=== PATIENT | male | born 1960 | race Hispanic/Latino ===

== ENCOUNTER 2024-02-18 12:30 | Inpatient (IN) | payer OTHER, SELFPAY ==
[2024-02-18] VITALS (38 sets, daily range): BP systolic 49–162; BP diastolic 30–114; BMI 35.7
--- NOTE | 2024-02-18 09:06 | ED.GENMED ---
History of Present Illness
<Susan Morse FINANCIAL INSTITUTION VICE PRESIDENT - Last Filed: 02/18/24 15:47>
General
Chief Complaint: Change in Mental Status
Source: ambulance crew and senior living
Exam Limitations: altered mental status
Time Seen by Provider: 02/18/24 08:58
Nursing documentation reviewed up to this point in time: agreed with
History of Present Illness
History of Present Illness:
64 yo male from [facility] w h/o CVA w residual L side weakness, HTN, Cirrhosis, GERD, Indwelling Padron Catheter, presents for seizure activity per EMS per staff at [place]. EMS noted left arm twitches, no general seizure activity.
Patient is obtunded and not responding to verbal commands. Does withdraw arm with needle stick.
Spoke with LUZ Leal who states he has had a total change in mental state, he was not speaking this morning as usual, he was making some 'random motions with his arms' 'did not quite look like a seizure but it was unusual for him.' Normally alert
and oriented x 3.
Recent UTI on Bactrim 400/80, 1/2 tablet 3 times a week for prophylaxis on 02/13 increased to Bactrim DS 1 twice daily for UTI
Last seen normal last p.m.
He's not very talkative at baseline. Elvis saw him yesterday and he was his normal self. No reported falls. He is mostly in bed, non ambulatory, uses wheelchair
PT IS FULL CODE. Elvis states he has no family, has a guardian he will notify.
Past History
<Susan Morse FINANCIAL INSTITUTION VICE PRESIDENT - Last Filed: 02/18/24 15:47>
Past History
ED Past Medical History: GERD, Renal failure, Psychiatric (Depression), Other (T6 paraplegia ) and Other (Paraplegia with chronic neurogenic bladder and indwelling Padron, chronic thrombocytopenia, cirrhosis)
ED Past Surgical History: Bowel resection and Other (Left pneumonectomy)
Social History
Tobacco: Former smoker
Alcohol: None
Drug: None
Personal: Single
Living: senior living
Review of Systems
<Susan Morse FINANCIAL INSTITUTION VICE PRESIDENT - Last Filed: 02/18/24 15:47>
Review of Systems
Allergies reviewed?: Yes
Unable to obtain full review of systems at this time due to: due to acuity
Other source history: senior living and ambulance crew
All Other Systems: ROS reviewed and negative except as documented in HPI and ROS
Constitutional: Reports other (hypothermic)
ABD/GI: Denies vomiting or diarrhea
Musculoskeletal: Denies edema
Skin: Reports other (pale extremities cool to touch)
Neurological: Reports other (obtunded)
Phy Exam
<Susan Morse, FINANCIAL INSTITUTION VICE PRESIDENT - Last Filed: 02/18/24 15:47>
Physical Exam
Physical Exam:
GENERAL/Constitutional: Obtunded, not following commands, morbidly obese, hypothermic
EYES: Clear, PERRL, nonicteric, examiner has to hold eyelids open, pt not focusing
Head: NC/AT
ENMT: TM's normal, moist mucus membranes
Neck: Supple
CARDIAC: Regular rate and rhythm. No murmur or gallop.
RESPIRATORY: Breathing is regular nonlabored. No cough. Lungs clear with good air movement throughout. No wheezes rales or rhonchi. Mildly snoring respirations. Pulse ox 95% RA
GI: Soft, nontender. Normal BS.
MUSCULOSKELETAL: No edema
EXTREMITIES: Cool to touch
SKIN: Cool and dry.
PSYCH:Obtunded
NEUROLOGIC: Obtunded. Not responding to commands. Mild withdrawal of arm to needlestick. Opens eye intermittently for few seconds, not focusing. No tremors or abnormal movements noted.
Course
<Susan Morse, FINANCIAL INSTITUTION VICE PRESIDENT - Last Filed: 02/18/24 15:47>
Orders/Labs/Results
Orders:
Orders
02/18/24 09:10
EKG [Electrocardiogram (*1)] Urgent
Reason for Study: Abdominal Pain
02/18/24 09:12
CT Head W/o Iv Contrast Urgent
Comment:
Reason For Exam: change in mental state
02/18/24 09:16
EKG- Treatment ONCE
CR Chest Portable - 1 View Urgent
Comment:
Reason For Exam: unstable
Reason Study Needs to be Portable: Patient Unstable
02/18/24 09:23
0.9% Sodium Chloride 1000 ml [Nss] 2,000 ml IV NOW STA
02/18/24 09:24
ABG [Arterial Blood Gas] Urgent
%Oxygen/Room Air: Room
Ammonia Urgent
COVID-19 Antigen Urgent
Source: Nasal Swab
Complete Blood Count/With Diff Urgent
Comprehensive Metabolic Panel Urgent
Cortisol, Random Urgent
Comment: ADD
Magnesium Urgent
Comment: ADD
Procalcitonin Urgent
PCT Algorithmm Indication: Sepsis
TSH Urgent
Comment: ADD
Blood Culture Urgent
SAGRARIO Source: Blood/Venous
Specimen Description:
02/18/24 09:[address] Non Medication Order As Directed
Physician Order: Bear Hugger warmer
Above order entered?: Yes
02/18/24 09:34
Urinalysis Reflex To Culture Urgent
Date Specimen was Collected: 02/18/24
Time Specimen was Collected: 09:23
Urine Microscopic Reflex Cult Urgent
Urine Culture Urgent
SAGRARIO Source: U
Specimen Description:
Obtained by: Random
Date Specimen was Collected: 02/18/24
Time Specimen was Collected: 09:23
02/18/24 10:20
Lactic Acid Urgent
02/18/24 10:26
NORepinephrine 4 MG/250 ML [Levophed] 4 mg in 250 ml .ROUTE .STK-MED
02/18/24 10:29
NORepinephrine 4 MG/250 ML [Levophed] 4 mg in 250 ml IV NOW
Initial dose in mcg/min, then titrate:: 5
Titrate to keep:: MAP > 65 mmHg
Titrate by mcg/min:: 1-2 mcg/min
Frequency of titrations (minutes):: 5
Maximum dose in ICU in mcg/min:: 30
Maximum dose in IMU in mcg/min:: 8
Maximum dose in IVU in mcg/min:: 4
Begin to taper infusion when:: Remained at goal for 4hrs
Taper by mcg/min:: 1-2 mcg/min
Frequency of taper (minutes) if patient maintains goal:: 30
Taper to off?: Yes
If infusion off & no longer maintaining goal:: Contact Provider
02/18/24 10:37
Piperacillin/Tazo 3.375 Gram [Zosyn] 3.375 gram in 50 ml IV NOW
02/18/24 11:02
Lorazepam [Ativan] 0.5 mg IM NOW STA
Lorazepam [Ativan] 2 mg .ROUTE .STK-MED ONE
02/18/24 11:05
Fentanyl Citrate/Pf [Sublimaze] 100 mcg .ROUTE .STK-MED ONE
Fentanyl Citrate/Pf [Sublimaze] 100 mcg IV NOW STA
02/18/24 11:07
CT Abd/pel Without Iv Or Oral Urgent
Comment:
Reason For Exam: flank pain
02/18/24 12:02
Admit/Transfer Patient As Directed
Co-Sign Provider:
Level of Care: Inpatient admission
Assign to:: ICU
Physician / Group: Lona
Diagnosis: Sepsis
Reason for Hospitalization: Above
Expected length of stay greater than two midnights?: Yes
ELOS- Estimated Length of Stay in days: 4
I certify the patient meets the requirements for IP care: Yes
PRN Pain Medication Management As Directed
May give lesser potent ordered pain med per pt: Yes
preference::
Protocol:: Medication orders for pain may be administered in a
manner that supports deferring to patient preference
when the pt is:
- Requesting an ordered lesser potent pain medication.
Least to most potent pain medications are defined
as: acetaminophen < NSAID < tramadol < opioids
(morphine, oxycodone, hydromorphone).
- Requesting a lesser dose of the same medication IF
ORDERED.
- Requesting a less intrusive route of administration
if both routes are prescribed by the provider (PO <
IV).
02/18/24 12:05
Morphine Sulfate 2 mg IV NOW STA
02/18/24 12:07
Code Status As Directed
Resuscitation Status: Full Code
02/18/24 12:56
0.9% Sodium Chloride 1000 ml [Nss] 1,000 ml IV 150 mls/hr
Acetaminophen [Tylenol] 325 mg PO Q6HPRN PRN
Albuterol [ProAIR HFA INHALER] 2 puff INH R Q4HPRN PRN
Bisacodyl [Dulcolax] 10 mg RECTAL DAILYPRN PRN
HydrOXYZINE [Atarax] 25 mg PO Q6HPRN PRN
NORepinephrine 4 MG/250 ML [Levophed] 4 mg in 250 ml IV PER PROTOCOL
Currently infusing. Continue current dose and titrate:: Yes
Titrate to keep:: MAP > 65 mmHg
Titrate by mcg/min:: 1-2 mcg/min
Frequency of titrations (minutes):: 5
Maximum dose in ICU in mcg/min:: 30
Maximum dose in IMU in mcg/min:: 8
Maximum dose in IVU in mcg/min:: 4
Begin to taper infusion when:: Remained at goal for 4hrs
Taper by mcg/min:: 1-2 mcg/min
Frequency of taper (minutes) if patient maintains goal:: 30
Taper to off?: Yes
If infusion off & no longer maintaining goal:: Contact Provider
Phosphate Enema [Fleet Phosphate Enema-Adult] 118 ml RECTAL DAILYPRN PRN
Sorbitol Solution [Sorbitol 70% Solution] 30 ml PO [id number] PRN
02/18/24 12:56
Add On- LAB Routine
Tests Added?: Serum cortisole, TSH
INFECTIOUS DISEASE CONSULT Routine
Consulting Provider: Susanna Padgett
Was physician already notified: Yes
Regulatory Affairs Strategy Specialist Consult Routine
Consulting Provider: Trav Velasco
Was physician already notified: Yes
UROLOGY CONSULT Routine
Consulting Provider: Alli Nicholas
Was physician already notified: Yes
DX Deep Vein Thrombosis Video Routine
02/18/24 16:00
Heparin 5,000 units SC Q8
02/18/24 18:00
Calcium Polycarbophil [Fibercon] 1,250 mg PO QPM
Piperacillin/Tazo 2.25 Gram [Zosyn] 2.25 grams in 50 ml IV Q6
02/18/24 20:00
Baclofen [Lioresal] 10 mg PO BID
Guaifenesin [Mucinex] 600 mg PO BID
02/18/24 22:00
Baclofen [Lioresal] 20 mg PO HS
Melatonin 3 mg PO HS
Pregabalin [Lyrica] 100 mg PO HS
02/19/24 04:33
CBC/With Diff [Complete Blood Count/With Diff] IN AM
CMP [Comprehensive Metabolic Panel] IN AM
02/19/24 08:00
Docusate Sodium [Colace] 100 mg PO DAILY
Escitalopram Oxalate [Lexapro] 10 mg PO DAILY
FOLic ACID [Folvite] 1 mg PO DAILY
Famotidine [Pepcid] 10 mg PO DAILY
Multivitamin [Theragran] 1 tablet PO DAILY
Polyethylene Glycol Powder [Miralax] 17 grams PO DAILY
Thiamine HCl [Vitamin B1] 100 mg PO DAILY
Abnormal Lab Results
02/18/24 02/18/24
09:34
RBC 4.53 L 10^6/uL
(4.70-6.10)
Hgb 12.6 L g/dL
(13.0-18.0)
Hct 36.9 L %
(39.0-52.0)
Plt Count 68 L 10^3/uL
(130-400)
MPV 11.6 H fL
(7.4-10.4)
Abs Immat Gran (auto) 0.1 H 10^3/uL
(0-0.05)
Absolute Neuts (auto) 6.6 H 10^3/uL
(1.4-6.5)
Absolute Monos (auto) 1.6 H 10^3/uL
(0.1-0.6)
Immature Gran % 1.2 H %
(0-0.5)
Lymphocytes % 17.1 L %
(20.5-51.1)
Monocytes % 15.7 H %
(1.7-9.3)
pH 7.34 L
(7.35-7.45)
pCO2 34 L mmHg
(35-48)
HCO3 18.3 L mmol/L
(21-28)
ABG O2 Sat (Measured) 98.9 H %
(94-98)
Chloride 109 H mmol/L
(98-107)
Carbon Dioxide 19 L mmol/L
(22-30)
BUN 68 H mg/dl
(9-20)
Creatinine 3.1 H mg/dL
(0.7-1.3)
Magnesium 2.8 H mg/dl
(1.6-2.3)
Ammonia < 9 L umol/L
(9-30)
Albumin 3.1 L g/dl
(3.5-5.0)
Procalcitonin 1.15 H ng/ml
(0.0-0.25)
Ur Occult Blood Reflex 4+ A
(Negative)
Urine Bilirubin 1+ A
(Negative)
Urine Urobilinogen 2+ A
(Neg - 1+)
Leukocyte Esterase Rfl 2+ A
(Negative)
Urine RBC 21-25 A /HPF
(0-2)
Urine WBC (Reflex) 60-70 A /HPF
(0-5)
Urine Bacteria (Reflex) Many A
(Negative)
Urine Albumin (Reflex) 1+ A
(Neg - Trace)
02/18/24 09:24
02/18/24 09:24
Vital Signs
Initial and Last Documented VS:
Initial Vital Signs
BP
95/72
02/18/24 09:01
Last Documented Vital Signs
Temp Pulse Resp BP Pulse Ox
98.5 F 71 12 107/89 97
02/19/24 23:18 02/19/24 23:45 02/19/24 23:45 02/19/24 13:39 02/19/24 23:45
<Dewayne Sandoval MD - Last Filed: 02/20/24 06:05>
Orders/Labs/Results
Orders:
Orders
02/18/24 09:10
EKG [Electrocardiogram (*1)] Urgent
Reason for Study: Abdominal Pain
02/18/24 09:12
CT Head W/o Iv Contrast Urgent
Comment:
Reason For Exam: change in mental state
02/18/24 09:16
EKG- Treatment ONCE
CR Chest Portable - 1 View Urgent
Comment:
Reason For Exam: unstable
Reason Study Needs to be Portable: Patient Unstable
02/18/24 09:23
0.9% Sodium Chloride 1000 ml [Nss] 2,000 ml IV NOW STA
02/18/24 09:24
ABG [Arterial Blood Gas] Urgent
%Oxygen/Room Air: Room
Ammonia Urgent
COVID-19 Antigen Urgent
Source: Nasal Swab
Complete Blood Count/With Diff Urgent
Comprehensive Metabolic Panel Urgent
Cortisol, Random Urgent
Comment: ADD
Magnesium Urgent
Comment: ADD
Procalcitonin Urgent
PCT Algorithmm Indication: Sepsis
TSH Urgent
Comment: ADD
Blood Culture Urgent
SAGRARIO Source: Blood/Venous
Specimen Description:
02/18/24 09:[address] Non Medication Order As Directed
Physician Order: Bear Hugger warmer
Above order entered?: Yes
02/18/24 09:34
Urinalysis Reflex To Culture Urgent
Date Specimen was Collected: 02/18/24
Time Specimen was Collected: 09:23
Urine Microscopic Reflex Cult Urgent
Urine Culture Urgent
SAGRARIO Source: U
Specimen Description:
Obtained by: Random
Date Specimen was Collected: 02/18/24
Time Specimen was Collected: 09:23
02/18/24 10:20
Lactic Acid Urgent
02/18/24 10:26
NORepinephrine 4 MG/250 ML [Levophed] 4 mg in 250 ml .ROUTE .STK-MED
02/18/24 10:29
NORepinephrine 4 MG/250 ML [Levophed] 4 mg in 250 ml IV NOW
Initial dose in mcg/min, then titrate:: 5
Titrate to keep:: MAP > 65 mmHg
Titrate by mcg/min:: 1-2 mcg/min
Frequency of titrations (minutes):: 5
Maximum dose in ICU in mcg/min:: 30
Maximum dose in IMU in mcg/min:: 8
Maximum dose in IVU in mcg/min:: 4
Begin to taper infusion when:: Remained at goal for 4hrs
Taper by mcg/min:: 1-2 mcg/min
Frequency of taper (minutes) if patient maintains goal:: 30
Taper to off?: Yes
If infusion off & no longer maintaining goal:: Contact Provider
02/18/24 10:37
Piperacillin/Tazo 3.375 Gram [Zosyn] 3.375 gram in 50 ml IV NOW
02/18/24 11:02
Lorazepam [Ativan] 0.5 mg IM NOW STA
Lorazepam [Ativan] 2 mg .ROUTE .STK-MED ONE
02/18/24 11:05
Fentanyl Citrate/Pf [Sublimaze] 100 mcg .ROUTE .STK-MED ONE
Fentanyl Citrate/Pf [Sublimaze] 100 mcg IV NOW STA
02/18/24 11:07
CT Abd/pel Without Iv Or Oral Urgent
Comment:
Reason For Exam: flank pain
02/18/24 12:02
Admit/Transfer Patient As Directed
Co-Sign Provider:
Level of Care: Inpatient admission
Assign to:: ICU
Physician / Group: Lona
Diagnosis: Sepsis
Reason for Hospitalization: Above
Expected length of stay greater than two midnights?: Yes
ELOS- Estimated Length of Stay in days: 4
I certify the patient meets the requirements for IP care: Yes
PRN Pain Medication Management As Directed
May give lesser potent ordered pain med per pt: Yes
preference::
Protocol:: Medication orders for pain may be administered in a
manner that supports deferring to patient preference
when the pt is:
- Requesting an ordered lesser potent pain medication.
Least to most potent pain medications are defined
as: acetaminophen < NSAID < tramadol < opioids
(morphine, oxycodone, hydromorphone).
- Requesting a lesser dose of the same medication IF
ORDERED.
- Requesting a less intrusive route of administration
if both routes are prescribed by the provider (PO <
IV).
02/18/24 12:05
Morphine Sulfate 2 mg IV NOW STA
02/18/24 12:07
Code Status As Directed
Resuscitation Status: Full Code
02/18/24 12:56
0.9% Sodium Chloride 1000 ml [Nss] 1,000 ml IV 150 mls/hr
Acetaminophen [Tylenol] 325 mg PO Q6HPRN PRN
Albuterol [ProAIR HFA INHALER] 2 puff INH R Q4HPRN PRN
Bisacodyl [Dulcolax] 10 mg RECTAL DAILYPRN PRN
HydrOXYZINE [Atarax] 25 mg PO Q6HPRN PRN
NORepinephrine 4 MG/250 ML [Levophed] 4 mg in 250 ml IV PER PROTOCOL
Currently infusing. Continue current dose and titrate:: Yes
Titrate to keep:: MAP > 65 mmHg
Titrate by mcg/min:: 1-2 mcg/min
Frequency of titrations (minutes):: 5
Maximum dose in ICU in mcg/min:: 30
Maximum dose in IMU in mcg/min:: 8
Maximum dose in IVU in mcg/min:: 4
Begin to taper infusion when:: Remained at goal for 4hrs
Taper by mcg/min:: 1-2 mcg/min
Frequency of taper (minutes) if patient maintains goal:: 30
Taper to off?: Yes
If infusion off & no longer maintaining goal:: Contact Provider
Phosphate Enema [Fleet Phosphate Enema-Adult] 118 ml RECTAL DAILYPRN PRN
Sorbitol Solution [Sorbitol 70% Solution] 30 ml PO [id number] PRN
02/18/24 12:56
Add On- LAB Routine
Tests Added?: Serum cortisole, TSH
INFECTIOUS DISEASE CONSULT Routine
Consulting Provider: Susanna Padgett
Was physician already notified: Yes
Regulatory Affairs Strategy Specialist Consult Routine
Consulting Provider: Trav Velasco
Was physician already notified: Yes
UROLOGY CONSULT Routine
Consulting Provider: Alli Nicholas
Was physician already notified: Yes
DX Deep Vein Thrombosis Video Routine
02/18/24 16:00
Heparin 5,000 units SC Q8
02/18/24 18:00
Calcium Polycarbophil [Fibercon] 1,250 mg PO QPM
Piperacillin/Tazo 2.25 Gram [Zosyn] 2.25 grams in 50 ml IV Q6
02/18/24 20:00
Baclofen [Lioresal] 10 mg PO BID
Guaifenesin [Mucinex] 600 mg PO BID
02/18/24 22:00
Baclofen [Lioresal] 20 mg PO HS
Melatonin 3 mg PO HS
Pregabalin [Lyrica] 100 mg PO HS
02/19/24 04:33
CBC/With Diff [Complete Blood Count/With Diff] IN AM
CMP [Comprehensive Metabolic Panel] IN AM
02/19/24 08:00
Docusate Sodium [Colace] 100 mg PO DAILY
Escitalopram Oxalate [Lexapro] 10 mg PO DAILY
FOLic ACID [Folvite] 1 mg PO DAILY
Famotidine [Pepcid] 10 mg PO DAILY
Multivitamin [Theragran] 1 tablet PO DAILY
Polyethylene Glycol Powder [Miralax] 17 grams PO DAILY
Thiamine HCl [Vitamin B1] 100 mg PO DAILY
Abnormal Lab Results
02/18/24 02/18/24
09:34
RBC 4.53 L 10^6/uL
(4.70-6.10)
Hgb 12.6 L g/dL
(13.0-18.0)
Hct 36.9 L %
(39.0-52.0)
Plt Count 68 L 10^3/uL
(130-400)
MPV 11.6 H fL
(7.4-10.4)
Abs Immat Gran (auto) 0.1 H 10^3/uL
(0-0.05)
Absolute Neuts (auto) 6.6 H 10^3/uL
(1.4-6.5)
Absolute Monos (auto) 1.6 H 10^3/uL
(0.1-0.6)
Immature Gran % 1.2 H %
(0-0.5)
Lymphocytes % 17.1 L %
(20.5-51.1)
Monocytes % 15.7 H %
(1.7-9.3)
pH 7.34 L
(7.35-7.45)
pCO2 34 L mmHg
(35-48)
HCO3 18.3 L mmol/L
(21-28)
ABG O2 Sat (Measured) 98.9 H %
(94-98)
Chloride 109 H mmol/L
(98-107)
Carbon Dioxide 19 L mmol/L
(22-30)
BUN 68 H mg/dl
(9-20)
Creatinine 3.1 H mg/dL
(0.7-1.3)
Magnesium 2.8 H mg/dl
(1.6-2.3)
Ammonia < 9 L umol/L
(9-30)
Albumin 3.1 L g/dl
(3.5-5.0)
Procalcitonin 1.15 H ng/ml
(0.0-0.25)
Ur Occult Blood Reflex 4+ A
(Negative)
Urine Bilirubin 1+ A
(Negative)
Urine Urobilinogen 2+ A
(Neg - 1+)
Leukocyte Esterase Rfl 2+ A
(Negative)
Urine RBC 21-25 A /HPF
(0-2)
Urine WBC (Reflex) 60-70 A /HPF
(0-5)
Urine Bacteria (Reflex) Many A
(Negative)
Urine Albumin (Reflex) 1+ A
(Neg - Trace)
02/18/24 09:24
02/18/24 09:24
Vital Signs
Initial and Last Documented VS:
Initial Vital Signs
BP
95/72
02/18/24 09:01
Last Documented Vital Signs
Temp Pulse Resp BP Pulse Ox
98.5 F 71 12 107/89 97
02/19/24 23:18 02/19/24 23:45 02/19/24 23:45 02/19/24 13:39 02/19/24 23:45
<Susan Morse FINANCIAL INSTITUTION VICE PRESIDENT - Last Filed: 02/18/24 15:47>
MDM/Problems Addressed
Differential Diagnosis Includes:
Post ictal state, CVA, INH, sepsis/SIRS
MDM/Problems Addressed:
64 yo male from [facility] w h/o CVA w residual L side weakness, HTN, Cirrhosis, GERD, Indwelling Padron catheter, presents for seizure activity per EMS per staff at [place]. EMS noted left arm twitches, no general seizure activity.
Patient is obtunded and not responding to verbal commands. Does withdraw arm with needle stick.
Spoke with LUZ Leal who states he has had a total change in mental state, he was not speaking this morning as usual, he was making some 'random motions with his arms' 'did not quite look like a seizure but it was unusual for him.' Normally alert
and oriented x 3.
Recent UTI on Bactrim 400/80, 1/2 tablet 3 times a week for prophylaxis on 02/13 increased to Bactrim DS 1 twice daily for UTI
Last seen normal last p.m.
He's not very talkative at baseline. Elvis saw him yesterday and he was his normal self. No reported falls. He is mostly in bed, non ambulatory, uses wheelchair
PT IS FULL CODE. Elvis states he has no family, has a guardian he will notify.
Temp 94.8 R, Pulse ox 95% RA, BP 95/72 HR 63 RR 12. No seizure activity noted
Morbidly obese, hypothermic, obtunded male , skin cold, intermittent eye opening, not focusing on speaker, withdraws from painful stimuli
Case discussed with Dr. Sandoval who agrees with plan
9:30 a.m. IV team in for venous access
10:15
after unsuccessful attempts at peripheral IV, IV team inserted R midline
BP 66/[address] Sandoval at bedside, Norepinephrine drip started. IVF's infusing
10:40 a.m.BP 74/63. Pt opening eyes, states his first name when asked, then drifts back to sleep
Zosyn IV ordered for presumptive UTI
10:50 Hospitalist notified of admission
BP 96/49 on Levophed, IVF's infusing
Pt more awake, admits to abdominal/flank pain, CT abd w/o IV or oral contrast
11:[address] Levine at bedside
CT scan result back: 7.5 mm prox ureteral stone
12:[address] Nicholas, Urology consulted for 7.5 mm prox ureteral stone, sepsis, he states he will be here ROSA.
BP 142/75 HR 140 pt complaining of pain, Morphine 2 mg IV ordered
<Susan Morse FINANCIAL INSTITUTION VICE PRESIDENT - Last Filed: 02/18/24 15:47>
*Critical Care Note
Total Time (30-74mins, 75-104mins- exclusive of procedures): Not Applicable
ED Attending Note
<Susan Morse FINANCIAL INSTITUTION VICE PRESIDENT - Last Filed: 02/18/24 15:47>
-
Portions of this chart may have been created with voice recognition software.� Occasional wrong word or��sound alike� substitutions may have occurred due to the inherent limitations of voice recognition software.
<Dewayne Sandoval MD - Last Filed: 02/20/24 06:05>
ED Attending Note
Patient seen and examined by attending physician: Yes
ED Attending Note:
Patient with history of paraplegia, presents to ED from senior living secondary to mental status change noted this morning along with 'seizure-like' activity. Upon arrival, patient is somnolent, but arousable to physical stimuli. Patient found to
be severely hypotensive and hypothermic. Unable to obtain any further information at this time.
Physical Exam
General: mild distress, acutely ill. hypothermic. obese
Head: nc/at.
Neck: supple.
Heart: s1/s2 regular rate and rhythm, no murmur. equal radial pulses.
Lungs: no acute respiratory distress. clear bilaterally
Abdomen: normal bowel sounds. not tender.
Neuro: somnolent but arousable to loud voice and physical stimuli.
Skin: no rash
Extremities: LE b/l edema. nonpitting.
Midline peripheral IV started by IV team.
History, exam, and clinical presentation concerning for septic shock secondary to recurrent UTI. Patient severely hypotensive despite initiation of IV fluids. As such, Levophed infusion started. Patient remains arousable. Patient started on
Zosyn. Urine culture and blood culture pending. Patient will be admitted to ICU.
CT abdomen/pelvis report reviewed and discussed with on-call urology, Dr. Nicholas.
Critical care statement: A total of 60 minutes of critical care time was provided for this patient. This includes management of unstable vital signs, evaluation of the patient at bedside, reviewing the patient's pertinent medical records, discussed
with benefits sales consultant, review of old EKGs and review of pertinent medical records. This time with separate from time utilized to perform the aforementioned documented procedures
Discharge Plan
Departure
Patient Disposition: Admit
Date of Disposition: 02/18/24
Time of Disposition: 10:50
Admit to: ICU
Presentation/result/management discussed w/ accepting MD/DO: Hospitalist
Condition: Critical
Discharge Problem:
Sepsis secondary to UTI
Interventions
Interventions:
*Risk Screen - Suicide Last Done: 02/18/24 13:25
*General Assessment Last Done: 02/18/24 09:50
*Neglect/Abuse Screening Last Done: 02/18/24 13:18
ED- Fall Risk Assessment Last Done: 02/18/24 13:18
*ED COVID-19 Vaccine History Last Done: 02/18/24 09:50
*Nursing Disposition Last Done: 02/18/24 13:18
ED- Pulmonary Assessment Last Done: 02/18/24 09:54
ED-Psychological Assessment Last Done: 02/18/24 13:18
ED- Neurological Assessment Last Done: 02/18/24 13:18
ED- Cardiac Assessment Last Done: 02/18/24 13:21
ED Swallowing Screen Last Done: 02/18/24 13:21
Discharge Date and Time
Discharge Date/Time: 02/18/24 13:22
[2024-02-18 10:14] LABS: Urine Albumin 1+ (Neg - Trace); Urine Bilirubin 1+ (Negative); Urine Character Very Cloudy (Clear); Urine Color Yellow; Urine Glucose Negative (Negative); Urine Ketone Negative (Negative); Urine Leukocyte 2+ (Negative); Urine Nitrite Negative (Negative); Urine Occult Blood 4+ (Negative); Urine Urobilinogen 2+ (Neg - 1+)
[2024-02-18] MEDS: NSS 2000 ML IV (10:22)
[2024-02-18 10:26] LABS: Hematocrit 36.9 % (39.0-52.0); Hemoglobin 12.6 g/dL (13.0-18.0); Mean Corp Hgb Conc. 34.1 g/dL (33.0-37.0); Mean Corpuscular Hgb 27.8 pg (27.0-31.0); Mean Corpuscular Volume 81.5 fL (80.0-94.0); Red Blood Cell Count 4.53 10^6/uL (4.70-6.10); Red Cell Dist. Width 14.4 % (11.5-14.5); White Blood Cell Count 10.4 10^3/uL (4.8-10.8)
[2024-02-18 10:27] LABS: Urine Triple Phosphate Crystal Present
[2024-02-18 10:28] LABS: Urine Bacteria Many (Negative); Urine White Cell Cast 0-2 /LPF
[2024-02-18 10:29] LABS: Urine Red Blood Cell 21-25 /HPF (0-2); Urine White Cell 60-70 /HPF (0-5)
[2024-02-18 10:30] LABS: Procalcitonin 1.15 ng/ml (0.0-0.25)
[2024-02-18] MEDS: LEVOPHED 250 IV ×3 (10:30→20:30)
[2024-02-18 10:35] LABS: COVID-19 Antigen Negative (Negative)
[2024-02-18 10:42] LABS: B.E. -6.6 mmol/L; HCO3 18.3 mmol/L (21-28); O2 Saturation % 98.9 % (94-98); PCO2 34 mmHg (35-48); PO2 93 mmHg (83-108); pH 7.34 (7.35-7.45)
[2024-02-18 10:56] LABS: Lactic Acid 1.5 mmol/L (0.7-2.0)
[2024-02-18 10:56] LABS: Ammonia < 9 umol/L (9-30)
[2024-02-18 11:00] LABS: % Basophils 0.2 % (0-2); % Eosinophils 1.9 % (0-6); % Immature Granulocytes 1.2 % (0-0.5); % Lymphocytes 17.1 % (20.5-51.1); % Monocytes 15.7 % (1.7-9.3); % Neutrophils 63.9 % (42.2-75.2); Absolute Eosinophils 0.2 10^3/uL (0-0.7); Absolute Immature Granulocytes 0.1 10^3/uL (0-0.05); Absolute Lymphocytes 1.8 10^3/uL (1.2-3.4); Absolute Monocytes 1.6 10^3/uL (0.1-0.6); Absolute Neutrophils 6.6 10^3/uL (1.4-6.5); Nucleated Red Blood Cells % 0.2 % (-)
[2024-02-18 11:01] LABS: Mean Platelet Volume 11.6 fL (7.4-10.4); Platelet Count 68 10^3/uL (130-400)
[2024-02-18] MEDS: ATIVAN 0.5 MG IM (11:03)
[2024-02-18] MEDS: SUBLIMAZE 100 MCG IV (11:06)
[2024-02-18 11:11] LABS: ALT (SGPT) 50 U/L (0-50); AST (SGOT) 48 U/L (17-59); Albumin 3.1 g/dl (3.5-5.0); Alkaline Phosphatase 123 U/L (38-126); Blood Urea Nitrogen 68 mg/dl (9-20); Calcium 8.4 mg/dl (8.4-10.2); Carbon Dioxide 19 mmol/L (22-30); Chloride 109 mmol/L (98-107); Glucose 92 mg/dl (70-99); Potassium 4.3 mmol/L (3.5-5.1); Sodium 141 mmol/L (135-145); Total Bilirubin 1.2 mg/dl (0.2-1.3); Total Protein 6.8 g/dl (6.3-8.2); eGFR 21.76
[2024-02-18] MEDS: ZOSYN 50 IV ×2 (11:40→18:11)
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
[2024-02-18] MEDS: MORPHINE SULFATE 2 MG IV (12:27)
--- NOTE | 2024-02-18 13:05 | CONS.URO ---
Addendum entered and electronically signed by Alli Nicholas MD 02/18/24 15:55:
Due to altered mental status patient was unable to consent to the procedure
I attempted to contact his guardian Yaritza Sun at provided number and did not receive an answer
Due to critical emergency nature of patient's condition, he was taken to the OR without written consent
Original Note:
Consultation
-
Performing Provider: Cristopher
Reason for Consultation: Sepsis, R ureteral stone
Medical History
History of Present Illness
64M hx T7 paraplegia who presents from alf with acutely altered mental status initially unresponsiveness later agitation.
While in ED patient noted to be in severe distress, with sinus tachycardia and hypothermia.
Additional reports from nursing facility the patient has been treated for urinary tract infection with Bactrim.
Patient does have chronic indwelling Barcenas catheter. He is most recent hospitalization was with sepsis and complicated urinary tract infection with E. coli.
No stones were seen at that time
UA on admission positive for UTI
CTAP showed right ureteral stone with mild hydro
Patient was given IV fluid bolus, initiated IV antibiotics
Urology consulted for stone management
Past Medical History
Past Medical History: Other (GERD, Renal failure, Psychiatric (Depression), Other (T6 paraplegia ) and Other (Paraplegia with chronic neurogenic bladder and indwelling Barcenas, chronic thrombocytopenia, cirrhosis))
Social History
Tobacco: Non-smoker
Alcohol: None
Drug: None
Living: Long Term
Family History
Family History: Reviewed & Not Pertinent
Allergies/Home Medications
Allergies
Allergy/AdvReac Type Severity Reaction Status Date / Time
ofloxacin Allergy Unknown/pt Verified 06/24/23 11:53
tolerated
cipro
pentazocine Allergy Unknown Verified 04/09/23 12:27
Home Medications
�Medication �Instructions �Recorded �Confirmed �Type
acetaminophen 325 mg tablet 325 mg PO Q6HPRN PRN mild 04/25/22 02/18/24 History
(Tylenol) pain/fever
baclofen 10 mg tablet 10 mg PO BID spasms 04/25/22 02/18/24 History
baclofen 20 mg tablet 20 mg PO HS spasm 04/25/22 02/18/24 History
bisacodyl 10 mg rectal suppository 10 mg CO DAILYPRN PRN if no bm 04/25/22 02/18/24 History
(Dulcolax (bisacodyl)) aftr mom
calcium polycarbophil 625 mg 1,250 mg PO QPM Supplement 04/25/22 02/18/24 History
tablet (FiberCon)
escitalopram oxalate 10 mg tablet 10 mg PO DAILY Mental 04/25/22 02/18/24 History
(Lexapro) Health/Anxiety
famotidine 20 mg tablet (Pepcid) 20 mg PO DAILY Gastrointestinal 04/25/22 02/18/24 History
issue
folic acid 1 mg tablet 1 mg PO DAILY Supplement 04/25/22 02/18/24 History
melatonin 3 mg tablet 3 mg PO HS Sleep 04/25/22 02/18/24 History
sorbitol 70 % solution 30 ml PO [id number] PRN if no bm on 04/25/22 02/18/24 History
3rd day
therapeutic multivitamin 1 tab PO DAILY Supplement 04/25/22 02/18/24 History
thiamine HCl (vitamin B1) 100 mg 100 mg PO DAILY Supplement 04/25/22 02/18/24 History
tablet
polyethylene glycol 3350 17 gram 17 g PO DAILY #0 ea 04/29/22 02/18/24 Rx
oral powder packet
clindamycin phosphate 1 % lotion 1 applic topical DAILY back 06/20/23 02/18/24 History
sodium phosphates 19 gram-7 118 ml CO DAILYPRN PRN if no bm 06/20/23 02/18/24 History
gram/118 mL enema (Fleet Enema) aftr dulcolax
metoprolol tartrate 25 mg tablet 12.5 mg (1/2 x 25 mg) PO BID Blood 06/24/23 02/18/24 Rx
pressure #0 tabs
albuterol sulfate 90 mcg/actuation 2 puff inhalation R Q4HPRN PRN sob 02/18/24 02/18/24 History
aerosol inhaler
cranberry fruit 450 mg tablet 450 mg PO DAILY 02/18/24 02/18/24 History
(cranberry)
docusate sodium 100 mg capsule 100 mg PO DAILY 02/18/24 02/18/24 History
(Colace)
guaifenesin 400 mg tablet 800 mg PO BID 02/18/24 02/18/24 History
hydroxyzine HCl 25 mg tablet 25 mg PO Q6HPRN PRN itchness 02/18/24 02/18/24 History
pregabalin 100 mg capsule (Lyrica) 100 mg PO HS 02/18/24 02/18/24 History
sulfamethoxazole 800 1 tab PO BID 02/18/24 02/18/24 History
mg-trimethoprim 160 mg tablet
(Bactrim DS)
Physical Exam
Vital Signs
Vital Signs
Temp Pulse Resp BP Pulse Ox
95.9 F L 137 19 123/85 93
02/18/24 11:37 02/18/24 12:30 02/18/24 12:30 02/18/24 12:20 02/18/24 11:47
Lab / Testing Results
Laboratory Results
02/18/24 09:24
02/18/24 09:24
Physical Exam
General: No Apparent Distress
Respiratory: Clear and Non Labored Respirations
GI: Soft and Non Tender
Skin: Warm and Dry
Psych: Agitated
Assessment / Plan
-
64M with sepsis likely due to obstructing R ureteral stone
- OR emergently for R ureteral stent
- Abx and supportive care her ICU/hospitalist
- F/U urine and blood cx
- Maintain chronic indwelling barcenas catheter
Data Reviewed
-
CT Scan: Image personally visualized and interpreted
Lab Data: Labs Reviewed
--- NOTE | 2024-02-18 13:40 | PTCARENOTE ---
pt received from ED. pt awake moaning/ yelling with cares. arm tremors noted. levo gtt off. st seen on monitor. rectal temp 101.1. ivf started as ordered. OR called for pt report given pt now in OR.
[2024-02-18 13:44] LABS: Magnesium 2.8 mg/dl (1.6-2.3)
--- NOTE | 2024-02-18 14:10 | CON.ID ---
Consultation
-
Date/Time Consultation Requested: 02/18/24 12:56
Date/Time Consultation Performed: 02/18/24 14:10
Requesting Provider: Dr Zamorano
Performing Provider: Dr Padgett
Reason for Consultation: pyelonephritis
Chief Complaint / Past History
Chief Complaint
Altered mental status
History of Present Illness
Mr Adame is a 64 year old male, history is limited due to the condition of the patient and taken from chart review. Patient has history of t7 paraplegia, recently with diagnosis of CAUTI (unknown pathogen) treated with bactrim, presenting today
for AMS - initially nonresponsive, later with agitation. Staff reported L sided tonic-clonic episodes. In the ER sinus tachycardia, hypothermia and altered.
Since arrival here he was initially hypothermic to 94.8 now with rectal T 101.1 on bear hugger, bp initially hypotensive to 88/67 now 112/84 norepi started and max dose was 2.66 mcg/min now weaned off, wbc 10.4, hgb 12.6, plt 68 (chronic
thrombocytopenia noted), L shift present, cr 3.1 from 0.8, k 4.3, lactic acid 1.5, t bili 1.2, ast 48, alt 50, alk phos 123, procal 1.15, ua 21-25 rbc, wbc 60-70, covid ag neg, ct a/p without IV or oral: obstructing right ureteral calculus 7.5 mm,
fecal impaction, patient currently on zosyn, previous cultures reveal E coli sensitive to zosyn, providencia sensitive to zosyn, and and ESBL Proteus in 2021 sensitive to zosyn,
Past History
Additional Past Medical History:
Functional paraplegia, recurrent UTI, hypertension
Past Surgical History: Orthopedic
Allergy History:
ofloxacin Allergy (Verified 06/24/23 11:53)
Unknown/pt tolerated cipro
pentazocine Allergy (Verified 04/09/23 12:27)
Unknown
Medications Reviewed: Yes
Social History
Tobacco: Non-Smoker
Alcohol: None
Drug: None
Family History
Family History: Not Pertinent
Review of Systems
Review of Systems
unable to obtain full ros due to the condition of the patient
Vital Signs
Temp Pulse Resp BP Pulse Ox
101.1 F H 136 20 112/84 92
02/18/24 13:24 02/18/24 13:15 02/18/24 13:15 02/18/24 13:15 02/18/24 13:37
Physical Exam
Physical Exam
Constitutional: No Acute Distress
Cardiovascular: Regular Rate and S1/S2; Negative Murmur or Rub
Pulmonary: Clear and Symmetric; Negative Wheezes, Rales or Rhonchi
Gastrointestinal: Soft, Non Tender, Non Distended and Normal Bowel Sounds
Skin: Warm and Dry; Negative Rash or Jaundice
Lines: Other (barcenas with purulent urine)
Lab / Diagnostic Study Results
02/18/24 09:24
02/18/24 09:24
Abs Immat Gran (auto) 0.1 10^3/uL (0-0.05) H 02/18/24 09:24
Absolute Neuts (auto) 6.6 10^3/uL (1.4-6.5) H 02/18/24 09:24
Absolute Lymphs (auto) 1.8 10^3/uL (1.2-3.4) 02/18/24 09:24
Absolute Monos (auto) 1.6 10^3/uL (0.1-0.6) H 02/18/24 09:24
Absolute Basos (auto) 0.0 10^3/uL (0-0.2) 02/18/24 09:24
Immature Gran % 1.2 % (0-0.5) H 02/18/24 09:24
Neutrophils % 63.9 % (42.2-75.2) 09/11/24 09:24
Lymphocytes % 17.1 % (20.5-51.1) L 02/18/24 09:24
Monocytes % 15.7 % (1.7-9.3) H 02/18/24 09:24
Eosinophils % 1.9 % (0-6) 02/18/24 09:24
Basophils % 0.2 % (0-2) 02/18/24 09:24
Lactic Acid Cancelled 02/18/24 13:30
Procalcitonin 1.15 ng/ml (0.0-0.25) H 02/18/24 09:24
Microbiology Results
Micro:
02/18/24 09:24 Blood Culture - Pending
Blood/Venous
02/18/24 09:34 Urine Culture - Pending
Urine
Assessment / Plan
Pyelonephritis
Obstructing renal stone
Class II Obesity
Paraplegia
H/o colonization with ESBL Proteus
- procal not accurate with AVTAR - advise against repeating trending, it will not direct management
- purulent urine obtained when stent placed - send another culture of this urine as likely to have higher yield
- ua with pyuria
- single blood culture sent, as in shock will send second set; note that repeat blood cultures are not needed for gram negative bacteremia
- continue zosyn given prior colonization with ESBL - deescalate as able
Fecal Impaction
- has bowel regimen ordered
- follow for BM
[2024-02-18 14:22] LABS: TSH 1.12 uIU/ml (0.47-4.68)
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
[2024-02-18] MEDS: NSS 1000 IV ×3 (15:07→19:18)
[2024-02-18] MEDS: TYLENOL/FEVERALL 325 MG RECTAL (15:30)
[2024-02-18] MEDS: HEPARIN 5000 UNITS SC (15:30)
[2024-02-18] MEDS: SUBLIMAZE 50 MCG IV (15:30)
[2024-02-18 15:32] LABS: B.E. -11.5 mmol/L; O2 Saturation % 99.8 % (94-98); PCO2 32 mmHg (35-48); PO2 130 mmHg (83-108); pH 7.26 (7.35-7.45)
[2024-02-18 15:33] LABS: HCO3 14.4 mmol/L (21-28)
[2024-02-18 15:45] LABS: INR 1.49; PT 18.2 Sec (11.4-14.6)
[2024-02-18 15:46] LABS: APTT 30.9 Sec (23.4-35.0)
--- NOTE | 2024-02-18 16:05 | PTCARENOTE ---
pt returned from OR intubated and sedated. hr 140's fentanyl given as ordered. ekg done. levo gtt running titrated as ordered. dht placed. temp 100.5 rectal tylenol given.
[2024-02-18 16:22] LABS: Cortisol, Random 46.7 ug/dl
--- NOTE | 2024-02-18 16:55 | PTCARENOTE ---
barcenas changed in OR draining bloody cloudy. bladder scanned for zero.
[2024-02-18] MEDS: PRECEDEX 100 IV (17:51)
[2024-02-18 17:59] LABS: Lactic Acid 2.6 mmol/L (0.7-2.0)
[2024-02-18 18:08] LABS: ALT (SGPT) 44 U/L (0-50); AST (SGOT) 64 U/L (17-59); Albumin 2.6 g/dl (3.5-5.0); Alkaline Phosphatase 197 U/L (38-126); Blood Urea Nitrogen 62 mg/dl (9-20); Calcium 7.1 mg/dl (8.4-10.2); Carbon Dioxide 13 mmol/L (22-30); Chloride 114 mmol/L (98-107); Estimated Creatinine Clearance 33 ml/min; Glucose 81 mg/dl (70-99); Magnesium 2.4 mg/dl (1.6-2.3); Phosphorus 4.3 mg/dl (2.5-4.5); Potassium 4.1 mmol/L (3.5-5.1); Sodium 143 mmol/L (135-145); Total Protein 6.1 g/dl (6.3-8.2); eGFR 25.68
[2024-02-18] MEDS: FIBERCON 1250 MG PO (18:11)
[2024-02-18] MEDS: SODIUM BICARBONATE 50 MEQ IV (19:11)
[2024-02-18] MEDS: PITRESSIN 100 IV (19:12)
--- NOTE | 2024-02-18 19:30 | PTCARENOTE ---
On assessment pt intubated and sedated, pt responds only to deep pain, ST on monitor, BP low, HOTEL RECEPTIONIST made aware and at bedside to assess pt, titrating up on LEVO gtt and added VASO gtt and sodium bicarb push per orders, Precedex on standby until BP is
stable, ETT 22 at lip, 16/550/5/40, L nare dobhoff, chronic barcenas, urine in bag is bloody, urine in tube is pink tinged, small amount of bloody discharge around urethral meatus, HOTEL RECEPTIONIST aware, skin with old healing wounds, midline and peripheral sites
waiting for PICC line to be placed.
--- NOTE | 2024-02-18 20:19 | VATNOTE ---
02/17 Left brachial double lumen picc placed at bedside under sterile technique. Patient has right midline that could not be exchanged d/t unstable condition. TCL 53cm ECL0. X-ray ordered to confirm tip placement.
[2024-02-18] MEDS: SODIUM BICARBONATE 1150 MEQ IV (20:54)
[2024-02-18] MEDS: LIORESAL 10 MG TUBE (22:54)
[2024-02-18] MEDS: CALCIUM GLUCONATE 100 IV (22:54)
[2024-02-18] MEDS: NSS (PRESERVATIVE FREE) 8 ML IV (22:56)
[2024-02-18] MEDS: PEPCID 20 MG IV (22:56)
[2024-02-18] MEDS: LYRICA 100 MG TUBE (22:57)
--- NOTE | 2024-02-18 23:46 | VATNOTE ---
REVIEWED FOLLOW UP CXR AFTER INITIAL REDIRECT OF PICC WITH CHLOE SENA. ADVANCED PICC REMAINING 2CM OF CATHETER. BOTH LUMENS FLUSH WELL AND HAVE A GOOD BR. NO ORDER FOR REPEAT CXR. PCN AWARE OF INTERVENTION AND OUTCOME.
[2024-02-19] VITALS (12 sets, daily range): BP systolic 79–154; BP diastolic 40–107; BMI 37.9
--- NOTE | 2024-02-19 | PTCARENOTE ---
on reassessment pt afebrile, titrating down on LEVO gtt, VASO on hold, Precedex gtt restarted, sodium bicarb gtt infusing, PICC nurse at bedside to advance per MD orders, LUE PICC now able to be used, urine in barcenas catheter tubing now dark yellow
[2024-02-19] MEDS: HEPARIN 5000 UNITS SC ×4 (00:12→23:58)
[2024-02-19] MEDS: ZOSYN 50 IV ×2 (00:13→05:10)
[2024-02-19] MEDS: LEVOPHED 250 IV ×2 (00:25→05:15)
[2024-02-19] MEDS: PRECEDEX 100 IV ×3 (00:26→20:51)
[2024-02-19 04:42] LABS: B.E. -7.2 mmol/L; O2 Saturation % 98.2 % (94-98); PCO2 24 mmHg (35-48); PO2 79 mmHg (83-108); pH 7.42 (7.35-7.45)
[2024-02-19 04:48] LABS: HCO3 15.6 mmol/L (21-28)
[2024-02-19] MEDS: SODIUM BICARBONATE 1150 MEQ IV ×3 (05:10→22:24)
--- NOTE | 2024-02-19 05:27 | PTCARENOTE ---
no changes from prior assessment, continued titrating down levo, remains on Precedex and sodium bicarb gtt.
[2024-02-19 05:42] LABS: ALT (SGPT) 48 U/L (0-50); AST (SGOT) 66 U/L (17-59); Albumin 2.8 g/dl (3.5-5.0); Alkaline Phosphatase 198 U/L (38-126); Blood Urea Nitrogen 51 mg/dl (9-20); Calcium 7.3 mg/dl (8.4-10.2); Carbon Dioxide 14 mmol/L (22-30); Chloride 110 mmol/L (98-107); Estimated Creatinine Clearance 46 ml/min; Glucose 270 mg/dl (70-99); Magnesium 2.3 mg/dl (1.6-2.3); Phosphorus 3.1 mg/dl (2.5-4.5); Potassium 4.2 mmol/L (3.5-5.1); Sodium 144 mmol/L (135-145); Total Bilirubin 2.4 mg/dl (0.2-1.3); Total Protein 6.4 g/dl (6.3-8.2); eGFR 36.81
[2024-02-19 05:55] LABS: Hematocrit 33.3 % (39.0-52.0); Hemoglobin 11.5 g/dL (13.0-18.0); Mean Corp Hgb Conc. 34.5 g/dL (33.0-37.0); Mean Corpuscular Hgb 27.8 pg (27.0-31.0); Mean Corpuscular Volume 80.6 fL (80.0-94.0); Mean Platelet Volume 11.6 fL (7.4-10.4); Platelet Count 76 10^3/uL (130-400); Red Blood Cell Count 4.13 10^6/uL (4.70-6.10); Red Cell Dist. Width 14.7 % (11.5-14.5)
[2024-02-19 07:14] LABS: % Lymphocytes 2.7 % (20.5-51.1); % Monocytes 3.4 % (1.7-9.3); % Neutrophils 88.9 % (42.2-75.2); Absolute Immature Granulocytes 1.9 10^3/uL (0-0.05); Absolute Monocytes 1.3 10^3/uL (0.1-0.6); Absolute Neutrophils 34.7 10^3/uL (1.4-6.5); Nucleated Red Blood Cells % 0.1 % (-)
--- NOTE | 2024-02-19 08:00 | PTCARENOTE ---
recd [id number] ETT to vent tolerating current settings, levophed titration as noted, precedex continues. VS noted, art line zero and dolores, readings slightly higher on R calf. assessment as documented. PICC and midline maintained. when turning or
giving care, pt resisting case, not interactive, did ask if he was having pain, at which point he nodded yes. fentanyl given per order, gtt remains off at this time.
[2024-02-19] MEDS: SUBLIMAZE 50 MCG IV (08:24)
[2024-02-19] MEDS: LIORESAL 10 MG TUBE ×2 (08:25→19:39)
[2024-02-19] MEDS: LEXAPRO 10 MG TUBE (08:25)
[2024-02-19] MEDS: VITAMIN B1 100 MG TUBE (08:25)
[2024-02-19] MEDS: THERAGRAN 1 TABLET TUBE (08:25)
[2024-02-19] MEDS: FOLVITE 1 MG TUBE (08:25)
[2024-02-19] MEDS: MIRALAX 17 GRAMS TUBE (08:25)
--- NOTE | 2024-02-19 08:53 | W.PN.ID1 ---
Date of Service
Date of Service: February 19, 2024
Today's Communication
repeat blood cultures are not needed for gram negative bacteremia
dose adjusted zosyn for improved renal function
Assessment / Plan
Pyelonephritis
Obstructing renal stone
Neurogenic bladder
AVTAR improving
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
Class II Obesity
Paraplegia
H/o colonization with ESBL Proteus
- procal not accurate with AVTAR - advise against repeating trending, it will not direct management
- purulent urine obtained when stent placed - sent a second culture of this urine as likely to have higher yield - follow up
- ua with pyuria
- blood cultures x2 in progress with GNR; note that repeat blood cultures are not needed for gram negative bacteremia
- continue zosyn - dose adjusted for improving renal function; deescalate as able
- remains critically ill, follow clinically
Fecal Impaction
- has bowel regimen ordered
- follow for BM
Cirrhosis, Hep C
- outpatient follow up with GI if hep C not already addressed
Chief Complaint
-: Leukocytosis and UTI
Subjective / Review of Systems
switched to oral Ts fever resolved
remains on levophed - dose less than 1/2 of yesterday
additional history of cirrhosis (etoh/hep C) noted, also partial lung resection
intubated, sedated
Vital Signs / Physical Exam
Vital Signs
Vital Signs
Temp Pulse Resp BP Pulse Ox
98 F 79 18 144/91 98
02/19/24 07:29 02/19/24 07:45 02/19/24 07:45 02/19/24 07:00 02/19/24 08:00
Physical Exam
Constitutional: No Acute Distress and Obese
Cardiovascular: Regular Rate and S1/S2; Negative Murmur or Rub
Pulmonary: Clear and Symmetric; Negative Wheezes or Rales
Gastrointestinal: Soft, Non Tender, Non Distended and Normal Bowel Sounds
Skin: Warm and Dry; Negative Rash or Jaundice
Objective Data
Lab Data
Lab Results
02/19/24 04:33
02/19/24 04:33
PT 18.2 Sec (11.4-14.6) H 02/18/24 15:24
INR 1.49 02/18/24 15:24
APTT 30.9 Sec (23.4-35.0) 02/18/24 15:24
Estimated Creat Clear 46 ml/min 02/19/24 04:33
Lactic Acid 2.6 mmol/L (0.7-2.0) H 02/18/24 17:39
Total Bilirubin 2.4 mg/dl (0.2-1.3) H 02/19/24 04:33
AST 66 U/L (17-59) H 02/19/24 04:33
ALT 48 U/L (0-50) 02/19/24 04:33
Alkaline Phosphatase 198 U/L (38-126) H 02/19/24 04:33
Most recent labs reviewed.
Micro Results:
02/18/24 09:24 Blood Culture - Preliminary
Blood/Venous Positive culture in progress
Gram Stain - Final
02/18/24 15:24 Blood Culture - Pending
Blood/Venous
02/18/24 15:45 Urine Culture - Pending
Urine
02/18/24 15:24 MRSA Screen - Pending
Nose
02/18/24 09:34 Urine Culture - Pending
Urine
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
[2024-02-19] MEDS: ZOSYN 100 IV ×3 (09:55→20:50)
[2024-02-19 11:34] LABS: Lactic Acid 2.3 mmol/L (0.7-2.0)
--- NOTE | 2024-02-19 12:00 | PTCARENOTE ---
no other change, breathing easily, VS noted. gtts as noted. art line continues, pressures within parameters.
[2024-02-19 12:11] LABS: Glucose - Point of Care 259 mg/dl (70-99)
[2024-02-19 12:26] LABS: B.E. 1.2 mmol/L; O2 Saturation % 98.5 % (94-98); PCO2 36 mmHg (35-48); PO2 86 mmHg (83-108); pH 7.45 (7.35-7.45)
--- NOTE | 2024-02-19 12:26 | CM ---
CM following re: discharge planning.
Discussed in Rounds, reviewed the chart, met with pt.
Pt is a 63 year old male, admitted with primary dx of Sepsis with hypotension not responding to IV fluids, currently intubated, continue supportive care.
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 The patient is normally alert and oriented. The discharge plan will be back to [facility] when medically stable. Bed hold in place. Pt has
legal guardian.
D/C plan: return back to [facility] when medically stable.
CM will follow with discharge plan updates as hospitalization progresses
[2024-02-19] MEDS: NOVOLOG FLEXPEN-MODERATE RESISTANCE 5 UNITS SC (12:36)
--- NOTE | 2024-02-19 14:03 | PTCARENOTE ---
extubated smoothly at 1300, see resp documentation for exact time, initially nonverbal grunting and groaning, now calling out, trying to continuously pull off gown, pulling at restraints. says 'no' frequently. unable to quantify what he needs,
difficult to interact, resisting care. HOB up, VS as documented, off levophed now.
--- NOTE | 2024-02-19 14:35 | RESPNOTE ---
Respiratory: patient extubated at 1309 with out incident, no stridor no wheeze. SpO2 95% on 5 LPM nasal cannula.
--- NOTE | 2024-02-19 15:40 | W.PN.URO.CBU ---
Today's Communication / Plan
-
Continue abx and supportive care
Assessment / Plan
-
64M with severe sepsis related to infected obstructing R ureteral stone
s/p R ureteral stent placement 02/17
- Continue supportive care and broad spectrum abx pending cultures
- Now extubated and off pressure support
- Eventual ureteroscopy to remove ureteral and renal stones - likely to be done outpatient
- Maintain barcenas for chronic urinary retention
Diagnosis
-
Date of Service: February 19, 2024
-
Patient Diagnosis:
Sepsis
UTI
Obstructing R ureteral stone
Subjective
-
Patient not verbally responsive
Objective
-
Vital Signs
Temp Pulse Resp BP Pulse Ox
98.9 F 90 12 133/81 96
02/19/24 11:50 02/19/24 13:30 02/19/24 13:30 02/19/24 08:00 02/19/24 13:30
Intake and Output
02/18/24 02/19/24 02/20/24
06:59 06:59 06:59
Intake Total 4919.4 / 5050.3 1013.1 / 1013.1
Output Total 2120 / 2120 1000 / 1000
Balance 2799.4 / 2930.3 13.1 / 13.1
Intake:
IV fluids (Total) 2769.4 / 2900.3 913.1 / 913.1
D5w 1,000 ml @ 100 mls/hr IV . 1000 / 1100 800 / 800
[id number] RADHA with Sodium
Bicarbonate 150 Meq Rx#:
[id number]
Nss 1,000 ml @ 150 mls/hr IV . 750 / 750
Q6H40M RADHA Rx#:[id number]
VASO 0 / 0
levophed 855.1 / 870.1 60.1 / 60.1
precedex 164.3 / 180.2 53.0 / 53.0
IV piggybacks 2149 100 / 100
Output:
Urine, Barcenas 2119 1000 / 1000
Laboratory Results
02/19/24 04:33
02/19/24 04:33
Physical Exam
-
General - confused, unintelligible
Abdomen - soft, non-tender
- barcenas in place, cloudy urine
Skin - warm & dry with no rash
[2024-02-19] MEDS: SENNA SYRUP 17.2 MG TUBE (16:37)
[2024-02-19] MEDS: CALCIUM GLUCONATE 100 IV (16:37)
[2024-02-19] MEDS: COLACE LIQUID 200 MG TUBE (16:38)
[2024-02-19] MEDS: DULCOLAX 10 MG RECTAL (16:38)
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
--- NOTE | 2024-02-19 16:54 | PTCARENOTE ---
turned, repositioned, meds as ordered for GI bowel regimen, continuously calling out but does not appear in distress, does not interact at present, moving all ext. speech at times is hoarse and highpitched, thin, other times very deep strong and
loud. positioned for comfort.
[2024-02-19] MEDS: NOVOLOG FLEXPEN-MODERATE RESISTANCE SC ×2 (17:43→23:11)
[2024-02-19] MEDS: FIBERCON 1250 MG TUBE (17:47)
[2024-02-19 17:51] LABS: Glucose - Point of Care 123 mg/dl (70-99)
[2024-02-19 18:12] LABS: Lactic Acid 2.3 mmol/L (0.7-2.0)
[2024-02-19 18:53] LABS: ALT (SGPT) 44 U/L (0-50); AST (SGOT) 61 U/L (17-59); Albumin 2.5 g/dl (3.5-5.0); Alkaline Phosphatase 137 U/L (38-126); Blood Urea Nitrogen 49 mg/dl (9-20); Carbon Dioxide 24 mmol/L (22-30); Chloride 109 mmol/L (98-107); Estimated Creatinine Clearance 54 ml/min; Glucose 150 mg/dl (70-99); Magnesium 2.5 mg/dl (1.6-2.3); Phosphorus 2.7 mg/dl (2.5-4.5); Potassium 3.9 mmol/L (3.5-5.1); Sodium 144 mmol/L (135-145); Total Bilirubin 1.3 mg/dl (0.2-1.3); eGFR 44.74
--- NOTE | 2024-02-19 19:19 | W.PN.ANS.POP ---
Anesthesia Post Operative
- Anesthesia Post Op Note
Vital Signs Stable-See Nursing Note: Yes
Airway Patent: Yes
Adequate Pain Control: Yes
Change in Mental Status: No (Pt confused baseline as per RN)
Current Postoperative Nausea & Vomiting: No
Anesthesia Complications: No
General Anesthetic Recall: No
Unplanned Admission: No
Post Op Hydration Adequate: Yes
- -
Pt extubated, spoke to RN- pt off pressors, BP stable (a-line).
[2024-02-19] MEDS: TYLENOL 325 MG TUBE (19:37)
[2024-02-19] MEDS: LYRICA 100 MG TUBE (20:49)
[2024-02-19] MEDS: PEPCID 20 MG IV (20:50)
[2024-02-19] MEDS: NSS (PRESERVATIVE FREE) 8 ML IV (20:50)
--- NOTE | 2024-02-19 21:45 | VATNOTE ---
1999-LATE ENTRY-ATTEMPTED TO CHANGE L PICC DRSG PER 24HR PROTOCOL. PT SCREAMING VERBALLY ABUSIVE COMMENTS, DEMONSTRATING SEVERE THREATENING BEHAVIOR AND VIOLENTLY TRYING TO HARM ME WHEN RESTRAINTS LOOSENED TO CHANGE ARM POSITION. UNABLE WITH THE
ASSISTANCE OF TWO OTHER RNS , TO SAFELY CHANGE DRSG WHILE PRESERVING THE INTEGRITY OF THE PICC AND THE A-LINE. WILL NOT AGITATE PT ANY FURTHER. WILL CHANGE DRSG, WHICH IS C/D/I ,WHEN PT MORE COOPERATIVE. VAT TO FOLLOW.
--- NOTE | 2024-02-19 21:46 | PTCARENOTE ---
on assessment pt alert but not answering questions/following commands, presented the same way since being extubated per dayshift. pt gets very agitated and physically aggressive when trying to preform an assessment and change PICC dressing stating '
I will kill you ' over and over again, PICC RN at bedside. Unable to change dressing at this time. scheduled medications were given and Precedex was restarted, FIXTURE MAKER aware. pt continues to be agitated and spitting in the room.
--- NOTE | 2024-02-19 22:10 | PTCARENOTE ---
Unable to get full assessment and turn pt at this time due to pt being combative and uncooperative. NON LICENSED OPERATOR aware. SR on the monitor, 97% 2L NC, Sebastien intact with MAPs in the low 70s.
[2024-02-19] MEDS: LIORESAL 20 MG PO (22:24)
[2024-02-19 23:20] LABS: Glucose - Point of Care 152 mg/dl (70-99)
[2024-02-19 23:48] LABS: Lactic Acid 1.6 mmol/L (0.7-2.0)
[2024-02-20] VITALS (15 sets, daily range): BP systolic 98–164; BP diastolic 64–119; BMI 38.6
[2024-02-20] MEDS: ZOSYN 100 IV ×4 (05:32→23:33)
[2024-02-20 05:33] LABS: Venous Blood Gas B.E. 6.8 mmol/L (-4 to +4); Venous Blood Gas HCO3 30.3 mmol/L (22-27); Venous Blood Gas pCO2 38 mmHg (35-48); Venous Blood Gas pH 7.51 (7.32-7.43); Venous Blood Gas pO2 175 mmHg (30-50)
[2024-02-20] MEDS: NOVOLOG FLEXPEN-MODERATE RESISTANCE SC ×4 (05:35→23:25)
[2024-02-20 05:41] LABS: Glucose - Point of Care 114 mg/dl (70-99)
[2024-02-20 05:55] LABS: Hematocrit 27.9 % (39.0-52.0); Hemoglobin 9.6 g/dL (13.0-18.0); Mean Corp Hgb Conc. 34.4 g/dL (33.0-37.0); Mean Corpuscular Hgb 28.5 pg (27.0-31.0); Mean Corpuscular Volume 82.8 fL (80.0-94.0); Mean Platelet Volume 12.6 fL (7.4-10.4); Platelet Count 51 10^3/uL (130-400); Red Blood Cell Count 3.37 10^6/uL (4.70-6.10); Red Cell Dist. Width 14.5 % (11.5-14.5)
[2024-02-20 06:14] LABS: ALT (SGPT) 45 U/L (0-50); AST (SGOT) 66 U/L (17-59); Albumin 2.3 g/dl (3.5-5.0); Alkaline Phosphatase 115 U/L (38-126); Blood Urea Nitrogen 55 mg/dl (9-20); Calcium 7.3 mg/dl (8.4-10.2); Carbon Dioxide 30 mmol/L (22-30); Chloride 106 mmol/L (98-107); Estimated Creatinine Clearance 58 ml/min; Glucose 136 mg/dl (70-99); Magnesium 2.4 mg/dl (1.6-2.3); Phosphorus 2.8 mg/dl (2.5-4.5); Potassium 3.9 mmol/L (3.5-5.1); Sodium 143 mmol/L (135-145); Total Bilirubin 1.1 mg/dl (0.2-1.3); Total Protein 5.7 g/dl (6.3-8.2); eGFR 48.11
[2024-02-20 06:17] LABS: Procalcitonin 24.31 ng/ml (0.0-0.25)
--- NOTE | 2024-02-20 06:23 | PTCARENOTE ---
pt on and off with agitation, BP soft when asleep, denies pain but wont answer/follow any other commands, FROG OR OYSTER FARMWORKER has been aware. FROG OR OYSTER FARMWORKER made aware of critical procal and AM labs, no new orders at this time.
--- NOTE | 2024-02-20 08:38 | W.PN.URO.CBU ---
Today's Communication / Plan
-
Continue antibiotics and supportive care
Eventual ureteroscopy to remove stones
Assessment / Plan
-
64M with severe sepsis related to infected obstructing R ureteral stone
s/p R ureteral stent placement 02/17
- Continue supportive care and antibiotics
- Cultures showing multiple ESBL organisms - abx course per ID
- Now extubated and off pressure support
- Eventual ureteroscopy to remove ureteral and renal stones - may be done outpatient or possibly during hospital course depending on how long he is inpatient
- Maintain barcenas for chronic urinary retention
Diagnosis
-
Date of Service: February 20, 2024
-
Patient Diagnosis:
Sepsis
UTI
Obstructing R ureteral stone
Subjective
-
Remains confused and unable to discuss
Objective
-
Vital Signs
Temp Pulse Resp BP Pulse Ox
98.5 F 100 14 107/89 95
02/20/24 08:28 02/20/24 06:30 02/20/24 06:30 02/19/24 13:39 02/20/24 06:30
Intake and Output
02/19/24 02/20/24 02/21/24
06:59 06:59 06:59
Intake Total 4919.4 / 5050.3 3208.2 / 3208.2
Output Total 2120 / 2120 2250 / 2250
Balance 2799.4 / 2930.3 958.2 / 958.2
Intake:
IV fluids (Total) 2769.4 / 2900.3 2558.2 / 2558.2
D5w 1,000 ml @ 100 mls/hr IV . 1000 / 1100 2400 / 2400
[id number] RADHA with Sodium
Bicarbonate 150 Meq Rx#:
[id number]
Nss 1,000 ml @ 150 mls/hr IV . 750 / 750
Q6H40M [facility] Rx#:[id number]
VASO 0 / 0
levophed 855.1 / 870.1 60.1 / 60.1
precedex 164.3 / 180.2 98.1 / 98.1
IV piggybacks 2150 / 2150 450 / 450
Feeding tube flush amount 200 / 200
Output:
Urine, Barcenas 2119 / 2119 2250 / 225
Laboratory Results
02/20/24 05:24
02/20/24 05:24
Physical Exam
-
General - no acute distres
Chest - unlabored
Abdomen - soft, non-tender
- barcenas in place, clear urine
Neuro - Awake and alert but not oriented
--- NOTE | 2024-02-20 08:57 | W.PN.ID1 ---
Addendum entered and electronically signed by Susanna Padgett MD 02/20/24 13:48:
ammonia is not elevated
Original Note:
Date of Service
Date of Service: February 20, 2024
Today's Communication
- trending procals will not drying rack changer and is not reliable with patients renal dysfunction - recommend against it
- continue zosyn - no oral option for the proteus - will require a course of iv therapy
Assessment / Plan
Pyelonephritis
Obstructing renal stone
Neurogenic bladder
AVTAR improving
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
Class II Obesity
Paraplegia
H/o colonization with ESBL Proteus
- trending procals will not drying rack changer and is not reliable with patients renal dysfunction - recommend against it
- 02/17 urine cultures - ESBL proteus and ESBL klebsiella x2
- blood cultures x2 also ESBL proteus and ESBL klebsiella; note that repeat blood cultures are not needed for gram negative bacteremia
- agree with plans for eventual ureteroscopy for stone extraction - follow up OR note when available
- note colonization with mrsa
- continue zosyn - no oral option for the proteus - will require a course of iv therapy
- likely midline tomorrow if remains afebrile and leukocytosis continues to improve
Fecal Impaction
- has bowel regimen ordered
- follow for BM
Cirrhosis, Hep C
- mild asterixes noted - check ammonia level
- outpatient follow up with GI if hep C not already addressed
Chief Complaint
-: Leukocytosis and UTI
Subjective / Review of Systems
fever resolved
extubated
pressors and precedex off
alert, guamanian and german speaking
Vital Signs / Physical Exam
Vital Signs
Vital Signs
Temp Pulse Resp BP Pulse Ox
98.5 F 100 14 107/89 95
02/20/24 08:28 02/20/24 06:30 02/20/24 06:30 02/19/24 13:39 02/20/24 06:30
Physical Exam
Constitutional: No Acute Distress and Chronically Ill
Cardiovascular: Regular Rate and S1/S2; Negative Murmur or Rub
Pulmonary: Clear and Symmetric; Negative Wheezes or Rales
Gastrointestinal: Soft, Non Tender, Non Distended and Normal Bowel Sounds
Skin: Warm and Dry; Negative Rash or Jaundice
Objective Data
Lab Data
Lab Results
02/20/24 05:24
02/20/24 05:24
PT 18.2 Sec (11.4-14.6) H 02/18/24 15:24
INR 1.49 02/18/24 15:24
APTT 30.9 Sec (23.4-35.0) 02/18/24 15:24
Estimated Creat Clear 58 ml/min 02/20/24 05:24
Lactic Acid 1.6 mmol/L (0.7-2.0) 02/19/24 23:30
Total Bilirubin 1.1 mg/dl (0.2-1.3) 02/20/24 05:24
AST 66 U/L (17-59) H 02/20/24 05:24
ALT 45 U/L (0-50) 02/20/24 05:24
Alkaline Phosphatase 115 U/L (38-126) 02/20/24 05:24
Most recent labs reviewed as above
thrombocytopenia is chronic - cirrhosis
cr improved to 1.6
Urine Culture Final 02/20/24-0839
CC: Greater than 100,000 CFU/ML Proteus Mirabilis-ESBL
CC: Greater than 100,000 CFU/ML Klebsiella pneumoniae-ESBL
Isolation Precautions Required
[place] [id number] on 02/20/24 at 0837 by [place] [id number]
Resistance due to extended spectrum beta lactamase.
Decreased activity may occur with penicillins,
penicillin/inhibitor combinations, cephalosporins, and
monobactams.
Organism 1 Proteus Mirabilis-ESBL
Organism 2 Klebsiella pneumoniae-ESBL
PMIR-ESBL Kpne-ESBL
M.I.C. RX M.I.C. RX
--------- --- --------- ---
Amoxicillin/Potas. Clavulanate <=8/4 S 16/8 I
Ampicillin >16 R >16 R
Ampicillin/Sulbactam 16/8 I >16/8 R
Aztreonam >16 R >16 R
Cefazolin >16 R >16 R
Cefepime >16 R >16 R
Ceftazidime <=1 S >16 R
Ceftriaxone >2 R >2 R
Ertapenem <=0.5 S <=0.5 S
Ciprofloxacin >2 R 2 R
Gentamicin >8 R >8 R
Meropenem <=1 S <=1 S
Nitrofurantoin-Urine Only >64 R 64 I
Piperacillin/Tazobactam <=8 S <=8 S
Tetracycline >8 R <=4 S
Tobramycin 8 I >8 R
Trimethoprim/Sulfamethoxazole >/38 R >2/38 R
Micro Results:
02/18/24 09:24 Blood Culture - Final
Blood/Venous Proteus Mirabilis-ESBL
Klebsiella pneumoniae-ESBL
Gram Stain - Final
02/18/24 09:34 Urine Culture - Final
Urine Proteus Mirabilis-ESBL
Klebsiella pneumoniae-ESBL
02/18/24 15:45 Urine Culture - Final
Urine Proteus Mirabilis-ESBL
Klebsiella pneumoniae-ESBL
02/18/24 15:24 MRSA Screen - Final
Nose Staph aureus MRSA
02/19/24 17:53 Blood Culture - Pending
Blood/Venous
02/18/24 15:24 Blood Culture - Preliminary
Blood/Venous Positive culture in progress
Gram Stain - Final
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
[2024-02-20 09:40] LABS: Glycohemoglobin (HgbA1c) 5.6 % (4.0-5.6)
[2024-02-20] MEDS: MIRALAX 17 GRAMS TUBE (09:54)
[2024-02-20] MEDS: LEXAPRO 10 MG TUBE (09:54)
[2024-02-20] MEDS: FOLVITE 1 MG TUBE (09:55)
[2024-02-20] MEDS: THERAGRAN 1 TABLET TUBE (09:55)
[2024-02-20] MEDS: LIORESAL 10 MG TUBE ×2 (09:55→19:44)
[2024-02-20] MEDS: VITAMIN B1 100 MG TUBE (09:55)
[2024-02-20] MEDS: HEPARIN 5000 UNITS SC ×3 (09:55→23:33)
[2024-02-20] MEDS: SENOKOT-S 1 TABLET PO ×2 (09:55→19:44)
[2024-02-20] MEDS: SODIUM BICARBONATE 1150 MEQ IV (09:56)
--- NOTE | 2024-02-20 10:00 | PTCARENOTE ---
Rec'd pt at 0700 yelling out then dozed off and pt dozed until 0900. Currently awake. Overall is more conversive today but still will not verbalize where he is or anything like that. Was able to tell me his name. Again some limited conversation is
appropriate but then will start with episodes of repetative yelling the same thing over and over. Denied pain or wont verbalize if he has it. Moving his arms- will follow commands to lift then but other times will fight care. Bilat soft wrist
restraints on for pt and staff safety and line protection. Had one episode of leg tremoring. Skin is pale wm and dry. Pt with old scarred areas on legs/hips. Respirs are unlabored. Rec'd pt with O2 off and sats 96-98%. BS are sl decreased with faint
exp wheeze. Pt was tending to spit but not necessarily at staff. Used yankeur and spit into that. Monitor SR. VS as documented. Pt with L radial A line. Zeroed and recalibrated. Congruent with cuff BP. Site wnl. Good cms checks to distal extrem. Abd
is round/obese with + BS. Denies nausea. Incont of small to mod amt of pasty brown stool. L nare small bore feeding tube intact. Placement checked. Meds given. Barcenas intact for jalil urine. Capped int intact R hand. R midline capped and L upper arm
DL picc site wnl- Bicarb gtt infusing via PICC line-site wnl. Precedex has been off since previous shift. Complete CHG bath given, barcenas and mouth care given. Turned and repositioned. Call stock[place] given to pt. Pt made aware of plan of care.
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
[2024-02-20 11:39] LABS: Glucose - Point of Care 124 mg/dl (70-99)
--- NOTE | 2024-02-20 12:40 | PTCARENOTE ---
Overall no changes in assessment. Has periods when he is calm and more conversive and other times when he just yells repeatively. Screamed while IV team in and PICC dressing changed and resisted having it changed- Yelling 'Stop it' over and over
despite constant explanation of what was happening. Remains on RA-sats 94%. IV gtt with Bicarb dc'd. Ammonia level sent. VS as documented. Watching TV- Call stockton in his hand
[2024-02-20 13:08] LABS: Ammonia < 9 umol/L (9-30)
--- NOTE | 2024-02-20 13:50 | PTCARENOTE ---
Pt refusing to let speech therapy evaluate him- saying ' Get Out'. Also despite restraints pulled out his dobhoff tube. Dr. Velsaco aware. Angrily yelling at staff whenever care is attempted stating ' Leave me alone you Bitch'. No other changes
--- NOTE | 2024-02-20 14:30 | PTCARENOTE ---
Pt watching TV- is calm until staff wants to perform any care with him. Again refused to allow speech therapy to evaluate him yelling ' get out'. This RN went to remove a-line per md order and pt angrily said 'get out you f---ing bitch.'. With the
assist of 2 other staff members and a mask on pt to prevent him from spitting (that he tried to twice), A-line removed and pressure held over the site. No swelling or hematoma. The entire time pt kept repeating 'I'm going to f---ing kill you' or my
friends are going to 'f---ing kill you'. Soft wrist restraints remain intact. Pt repositioned and mask off face currently. Tried multiple times to redirect pt without success.
[2024-02-20] MEDS: ZYPREXA 10 MG IM (16:39)
[2024-02-20] MEDS: STERILE WATER FOR INJECTION 2.1 ML IM (16:40)
[2024-02-20] MEDS: FLUSH (NSS) 1 FLUSH IV ×2 (16:46→16:47)
[2024-02-20] MEDS: VERSED 2 MG IV (16:46)
--- NOTE | 2024-02-20 17:10 | PTCARENOTE ---
Continues to resist care - yelling I am going to kill you, I am going to cut your head off you bitch. Pt in need of a way to give his oral meds. Explained to no avail that if he would just let me see that he can swallow water we could feed him but
blatently refused. As such feeding tube ordered to be reinserted. Medicated with Zyprexa 10 mg IM and Versed 2 mg IV. Small bore feeding tube inserted via the R nare at the 55 cm wellington- resisted placement. HR up into the 140's and sats briefly down
to 89% then back up to 95%. Placement auscultated. Dr. Velasco in to see pt. Abd and CXray ordered
--- NOTE | 2024-02-20 17:30 | PTCARENOTE ---
Pt sleepy post sedation. ABD/CXRay done post feeding tube placement. O2 2l added as pt is sleepy currently and sats dipped to 88-89%- Currently 97%
[2024-02-20 17:37] LABS: Glucose - Point of Care 124 mg/dl (70-99)
--- NOTE | 2024-02-20 18:30 | PTCARENOTE ---
Placement confirmed on Feeding tube. Pt remains sleeping. VS as documented
[2024-02-20] MEDS: LOPRESSOR PO (19:45)
[2024-02-20] MEDS: FIBERCON 1250 MG TUBE (19:45)
--- NOTE | 2024-02-20 20:00 | PTCARENOTE ---
Resumed care of pt laying in bed sleeping. Pt arousable to voice, AAOx1- confused to place and time. Pt easily agitated, attempting to spit at staff when providing care, stating 'get the F off of me'. Reality orientation provided. HR in the 70's in
NSR at rest, ST with HR 120's when awake and agitated. POX 98% on 2 LO2 NC. Lungs dec. Pt with moist productive cough, or pt is just hacking up loogies to spit at staff. + bowel, round obese abd. Right nare DHT in place, No TF ordered at this time.
Chronic Padron catheter in place. Jane care provided. + 1 LE edema noted. Heels elevated on pillows. Heel foams in place. Knee high seq in place. Oral care provided. Pt turned despite being difficult. B/L wrist restraints remain in place. Will
continue to monitor.
[2024-02-20] MEDS: LYRICA 100 MG TUBE (21:20)
[2024-02-20] MEDS: LIORESAL 20 MG PO (21:20)
[2024-02-20] MEDS: LOPRESSOR 12.5 MG PO (21:20)
[2024-02-20] MEDS: SEROQUEL 50 MG TUBE (21:21)
[2024-02-20] MEDS: PEPCID 20 MG IV (21:21)
[2024-02-20] MEDS: NSS (PRESERVATIVE FREE) 8 ML IV (21:21)
[2024-02-20 23:32] LABS: Glucose - Point of Care 106 mg/dl (70-99)
--- NOTE | 2024-02-20 23:48 | PTCARENOTE ---
Pt continues to be uncooperative with care, cursing, threatening staff, attempting to hit while restrained. Uncooperative behavior limits ability to provide care. Emotional support provided. Will continue to monitor.
[2024-02-21] VITALS (25 sets, daily range): BP systolic 116–175; BP diastolic 68–138; BMI 37.0
--- NOTE | 2024-02-21 05:00 | PTCARENOTE ---
Pt slept when not disturbed. Pt awake this am, confused to place, pt stating 'this is not the hospital, you are not a nurse, you stole that'. Reality orientation provided. Pt briefly conversant and allowing care, CHG bath provided, linens changed,
Oral care complete, face washed. Pt inc of stool, Upon attempting to clean pt, pt verbally threatening, cursing, but not aggressive or fighting while cleaning pt. Pt no longer spitting at staff. This RN attempted to obtain blood cultures, pt cursing
at staff, and getting increasingly agitated. Blood cultures not obtained at this time, am labs obtained via picc line. Warm blankets provided, pt now sleeping, snoring. B/L wrist restraints remain in place.
[2024-02-21 05:12] LABS: Glucose - Point of Care 101 mg/dl (70-99)
[2024-02-21] MEDS: ZOSYN 100 IV ×4 (05:34→23:32)
[2024-02-21] MEDS: NOVOLOG FLEXPEN-MODERATE RESISTANCE SC ×3 (05:34→17:08)
[2024-02-21 05:51] LABS: Hematocrit 32.9 % (39.0-52.0); Mean Corp Hgb Conc. 33.4 g/dL (33.0-37.0); Mean Corpuscular Hgb 27.4 pg (27.0-31.0); Mean Platelet Volume 11.9 fL (7.4-10.4); Platelet Count 67 10^3/uL (130-400); Red Blood Cell Count 4.01 10^6/uL (4.70-6.10); Red Cell Dist. Width 14.6 % (11.5-14.5); White Blood Cell Count 17.2 10^3/uL (4.8-10.8)
[2024-02-21 06:06] LABS: ALT (SGPT) 52 U/L (0-50); AST (SGOT) 66 U/L (17-59); Albumin 2.8 g/dl (3.5-5.0); Alkaline Phosphatase 146 U/L (38-126); Blood Urea Nitrogen 50 mg/dl (9-20); Calcium 7.9 mg/dl (8.4-10.2); Carbon Dioxide 30 mmol/L (22-30); Chloride 105 mmol/L (98-107); Estimated Creatinine Clearance 61 ml/min; Glucose 112 mg/dl (70-99); Magnesium 2.7 mg/dl (1.6-2.3); Phosphorus 3.3 mg/dl (2.5-4.5); Potassium 3.6 mmol/L (3.5-5.1); Sodium 147 mmol/L (135-145); Total Bilirubin 1.2 mg/dl (0.2-1.3); Total Protein 6.7 g/dl (6.3-8.2); eGFR 51.99
[2024-02-21] MEDS: LOPRESSOR 12.5 MG PO ×2 (07:59→19:38)
[2024-02-21] MEDS: LIORESAL 10 MG TUBE ×2 (07:59→17:22)
[2024-02-21] MEDS: FOLVITE 1 MG TUBE (07:59)
[2024-02-21] MEDS: SENOKOT-S 1 TABLET PO ×2 (07:59→19:38)
[2024-02-21] MEDS: VITAMIN B1 100 MG TUBE (07:59)
[2024-02-21] MEDS: MIRALAX 17 GRAMS TUBE ×2 (07:59→19:39)
[2024-02-21] MEDS: HEPARIN SC ×3 (08:00→16:30)
[2024-02-21] MEDS: LEXAPRO 10 MG TUBE (08:00)
--- NOTE | 2024-02-21 09:33 | W.PN.ID1 ---
Date of Service
Date of Service: February 21, 2024
Today's Communication
continue zosyn
midline when further clinical improvement
Assessment / Plan
Pyelonephritis
Obstructing renal stone
Neurogenic bladder
AVTAR improving
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
Class II Obesity
Paraplegia
H/o colonization with ESBL Proteus
- 02/17 urine cultures - ESBL proteus and ESBL klebsiella x2
- blood cultures x2 also ESBL proteus and ESBL klebsiella; note that repeat blood cultures are not needed for gram negative bacteremia, source is and unlikely to disseminate
- agree with plans for eventual ureteroscopy for stone extraction - follow up OR note when available
- note colonization with mrsa
- continue zosyn - no oral option for the proteus - will require a course of iv therapy
- midline when further clinical improvement
Cirrhosis compensated, Hep C
- ammonia level normal
- outpatient follow up with GI if hep C not already addressed
Chief Complaint
-: Leukocytosis and UTI
Subjective / Review of Systems
afebrile
bp stable off of pressors
confused overnight thought hospital was not real
doesnt remember getting his pills
accusing staff of violence
had BM
Vital Signs / Physical Exam
Vital Signs
Vital Signs
Temp Pulse Resp BP Pulse Ox
97.5 F 120 16 131/99 97
02/21/24 03:10 02/21/24 07:59 02/21/24 05:30 02/21/24 07:59 02/21/24 05:30
Physical Exam
Constitutional: No Acute Distress, Chronically Ill and Obese
Cardiovascular: Regular Rate and S1/S2; Negative Murmur or Rub
Pulmonary: Clear and Symmetric; Negative Wheezes or Rales
Gastrointestinal: Soft, Non Tender, Non Distended and Normal Bowel Sounds
Skin: Warm and Dry; Negative Rash or Jaundice
Neurological: Other (no asterixes)
Objective Data
Lab Data
Lab Results
02/21/24 05:33
02/21/24 05:33
PT 18.2 Sec (11.4-14.6) H 02/18/24 15:24
INR 1.49 02/18/24 15:24
APTT 30.9 Sec (23.4-35.0) 02/18/24 15:24
Estimated Creat Clear 61 ml/min 02/21/24 05:33
Lactic Acid 1.6 mmol/L (0.7-2.0) 02/19/24 23:30
Total Bilirubin 1.2 mg/dl (0.2-1.3) 02/21/24 05:33
AST 66 U/L (17-59) H 02/21/24 05:33
ALT 52 U/L (0-50) H 02/21/24 05:33
Alkaline Phosphatase 146 U/L (38-126) H 02/21/24 05:33
Most recent labs reviewed overall improved leukocytosis
Micro Results:
02/19/24 17:53 Blood Culture - Preliminary
Blood/Venous Positive culture in progress
Gram Stain - Final
02/18/24 15:24 Blood Culture - Preliminary
Blood/Venous Proteus Mirabilis-ESBL
Klebsiella pneumoniae-ESBL
Gram Stain - Final
02/18/24 09:24 Blood Culture - Final
Blood/Venous Proteus Mirabilis-ESBL
Klebsiella pneumoniae-ESBL
Gram Stain - Final
02/18/24 09:34 Urine Culture - Final
Urine Proteus Mirabilis-ESBL
Klebsiella pneumoniae-ESBL
02/18/24 15:45 Urine Culture - Final
Urine Proteus Mirabilis-ESBL
Klebsiella pneumoniae-ESBL
02/18/24 15:24 MRSA Screen - Final
Nose Staph aureus MRSA
Care Review
Plan reviewed with: Nurse (pills, confusion, blood culture)
--- NOTE | 2024-02-21 10:18 | PTCARENOTE ---
Patient received At 0700 in bed . Soft - B/L restraints and x 4 side rails . Patient disoriented place and time . Patient delusional does not believe that he is in a hospital. All the care and medications explained to patient prior to
administration, However pt that ' You are trying to kill hIm ' restless uncooperative . Refusing hygiene care refused ST eval . Offered water by different staff pt states ' I am not going to drink this water you are trying to poison me '
[2024-02-21] MEDS: SEROQUEL 25 MG PO (11:43)
[2024-02-21] MEDS: TYLENOL 325 MG TUBE (11:45)
[2024-02-21] MEDS: THERAGRAN 1 TABLET TUBE (11:45)
--- NOTE | 2024-02-21 11:47 | W.PN.URO.CBU ---
Today's Communication / Plan
-
continue present care jake whn stable
Assessment / Plan
-
64M with severe sepsis related to infected obstructing R ureteral stone
s/p R ureteral stent placement 02/17
- Continue supportive care and antibiotics
- Cultures showing multiple ESBL organisms - abx course per ID
- Now extubated and off pressure support
- Eventual ureteroscopy to remove ureteral and renal stones - may be done outpatient or possibly during hospital course depending on how long he is inpatient
- Maintain barcenas for chronic urinary retention
Diagnosis
-
Date of Service: February 21, 2024
-
Patient Diagnosis:
Post Op Day:
Patient Diagnosis:
Sepsis
UTI
Obstructing R ureteral stone
Subjective
-
tolrating stent barcenas
Objective
-
Vital Signs
Temp Pulse Resp BP Pulse Ox
97.5 F 120 16 131/99 97
02/21/24 03:10 02/21/24 07:59 02/21/24 05:30 02/21/24 07:59 02/21/24 05:30
Intake and Output
02/20/24 02/21/24 02/22/24
06:59 06:59 06:59
Intake Total 3208.2 / 3308.2 1150 / 1150
Output Total 2250 / 2250 1450 / 1450
Balance 958.2 / 1058.2 -300 / -300
Intake:
Oral fluids 0 / 0
IV fluids (Total) 2558.2 / 2658.2 600 / 600
D5w 1,000 ml @ 100 mls/hr IV . 2400 / 2400
[id number] RADHA with Sodium
Bicarbonate 150 Meq Rx#:
[id number]
Sterile Water For Injection 600 / 600
1000 ml 1,000 ml @ 100 mls/hr
IV .[id number] RADHA with Sodium
Bicarbonate 150 Meq Rx#:
[id number]
levophed 60.1 / 60.1
precedex 98.1 / 98.1
IV piggybacks 450 / 450 400 / 400
Feeding tube flush amount 200 / 200 150 / 150
Output:
Urine, Barcenas 2250 / 2250 1450 / 1450
Laboratory Results
02/21/24 05:33
02/21/24 05:33
Review of Systems
-
: No Symptoms
Physical Exam
-
General - well developed, well nourished, no acute distress
Chest - clear bilaterally
Abdomen - soft, non-tender, positive bowel sounds, no CVAT, no incisional pain or distention
Genitalia - normal
Rectal - normal
Skin - warm & dry with no kathleen
Incision - clean, dry
Dressing - clean, dry, intact
Counseling
-
per hospitalist
[2024-02-21 11:56] LABS: Glucose - Point of Care 87 mg/dl (70-99)
[2024-02-21] MEDS: FLEET MINERAL OIL ENEMA 133 ML RECTAL (11:56)
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
--- NOTE | 2024-02-21 13:41 | PTCARENOTE ---
patient following commends pleasant . Restraints removed . Doppholf removed. Tolerating diet and fluids without difficulties
[2024-02-21 17:02] LABS: Glucose - Point of Care 148 mg/dl (70-99)
[2024-02-21] MEDS: FIBERCON 1250 MG TUBE (17:08)
[2024-02-21] MEDS: DULCOLAX 10 MG RECTAL (17:08)
--- NOTE | 2024-02-21 17:46 | PTCARENOTE ---
patient in bed able to follow commends . Awake to him self and place Padron draining jalil clear urine . Ducolex sup adm
--- NOTE | 2024-02-21 20:22 | PTCARENOTE ---
Pt received awake alert and oriented. Forgetful. Pleasant and cooperative. Pt requesting atarax. Large bruise noted on abdomen. Platelets 67 and pt on heparin q8. House CHILDREN'S AIDE notified. Heparin d/c'd. Knee high SCDs on pt. Atarax prn ordered.
[2024-02-21] MEDS: PEPCID 20 MG IV (21:05)
[2024-02-21] MEDS: ATARAX 25 MG PO (21:05)
[2024-02-21] MEDS: LIORESAL 20 MG PO (21:05)
[2024-02-21] MEDS: LYRICA 100 MG TUBE (21:05)
[2024-02-21] MEDS: SEROQUEL 50 MG TUBE (21:05)
[2024-02-21] MEDS: NSS (PRESERVATIVE FREE) 8 ML IV (21:05)
[2024-02-21 21:14] LABS: Glucose - Point of Care 131 mg/dl (70-99)
[2024-02-22] VITALS (13 sets, daily range): BP systolic 112–177; BP diastolic 70–110
[2024-02-22] MEDS: ZOSYN 100 IV ×3 (05:03→17:48)
--- NOTE | 2024-02-22 05:18 | PTCARENOTE ---
Pt slept well during the night. No change in assessment.
[2024-02-22 05:29] LABS: Hematocrit 31.2 % (39.0-52.0); Hemoglobin 10.3 g/dL (13.0-18.0); Mean Corpuscular Hgb 28.2 pg (27.0-31.0); Mean Corpuscular Volume 85.5 fL (80.0-94.0); Mean Platelet Volume 12.1 fL (7.4-10.4); Platelet Count 48 10^3/uL (130-400); Red Blood Cell Count 3.65 10^6/uL (4.70-6.10); Red Cell Dist. Width 14.4 % (11.5-14.5); White Blood Cell Count 10.6 10^3/uL (4.8-10.8)
[2024-02-22 05:46] LABS: Blood Urea Nitrogen 41 mg/dl (9-20); Calcium 7.9 mg/dl (8.4-10.2); Carbon Dioxide 31 mmol/L (22-30); Chloride 107 mmol/L (98-107); Estimated Creatinine Clearance 65 ml/min; Glucose 108 mg/dl (70-99); Potassium 3.8 mmol/L (3.5-5.1); Sodium 146 mmol/L (135-145); eGFR 56.48
--- NOTE | 2024-02-22 08:08 | W.PN.ID1 ---
Date of Service
Date of Service: February 22, 2024
Today's Communication
- if taken for ureteroscopy outpatient recommend preoperative zosyn 4.5 gm IV as preoperative antibiotics
- continue zosyn - no oral option for the proteus - plan 14 days of IV antibiotics 02/18-03/03
Assessment / Plan
Pyelonephritis
Obstructing renal stone
Neurogenic bladder
AVTAR improving
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
Class II Obesity
Paraplegia
H/o colonization with ESBL Proteus
- 02/17 urine cultures - ESBL proteus and ESBL klebsiella x2
- blood cultures x2 also ESBL proteus and ESBL klebsiella; note that repeat blood cultures are not needed for gram negative bacteremia, source is and unlikely to disseminate
- agree with plans for eventual ureteroscopy for stone extraction - follow up OR note when available
- if taken for ureteroscopy outpatient recommend preoperative zosyn 4.5 gm IV as preoperative antibiotics
- note colonization with mrsa
- continue zosyn - no oral option for the proteus - plan 14 days of IV antibiotics 02/18-03/03
- afebrile over 48 hours - can place midline
Cirrhosis compensated, Hep C
- outpatient follow up with GI if hep C not already addressed
Chief Complaint
-: Leukocytosis and UTI
Subjective / Review of Systems
afebrile
bp stable
more agreeable yesterday afternoon, less paranoid
Vital Signs / Physical Exam
Vital Signs
Vital Signs
Temp Pulse Resp BP Pulse Ox
97.8 F 76 11 154/86 97
02/22/24 04:00 02/22/24 06:00 02/22/24 06:00 02/22/24 06:00 02/22/24 06:00
Physical Exam
Constitutional: No Acute Distress, Chronically Ill and Obese
Cardiovascular: Regular Rate and S1/S2; Negative Murmur or Rub
Pulmonary: Clear, Symmetric and Non Labored; Negative Wheezes or Rales
Gastrointestinal: Non Distended
Skin: Dry; Negative Rash or Jaundice
Neurological: Negative Awake
Objective Data
Lab Data
Lab Results
02/22/24 05:11
02/22/24 05:11
PT 18.2 Sec (11.4-14.6) H 02/18/24 15:24
INR 1.49 02/18/24 15:24
APTT 30.9 Sec (23.4-35.0) 02/18/24 15:24
Estimated Creat Clear 65 ml/min 02/22/24 05:11
Lactic Acid 1.6 mmol/L (0.7-2.0) 02/19/24 23:30
Total Bilirubin 1.2 mg/dl (0.2-1.3) 02/21/24 05:33
AST 66 U/L (17-59) H 02/21/24 05:33
ALT 52 U/L (0-50) H 02/21/24 05:33
Alkaline Phosphatase 146 U/L (38-126) H 02/21/24 05:33
Most recent labs reviewed.
Micro Results:
02/19/24 17:53 Blood Culture - Preliminary
Blood/Venous Klebsiella pneumoniae-ESBL
Gram Stain - Final
02/18/24 15:24 Blood Culture - Final
Blood/Venous Proteus Mirabilis-ESBL
Klebsiella pneumoniae-ESBL
Gram Stain - Final
02/18/24 09:24 Blood Culture - Final
Blood/Venous Proteus Mirabilis-ESBL
Klebsiella pneumoniae-ESBL
Gram Stain - Final
02/18/24 09:34 Urine Culture - Final
Urine Proteus Mirabilis-ESBL
Klebsiella pneumoniae-ESBL
02/18/24 15:45 Urine Culture - Final
Urine Proteus Mirabilis-ESBL
Klebsiella pneumoniae-ESBL
02/18/24 15:24 MRSA Screen - Final
Nose Staph aureus MRSA
[2024-02-22] MEDS: NOVOLOG FLEXPEN-MODERATE RESISTANCE SC ×2 (08:31→17:07)
[2024-02-22] MEDS: D5W 1000 IV (08:39)
[2024-02-22] MEDS: LOPRESSOR 12.5 MG PO ×2 (08:40→20:56)
[2024-02-22] MEDS: LEXAPRO 10 MG TUBE (08:40)
[2024-02-22] MEDS: VITAMIN B1 100 MG TUBE (08:40)
[2024-02-22] MEDS: THERAGRAN 1 TABLET TUBE (08:40)
[2024-02-22] MEDS: SEROQUEL PO ×2 (08:40→09:25)
[2024-02-22] MEDS: MIRALAX 17 GRAMS TUBE (08:40)
[2024-02-22] MEDS: LIORESAL 10 MG TUBE ×2 (08:40→17:09)
[2024-02-22] MEDS: SENOKOT-S 1 TABLET PO (08:40)
[2024-02-22] MEDS: FOLVITE 1 MG TUBE (08:40)
--- NOTE | 2024-02-22 08:43 | PTCARENOTE ---
0700 patient seen in bed sleeping. BP 132/78; SR 71; RR 20; POX 96%. Aroused denies pain . Chronic Padron draining clear jalil urine
[2024-02-22 08:46] LABS: Glucose - Point of Care 96 mg/dl (70-99)
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
[2024-02-22 11:55] LABS: Magnesium 2.4 mg/dl (1.6-2.3)
[2024-02-22] MEDS: NOVOLOG FLEXPEN-MODERATE RESISTANCE 3 UNITS SC (12:40)
[2024-02-22 12:55] LABS: Glucose - Point of Care 234 mg/dl (70-99)
[2024-02-22] MEDS: FIBERCON 1250 MG TUBE (17:09)
[2024-02-22 17:25] LABS: Glucose - Point of Care 109 mg/dl (70-99)
--- NOTE | 2024-02-22 17:45 | PTCARENOTE ---
Patient transfer to room 426 telemetry via bed . At time of transfer pt AAO x3 Denies pain . Abdomen round non-tender, BM x 2 this shift large semi-formed. Tolerating current diet without difficulties. Chronic Padron draining clear jalil urine. Zosyn
1800 dose transfer with patient .Report given to Conchita prior to transfer
[2024-02-22] MEDS: LIORESAL PO ×2 (20:56→21:07)
[2024-02-22] MEDS: SENOKOT-S PO (20:57)
[2024-02-22] MEDS: LIORESAL 20 MG PO (20:57)
[2024-02-22] MEDS: ATARAX 25 MG PO (20:58)
[2024-02-22] MEDS: PEPCID 20 MG IV (20:58)
[2024-02-22] MEDS: SEROQUEL 50 MG PO (20:58)
[2024-02-22] MEDS: NSS (PRESERVATIVE FREE) 8 ML IV (20:59)
[2024-02-22] MEDS: LYRICA 100 MG PO (21:02)
[2024-02-22 21:06] LABS: Glucose - Point of Care 102 mg/dl (70-99)
[2024-02-23] VITALS (8 sets, daily range): BP systolic 133–157; BP diastolic 52–106
[2024-02-23] MEDS: ZOSYN 100 IV ×5 (00:01→22:59)
[2024-02-23] MEDS: NOVOLOG FLEXPEN-MODERATE RESISTANCE SC ×3 (09:03→17:32)
[2024-02-23] MEDS: SENOKOT-S 1 TABLET PO (09:03)
[2024-02-23 09:04] LABS: Glucose - Point of Care 73 mg/dl (70-99)
[2024-02-23] MEDS: VITAMIN B1 100 MG PO (09:04)
[2024-02-23] MEDS: THERAGRAN 1 TABLET PO (09:04)
[2024-02-23] MEDS: LOPRESSOR PO (09:04)
[2024-02-23] MEDS: LIORESAL 10 MG PO ×2 (09:05→19:17)
[2024-02-23] MEDS: SEROQUEL 25 MG PO (09:05)
[2024-02-23] MEDS: LEXAPRO 10 MG PO (09:05)
[2024-02-23] MEDS: FOLVITE 1 MG PO (09:05)
[2024-02-23] MEDS: ATARAX 25 MG PO ×2 (10:28→21:10)
--- NOTE | 2024-02-23 12:00 | CM ---
Addendum entered by Adeline Frank 02/23/24 15:48:
Spoke with Amber at [facility]
Aware pt will need Zosyn until 03/03 - IV sheet/IV access info sent via care port
Can accept tomorrow as medication will be ordered
Med necessity and transport forms on chart
Team updated
Plan - transfer to [facility] tomorrow
Addendum entered by Adeline Frank 02/23/24 14:14:
Called Katie from [facility] with call back number - Re - poss pt to return to facility
Addendum entered by Adeline Monika 02/23/24 13:01:
Per team pt medially ready - will need IV abx until 03/03, has midline
Called Lorraine at [facility] requesting call back regarding poss return today
Original Note:
Case management following for discharge planning
Pt from [facility] LTC
Received call from Katie [phone] from [facility] - confirm pt is LTC. Requesting updates. Updates sent in Care Port
For return call Lorraine at [facility] - [phone]
CM will follow for discharge needs
Plan - return to [facility] when medically ready
[2024-02-23 12:40] LABS: Glucose - Point of Care 95 mg/dl (70-99)
--- NOTE | 2024-02-23 13:28 | PTOTSP ---
SPEECH THERAPY SWALLOW EVALUATION:
Patient exhibits clinical signs of oropharyngeal dysphagia, likely acute related to recent extubation, sepsis, pneumonia, TME, UTI. Patient remains at risk for aspiration and related complications given confusion and mild impulsivity. Patient
appears to be tolerating current diet without signs or symptoms of aspiration at this time. WBC currently WNL (significant decrease from several days ago). Recommend continue IDDSI Level 4 Puree diet, thin liquids. Medications whole with liquid as
best tolerated. Aspiration and reflux precautions including: Partial supervision/assistance with set-up; Upright positioning; Small single sips/bites; Slow rate of intake; Only feed when awake/alert; Oral care 3x/day; Remain upright 30 minutes after
eating/drinking. Monitor for signs of aspiration and d/c oral diet if any decline in mental or respiratory status. Speech therapy to follow, assess diet tolerance and modify as appropriate, provide education regarding aspiration risks/precautions,
and determine indication for VSE if appropriate.
RECOMMEND:
1) IDDSI Level 4 Puree diet, thin liquids
2) Medications whole with liquid as best tolerated
3) Oral care 3x/day
4) Aspiration and reflux precautions: Partial supervision/assistance with set-up; Upright positioning; Small single sips/bites; Slow rate of intake; Only feed when awake/alert; Remain upright 30 minutes after eating/drinking. Monitor for signs of
aspiration and d/c oral diet if any decline in mental or respiratory status
5) ST to follow at the acute care level
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
--- NOTE | 2024-02-23 14:50 | W.PN.ID1 ---
Date of Service
Date of Service: February 23, 2024
Today's Communication
- continue zosyn - no oral option for the proteus - plan 14 days of IV antibiotics 02/18-03/03
- has midline
Assessment / Plan
Pyelonephritis
Obstructing renal stone
Neurogenic bladder
AVTAR improving
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
Class II Obesity
Paraplegia
H/o colonization with ESBL Proteus
- agree with plans for eventual ureteroscopy for stone extraction - follow up OR note when available
- if taken for ureteroscopy outpatient recommend preoperative zosyn 4.5 gm IV as preoperative antibiotics
- continue zosyn - no oral option for the proteus - plan 14 days of IV antibiotics 02/18-03/03
- has midline
Cirrhosis compensated, Hep C
- outpatient follow up with GI if hep C not already addressed
Chief Complaint
-: Leukocytosis and UTI
Subjective / Review of Systems
afebrile
no complaints
mentation clear today
Vital Signs / Physical Exam
Vital Signs
Vital Signs
Temp Pulse Resp BP Pulse Ox
97.9 F 108 20 154/89 95
02/23/24 11:46 02/23/24 11:46 02/23/24 11:46 02/23/24 11:46 02/23/24 11:46
Physical Exam
Constitutional: No Acute Distress
Cardiovascular: Regular Rate and S1/S2; Negative Murmur or Rub
Pulmonary: Clear and Symmetric; Negative Wheezes or Rales
Gastrointestinal: Soft, Non Tender, Non Distended and Normal Bowel Sounds
Genito-Urinary: Negative Suprapubic Tenderness
Skin: Warm and Dry; Negative Rash or Jaundice
Objective Data
Lab Data
Lab Results
02/22/24 05:11
02/22/24 05:11
PT 18.2 Sec (11.4-14.6) H 02/18/24 15:24
INR 1.49 02/18/24 15:24
APTT 30.9 Sec (23.4-35.0) 02/18/24 15:24
Estimated Creat Clear 65 ml/min 02/22/24 05:11
Lactic Acid 1.6 mmol/L (0.7-2.0) 02/19/24 23:30
Total Bilirubin 1.2 mg/dl (0.2-1.3) 02/21/24 05:33
AST 66 U/L (17-59) H 02/21/24 05:33
ALT 52 U/L (0-50) H 02/21/24 05:33
Alkaline Phosphatase 146 U/L (38-126) H 02/21/24 05:33
Most recent labs reviewed.
Micro Results:
02/19/24 17:53 Blood Culture - Final
Blood/Venous Klebsiella pneumoniae-ESBL
Gram Stain - Final
02/18/24 15:24 Blood Culture - Final
Blood/Venous Proteus Mirabilis-ESBL
Klebsiella pneumoniae-ESBL
Gram Stain - Final
02/18/24 09:24 Blood Culture - Final
Blood/Venous Proteus Mirabilis-ESBL
Klebsiella pneumoniae-ESBL
Gram Stain - Final
02/18/24 09:34 Urine Culture - Final
Urine Proteus Mirabilis-ESBL
Klebsiella pneumoniae-ESBL
02/18/24 15:45 Urine Culture - Final
Urine Proteus Mirabilis-ESBL
Klebsiella pneumoniae-ESBL
02/18/24 15:24 MRSA Screen - Final
Nose Staph aureus MRSA
[2024-02-23] MEDS: TYLENOL 325 MG PO (16:34)
[2024-02-23 16:45] LABS: Glucose - Point of Care 84 mg/dl (70-99)
[2024-02-23] MEDS: FIBERCON 1250 MG PO (17:41)
[2024-02-23] MEDS: LOPRESSOR 12.5 MG PO (19:18)
[2024-02-23] MEDS: NSS (PRESERVATIVE FREE) 8 ML IV (21:10)
[2024-02-23] MEDS: LYRICA 100 MG PO (21:10)
[2024-02-23] MEDS: LIORESAL 20 MG PO (21:10)
[2024-02-23] MEDS: PEPCID 20 MG IV (21:11)
[2024-02-23 21:16] LABS: Glucose - Point of Care 103 mg/dl (70-99)
[2024-02-23] MEDS: MELATONIN 3 MG PO (21:53)
[2024-02-24 03:00] VITALS: BP 151/79
[2024-02-24 04:44] LABS: Hematocrit 30.6 % (39.0-52.0); Hemoglobin 10.2 g/dL (13.0-18.0); Mean Corp Hgb Conc. 33.3 g/dL (33.0-37.0); Mean Corpuscular Hgb 27.4 pg (27.0-31.0); Mean Corpuscular Volume 82.3 fL (80.0-94.0); Mean Platelet Volume 11.5 fL (7.4-10.4); Platelet Count 47 10^3/uL (130-400); Red Blood Cell Count 3.72 10^6/uL (4.70-6.10); Red Cell Dist. Width 14.3 % (11.5-14.5)
[2024-02-24] MEDS: ZOSYN 100 IV ×2 (05:00→11:24)
[2024-02-24 05:21] LABS: Blood Urea Nitrogen 23 mg/dl (9-20); Calcium 8.3 mg/dl (8.4-10.2); Carbon Dioxide 23 mmol/L (22-30); Chloride 111 mmol/L (98-107); Estimated Creatinine Clearance 65 ml/min; Glucose 84 mg/dl (70-99); Potassium 4.4 mmol/L (3.5-5.1); Sodium 142 mmol/L (135-145); eGFR 56.48
[2024-02-24 06:04] LABS: % Basophils 0.1 % (0-2); % Immature Granulocytes 6.3 % (0-0.5); % Lymphocytes 19.1 % (20.5-51.1); % Monocytes 8.6 % (1.7-9.3); % Neutrophils 62.9 % (42.2-75.2); Absolute Eosinophils 0.2 10^3/uL (0-0.7); Absolute Immature Granulocytes 0.4 10^3/uL (0-0.05); Absolute Lymphocytes 1.3 10^3/uL (1.2-3.4); Absolute Monocytes 0.6 10^3/uL (0.1-0.6); Absolute Neutrophils 4.4 10^3/uL (1.4-6.5); Nucleated Red Blood Cells % 0 % (-)
[2024-02-24] MEDS: ProAIR HFA INHALER 2 PUFF INH (06:12)
[2024-02-24 08:45] LABS: Glucose - Point of Care 69 mg/dl (70-99)
[2024-02-24 08:49] VITALS: BP 151/87
[2024-02-24] MEDS: NOVOLOG FLEXPEN-MODERATE RESISTANCE SC ×2 (08:49→11:33)
[2024-02-24] MEDS: FOLVITE 1 MG PO (08:51)
[2024-02-24] MEDS: LIORESAL 10 MG PO (08:51)
[2024-02-24] MEDS: LOPRESSOR 12.5 MG PO (08:51)
[2024-02-24] MEDS: LEXAPRO 10 MG PO (08:51)
[2024-02-24] MEDS: THERAGRAN 1 TABLET PO (08:51)
[2024-02-24] MEDS: VITAMIN B1 100 MG PO (08:51)
[2024-02-24] MEDS: ATARAX 25 MG PO (08:59)
[2024-02-24 09:14] LABS: Glucose - Point of Care 77 mg/dl (70-99)
[2024-02-24 11:25] LABS: Glucose - Point of Care 131 mg/dl (70-99)
[2024-02-24 11:32] VITALS: BP 154/96
--- NOTE | 2024-02-24 11:32 | VATNOTE ---
02/23 Orders to remove existing midline and PICC d/t bacteremia at admission when they were placed, and new midline to be established. Unable to access vessel for new midline, left picc exchanged to midline- MD approved. Procedure done under sterile
technique.
--- NOTE | 2024-02-24 11:34 | W.PN.ID1 ---
Date of Service
Date of Service: February 24, 2024
Today's Communication
c/w zosyn
Assessment / Plan
Pyelonephritis
Obstructing renal stone
Neurogenic bladder
AVTAR improving
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
Class II Obesity
Paraplegia
H/o colonization with ESBL Proteus
- midline and picc currently in place were both placed while patient was bacteremic, asked vascular access team if there is ability to access a new site however none available, therefore line exchanged
- agree with plans for eventual ureteroscopy for stone extraction - follow up OR note when available
- if taken for ureteroscopy outpatient recommend preoperative zosyn 4.5 gm IV as preoperative antibiotics
- continue zosyn - no oral option for the proteus - plan 14 days of IV antibiotics 02/18-03/03
- has midline
Cirrhosis compensated, Hep C
- outpatient follow up with GI if hep C not already addressed
Chief Complaint
-: Leukocytosis and UTI
Subjective / Review of Systems
afebrile
midline and picc currently in place were both placed while patient was bacteremic, asked vascular access team if there is ability to access a new site however none available, therefore line exchanged
Vital Signs / Physical Exam
Vital Signs
Vital Signs
Temp Pulse Resp BP Pulse Ox
98.0 F 80 20 154/96 98
02/24/24 11:32 02/24/24 11:32 02/24/24 11:32 02/24/24 11:32 02/24/24 11:32
Physical Exam
Constitutional: No Acute Distress
Cardiovascular: Regular Rate
Pulmonary: Symmetric and Non Labored
Gastrointestinal: Non Distended
Neurological: Awake
Objective Data
Lab Data
Lab Results
02/24/24 04:22
02/24/24 04:22
PT 18.2 Sec (11.4-14.6) H 02/18/24 15:24
INR 1.49 02/18/24 15:24
APTT 30.9 Sec (23.4-35.0) 02/18/24 15:24
Estimated Creat Clear 65 ml/min 02/24/24 04:22
Lactic Acid 1.6 mmol/L (0.7-2.0) 02/19/24 23:30
Total Bilirubin 1.2 mg/dl (0.2-1.3) 02/21/24 05:33
AST 66 U/L (17-59) H 02/21/24 05:33
ALT 52 U/L (0-50) H 02/21/24 05:33
Alkaline Phosphatase 146 U/L (38-126) H 02/21/24 05:33
Most recent labs reviewed.
Micro Results:
02/19/24 17:53 Blood Culture - Final
Blood/Venous Klebsiella pneumoniae-ESBL
Gram Stain - Final
02/18/24 15:24 Blood Culture - Final
Blood/Venous Proteus Mirabilis-ESBL
Klebsiella pneumoniae-ESBL
Gram Stain - Final
02/18/24 09:24 Blood Culture - Final
Blood/Venous Proteus Mirabilis-ESBL
Klebsiella pneumoniae-ESBL
Gram Stain - Final
02/18/24 09:34 Urine Culture - Final
Urine Proteus Mirabilis-ESBL
Klebsiella pneumoniae-ESBL
02/18/24 15:45 Urine Culture - Final
Urine Proteus Mirabilis-ESBL
Klebsiella pneumoniae-ESBL
02/18/24 15:24 MRSA Screen - Final
Nose Staph aureus MRSA
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
--- NOTE | 2024-02-24 13:59 | CM ---
Md entered order for discharge.
Spoke with pt he wants to return to [facility].
Spoke with Amber [phone] and Katie [phone] both have accepted pt back .
They are aware of IV antibiotics and PIcc line and CXR faxed over to [facility].
Medical nec form completed
[facility]
report [phone] ask for 3 rd floor nsy

PLAN Return to [facility]
== END 2024-02-24 15:07 | DRG 698 ==
LOC: 4 WEST ACU 12:30
PROVIDERS: Nurse Practitioner Primary Care; Registered Nurse; ADMITTING PHYSICIAN Internal Medicine; CONSULT PHYSICIAN Internal Medicine Critical Care Medicine; CONSULT PHYSICIAN Student in an Organized Health Care Education/Training Program; CONSULT PHYSICIAN Urology; EMERGENCY PHYSICIAN Emergency Medicine; FAMILY PHYSICIAN Internal Medicine
PROC: 5A1935Z Respiratory Ventilation, Less than 24 Consecutive Hours (ICD-10-PCS; 2024-02-18)
DX: T83.511A Infection and inflammatory reaction due to indwelling urethral catheter, initial encounter (principal); A41.59 Other Gram-negative sepsis; R65.21 Severe sepsis with septic shock; G92.8 Other toxic encephalopathy; J96.90 Respiratory failure, unspecified, unspecified whether with hypoxia or hypercapnia; G82.20 Paraplegia, unspecified; E87.20 Acidosis, unspecified; N17.9 Acute kidney failure, unspecified; N13.6 Pyonephrosis; I69.354 Hemiplegia and hemiparesis following cerebral infarction affecting left non-dominant side; N20.2 Calculus of kidney with calculus of ureter; Z16.12 Extended spectrum beta lactamase (ESBL) resistance; D69.6 Thrombocytopenia, unspecified; D63.8 Anemia in other chronic diseases classified elsewhere; K70.30 Alcoholic cirrhosis of liver without ascites; B19.20 Unspecified viral hepatitis C without hepatic coma; I10 Essential (primary) hypertension; F32.A Depression, unspecified; F10.10 Alcohol abuse, uncomplicated; B96.1 Klebsiella pneumoniae [K. pneumoniae] as the cause of diseases classified elsewhere; B96.4 Proteus (mirabilis) (morganii) as the cause of diseases classified elsewhere; Y84.6 Urinary catheterization as the cause of abnormal reaction of the patient, or of later complication, without mention of misadventure at the time of the procedure; K80.20 Calculus of gallbladder without cholecystitis without obstruction; K56.41 Fecal impaction; K21.9 Gastro-esophageal reflux disease without esophagitis; N31.9 Neuromuscular dysfunction of bladder, unspecified; R68.0 Hypothermia, not associated with low environmental temperature; W34.00XS Accidental discharge from unspecified firearms or gun, sequela; Z87.440 Personal history of urinary (tract) infections; Z86.19 Personal history of other infectious and parasitic diseases; Z87.891 Personal history of nicotine dependence; Z90.2 Acquired absence of lung [part of]; Z90.49 Acquired absence of other specified parts of digestive tract; Z99.3 Dependence on wheelchair
CPT/HCPCS: 70450; 71045; 74176; 80048; 80053; 81003; 81015; 82140; 82533; 82805; 82962; 83036; 83605; 83735; 84100; 84145; 84443; 85025; 85027; 85610; 85730; 87040; 87070; 87077; 87086; 87088; 87147; 87149; 87186; 87205; 87811; 92610; 93005; 94002; 94003; 94640; 96365; 96367; 96372; 96375; 99291; C2617; J2358

== ENCOUNTER 2024-04-27 05:37 | Inpatient (IN) | payer OTHER, SELFPAY ==
[2024-04-27] VITALS (76 sets, daily range): BP systolic 51–138; BP diastolic 26–109; PULSE 2; BMI 38.4
--- NOTE | 2024-04-27 03:47 | ED.GENMED ---
History of Present Illness
General
Chief Complaint: Urinary Symptoms
Source: patient, ambulance crew and assisted
Exam Limitations: none
Time Seen by Provider: 04/27/24 03:25
Nursing documentation reviewed up to this point in time: agreed with
History of Present Illness
History of Present Illness:
Patient with history of chronic indwelling Padron catheter, recently admitted and treated for UTI secondary to obstructing kidney stone, presents to ED from assisted after blood was noted to be seen within his urinary catheter along with
abdominal pain and distention. Patient states that he has not been feeling well all day long, until his symptoms got worse after dinner. Patient reported nausea sensation without vomiting. Denies fever. Denies trauma. Denies headache. Denies
shortness of breath.
Past History
Past History
ED Past Medical History: GERD, Renal failure, Psychiatric (Depression), Other (T6 paraplegia ) and Other (Paraplegia with chronic neurogenic bladder and indwelling Padron, chronic thrombocytopenia, cirrhosis)
ED Past Surgical History: Bowel resection and Other (Left pneumonectomy)
Social History
Tobacco: Former smoker
Alcohol: None
Drug: None
Personal: Single
Living: assisted
Review of Systems
Review of Systems
Allergies reviewed?: Yes
All Other Systems: ROS reviewed and negative except as documented in HPI and ROS
Constitutional: Reports no symptoms; Denies fever
Respiratory: Reports no symptoms
Cardiac: Reports no symptoms
ABD/GI: Reports abdominal pain and nausea; Denies vomiting
: Reports bleeding
Musculoskeletal: Reports no symptoms
Skin: Reports no symptoms
Neurological: Reports no symptoms
Phy Exam
Physical Exam
Physical Exam:
Physical Exam
General: moderate distress, acutely ill. afebrile. overweight.
Head: nc/at. eomi
Neck: supple. normal range of motion.
Heart: tachycardic, no murmur. equal radial pulses.
Lungs: no acute respiratory distress. clear bilaterally
Abdomen: normal bowel sounds. diffusely tender to palpation with mild distention.
Neuro: alert and oriented x 3
Skin: no rash
Psychiatric: well kept. interactive and cooperative
Extremities: LE b/l edema, nonpitting.
Course
Orders/Labs/Results
Orders:
Orders
04/27/24 03:26
EKG [Electrocardiogram (*1)] Urgent
Reason for Study: Bradycardia / Tachycardia
04/27/24 03:27
EKG- Treatment ONCE
04/27/24 03:41
Fentanyl Citrate/Pf [Sublimaze] 100 mcg .ROUTE .STK-MED ONE
Ondansetron Injectable [Zofran] 4 mg .ROUTE .STK-MED ONE
04/27/24 03:45
CT Abd/pel Without Iv Or Oral Urgent
Comment:
Reason For Exam: right flank pain
04/27/24 03:48
Complete Blood Count/With Diff Urgent
Comprehensive Metabolic Panel Urgent
Lactic Acid Urgent
Manual Differential Urgent
04/27/24 04:21
Ondansetron Injectable [Zofran] 4 mg IV NOW STA
04/27/24 04:22
Fentanyl Citrate/Pf [Sublimaze] 50 mcg IV NOW STA
04/27/24 04:26
Urinalysis Reflex To Culture Urgent
Date Specimen was Collected: 04/27/24
Time Specimen was Collected: 04:25
Urine Microscopic Reflex Cult Urgent
Urine Culture Urgent
SAGRARIO Source: U
Specimen Description:
Date Specimen was Collected: 04/27/24
Time Specimen was Collected: 04:25
04/27/24 04:27
0.9% Sodium Chloride 1000 ml [Nss] 1,000 ml IV BOLUS
Piperacillin/Tazo 3.375 Gram [Zosyn] 3.375 gram in 50 ml .ROUTE .STK-MED
Piperacillin/Tazo 3.375 Gram [Zosyn] 3.375 gram in 50 ml IV NOW
04/27/24 04:28
0.9% Sodium Chloride 1000 ml [Nss] 1,000 ml IV BOLUS
0.9% Sodium Chloride 500 ml [Nss] 500 ml IV BOLUS
04/27/24 04:36
NORepinephrine 4 MG/250 ML [Levophed] 4 mg in 250 ml .ROUTE .STK-MED
04/27/24 04:52
Acetaminophen 1000MG/100Ml [Ofirmev] 1,000 mg in 100 ml IV ONCE
Acetaminophen IV Indication:: ED Narcotic Naive Pt-ONCE
Fentanyl Citrate/Pf [Sublimaze] 50 mcg IV NOW STA
04/27/24 05:15
NORepinephrine 4 MG/250 ML [Levophed] 4 mg in 250 ml IV PER PROTOCOL
Initial dose in mcg/min, then titrate:: 2
Titrate to keep:: MAP > 65 mmHg
Titrate by mcg/min:: 1-2 mcg/min
Frequency of titrations (minutes):: 5
Maximum dose in ICU in mcg/min:: 30
Maximum dose in IMU in mcg/min:: 8
Maximum dose in IVU in mcg/min:: 4
Begin to taper infusion when:: Remained at goal for 4hrs
Taper by mcg/min:: 1-2 mcg/min
Frequency of taper (minutes) if patient maintains goal:: 30
Taper to off?: Yes
If infusion off & no longer maintaining goal:: Contact Provider
04/27/24 05:16
Type+Screen Urgent
HH [H&H] Urgent
04/27/24 05:19
Admit/Transfer Patient As Directed
Co-Sign Provider:
Level of Care: Inpatient admission
Assign to:: ICU
Physician / Group: Reginaldo
Diagnosis: Lactic Acidosis / Septic Shock, AVTAR, Perinephric Hematoma
Reason for Hospitalization: Lactic Acidosis / Septic Shock, AVTAR, Perinephric Hematoma
Expected length of stay greater than two midnights?: Yes
ELOS- Estimated Length of Stay in days: 5
I certify the patient meets the requirements for IP care: Yes
PRN Pain Medication Management As Directed
May give lesser potent ordered pain med per pt: Yes
preference::
Protocol:: Medication orders for pain may be administered in a
manner that supports deferring to patient preference
when the pt is:
- Requesting an ordered lesser potent pain medication.
Least to most potent pain medications are defined
as: acetaminophen < NSAID < tramadol < opioids
(morphine, oxycodone, hydromorphone).
- Requesting a lesser dose of the same medication IF
ORDERED.
- Requesting a less intrusive route of administration
if both routes are prescribed by the provider (PO <
IV).
04/27/24 05:20
Code Status As Directed
Resuscitation Status: Full Code
04/27/24 05:55
Acetaminophen [Tylenol] 650 mg PO Q4HPRN PRN
Albuterol Nebs [Ventolin Nebules] 2.5 mg INH R Q4HPRN PRN
HYDROmorphone [Dilaudid] 0.5 mg IV Q4HPRN PRN
04/27/24 05:55
UROLOGY CONSULT Routine
Consulting Provider: Damir Aguillon Jr.
Was physician already notified: Yes
Comment: Lactic Acidosis / Septic Shock, AVTAR, Perinephric Hematoma
Activity As Directed
Activity Level: Bedrest
EKG with chest pain [ECG as needed] As Directed
ECG as needed for:: Chest Pain
Padron Catheter [Catheter- Indwelling] As Directed
Reason for insertion: Chronic Padron on Admit
I/O [Intake/ Output] As Directed
Frequency: Per unit guidelines
Pneumatic Compression Sleeves As Directed
Type: Knee high
Vital Signs As Directed
Frequency: Per unit guidelines
Weight As Directed
Frequency: Daily
Incentive Spirometry [Rx Incentive Spirometry] [RESP] Routine
Frequency: q1h while awake
Oxygen Therapy [O2 Therapy] [RESP] Routine
Titrate/Wean O2 to maintain O2 sat greater than (%): 94
DX Deep Vein Thrombosis Video Routine
04/27/24 06:00
EKG [Electrocardiogram (*1)] IN AM
Reason for Study: Chest Pain
NPO
Allow oral meds: Yes
Allow clear liquids: Sips of Clears
Lactated Ringers [Lr] 1,000 ml IV 200 mls/hr
VANCOMYCIN Pharmacy to Dose [VANCOCIN Pharmacy to Dose] 1 each Pharmacy To Prepare [Call Pharmacy To Prepare] 0 ml IV PER PROTOCOL
04/27/24 10:00
Ondansetron Injectable [Zofran] 4 mg IV Q6HPRN PRN
04/27/24 10:01
Basic Metabolic Panel IN AM
HH [H&H] Q8H
Magnesium IN AM
Phosphorus IN AM
04/27/24 12:00
Piperacillin/Tazo 2.25 Gram [Zosyn] 2.25 grams in 50 ml IV Q6
04/28/24 03:08
Complete Blood Count/No Diff IN AM
Abnormal Lab Results
04/27/24 04/27/24 04/27/24
03:48 04:26 05:16
RBC 6.12 H 10^6/uL
(4.70-6.10)
Hgb 12.8 L D g/dL
(13.0-18.0)
Hct 54.3 H %
(39.0-52.0)
MCHC 31.7 L g/dL
(33.0-37.0)
RDW 14.6 H %
(11.5-14.5)
Plt Count 90 L 10^3/uL
(130-400)
MPV 12.4 H fL
(7.4-10.4)
Abs Immat Gran (auto) 0.1 H 10^3/uL
(0-0.05)
Absolute Neuts (auto) 6.9 H 10^3/uL
(1.4-6.5)
Immature Gran % 0.8 H %
(0-0.5)
Neutrophils % 79.8 H %
(42.2-75.2)
Lymphocytes % 18.3 L %
(20.5-51.1)
Monocytes % 0.7 L %
(1.7-9.3)
Band Neutrophils 26 H %
(0-3)
Monocytes (Manual) 1 L %
(2-9)
Potassium 3.4 L mmol/L
(3.5-5.1)
Carbon Dioxide 11 L* mmol/L
(22-30)
BUN 29 H mg/dl
(9-20)
Creatinine 2.5 H mg/dL
(0.7-1.3)
Glucose 110 H mg/dl
(70-99)
Lactic Acid 11.2 H* mmol/L
(0.7-2.0)
Total Bilirubin 2.5 H mg/dl
(0.2-1.3)
AST 150 H U/L
(17-59)
ALT 176 H U/L
(0-50)
Alkaline Phosphatase 363 H U/L
(38-126)
Total Protein 9.1 H g/dl
(6.3-8.2)
Ur Occult Blood Reflex 4+ A
(Negative)
Leukocyte Esterase Rfl 2+ A
(Negative)
Urine RBC >100 A /HPF
(0-2)
Urine WBC (Reflex) 16-20 A /HPF
(0-5)
Urine Bacteria (Reflex) Moderate A
(Negative)
Urine Albumin (Reflex) 2+ A
(Neg - Trace)
04/27/24 05:16
04/27/24 03:48
Vital Signs
Initial and Last Documented VS:
Initial Vital Signs
BP
72/46
04/27/24 03:26
Last Documented Vital Signs
Temp Pulse Resp BP Pulse Ox
98.8 F 150 19 104/85 97
04/28/24 11:03 04/28/24 12:07 04/28/24 09:00 04/28/24 12:07 04/28/24 08:36
MDM/Problems Addressed
MDM/Problems Addressed:
History and exam, along with blood work, urinalysis, as well as CT abdomen pelvis, concerning for septic shock, secondary to UTI, along with potential perinephric hematoma.
Discussed with on-call urology, Dr. Aguillon. Please see patient as consultation. Does not feel the patient is in need of any acute emergent intervention at this time.
Patient given empiric IV antibiotics. Despite multiple boluses of normal saline, patient remains hypotensive. As such, decision made to start patient on Levophed infusion.
Padron catheter exchanged in ED.
Blood culture and urine culture pending.
Critical care statement: A total of 40 minutes of critical care time was provided for this patient. This includes management of unstable vital signs, evaluation of the patient at bedside, reviewing the patient's pertinent medical records, discussion
with consultants, review of old EKGs and review of pertinent medical records. This time with separate from time utilized to perform the aforementioned documented procedures
*Critical Care Note
Total Time (30-74mins, 75-104mins- exclusive of procedures): 40 min
ED Attending Note
-
Portions of this chart may have been created with voice recognition software.� Occasional wrong word or��sound alike� substitutions may have occurred due to the inherent limitations of voice recognition software.
Discharge Plan
Departure
Patient Disposition: Admit
Date of Disposition: 04/27/24
Time of Disposition: 05:00
Admit to: ICU
Presentation/result/management discussed w/ accepting MD/DO: Hospitalist
Discharge Problem:
Septic shock, UTI (urinary tract infection), Hematoma
Interventions
Interventions:
*Risk Screen - Suicide Last Done: 04/27/24 03:27
*General Assessment Last Done: 04/27/24 03:27
*Neglect/Abuse Screening Last Done: 04/27/24 03:27
ED- Fall Risk Assessment Last Done: 04/27/24 06:06
*ED COVID-19 Vaccine History Last Done: 04/27/24 03:27
*Nursing Disposition Last Done: 04/27/24 06:05
ED-Male Genitourinary Assessment Last Done: 04/27/24 03:27
Discharge Date and Time
Discharge Date/Time: 04/27/24 06:06
[2024-04-27 04:10] LABS: Hematocrit 54.3 % (39.0-52.0); Hemoglobin 17.2 g/dL (13.0-18.0); Mean Corp Hgb Conc. 31.7 g/dL (33.0-37.0); Mean Corpuscular Hgb 28.1 pg (27.0-31.0); Mean Corpuscular Volume 88.7 fL (80.0-94.0); Mean Platelet Volume 12.4 fL (7.4-10.4); Platelet Count 90 10^3/uL (130-400); Red Blood Cell Count 6.12 10^6/uL (4.70-6.10); Red Cell Dist. Width 14.6 % (11.5-14.5); White Blood Cell Count 8.7 10^3/uL (4.8-10.8)
[2024-04-27] MEDS: ZOFRAN 4 MG IV (04:22)
[2024-04-27] MEDS: SUBLIMAZE 50 MCG IV ×2 (04:22→04:55)
[2024-04-27 04:25] LABS: Lactic Acid 11.2 mmol/L (0.7-2.0)
[2024-04-27 04:26] LABS: AST (SGOT) 150 U/L (17-59); Albumin 4.3 g/dl (3.5-5.0); Alkaline Phosphatase 363 U/L (38-126); Blood Urea Nitrogen 29 mg/dl (9-20); Calcium 9.7 mg/dl (8.4-10.2); Carbon Dioxide 11 mmol/L (22-30); Chloride 107 mmol/L (98-107); Glucose 110 mg/dl (70-99); Potassium 3.4 mmol/L (3.5-5.1); Sodium 144 mmol/L (135-145); Total Bilirubin 2.5 mg/dl (0.2-1.3); Total Protein 9.1 g/dl (6.3-8.2); eGFR 28.16
[2024-04-27] MEDS: ZOSYN 50 IV (04:28)
[2024-04-27] MEDS: NSS 1000 IV ×2 (04:30→04:31)
[2024-04-27] MEDS: NSS 500 IV (04:31)
[2024-04-27 04:32] LABS: Urine Albumin 2+ (Neg - Trace); Urine Bilirubin Negative (Negative); Urine Character Very Cloudy (Clear); Urine Color Red; Urine Glucose Negative (Negative); Urine Ketone Negative (Negative); Urine Leukocyte 2+ (Negative); Urine Nitrite Negative (Negative); Urine Occult Blood 4+ (Negative); Urine Specific Gravity 1.015 (<1.030); Urine Urobilinogen Negative (Neg - 1+)
[2024-04-27 04:37] LABS: ALT (SGPT) 176 U/L (0-50)
[2024-04-27 04:48] LABS: Urine Bacteria Moderate (Negative); Urine Red Blood Cell >100 /HPF (0-2); Urine Squamous Cell 0-2 /LPF (Few); Urine White Cell 16-20 /HPF (0-5)
[2024-04-27] MEDS: OFIRMEV 100 IV (04:57)
[2024-04-27] MEDS: LEVOPHED 250 IV ×3 (05:17→20:04)
[2024-04-27 05:21] LABS: % Basophils 0.3 % (0-2); % Eosinophils 0.5 % (0-6); % Immature Granulocytes 0.8 % (0-0.5); % Lymphocytes 18.3 % (20.5-51.1); % Monocytes 0.7 % (1.7-9.3); % Neutrophils 79.8 % (42.2-75.2); Absolute Immature Granulocytes 0.1 10^3/uL (0-0.05); Absolute Lymphocytes 1.7 10^3/uL (1.2-3.4); Absolute Monocytes 0.1 10^3/uL (0.1-0.6); Absolute Neutrophils 6.9 10^3/uL (1.4-6.5); Nucleated Red Blood Cells % 0.2 % (-)
[2024-04-27 05:22] LABS: Absolute Neutrophils -Man Diff 6.1 10^3/uL (1.4-6.5); Band Neutrophils 26 % (0-3); Eosinophils 1 % (0-6); Lymphocytes 21 % (20-51); Monocytes 1 % (2-9); Segmented Neutrophils 45 % (42-75)
[2024-04-27 05:23] LABS: Metamyelocytes 5 % (-); Myelocytes 1 % (-); Platelets Checked Yes; Total Cells Counted 100; Toxic Granulation 1+
--- NOTE | 2024-04-27 05:25 | HPS.HSE ---
Family Physician
-
Family Physician: Trav Jang, DO
Chief Complaint
-
Abd Pain, Hematuria
History of Present Illness
Patient is a 64y M with PMH significant for T7 spinal cord injury / paraplegia and recent admission for ureteral stone / AVTAR / sepsis who presents to ED complaining of abdominal pain and hematuria. Patient was admitted 02/17 - 02/23 secondary to
UTI / sepsis and obstructing R ureteral stone. Patient was admitted to the ICU and required ventilatory support and pressors during his stay. He underwent cysto / R ureteral stent placement on 02/18/24. Patient gradually clinically improved and
was eventually discharge back to his nursing facility.
There were tentative plans for repeat cysto / stone removal / stent removal.
Patient returns to the ED today from [place] with reports of abdominal pain and distention. Staff noted bloody urine in his Padron bag this evening and patient was sent for further evaluation.
In the ED, patient is in moderate distress due to pain. He is somewhat poorly responsive and unable to add additional detail to this history.
Patient is noted to be hypotensive here in the ED and has been started on pressor support.
CT scan done in the ED shows R perinephric hematoma with extension along the R ureter.
Medical History
Past Medical History
Past Medical History: Reports Other
Additional Past Medical History:
T7 Spinal Cord Injury / Paraplegia
Hypertension
CKD III
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
Cholelithiasis
Anemia of Chronic Disease
Ureterolithiasis
Chronic Indwelling Padron Catheter / Neurogenic Bladder
Past Surgical History: Reports Other
Additional Past Surgical History:
Cystoscopy with R Ureteral Stent Placement (02/18/24)
Patient with evidence of multiple prior surgeries based on exam / scars.
Social History
Unable to obtain full social history at this time due to: Acuity
Family History
Family History: Unable to Obtain
Allergies / Home Medications
Allergies reflects when Allergies were last updated in [employer].
Home Medications with original date entered in [employer]
Allergy/Medication List:
Allergies
Allergy/AdvReac Type Severity Reaction Status Date / Time
ofloxacin Allergy Unknown/pt Verified 04/27/24 03:26
tolerated
cipro
pentazocine Allergy Unknown Verified 04/27/24 03:26
Home Medications
acetaminophen 325 mg tablet (Tylenol) 325 mg PO Q6HPRN PRN mild pain/fever 04/25/22
baclofen 10 mg tablet 10 mg PO BID spasms 04/25/22
baclofen 20 mg tablet 20 mg PO HS spasm 04/25/22
bisacodyl 10 mg rectal suppository (Dulcolax (bisacodyl)) 10 mg WA DAILYPRN PRN if no bm aftr mom 04/25/22
calcium polycarbophil 625 mg tablet (FiberCon) 1,250 mg PO QPM Supplement 04/25/22
escitalopram oxalate 10 mg tablet (Lexapro) 10 mg PO DAILY Mental Health/Anxiety 04/25/22
famotidine 20 mg tablet (Pepcid) 20 mg PO DAILY Gastrointestinal issue 04/25/22
folic acid 1 mg tablet 1 mg PO DAILY Supplement 04/25/22
melatonin 3 mg tablet 3 mg PO HS Sleep 04/25/22
sorbitol 70 % solution 30 ml PO [id number] PRN if no bm on 3rd day 04/25/22
therapeutic multivitamin 1 tab PO DAILY Supplement 04/25/22
thiamine HCl (vitamin B1) 100 mg tablet 100 mg PO DAILY Supplement 04/25/22
polyethylene glycol 3350 17 gram oral powder packet 17 g PO DAILY #0 ea 04/29/22
clindamycin phosphate 1 % lotion 1 applic topical DAILY back 06/20/23
sodium phosphates 19 gram-7 gram/118 mL enema (Fleet Enema) 118 ml WA DAILYPRN PRN if no bm aftr dulcolax 06/20/23
metoprolol tartrate 25 mg tablet 12.5 mg (1/2 x 25 mg) PO BID Blood pressure #0 tabs 06/24/23
albuterol sulfate 90 mcg/actuation aerosol inhaler 2 puff inhalation R Q4HPRN PRN sob 02/18/24
cranberry fruit 450 mg tablet (cranberry) 450 mg PO DAILY Supplement 02/18/24
docusate sodium 100 mg capsule (Colace) 100 mg PO DAILY Constipation 02/18/24
guaifenesin 400 mg tablet 800 mg PO BID MUCOUS 02/18/24
hydroxyzine HCl 25 mg tablet 25 mg PO Q6HPRN PRN itchness 02/18/24
pregabalin 100 mg capsule (Lyrica) 100 mg PO HS Pain #14 caps 02/24/24
furosemide 20 mg tablet (Lasix) 10 mg PO DAILY 04/27/24
Review of Systems
-
Unable to obtain full review of systems at this time due to: Acuity
Physical Exam
Vital Signs
Vital Signs
Temp Pulse Resp BP Pulse Ox
102.6 F H 120 18 108/77 95
04/27/24 05:15 04/27/24 05:15 04/27/24 05:15 04/27/24 05:14 04/27/24 05:15
Physical Exam
General: Other (Pale, acutely ill-appearing 64y M in moderate distress due to pain / discomfort.)
HEENT: Other (Neck supple. Dry MM.)
Respiratory: Other (Shallow respirations. Diminished breath sounds at the bases as a result. No appreciated W/R/R.)
Cardiac: S1/S2 and Irregular Rhythm; No Murmur
GI: Other (Pos voluntary guarding. Not tense. Some ecchymosis over the LLQ area.)
Genito-urinary: Other (Padron in place draining grossly bloody urine.)
Musculoskeletal: Other (Muscle wasting of b/l LEs secondary to paraplegia. No significant edema.)
Neuro: Awake and Other (Patient lethargic. Awakens to verbal stimuli but does not answer questions.)
Laboratory Results
-
04/27/24 03:48
Laboratory Results
Lactic Acid 11.2 mmol/L (0.7-2.0) H* 04/27/24 03:48
Total Bilirubin 2.5 mg/dl (0.2-1.3) H 04/27/24 03:48
AST 150 U/L (17-59) H 04/27/24 03:48
ALT 176 U/L (0-50) H 04/27/24 03:48
Alkaline Phosphatase 363 U/L (38-126) H 04/27/24 03:48
Impression/Plan
-
A/P: Patient is a 64y M with PMH significant for T7 paraplegia, chronic indwelling Padron and prior admission for R ureteral stone who presents to ED from local [place] with complaints of abdominal pain and hematuria.
Shock
Lactic Acidosis
- Admit for further evaluation and treatment.
- Patient with hypotension despite volume replacement in the ED - now on pressor support.
- ? hemorrhagic shock, septic shock, etc.
- Admit to ICU. Electrical Project Manager evaluation.
- Continue pressor support + volume replacement.
- Broad spectrum IV abx for now for possible infectious source ( v GI).
- Further evaluation / additional treatment as noted below.
Perinephric Hematoma
- 35mm hematoma around the R kidney with extension along the R ureter.
- Recent history (02/17) of ureteral stent placement.
- No evidence of acute obstruction appreciated on CT.
- Patient not on any blood thinners, antiplatelets, etc.
- Urology evaluation for additional recommendations.
- Follow H&H and transfuse if needed. Initial Hgb here was 17.2 - which seems erroneous as prior Hgb here was 10.
- Repeat Hgb 12.8 - continue to follow. Type and Screen sent.
AVTAR on CKD III
- SCr = 2.5 compared to prior baseline of 1.4.
- Likely secondary to shock / decreased perfusion +/- local effects / hematoma.
- IVF / volume replacement support.
- Avoid nephrotoxic medications.
- Pressor support if needed to maintain perfusion.
- Maintain Padron.
- Follow for improvement in renal function.
Constipation
Stercoral Colitis
- Significant stool burden on CT with changes c/w stercoral colitis.
- IV abx as noted above.
- Enemas for now. PO bowel regimen once OK for oral intake.
- Follow for positive effects / clinical improvement.
Thrombocytopenia
- This appears to be chronic / stable.
- Avoid any anticoagulants / antiplatelets.
- Follow cell counts and consider transfusion if needed.
T7 Paraplegia
Neurogenic Bladder
- Continue supportive care / Maintain Padron.
- Holding PO meds for now. Resume Baclofen, gabapentin, etc when appropriate.
Cirrhosis secondary to Alcohol / Hep C
- LFTs slightly increased from prior baseline.
- Likely secondary to acute illness / shock.
- Follow for changes.
DVT Prophylaxis: SCDs. No pharmacologic prophylaxis given bleeding / thrombocytopenia / etc.
Code Status: Full
[2024-04-27 05:29] LABS: Normal RBC Morphology Yes; Vacuolated Segs Occasional
[2024-04-27 05:41] LABS: Hematocrit 40.4 % (39.0-52.0); Hemoglobin 12.8 g/dL (13.0-18.0)
--- NOTE | 2024-04-27 06:11 | W.PN.SEPSIS ---
Sepsis
Vital Signs
Temp Pulse Resp BP Pulse Ox
102.6 F H 123 17 102/80 98
04/27/24 05:15 04/27/24 05:45 04/27/24 05:45 04/27/24 05:45 04/27/24 05:45
Physical Exam
Physical Exam:
A focused exam was performed after fluid resuscitation.
Capillary Refill
Lower Extremity:
Len Time: Less than 3 sec
Pulse Evaluation
Dorsalis Pedis:
Pulse Evaluation: Present
[2024-04-27] MEDS: LR 1000 IV ×2 (06:49→12:53)
--- NOTE | 2024-04-27 07:19 | PTCARENOTE ---
Pt received from ED via stretcher approx 06:00. Pt AOx3, pleasant and cooperative. C/O abdominal pain/need to void. Attempted to irrigate barcenas with no success and barcenas changed per DENTAL EQUIPMENT TECHNICIAN. Baneberry drainage from barcenas. SR-Stach . 4L NC, diminished breath
sounds. Hypoactive bowel sounds, large soft BM on arrival from ED. L thigh with 1x1cm open wound with pink wound bed--covered with foam. Levophed continues to keep MAP >65. Safe environment maintained, call stockton within reach, pt repositioned.
--- NOTE | 2024-04-27 07:28 | CON.MD ---
Consultation - Medical
-
see dictated note
pt with ngb secondary to paraplegia
chronic barcenas- chronic ESBL bacteruria
admitted jun 2023 with UTI/hematuria/sepsis
admitted feb 2024 with UTI/obstruction stone- taken to OR for stent
plan was for definitive stone procedure in may
admitted with abd pain and fever
HD stable- but temp >102
CT scan shows no hydro- but appears to have had right subcapsular bleed with extension into retroperitoneum
hgb 12
barcenas was exchanged for low outpt- has been difficult to irrigate with some hematuria clots
plan
3 way barcenas placed- irrigation is difficult due to pt's spastic bladder- but cath in good position- cbi started- at low rate urine clear
on zosyn for UTI
stent in good position with no hydro
for bleed- track hgb- pain control- transfuse as needed
will follow closely
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
--- NOTE | 2024-04-27 08:27 | PHA.VAN.IN ---
Assessment
- Assessment
Renal Function: Unknown baseline (unclear baseline SCR with lower range 0.8-1.4 in 2023, SCR currently elevated)
Concomitant Antimicrobials: piperacillin/tazobactam
Patient currently requiring pressor support with norepinephrine
Plan
- Plan
Initial / Loading Dose: 2000mg - 04/27 08:36
Maintenance Regimen: dosing by level
Monitoring: random 04/28 06
Pharmacokinetics Vancomycin I
- -
Patient Age: 64
Patient Sex: Male
Vancomycin Day #: 1
Indication: Genito-Urinary Tract
Requesting Provider: Dr. Hair
Pertinent Antimicrobial Allergies:
ofloxacin - unknown; tolerated ciprofloxacin
Height / Weight:
Height 5 ft 5 in
Actual Weight 106 kg
Pertinent Past Medical History: BMI ~39, Paraplegia, CKD III
- Vital Signs / Lab Results
Temp Pulse Resp BP Pulse Ox
99.0 F 96 15 106/80 95
04/27/24 07:29 04/27/24 07:15 04/27/24 07:15 04/27/24 07:15 04/27/24 07:15
Lab Results - Hematology
04/27/24
03:48
WBC 8.7
Band Neutrophils 26 H
Lab Results - Chemistry
04/27/24
03:48
BUN 29 H
Creatinine 2.5 H
Albumin 4.3
04/27/24
03:48
Lactic Acid 11.2 H*
Lab Results - Urine
04/27/24
04:26
Urine Nitrite (Reflex) Negative
Leukocyte Esterase Rfl 2+ A
Urine WBC (Reflex) 16-20 A
Ur Squamous Epith Cells 0-2
Urine Bacteria (Reflex) Moderate A
[2024-04-27] MEDS: DILAUDID 0.5 MG IV ×2 (08:32→23:10)
[2024-04-27] MEDS: PROTONIX IV 40 MG IV (08:32)
[2024-04-27] MEDS: NSS (PRESERVATIVE FREE) 10 ML IV (08:33)
[2024-04-27] MEDS: VANCOCIN 540 MG IV (08:36)
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
[2024-04-27 10:29] LABS: Hematocrit 42.5 % (39.0-52.0); Hemoglobin 13.6 g/dL (13.0-18.0)
[2024-04-27 10:31] LABS: APTT 38.5 Sec (23.4-35.0); INR 1.75; PT 20.6 Sec (11.4-14.6)
[2024-04-27 10:37] LABS: Lactic Acid 9.1 mmol/L (0.7-2.0)
[2024-04-27 10:51] LABS: Magnesium 1.6 mg/dl (1.6-2.3); Phosphorus 3.6 mg/dl (2.5-4.5)
[2024-04-27 12:16] LABS: Blood Urea Nitrogen 30 mg/dl (9-20); Calcium 8.5 mg/dl (8.4-10.2); Carbon Dioxide 6 mmol/L (22-30); Chloride 113 mmol/L (98-107); Estimated Creatinine Clearance 30 ml/min; Glucose 94 mg/dl (70-99); Potassium 3.7 mmol/L (3.5-5.1); Sodium 143 mmol/L (135-145); eGFR 24.58
--- NOTE | 2024-04-27 12:33 | CM ---
CM following re: discharge planning.
Discussed in Rounds, reviewed the chart, met with pt.
Pt is a 64 year old male, admitted with primary dx of Shock. Lactic Acidosis
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 The patient is normally alert and oriented. The discharge plan will be back to [facility] when medically stable. Bed hold in place. Pt has
legal guardian.
D/C plan: return back to [facility] when medically stable.
CM will follow with discharge plan updates as hospitalization progresses
[2024-04-27] MEDS: MERREM 500 MG IV ×2 (12:36→22:25)
[2024-04-27] MEDS: STERILE WATER FOR INJECTION 10 ML IV ×2 (12:36→22:25)
--- NOTE | 2024-04-27 12:51 | VATNOTE ---
Right PICC coiled in the subclavian, retracted 15cm and readvanced with a guidewire.
[2024-04-27 13:26] LABS: O2 Saturation % 97.9 % (94-98); PCO2 33 mmHg (35-48); PO2 87 mmHg (83-108)
[2024-04-27 13:30] LABS: HCO3 12.3 mmol/L (21-28); pH 7.18 (7.35-7.45)
[2024-04-27] MEDS: DULCOLAX 10 MG RECTAL (13:31)
--- NOTE | 2024-04-27 13:38 | PTCARENOTE ---
LR +Levophed+potassium compactability checked all compatable
[2024-04-27] MEDS: KCL 160 MEQ IV (13:39)
--- NOTE | 2024-04-27 14:33 | PTCARENOTE ---
patient drowsy, aroused. ABG done while pt on BIPA. Labs and ABG reported to Dr Roberts.
[2024-04-27] MEDS: SODIUM BICARBONATE IV (14:38)
[2024-04-27] MEDS: LR IV (14:40)
--- NOTE | 2024-04-27 14:50 | PTCARENOTE ---
Unable to start Bicarb qtt. Bicarb and Levophed not compatible . IV team been attempting to place PICC line. per latest report PICC line too short IV team will make a switch
--- NOTE | 2024-04-27 14:58 | W.PN.INTV ---
Today's Communication / Plan
Recommendations
Continue fluids with bicarb
continue meropenem
wean pressors and FiO2 as possible
trend H&H
Assessment
-
64-year-old male with past medical history of paraplegia presented with abdominal pain and hematuria also noted to have right perinephric hematoma. Recently admitted for ureteral stones/AVTAR/sepsis with stent placement 02/17 - 02/23.
Impression:
#Severe Septic shock unresponsive to fluids requiring pressors
#Lactic acidosis
#Metabolic acidosis
#Perinephric hematoma
#AVTAR on top of chronic kidney disease stage III
#Constipation/stercoral colitis
#Thrombocytopenia
#T7 paraplegia
#Anemia due to acute blood loss-perinephric abscess-hemoglobin normocytic 12.8
#Transaminitis
#Hypokalemia
#TME due to sepsis and Dilaudid
Conditions present prior to admission:
Recent admission ureteral stone/AVTAR/sepsis 02/18/24
T7 spinal cord injury/paraplegia
Perinephric hematoma 04/27/24
Hypertension
CKD stage III
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
Thrombocytopenia
Cholelithiasis
Urolithiasis
Right ureteral stent 02/18/2024
Anemia of chronic disease
Severe elevation right hemidiaphragm
Chronic indwelling Barcenas catheter/neurogenic bladder
Depression
Hypertension
GERD
Obesity
Former smoker
Plan
Respiratory
-Severe septic shock unresponsive to fluid likely secondary to UTI/lactic acidosis
-Admit to ICU
-Supplement oxygen. Escalate in a step fisher fashion if necessary
-Aspiration precautions
-Nebulizers if needed
-Infectious disease following
-Obtain cultures
-Check MRSA screen
-pip-tazo and Zosyn discontinue->meropenem renally dosed for AVTAR per ID
-ID following
-Monitor leukocytosis. Positive bandemia
Cardiovascular
-30cc/kg LR with bolus as necessary
-Trend lactate - downtrending
-Pressors MAP >65. Norepi first, then vasopressin then consider angiotensin II if hypotension persistent
-Hold home metoprolol
-Wean as possible
-t/c checking random cortisol if no response
-Monitor for fluid response
-noninvasive beside tissue perfusion evaluation
-If patient is active, considered likely for 3-minute if cardiac output increases or there is a rise of 2-4 on end tidal CO2 then fluid bolus
-If bedside US available, measure IVC diameter variation to evaluate for fluid bolus
-If persistently hyperthermic, then correcting hyperthermia can decrease pressor requirements, increased chances of reversal of shock and decrease mortality
-Bicarb added to fluids for acidosis. Not retaining CO2.
-Anemia
-Hg drop 17.2 -> 12.8 ->13.6. Received 3+ L of fluids so possibly dilutional. Baseline hg from previous visit 13.6
-No visualized blood in barcenas bag currently- trend H&H
-Chronic thrombocytopenia
-likely secondary to liver cirrhosis
-Consider platelet transfusion if drop
Renal
-Hematuria three-way Barcenas placed
-Right perinephric hematoma 3.5 cm
-AVTAR on CDK stage 3a
-Cr 2.5 baseline 1.4
-Continue fluids per sepsis protocol and pressors as needed to maintain MAP >65
-Maintain barcenas and follow renal function
-Right perinephric hematoma 3.5cm with extension of blood products along course of R ureter noted on ab/pelvic CT 04/27/24
-Consider IR consult if H&H drop or increase in subscapular renal hematoma size
-Urologic evaluation reviewed with Dr. Roberts intervention needed at this time
-Replete electrolytes as needed
Gastric
-Complaints of abdominal pain/constipation with possible stercoral colitis
-Monitor Abdominal exam closely - pt no complaints of flank pain, but abdominal. No guarding or rigidity
-Nurse stated had one very large bowel movement upon arrival to
-On chronic analgesia and bowel regimen at nursing facility
-Bowel regimen and monitor
-GI/surgical evaluation if abdominal exam does not improve
-LFT elevation
-No evidence of cholecystitis noted on CAT scan
-Likely secondary to hypotension�shock liver and sepsis
-History of cirrhosis secondary to alcohol use and history of hep C (unclear if treated - outpatient follow up)
-Monitor LFTs
-Hx GERD
-Continue Protonix
-Depression�continue Lexapro
DVT - compression device - holding anti-coags at the moment with perinephric hematoma and anemia
Early nutrition if possible
Early mobilization
Diagnostic data:
Chest x-ray 02/20/2024-large amount of bilateral lower lobe opacifications suspected aspiration pneumonia subsegmental atelectasis or pneumonia, moderate to severe elevation right hemidiaphragm
CT abdomen and pelvis 04/27/24-3.5 cm right renal perinephric hematoma, right double-J ureteral stent in position, large volume stool, cannot exclude stercoral colitis, contracted gallbladder with at least 1 stone
Subjective Dataa
Subjective Data
Date of Service:
Date of Service: April 27, 2024
Review of Systems
General: Unobtainable - Pat Unresp
Objective Data
Data Reviewed
Vital Signs / I&O / Oxygen:
Vital Signs
Temp Pulse Resp BP Pulse Ox
99.3 F 107 11 83/57 93
04/27/24 10:58 04/27/24 12:45 04/27/24 12:45 04/27/24 12:30 04/27/24 12:45
Intake and Output
04/26/24 04/27/24 04/28/24
06:59 06:59 06:59
Intake Total 1146.6 / 1146.6
Output Total 3550 / 3550
Balance -2403.4 / -2403.4
SaO2 93
Nasal Cannula flow liters per 4
minute
Physical Exam
General: Respiratory Distress
HEENT: Normocephalic
Cardiovascular: S1-S2 and Regular Rhythm
Respiratory: Clear, Wheeze (n), Crackles (n) and Other
GI: Soft, Distended, Tender (Diffusely tender), Normal Bowel Sounds and Other (No guarding, no rigidity)
Labs/Micro/Reports
Lab Data
04/27/24 10:01
Laboratory Results
04/27/24 04/27/24 04/27/24
10:01 13:01 13:16
PT 20.6 H
INR 1.75
APTT 38.5 H
pH Cancelled 7.18 L*
pCO2 Cancelled 33 L
pO2 Cancelled 87
HCO3 Cancelled 12.3 L*
O2 Delivery Level Cancelled
[2024-04-27 15:17] LABS: Hematocrit 41.5 % (39.0-52.0); Hemoglobin 13.1 g/dL (13.0-18.0)
[2024-04-27 15:26] LABS: Lactic Acid 8.9 mmol/L (0.7-2.0)
--- NOTE | 2024-04-27 15:48 | VATNOTE ---
Right PICC too short exchanged for a 46cm PICC.
[2024-04-27] MEDS: SODIUM BICARBONATE 1150 MEQ IV ×2 (16:31→21:46)
--- NOTE | 2024-04-27 16:32 | PTCARENOTE ---
RT PICC line DL inserted by IV team placement confirmed by chest Xray. Bicarb per order infusing via purple lumen . Levophed at 14mcg via white lumen
[2024-04-27] MEDS: PITRESSIN 100 IV (16:58)
--- NOTE | 2024-04-27 19:14 | PTCARENOTE ---
patient in bed. BP via left upper arm. ON 4 L of oxygen via nasal canula. BIPAP prn . PICC line Rt upper arm: Levoped at 14mcg; Vasopressin 0.03mcg/9ml. D5/ Bicarb 200/hr 3 way barcenas was clapped earlier. Urine noted to darm jalil with bloody
sediment. CBI unclamped.
[2024-04-27 19:37] LABS: Blood Urea Nitrogen 35 mg/dl (9-20); Calcium 7.7 mg/dl (8.4-10.2); Carbon Dioxide 17 mmol/L (22-30); Chloride 103 mmol/L (98-107); Estimated Creatinine Clearance 28 ml/min; Glucose 228 mg/dl (70-99); Lactic Acid 9.1 mmol/L (0.7-2.0); Sodium 137 mmol/L (135-145); eGFR 22.63
[2024-04-27] MEDS: FLEET PHOSPHATE ENEMA-ADULT 135 ML RECTAL (20:08)
[2024-04-27] MEDS: VALIUM INJECTION 2.5 MG IV (20:09)
--- NOTE | 2024-04-27 20:17 | PTCARENOTE ---
Pt received at 19:00, 3way barcenas catheter in place with CBI, CBI irrigation bag not draining. Barcenas manually flushed with large amount of resistance---small amount of jalil/pink tinged urine with small clots noted with flushing. [address] way catheter
exchanged, 22Fr, 30cc. Barcenas drained small amount of dark jalil urine initially. Irrigation bag now infusing appropriately and urine is light yellow with occasional small clots and sediment. Pt bladder scanned for 0ml. Pt c/o lower abdomen pain,
given PRN valium as ordered---effective.
Pt now drowsy, arousable to loud verbal stimuli-oriented to place/self. 4L NC, sat mid 90s, shallow respirations, diminished t/o. HR SR in 110s, initially in 120s-130s with frequent PVCs. Weak but palpable pulses. Remains on levophed and vasopressin
gtts as ordered to maintain MAP >65. Hypoactive/distant bowel sounds, abdomen round/firm/distended. Fleets enema given as ordered, large soft BM prior to enema, and 2nd large soft BM after enema. Safe environment maintained, call [place] within reach,
pt assisted w/ repositioning.
[2024-04-27 21:07] LABS: Glucose - Point of Care 204 mg/dl (70-99)
[2024-04-27 22:43] LABS: Hematocrit 34.5 % (39.0-52.0); Hemoglobin 11.5 g/dL (13.0-18.0); Venous Blood Gas B.E. -8.8 mmol/L (-4 to +4); Venous Blood Gas HCO3 17.4 mmol/L (22-27); Venous Blood Gas O2 Sat % 91.4 %; Venous Blood Gas pCO2 38 mmHg (35-48); Venous Blood Gas pH 7.27 (7.32-7.43); Venous Blood Gas pO2 58 mmHg (30-50)
[2024-04-27 23:26] LABS: Glucose - Point of Care 253 mg/dl (70-99)
[2024-04-27] MEDS: NOVOLOG FLEXPEN-LOW RESISTANCE 3 UNITS SC (23:28)
[2024-04-28] VITALS (63 sets, daily range): BP systolic 74–159; BP diastolic 35–148; PULSE 2–114; BMI 40.2
[2024-04-28] MEDS: VALIUM INJECTION 2.5 MG IV ×2 (01:51→11:05)
[2024-04-28] MEDS: PITRESSIN 100 IV (02:28)
[2024-04-28] MEDS: SODIUM BICARBONATE 1150 MEQ IV ×2 (02:57→09:03)
--- NOTE | 2024-04-28 03:47 | PTCARENOTE ---
CBI continues, draining jalil urine w/ occasional small clots and sediment. Pt intermittently agitated/restless. Pt c/o bladder spasms and PRN valium given as ordered and effective. x2 large soft BMs.
[2024-04-28 03:50] LABS: Lactic Acid 6.4 mmol/L (0.7-2.0)
[2024-04-28 03:55] LABS: AST (SGOT) 718 U/L (17-59); Albumin 2.5 g/dl (3.5-5.0); Alkaline Phosphatase 98 U/L (38-126); Blood Urea Nitrogen 38 mg/dl (9-20); Calcium 7.1 mg/dl (8.4-10.2); Carbon Dioxide 20 mmol/L (22-30); Chloride 99 mmol/L (98-107); Direct Bilirubin 1.3 mg/dl (0.0-0.4); Estimated Creatinine Clearance 31 ml/min; Glucose 253 mg/dl (70-99); Hematocrit 31.3 % (39.0-52.0); Hemoglobin 10.6 g/dL (13.0-18.0); Mean Corp Hgb Conc. 33.9 g/dL (33.0-37.0); Mean Corpuscular Hgb 28.3 pg (27.0-31.0); Mean Corpuscular Volume 83.5 fL (80.0-94.0); Mean Platelet Volume 11.9 fL (7.4-10.4); Platelet Count 40 10^3/uL (130-400); Potassium 4.4 mmol/L (3.5-5.1); Red Blood Cell Count 3.75 10^6/uL (4.70-6.10); Red Cell Dist. Width 15.1 % (11.5-14.5); Sodium 137 mmol/L (135-145); Total Bilirubin 1.8 mg/dl (0.2-1.3); Total Protein 5.9 g/dl (6.3-8.2); White Blood Cell Count 13.8 10^3/uL (4.8-10.8); eGFR 25.68
[2024-04-28 03:57] LABS: ALT (SGPT) 523 U/L (0-50)
[2024-04-28] MEDS: CALCIUM GLUCONATE 100 IV ×2 (05:00→05:33)
[2024-04-28] MEDS: NOVOLOG FLEXPEN-MODERATE RESISTANCE 3 UNITS SC (05:21)
[2024-04-28 05:31] LABS: Glucose - Point of Care 214 mg/dl (70-99)
[2024-04-28] MEDS: DILAUDID 0.5 MG IV ×2 (05:37→16:41)
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
[2024-04-28] MEDS: NSS (PRESERVATIVE FREE) 10 ML IV (07:44)
[2024-04-28] MEDS: PROTONIX IV 40 MG IV (07:44)
--- NOTE | 2024-04-28 08:18 | PTCARENOTE ---
pt wakes to name. moaning when turned. states no pain. abd round soft. cbi running via [address] barc[address] draining yellow with sediment. bipap removed now on 2lnc. levo and vaso iv running as ordered. bicarb gtt running.
[2024-04-28] MEDS: MAGNESIUM SULFATE 102 GRAMS IV (09:02)
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
--- NOTE | 2024-04-28 09:10 | W.PN.URO.CBU ---
Today's Communication / Plan
-
Continue antibiotics and supportive care
Repeat CT
Assessment / Plan
-
64M with neurogenic bladder and chronic barcenas
Recent admission with urosepsis from obstructing R ureteral stone
Readmitted with sepsis and perinephric/subcapsular hematoma on CT
Perinephric/subcapsular hematoma
- Significant decrease in hemoglobin today with persistent hypotension and tachycardia - sepsis vs hemorrhage possible cause
- Will eval for increase in size of hematoma on pending CT today
- If significant bleeding is suspected could consider angiogram or embolization though would prefer to avoid in setting of AVTAR/CKD
Urosepsis/bacteremia
- Continue broad spectrum abx
- F/U cultures
- Stent in good position with no hydronephrosis on CT
- Low suspicion that the renal subcapsular collection is an infected abscess based on appearance
Hematuria
- Mild and now resolved off CBI
- Cap CBI, observe
Neurogenic bladder
- Maintain chronic barcenas
Diagnosis
-
Date of Service: April 28, 2024
-
Patient Diagnosis:
R Retroperitoneal hemorrhage/subcapsular hematoma
Sepsis
Bacteremia
Kidney stone s/p stent
Hematuria
AVTAR
Post Op Day:
Subjective
-
hematuria resolved off CBI
Remains on pressors for sepsis/hypotension
Hemoglobin decreased
Objective
-
Vital Signs
Temp Pulse Resp BP Pulse Ox
98.9 F 114 18 94/73 96
04/28/24 07:39 04/28/24 08:04 04/28/24 08:04 04/28/24 08:04 04/28/24 08:17
Intake and Output
04/27/24 04/28/24 04/29/24
06:59 06:59 06:59
Intake Total 5570.1 / 5801.6 461.5 / 461.5
Output Total 4550 / 4550
Balance 1020.1 / 1251.6 461.5 / 461.5
Intake:
IV fluids (Total) 5370.1 / 5601.6 461.5 / 461.5
D5w 1,000 ml @ 200 mls/hr IV . 2400 / 2600 400 / 400
Q5H45M RADHA with Sodium
Bicarbonate 150 Meq Rx#:
[id number]
IVF 800 / 800
Vassopre 36 / 36
levo 844.1 / 866.6 45.0 / 45.0
lr 1200 / 1200
vasopressin 90 / 99 16.5 / 16.5
IV piggybacks 200 / 200
Output:
Urine, Barcenas 4550 / 4550
True Urine Output from CBI 0 / 0
Laboratory Results
04/28/24 03:08
04/28/24 03:08
Physical Exam
-
General - well developed, well nourished, obtunded
Chest - clear
Abdomen - distended
Skin - warm & dry with no rash
- barcenas in place with clear urine off CBI
[2024-04-28] MEDS: DILAUDID 0.25 MG IV (09:19)
[2024-04-28 10:02] LABS: B.E. -0.8 mmol/L; HCO3 24.3 mmol/L (21-28); O2 Saturation % 99.1 % (94-98); PCO2 41 mmHg (35-48); PO2 111 mmHg (83-108); pH 7.38 (7.35-7.45)
[2024-04-28] MEDS: OMNIPAQUE 50 ML PO (10:25)
--- NOTE | 2024-04-28 10:57 | W.PN.INTV ---
Today's Communication / Plan
Recommendations
Repeat/pelvic CT with oral contrast
Nasogastric tube with gastric decompression
maintenance fluid with bicarb - decreased
Monitor acidosis
Continue antibiotics
Wean pressors and O2 as possible
Assessment
-
64-year-old male with past medical history of paraplegia presented with abdominal pain and hematuria also noted to have right perinephric hematoma. Recently admitted for ureteral stones/AVTAR/sepsis with stent placement 02/17 - 02/23.
Impression:
#Severe Septic shock unresponsive to fluids requiring pressors
#Lactic acidosis
#Metabolic acidosis
#Perinephric hematoma
#AVTAR on top of chronic kidney disease stage III
#Constipation/stercoral colitis
#Thrombocytopenia
#T7 paraplegia
#Anemia due to acute blood loss-perinephric abscess-hemoglobin normocytic 12.8
#Transaminitis
#Hypokalemia
#TME due to sepsis and Dilaudid
Conditions present prior to admission:
Recent admission ureteral stone/AVTAR/sepsis 02/18/24
T7 spinal cord injury/paraplegia
Perinephric hematoma 04/27/24
Hypertension
CKD stage III
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
Thrombocytopenia
Cholelithiasis
Urolithiasis
Right ureteral stent 02/18/2024
Anemia of chronic disease
Severe elevation right hemidiaphragm
Chronic indwelling Barcenas catheter/neurogenic bladder
Depression
Hypertension
GERD
Obesity
Former smoker
Plan
Respiratory
-Severe septic shock unresponsive to fluid likely secondary to UTI/lactic acidosis
-Acute hypoxic respiratory insufficiency
-Continue biPAP and supplemental O2 as needed - wean as able
-Intubate if necessary
-Aspiration precautions
-Nebulizers if needed
-Infectious disease following
-Cultures revealed G (-) rods
-Repeat blood cultures
-pip-tazo and Zosyn discontinue->meropenem renally dosed for AVTAR per ID
-Uptrend in WBC - Positive bandemia
Cardiovascular
-Decrease maintenance fluids -bicarb to 150 mL/h as currently anasarca and 3kg weight gain since yesterday
-Trend lactate - downtrending
-Pressors MAP >65. Cont.
-Cont. Norepi and vaso. consider angiotensin II if hypotension persistent - wean as able.
-Hold home metoprolol
-t/c checking random cortisol if no response
-Anemia
-Hg drop 13.6->10.9. Received 2+ L fluid overnight so possibly dilutional. Baseline hg from previous visit 13.6
-No visualized blood in barcenas bag currently- trend H&H
-Repeat ab/pelvic CT with oral contrast to re-evaluate perinephric hematoma for bleed
-Chronic thrombocytopenia
-likely secondary to liver cirrhosis
-Consider platelet transfusion if drop
Renal
-Hematuria three-way Barcenas placed with CBI
-Right perinephric hematoma 3.5 cm
-AVTAR on CDK stage 3a
-Cr 2.5 ->2.7 baseline 1.4
-Continue fluids and pressors as needed to maintain MAP >65
-Maintain barcenas and CBI and follow renal function
-Right perinephric hematoma 3.5cm with extension of blood products along course of R ureter noted on ab/pelvic CT 04/27/24
-Repeat ab/pelvic CT today with oral contrast to evaluate for bleed. In agreement with Nephro and IM.
-Consider IR consult if H&H drop or increase in subscapular renal hematoma size
-Replete electrolytes as needed
Gastric
-Complaints of abdominal pain/constipation with possible stercoral colitis
-Monitor Abdominal exam closely - pt no complaints of flank pain, but abdominal. No guarding or rigidity
-Nurse stated had one very large bowel movement upon arrival to and 5 last night after enemma
-On chronic analgesia and bowel regimen at nursing facility
-Bowel regimen and monitor
-GI/surgical evaluation if abdominal exam does not improve
-large amounts of gas in stomach noted on chest x-ray today
-Nasogastric tube to decompress abdomen and provide oral contrast for pending ab/pelvic CT
-LFT elevation
-No evidence of cholecystitis noted on CAT scan
-Likely secondary to hypotension�shock liver and sepsis
-History of cirrhosis secondary to alcohol use and history of hep C (unclear if treated - outpatient follow up)
-Monitor LFTs
-Hx GERD
-Continue Protonix
-Depression�continue Lexapro
DVT - compression device - holding anti-coags at the moment with perinephric hematoma and anemia
Early nutrition if possible
Early mobilization
Subjective Dataa
Subjective Data
Date of Service:
Date of Service: April 28, 2024
Chief Complaint: Habilitation Training Specialist Follow Up and Pulmonary Follow Up
Review of Systems
General: Other (Difficult to obtain as patient moderately responsive )
GI: Abdominal Pain
Objective Data
Data Reviewed
Vital Signs / I&O / Oxygen:
Vital Signs
Temp Pulse Resp BP Pulse Ox
98.9 F 144 19 95/65 97
04/28/24 07:39 04/28/24 09:00 04/28/24 09:00 04/28/24 09:00 04/28/24 08:36
Intake and Output
04/27/24 04/28/24 04/29/24
06:59 06:59 06:59
Intake Total 5570.1 / 5801.6 690.0 / 690.0
Output Total 4550 / 4550
Balance 1020.1 / 1251.6 690.0 / 690.0
SaO2 97
Nasal Cannula flow liters per 2
minute
Physical Exam
General: Respiratory Distress
HEENT: Normocephalic
Cardiovascular: S1-S2 and Regular Rhythm
Respiratory: Clear, Wheeze (n), Crackles (n) and Other
GI: Soft, Distended, Tender (Diffusely tender, not localized ), Normal Bowel Sounds and Other (No guarding, no rigidity)
Neurology: Awake, Alert, Lethargic and Other (Paraplegia)
Skin: Warm, Good Color, Cyanosis (n), Jaundice (n) and Rash (n)
Labs/Micro/Reports
Lab Data
04/28/24 03:08
Laboratory Results
04/27/24 04/27/24 04/28/24
13:01 13:16 09:41
pH Cancelled 7.18 L* 7.38
pCO2 Cancelled 33 L 41
pO2 Cancelled 87 111 H
HCO3 Cancelled 12.3 L* 24.3
O2 Delivery Level Cancelled
Microbiology
04/27/24 04:26 Urine Urine Culture - Final
04/27/24 12:24 Blood/Venous Blood Culture - Preliminary
Positive culture in progress
04/27/24 12:24 Blood/Venous Gram Stain - Preliminary
04/27/24 11:57 Blood/Venous Blood Culture - Preliminary
Positive culture in progress
04/27/24 11:57 Blood/Venous Gram Stain - Preliminary
[2024-04-28] MEDS: MERREM 500 MG IV ×2 (11:00→20:23)
[2024-04-28] MEDS: STERILE WATER FOR INJECTION 10 ML IV ×2 (11:00→20:24)
--- NOTE | 2024-04-28 11:11 | PTCARENOTE ---
placed ngt to [facility] and for ct scan sheila rausch
[2024-04-28 11:23] LABS: PT 20.5 Sec (11.4-14.6)
[2024-04-28] MEDS: LEVOPHED 250 IV ×2 (11:24→20:24)
[2024-04-28 11:25] LABS: Lactic Acid 6.8 mmol/L (0.7-2.0)
[2024-04-28 12:07] LABS: Glucose - Point of Care 177 mg/dl (70-99)
[2024-04-28] MEDS: NOVOLOG FLEXPEN-MODERATE RESISTANCE 1 UNITS SC (12:07)
[2024-04-28] MEDS: LOPRESSOR 5 MG IV ×2 (12:07→17:23)
[2024-04-28 12:08] LABS: Blood Urea Nitrogen 39 mg/dl (9-20); Calcium 7.7 mg/dl (8.4-10.2); Carbon Dioxide 23 mmol/L (22-30); Chloride 94 mmol/L (98-107); Estimated Creatinine Clearance 35 ml/min; Glucose 190 mg/dl (70-99); Sodium 135 mmol/L (135-145); eGFR 28.16
--- NOTE | 2024-04-28 12:11 | PTCARENOTE ---
pt hr 150 dr Roberts notified. ekg ordered and lopressor iv hr now 110
--- NOTE | 2024-04-28 12:46 | CM ---
CM following re: discharge planning.
Discussed in Rounds, reviewed the chart, met with pt. Per Rounds meeting, pt wakes to name, moaning when turned, requires 2L NC of O2, continue supportive care.
Pt has been a [facility] since February 2022, is wheelchair/bedbound. The patient is normally alert and oriented. The discharge plan will be back to [facility] when medically stable. Bed hold in place. Pt has
legal guardian.
D/C plan: return back to [facility] when medically stable.
CM will follow with discharge plan updates as hospitalization progresses
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
--- NOTE | 2024-04-28 13:19 | PTCARENOTE ---
pt taken to ct scan and returned
[2024-04-28] MEDS: SODIUM BICARBONATE IV (13:56)
[2024-04-28 15:42] LABS: Ammonia 14 umol/L (9-30)
[2024-04-28 15:43] LABS: Lactic Acid 7.3 mmol/L (0.7-2.0)
[2024-04-28] MEDS: LR 1000 IV ×2 (15:44→20:31)
--- NOTE | 2024-04-28 16:50 | W.PN.UPDATE ---
Update Note
Progress Note Update
Repeat CT shows slight increase in perinephric hematoma, however given relatively small overall size and only slight increase, bleeding as a major cause of hypotension/ unstable vitals is very unlikely.
Hematoma appears to be contained within the renal capsule which provides some tamponade
Would not recommend any surgical/procedural intervention
Trend HGB and transfuse as necessary
[2024-04-28 18:11] LABS: Glucose - Point of Care 104 mg/dl (70-99)
--- NOTE | 2024-04-28 18:12 | PTCARENOTE ---
pt removed Ivan umana ngt. pt now having bloody spit. yelling it hurt. pain med given. hr 130 lopressor given as ordered.
[2024-04-28] MEDS: NOVOLOG FLEXPEN-MODERATE RESISTANCE SC ×2 (18:14→23:14)
--- NOTE | 2024-04-28 20:30 | PTCARENOTE ---
pt received from previous rn- drowsy but arousable, knows name, answers yes and no occasionally to some questions, yells out at times. oriented to self. pt paraplegic. remains on nc, nsr on monitor, cbi continues for yellow urine with sediment at
this time. turned and repositioned. pt remains restrained for pulling at wires and tubes. oral care provided. right picc c/d/i. levophed and ivf continue as per order. all safety precautions in place, bed alarm on and functioning.
[2024-04-28 23:22] LABS: Glucose - Point of Care 79 mg/dl (70-99)
--- NOTE | 2024-04-28 23:36 | PTCARENOTE ---
Addendum entered by Nia Garcia RN 04/29/24 06:23:
0000- refused bipap
Original Note:
pt yelling out, continuing to attempt to pull at wires, spitting at times, ripping off oxygen, redirected pt. assessment unchanged further
[2024-04-29] VITALS (59 sets, daily range): BP systolic 77–131; BP diastolic 18–97; BMI 41.1
--- NOTE | 2024-04-29 00:33 | RESPNOTE ---
Attempted to place this PT on BIPAP after removal of his restraints. PT ripped the mask off and almost broke it. He started yelling and would not let go of the mask. I attempted to place his 2 L nc back on due to sats of 80 and he ripped that off
as well. PT back in restraints and machine at the bedside on STBY.
[2024-04-29] MEDS: LOPRESSOR 5 MG IV ×2 (00:36→08:14)
[2024-04-29] MEDS: VALIUM INJECTION 2.5 MG IV (00:36)
[2024-04-29] MEDS: LEVOPHED 250 IV ×3 (00:40→10:14)
[2024-04-29 03:46] LABS: Hematocrit 25.6 % (39.0-52.0); Hemoglobin 8.7 g/dL (13.0-18.0); Mean Corpuscular Hgb 28.2 pg (27.0-31.0); Mean Corpuscular Volume 82.8 fL (80.0-94.0); Mean Platelet Volume 11.1 fL (7.4-10.4); Platelet Count 31 10^3/uL (130-400); Red Blood Cell Count 3.09 10^6/uL (4.70-6.10); Red Cell Dist. Width 14.7 % (11.5-14.5); White Blood Cell Count 14.9 10^3/uL (4.8-10.8)
[2024-04-29] MEDS: LR 1000 IV ×2 (03:49→16:36)
[2024-04-29] MEDS: MERREM 500 MG IV ×3 (03:49→21:21)
[2024-04-29] MEDS: STERILE WATER FOR INJECTION 10 ML IV ×3 (03:49→21:21)
[2024-04-29] MEDS: DILAUDID 0.5 MG IV (03:54)
[2024-04-29 03:56] LABS: INR 1.37; PT 17.3 Sec (11.4-14.6)
[2024-04-29 04:23] LABS: ALT (SGPT) 295 U/L (0-50); AST (SGOT) 259 U/L (17-59); Albumin 2.4 g/dl (3.5-5.0); Alkaline Phosphatase 125 U/L (38-126); Blood Urea Nitrogen 42 mg/dl (9-20); Calcium 7.4 mg/dl (8.4-10.2); Carbon Dioxide 29 mmol/L (22-30); Chloride 96 mmol/L (98-107); Estimated Creatinine Clearance 40 ml/min; Glucose 108 mg/dl (70-99); Lactic Acid 4.2 mmol/L (0.7-2.0); Magnesium 1.5 mg/dl (1.6-2.3); Sodium 135 mmol/L (135-145); Total Bilirubin 3.1 mg/dl (0.2-1.3); Total Protein 5.6 g/dl (6.3-8.2); Vitamin D, 25-OH*** 15.7 ng/mL (30-80); eGFR 32.83
[2024-04-29] MEDS: MAGNESIUM SULFATE 50 IV (05:06)
[2024-04-29] MEDS: NOVOLOG FLEXPEN-MODERATE RESISTANCE SC ×3 (05:16→17:39)
[2024-04-29 05:19] LABS: Glucose - Point of Care 113 mg/dl (70-99)
--- NOTE | 2024-04-29 05:27 | PTCARENOTE ---
pt given diluadid for pain, am care provided. barcenas irrigated prn. cbi continues, pink tinged urine at times. sediment noted. assessment unchanged.
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
--- NOTE | 2024-04-29 08:11 | PTCARENOTE ---
0700 patient in bed. Levophed 12 mcg/45ml purple lumen LR 150/hr white lumen
awake and confused. BP via left upper arm 104/59; ST 124; RR 96%2L; temp 99.0 [address] CBI draining clear urine. Monitoring I/O
[2024-04-29] MEDS: NSS (PRESERVATIVE FREE) 10 ML IV (08:15)
[2024-04-29] MEDS: PROTONIX IV 40 MG IV (08:15)
--- NOTE | 2024-04-29 08:26 | PTCARENOTE ---
Prior to Metoprolol ST 126; Metoprolol 5mg IV . on Levophed 10mcg. after metoprolol HR 104 BP 86/54
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
--- NOTE | 2024-04-29 09:22 | VATNOTE ---
Upon routine rounds this AM Pt's PICC noted to have biopatch saturated with blood. Pt very agitated and pulling arm away when dressing change attempted. Additional RN in room to help hold pt's arm. Optifoam applied around pt's dressing for multiple
skin tears around dressing. Site cleaned to the best of this RN's ability and sterile dressing applied. Will continue to monitor.
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
[2024-04-29] MEDS: DILAUDID 0.25 MG IV (10:16)
--- NOTE | 2024-04-29 11:32 | W.PN.INTV ---
Documented by User: Samanta Beltran MD, Resident 04/29/24 11:42
Today's Communication / Plan
Recommendations
Decreased fluids
Had vasopressin to attempt to decrease levo due to ongoing tachycardia
Monitor H&H
Transfuse for hemoglobin less than 7
Continue antibiotics
Assessment
-
64-year-old male with past medical history of paraplegia presented with abdominal pain and hematuria also noted to have right perinephric hematoma. Recently admitted for ureteral stones/AVTAR/sepsis with stent placement 02/17 - 02/23.
Impression:
#Severe Septic shock unresponsive to fluids requiring pressors
#Lactic acidosis
#Metabolic acidosis
#Perinephric hematoma
#AVTAR on top of chronic kidney disease stage III
#Constipation/stercoral colitis
#Thrombocytopenia
#T7 paraplegia
#Anemia due to acute blood loss-perinephric abscess-hemoglobin normocytic 12.8
#Transaminitis
#Hypokalemia
#TME due to sepsis and Dilaudid
Conditions present prior to admission:
Recent admission ureteral stone/AVTAR/sepsis 02/18/24
T7 spinal cord injury/paraplegia
Perinephric hematoma 04/27/24
Hypertension
CKD stage III
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
Thrombocytopenia
Cholelithiasis
Urolithiasis
Right ureteral stent 02/18/2024
Anemia of chronic disease
Severe elevation right hemidiaphragm
Chronic indwelling Barcenas catheter/neurogenic bladder
Depression
Hypertension
GERD
Obesity
Former smoker
Plan
Respiratory
-Severe septic shock unresponsive to fluid likely secondary to UTI/lactic acidosis
-Acute hypoxic respiratory insufficiency
-Continue biPAP and supplemental O2 as needed - wean as able
-Intubate if necessary
-Aspiration precautions
-Nebulizers if needed
-Infectious disease following
-Cultures revealed Klebsiella pneumonia and E. coli
-Repeat blood cultures pending
-pip-tazo and Zosyn discontinue->meropenem renally dosed for AVTAR per ID day 2
-Uptrend in WBC - Positive bandemia
Cardiovascular
-Decrease maintenance fluids -LR 80mls due to increased weight and drop in hg perhaps dilutional
-Trend lactate - downtrending
-Pressors MAP >65. Cont.
-Cont. Norepi and re-add vaso to decrease norepi due to ongoing tachycardia
- consider angiotensin II if hypotension persistent - wean as able.
-Lopressor IV PRN
-t/c checking random cortisol if no response
-Anemia
-Hg drop 13.6->10.9->8.7 Received 2+ L fluid yesterday so possibly dilutional. Baseline hg from previous visit 13.6
-No visualized blood in barcenas bag currently
-Repeat H&H in afternoon
-Repeat ab/pelvic CT with oral contrast revealed 3.5->3.8cm size increase of perinephric hematoma. Cont. to monitor for bleed.
-Transfuse for hg <7
-Chronic thrombocytopenia
-likely secondary to liver cirrhosis
-Consider platelet transfusion if drop <15
Renal
-Hematuria three-way Barcenas placed with CBI
-Right perinephric hematoma 3.5 cm
-AVTAR on CDK stage 3a
-Cr 2.5 ->2.7 baseline 1.4
-Continue fluids and pressors as needed to maintain MAP >65
-Maintain barcenas and CBI and follow renal function
-Right perinephric hematoma 3.5cm with extension of blood products along course of R ureter noted on ab/pelvic CT 04/27/24. Repeat 04/28 3.8 cm increase in size
-Consider IR consult if H&H drop
-Replete electrolytes as needed
Gastric
-Complaints of abdominal pain/constipation with possible stercoral colitis
-Monitor Abdominal exam closely - pt no complaints of flank pain, but abdominal. No guarding or rigidity
-Nurse stated had one very large bowel movement upon arrival to and 5 on evening 04/27 after enemma
-On chronic analgesia and bowel regimen at nursing facility
-Bowel regimen and monitor ab exam
-GI/surgical evaluation if abdominal exam does not improve
-LFT elevation
-No evidence of cholecystitis noted on CAT scan
-Likely secondary to hypotension�shock liver and sepsis
-History of cirrhosis secondary to alcohol use and history of hep C (unclear if treated - outpatient follow up)
-Monitor LFTs
-Hx GERD
-Continue Protonix
-Depression�continue Lexapro
DVT - compression device - holding anti-coags at the moment with perinephric hematoma and anemia
Early nutrition if possible
Early mobilization
Subjective Dataa
Subjective Data
Date of Service:
Date of Service: April 29, 2024
Chief Complaint: Programmer Numerical Control Follow Up and Pulmonary Follow Up
Review of Systems
General: Pain
GI: Abdominal Pain (y)
Objective Data
Data Reviewed
Vital Signs / I&O / Oxygen:
Vital Signs
Temp Pulse Resp BP Pulse Ox
99.0 F 121 15 104/59 2
04/29/24 08:00 04/29/24 08:14 04/29/24 08:06 04/29/24 08:14 04/29/24 10:02
Intake and Output
04/28/24 04/29/24 04/30/24
06:59 06:59 06:59
Intake Total 5570.1 / 5801.6 5487.5 / 5682.5 390 / 390
Output Total 4550 / 4550 2750 / 2750 1000 / 1000
Balance 1020.1 / 1251.6 2737.5 / 2932.5 -610 / -610
SaO2 2
Nasal Cannula flow liters per 2
minute
Physical Exam
General: Respiratory Distress
HEENT: Normocephalic
Cardiovascular: S1-S2 and Regular Rhythm
Respiratory: Clear, Wheeze (n), Crackles (n) and Other
GI: Soft, Distended, Tender (Diffusely tender, not localized ), Normal Bowel Sounds and Other (No guarding, no rigidity)
Neurology: Awake, Alert, Lethargic and Other (Paraplegia)
Skin: Warm, Good Color, Cyanosis (n), Jaundice (n) and Rash (n)
Labs/Micro/Reports
Lab Data
04/29/24 03:17
Laboratory Results
04/29/24
03:17
PT 17.3 H
INR 1.37
Microbiology
04/28/24 10:52 Blood/Venous Blood Culture - Preliminary
No Growth in 24 hours- Final report to follow
04/27/24 11:57 Blood/Venous Blood Culture - Preliminary
Klebsiella pneumoniae
Escherichia coli
04/27/24 11:57 Blood/Venous Gram Stain - Preliminary
04/27/24 04:26 Urine Urine Culture - Final
04/27/24 12:24 Blood/Venous Blood Culture - Preliminary
Positive culture in progress
04/27/24 12:24 Blood/Venous Gram Stain - Preliminary

Documented by User: Jono Roberts MD 04/29/24 11:45
Assessment
-
64-year-old male with past medical history of paraplegia presented with abdominal pain and hematuria also noted to have right perinephric hematoma. Recently admitted for ureteral stones/AVTAR/sepsis with stent placement 02/17 - 02/23.
Impression:
#Severe Septic shock unresponsive to fluids requiring pressors
#Lactic acidosis
#Metabolic acidosis
#Perinephric hematoma
#AVTAR on top of chronic kidney disease stage III
#Constipation/stercoral colitis
#Thrombocytopenia
#T7 paraplegia
#Anemia due to acute blood loss-perinephric abscess-hemoglobin normocytic 12.8
#Transaminitis
#Hypokalemia
#TME due to sepsis and Dilaudid
Conditions present prior to admission:
Recent admission ureteral stone/AVTAR/sepsis 02/18/24
T7 spinal cord injury/paraplegia
Perinephric hematoma 04/27/24
Hypertension
CKD stage III
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
Thrombocytopenia
Cholelithiasis
Urolithiasis
Right ureteral stent 02/18/2024
Anemia of chronic disease
Severe elevation right hemidiaphragm
Chronic indwelling Barcenas catheter/neurogenic bladder
Depression
Hypertension
GERD
Obesity
Former smoker
Plan
Respiratory
-Severe septic shock unresponsive to fluid likely secondary to UTI/lactic acidosis
-Acute hypoxic respiratory insufficiency
-Continue biPAP and supplemental O2 as needed - wean as able
-Intubate if necessary
-Aspiration precautions
-Nebulizers if needed
-Infectious disease following
-Cultures revealed Klebsiella pneumonia and E. coli
-Repeat blood cultures pending
-pip-tazo and Zosyn discontinue->meropenem renally dosed for AVTAR per ID day 2
-Uptrend in WBC - Positive bandemia
Cardiovascular
-Decrease maintenance fluids -LR 80mls due to increased weight and drop in hg perhaps dilutional
-Trend lactate - downtrending
-Pressors MAP >65. Cont.
-Cont. Norepi and re-add vaso to decrease norepi due to ongoing tachycardia
- consider angiotensin II if hypotension persistent - wean as able.
-Lopressor IV PRN
-t/c checking random cortisol if no response
-Anemia
-Hg drop 13.6->10.9->8.7 Received 2+ L fluid yesterday so possibly dilutional. Baseline hg from previous visit 13.6
-No visualized blood in barcenas bag currently
-Repeat H&H in afternoon
-Repeat ab/pelvic CT with oral contrast revealed 3.5->3.8cm size increase of perinephric hematoma. Cont. to monitor for bleed.
-Transfuse for hg <7
-Chronic thrombocytopenia
-likely secondary to liver cirrhosis
-Consider platelet transfusion if drop <15
Renal
-Hematuria three-way Barcenas placed with CBI
-Right perinephric hematoma 3.5 cm
-AVTAR on CDK stage 3a
-Cr 2.5 ->2.7 baseline 1.4
-Continue fluids and pressors as needed to maintain MAP >65
-Maintain barcenas and CBI and follow renal function
-Right perinephric hematoma 3.5cm with extension of blood products along course of R ureter noted on ab/pelvic CT 04/27/24. Repeat 04/28 3.8 cm increase in size
-Consider IR consult if H&H drop
-Replete electrolytes as needed
Gastric
-Complaints of abdominal pain/constipation with possible stercoral colitis
-Monitor Abdominal exam closely - pt no complaints of flank pain, but abdominal. No guarding or rigidity
-Nurse stated had one very large bowel movement upon arrival to and 5 on evening 04/27 after enemma
-On chronic analgesia and bowel regimen at nursing facility
-Bowel regimen and monitor ab exam
-GI/surgical evaluation if abdominal exam does not improve
-LFT elevation
-No evidence of cholecystitis noted on CAT scan
-Likely secondary to hypotension�shock liver and sepsis
-History of cirrhosis secondary to alcohol use and history of hep C (unclear if treated - outpatient follow up)
-Monitor LFTs
-Hx GERD
-Continue Protonix
-Depression�continue Lexapro
DVT - compression device - holding anti-coags at the moment with perinephric hematoma and anemia
Early nutrition if possible
Early mobilization
I reviewed this patients case independently and in conjunction with the resident. I personally examined the patient. Patient's complex medical history, laboratory evaluations, events over the last 24 hours, radiographs, microbiological data were
all personally reviewed.
Agree with documented assessment and plan
Jono Roberts MD, FCCP, DAB
[2024-04-29] MEDS: LIORESAL PO ×4 (11:40→22:25)
[2024-04-29] MEDS: DRISDOL (VITAMIN D2) 50000 UNITS PO (11:40)
[2024-04-29] MEDS: LEXAPRO PO ×2 (11:44→14:01)
[2024-04-29] MEDS: PITRESSIN 100 IV (11:45)
--- NOTE | 2024-04-29 11:45 | W.PN.URO.CBU ---
Today's Communication / Plan
-
Trend HGB
Transfuse if HGB continues to decrease
Sepsis management
Assessment / Plan
-
64M with neurogenic bladder and chronic barcenas
Recent admission with urosepsis from obstructing R ureteral stone
Readmitted with sepsis and perinephric/subcapsular hematoma on CT
Perinephric/subcapsular hematoma
- Significant decrease in hemoglobin since admission with persistent hypotension and tachycardia - difficult to determine if instability is related at all to bleeding or just sepsis
- Repeat CT showed expanding subcapsular hematoma, however size would not likely explain the degree of HGB decrease. Suspect hemodilution with large amount of fluid is the main factor, but some degree of active bleeding as apparent
- Repeat HGB this afternoon. If continuing to trend downward would recommend blood transfusion even if >7 given likely active bleed
- May need to consider embolization if HGB does not stabilize
Urosepsis/bacteremia
- Continue broad spectrum abx
- F/U cultures
- Stent in good position with no hydronephrosis on CT
Hematuria
- Mild and now resolved off CBI
- Cap CBI, observe
Neurogenic bladder
- Maintain chronic barcenas
Diagnosis
-
Date of Service: April 29, 2024
-
Patient Diagnosis:
R Retroperitoneal hemorrhage/subcapsular hematoma
Sepsis
Bacteremia
Kidney stone s/p stent
Hematuria
AVTAR
Post Op Day:
Subjective
-
c/o diffuse pain, abdominal
Objective
-
Vital Signs
Temp Pulse Resp BP Pulse Ox
99.0 F 121 15 104/59 2
04/29/24 08:00 04/29/24 08:14 04/29/24 08:06 04/29/24 08:14 04/29/24 10:02
Intake and Output
04/28/24 04/29/24 04/30/24
06:59 06:59 06:59
Intake Total 5570.1 / 5801.6 5487.5 / 5682.5 390 / 390
Output Total 4550 / 4550 2750 / 2750 1000 / 1000
Balance 1020.1 / 1251.6 2737.5 / 2932.5 -610 / -610
Intake:
Oral fluids 0 / 0
IV fluids (Total) 5370.1 / 5601.6 4637.5 / 4832.5 390 / 390
D5w 1,000 ml @ 150 mls/hr IV . 2400 / 2600 2049 / 2049
Q7H40M RADHA with Sodium
Bicarbonate 150 Meq Rx#:
[id number]
IVF 800 / 800
Vassopre 36 / 36
levo 844.1 / 866.6 915.0 / 960.0 90 / 90
lr 1200 / 1200 1650 / 1800 300 / 300
vasopressin 90 / 99 22.5 / 22.5
IV piggybacks 200 / 200 50 / 50
Amount instilled into GI Tube ( 800 / 800
Total)
[place]ox Sump 800 / 800
Output:
Gastrointestinal tube output ( 550 / 550
Total)
Knox Sump 550 / 550
Urine, Barcenas 4550 / 4550
True Urine Output from CBI 0 / 0 2200 / 2200 1000 / 1000
Laboratory Results
04/29/24 03:17
Physical Exam
-
General - well developed, well nourished,obtunded
Chest - clear
Abdomen - soft, mild distension
- barcenas in place, minimal hematuria
[2024-04-29 12:04] LABS: Glucose - Point of Care 122 mg/dl (70-99)
--- NOTE | 2024-04-29 13:59 | PN.CDI ---
Addendum entered and electronically signed by Nils Rodriguez MD 04/29/24 17:53:
Documentation is complete at this time.
Original Note:
CDI
- -
CDI:
Physician Documentation Request
Admit Date: 04/27/24 05:37
Dear Doctor Jennifer,
Please review the following and provide your response in the progress notes.
Clinical Indicators:
04/27/24 19:14 - Patient Care Note
#...ON 4 L of oxygen via nasal canula. BIPAP prn
04/28/24 08:18 - Patient Care Note
#...bipap removed now on 2lnc. levo and vaso iv running as ordered.
PN, 04/29
# Acute Hypoxic Resp insufficiency- Continue IS.
#....Chest x-ray without pneumonia
Intensivists, PN, 04/29
#Patient remains critically ill on 2 pressors
#Continue BiPAP and supplemental oxygen as needed-liberated
#...as tolerated during the daytime
Selected Entries
04/27/24
13:00 04/27/24
14:32
Oxygen Mode of Delivery BiPAP BiPAP
Laboratory Tests
04/27/24 04/27/24 04/28/24
13:16 22:32 09:41
pH 7.18 L* 7.38
pCO2 33 L 41
pO2 87 111 H
HCO3 12.3 L* 24.3
Base Excess -15.0 -0.8
ABG O2 Sat (Measured) 99.1 H
VBG pH 7.27 L
VBG pCO2 38
VBG pO2 58 H
VBG HCO3 17.4 L
VBG O2 Sat (Yao) 91.4
VBG Base Excess -8.8
Based on the above and your clinical assessment, please clarify which of the following accurately represents the patient's respiratory status:
Acute respiratory failure, now resolved
Acute hypoxic respiratory insufficiency
Other(please specify)
Additional information for Respiratory Failure:
Recognized criteria for Respiratory Failure (Source: [facility] Apr 2013)
ABGs: (1 or more) Symptoms Please indicate type if known
1. p)2 <60 or RA SPO2 <91% on RA 1. Tachypnea, SOB, dyspnea Hypoxic
2. pCO2 50 and pH <7.35 2. Use of accessory muscles Hypercapnic
3. pO2 decrease of pCO2 increase by 3. Pallor or cyanosis Hypoxic and Hypercapnic
10 mmHg from baseline if known 4. Anxiety or restlessness
5. Unable to speak in full sentences
Supplemental O2 of > 40% (5LPM) Intubation is not required
Use of terms such as suspected, likely, concern for, or probable (associated with a specific diagnosis that is being evaluated, monitored, or treated as if it exists) are acceptable and can be coded in the inpatient setting, when documented at the
time of discharge.
Thank you,
Neyda Cordero RN BSN CCDS
CDI Specialist
please contact via tiger text
Please use your independent medical judgment in providing your response.
--- NOTE | 2024-04-29 14:00 | CM ---
Addendum entered by Yann Elmore 04/29/24 14:36:
CM spoke to [facility] director video and she confirmed that [facility] team has not been to talk to pt's legal guardian at all and they do know that pt's legal guardian is Yaritza Sun and she is pt's ex-girlfriend. [facility] has
legal guardian court paperwork and [employer] filed a request for legal guardianship. CM spoke to straddle carrier operator Kevin [phone] and he confirmed he filed a request for guardianship on behalf of [facility] in 2021 and
per straddle carrier operator if legal guardian is not available he recommended to file a request to [facility] to appoint another guardian.
community relations director at [facility] stated she was able to talk to an individual on the phone that listed as legal guardian and was told 'Wrong number'.
[facility] director video is aware and she stated that [facility] legal team will follow up to obtain a new legal guardian.
At this point pt has no anybody to make decisions and [facility] is working on obtain a new legal guardian.
Original Note:
CM following re: discharge planning.
Reviewed the chart, met with pt. Per Rounds meeting, pt awake and confused continue supportive care.
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 The patient is normally alert and oriented. The discharge plan will be back to [facility] when medically stable. Bed hold in place.
Pt has legal guardian. CM called legal guardian and has to leave a message. Per RN, tried to call legal guardian and was not able to talk. CM spoke to director video at [facility] and asked to provide any additional phone to legal
guardian or legal guardian office.
D/C plan: return back to [facility] when medically stable.
CM will follow with discharge plan updates as hospitalization progresses
[2024-04-29 14:24] LABS: Hematocrit 24.5 % (39.0-52.0); Hemoglobin 8.1 g/dL (13.0-18.0)
[2024-04-29] MEDS: LIORESAL 10 MG PO (15:47)
[2024-04-29] MEDS: ATIVAN 0.5 MG IV (16:36)
[2024-04-29] MEDS: NSS (PRESERVATIVE FREE) 0.25 ML IV (16:37)
[2024-04-29 17:29] LABS: Glucose - Point of Care 122 mg/dl (70-99)
[2024-04-29] MEDS: MELATONIN PO (22:25)
[2024-04-29] MEDS: LYRICA PO (22:25)
[2024-04-30] VITALS (64 sets, daily range): BP systolic 85–140; BP diastolic 54–98; BMI 41.2
[2024-04-30 01:16] LABS: Glucose - Point of Care 89 mg/dl (70-99)
[2024-04-30] MEDS: NOVOLOG FLEXPEN-MODERATE RESISTANCE SC ×2 (01:38→06:35)
--- NOTE | 2024-04-30 02:00 | PTCARENOTE ---
Levo gtt off per protocol
[2024-04-30] MEDS: LR 1000 IV (03:17)
[2024-04-30] MEDS: MERREM 500 MG IV ×3 (04:19→19:08)
[2024-04-30] MEDS: STERILE WATER FOR INJECTION 10 ML IV ×3 (04:19→19:08)
[2024-04-30 04:36] LABS: Hematocrit 26.9 % (39.0-52.0); Hemoglobin 8.9 g/dL (13.0-18.0); Mean Corp Hgb Conc. 33.1 g/dL (33.0-37.0); Mean Corpuscular Hgb 27.6 pg (27.0-31.0); Mean Corpuscular Volume 83.3 fL (80.0-94.0); Mean Platelet Volume 11.6 fL (7.4-10.4); Platelet Count 26 10^3/uL (130-400); Red Blood Cell Count 3.23 10^6/uL (4.70-6.10)
[2024-04-30 05:06] LABS: Lactic Acid 1.8 mmol/L (0.7-2.0)
[2024-04-30 05:19] LABS: ALT (SGPT) 213 U/L (0-50); AST (SGOT) 122 U/L (17-59); Albumin 2.6 g/dl (3.5-5.0); Alkaline Phosphatase 153 U/L (38-126); Blood Urea Nitrogen 44 mg/dl (9-20); Calcium 7.9 mg/dl (8.4-10.2); Carbon Dioxide 29 mmol/L (22-30); Chloride 96 mmol/L (98-107); Estimated Creatinine Clearance 44 ml/min; Glucose 110 mg/dl (70-99); Magnesium 2.2 mg/dl (1.6-2.3); Potassium 3.8 mmol/L (3.5-5.1); Sodium 138 mmol/L (135-145); Total Bilirubin 4.1 mg/dl (0.2-1.3); Total Protein 6.1 g/dl (6.3-8.2); eGFR 36.81
--- NOTE | 2024-04-30 06:00 | PTCARENOTE ---
Pt tolerating CBI, output is light pink and clear. Pt continues to be off pressors and tolerating.
[2024-04-30 06:35] LABS: Glucose - Point of Care 101 mg/dl (70-99)
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
[2024-04-30] MEDS: LEXAPRO 10 MG PO (08:37)
[2024-04-30] MEDS: LIORESAL 10 MG PO ×2 (08:37→19:08)
[2024-04-30] MEDS: NSS (PRESERVATIVE FREE) 10 ML IV (08:37)
[2024-04-30] MEDS: VITAMIN D3 (cholecalciferol) 25 MCG PO (08:37)
[2024-04-30] MEDS: PROTONIX IV 40 MG IV (08:37)
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
[2024-04-30] MEDS: LOPRESSOR 5 MG IV ×3 (09:05→17:24)
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
[2024-04-30] MEDS: DILAUDID 0.25 MG IV (09:27)
--- NOTE | 2024-04-30 09:40 | VATNOTE ---
During routine assessment, it was noted that PICC insertion site was oozing serosanguineous fluid extending beyond the biopatch at the insertion site. Dressing changed at this time. While changing the dressing, it was noted that there were several
areas of skin around the PICC dressing that were open. Wound care nurse at the bedside. After old dressing was removed and entire PICC insertion site and surrounding tissues cleaned with chlorhexidine, skin prep applied to entire area and small
optifoams applied as directed by bus company manager. Transparent dressing applied over top. Swelling was also noted to RUE greater than LUE, upon measuring the upper arm circumferences of both arms 10 cm above the antecubital fossa, it was found that the
pt's RUE measured 42cm and the LUE measured 39.5cm. PCN aware, peripheral vascular ultrasound of RUE recommended. Large hematoma observed at insertion site.
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
--- NOTE | 2024-04-30 10:05 | WOUNDNOTE ---
RIGHT UPPER ARM PICC SITE
--- NOTE | 2024-04-30 10:16 | WOUNDNOTE ---
WOC RN note: Patient admitted with abdominal pain and hematuria. [facility]
See H&P for complete history.
PMH: Per physician note, T7 Spinal Cord Injury / Paraplegia, Hypertension, CKD III, Cirrhosis secondary to alcohol / Hep C, Cholelithiasis
Anemia of Chronic Disease Ureterolithiasis, Chronic Indwelling Padron Catheter / Neurogenic Bladder
Wound Location and type/assessment: Patient with weeping at healed left hip wound. Unclear if healed wound is from a past PI or if it is a traumatic wound. Patient was receiving additional fluids for low BP and exhibits edema in abdomen arms and
legs. Likely wound is now weeping due to excess fluid. No odor noted. Sacrum is intact and buttocks has several scarred area. Heels intact. A photograph was also taken of ecchymotic right sided PICC area. RN Several open areas noted around PICC
site. Per Snow ESCOBAR, dressing was changed yesterday so MARSI suspected. Snow applied Cavilon and sterile silicone foams to open areas during assessment.
Appetite: Patient was just increased to a full liquid diet. Per chart review intake has been poor.
Pressure redistribution devices in place: Centrella Max Air, turning schedule, heels off-loaded with pillows under calves.
Plan: Local wound care provided to left hip as noted. Patient turned and repositioned with assistance from [employer]. Patient has several comorbidities including paraplegia, sepsis, use of pressors, and poor po intake. New wounds may develop and
new wounds may worsen even with optimal care. Will confirm orders with hospitalist and update nurse.
Updated care plan and will follow as needed.
--- NOTE | 2024-04-30 11:03 | W.PN.INTV ---
Today's Communication / Plan
Recommendations
Continue antibiotics
d/c fluids if able to tolerate PO intake
Transfuse hg <7
Hemeonc consult for ptl downtrending
downgrade out of ICU now not on pressors
Restart home metoprolol as BP allows
Right upper extremity US
Assessment
-
64-year-old male with past medical history of paraplegia presented with abdominal pain and hematuria also noted to have right perinephric hematoma. Recently admitted for ureteral stones/AVTAR/sepsis with stent placement 02/17 - 02/23.
Impression:
#Severe Septic shock unresponsive to fluids requiring pressors
#Lactic acidosis
#Metabolic acidosis
#Perinephric hematoma
#AVTAR on top of chronic kidney disease stage III
#Constipation/stercoral colitis
#Thrombocytopenia
#T7 paraplegia
#Anemia due to acute blood loss-perinephric abscess-hemoglobin normocytic 12.8
#Transaminitis
#Hypokalemia
#TME due to sepsis and Dilaudid
Conditions present prior to admission:
Recent admission ureteral stone/AVTAR/sepsis 02/18/24
T7 spinal cord injury/paraplegia
Perinephric hematoma 04/27/24
Hypertension
CKD stage III
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
Thrombocytopenia
Cholelithiasis
Urolithiasis
Right ureteral stent 02/18/2024
Anemia of chronic disease
Severe elevation right hemidiaphragm
Chronic indwelling Barcenas catheter/neurogenic bladder
Depression
Hypertension
GERD
Obesity
Former smoker
Plan
Respiratory
-Severe septic shock unresponsive to fluid likely secondary to UTI/lactic acidosis
-Acute hypoxic respiratory insufficiency
-Continue biPAP and supplemental O2 as needed - wean as able
-Intubate if necessary
-Aspiration precautions
-Nebulizers if needed
-Infectious disease following
-Cultures revealed Klebsiella pneumonia and E. coli
-Repeat blood cultures pending
-pip-tazo and Zosyn discontinue->meropenem renally dosed for AVTAR per ID day 4
-WBC downtrending
Cardiovascular
-D/c fluids if able to tolerate PO intake
-Trend lactate - downtrending
-Pressors discontinued overnight. Stable MAP
-Restart home metoprolol for tachycardia as BP allows
-Downgrade out of ICU as now off pressors
-Right upper extremity swelling / Anasarca
-Diffuse, consider lasix trial tomorrow if BP stable as significant increase in weight since admission
-Increased swelling noted in right upper extremity specifically
-R upper extremity US to rule out DVT
-Anemia
-Hg drop. Possibly dilutional but urology also believes may be small concurrent bleed. Baseline hg from previous visit 13.6
-No visualized blood in barcenas bag currently
-Repeat ab/pelvic CT with oral contrast revealed 3.5->3.8cm size increase of perinephric hematoma.
-Cont. to monitor for bleed.
-Transfuse for hg <7
-Consent form not signed. Pt not legally able to consent as incapacitated. POA unclear. Refer to case management note for more information.
-Chronic thrombocytopenia
-likely secondary to liver cirrhosis
-Consider platelet transfusion if drop <15
-Hemeonc consulted as pt continue to drop
Renal
-Hematuria three-way Barcenas placed with CBI
-Right perinephric hematoma 3.8 cm
-AVTAR on CDK stage 3a
-Cr 2.7->2.0 baseline 1.4 - resolving
Maintain barcenas. d/c CBI per urology
-Right perinephric hematoma 3.5cm with extension of blood products along course of R ureter noted on ab/pelvic CT 04/27/24. Repeat 04/28 3.8 cm increase in size
-Consider IR consult if H&H drop
-Replete electrolytes as needed
Gastric
-Complaints of abdominal pain/constipation with possible stercoral colitis
-Monitor Abdominal exam closely - pt no complaints of flank pain, but abdominal. No guarding or rigidity
-Nurse stated had one very large bowel movement upon arrival to and 5 on evening 04/27 after enemma
-On chronic analgesia and bowel regimen at nursing facility
-Bowel regimen and monitor ab exam
-GI/surgical evaluation if abdominal exam does not improve
-LFT elevation
-No evidence of cholecystitis noted on CAT scan
-Likely secondary to hypotension�shock liver and sepsis
-History of cirrhosis secondary to alcohol use and history of hep C (unclear if treated - outpatient follow up)
-Monitor LFTs
-Hx GERD
-Continue Protonix
-Depression�continue Lexapro
DVT - compression device - holding anti-coags at the moment with perinephric hematoma, anemia and thrombocytopenia
Early nutrition if possible
Early mobilization
Subjective Dataa
Subjective Data
Date of Service:
Date of Service: April 30, 2024
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
Review of Systems
General: Pain
GI: Abdominal Pain
Objective Data
Data Reviewed
Vital Signs / I&O / Oxygen:
Vital Signs
Temp Pulse Resp BP Pulse Ox
98.7 F 140 12 106/80 98
04/30/24 07:34 04/30/24 09:05 04/30/24 06:30 04/30/24 09:05 04/30/24 05:30
Intake and Output
04/29/24 04/30/24 05/01/24
06:59 06:59 06:59
Intake Total 5487.5 / 5682.5 2297.0 / 2377.0 160 / 160
Output Total 2750 / 2750 2450 / 2450 0 / 0
Balance 2737.5 / 2932.5 -153.0 / -73.0 160 / 160
SaO2 98
Nasal Cannula flow liters per 2
minute
Physical Exam
General: Comfortable
HEENT: Normocephalic
Cardiovascular: Regular Rhythm
Respiratory: Clear, Wheeze (n), Crackles (n) and Other
GI: Soft, Distended, Tender (Diffusely tender, not localized ), Normal Bowel Sounds and Other (No guarding, no rigidity)
Neurology: Awake, Alert, Oriented (Was able to tell me where he was, his name, but otherwise confused. Unsure of baseline. ), Lethargic and Other (Paraplegia)
Skin: Warm, Good Color, Cyanosis (n), Jaundice (n) and Rash (n)
Labs/Micro/Reports
Lab Data
04/30/24 04:11
04/30/24 04:11
Microbiology
04/28/24 10:52 Blood/Venous Blood Culture - Preliminary
No Growth in 48 hours- Final report to follow
04/27/24 12:24 Blood/Venous Blood Culture - Final
Klebsiella pneumoniae-ESBL
Escherichia coli
04/27/24 12:24 Blood/Venous Gram Stain - Final
04/27/24 11:57 Blood/Venous Blood Culture - Final
Klebsiella pneumoniae-ESBL
Escherichia coli
04/27/24 11:57 Blood/Venous Gram Stain - Final
04/28/24 11:28 Blood/Venous Blood Culture - Preliminary
No Growth in 24 hours- Final report to follow
04/27/24 04:26 Urine Urine Culture - Final
--- NOTE | 2024-04-30 11:42 | PTCARENOTE ---
pt is alert , he knows he is in [place] , unaware he is in a hospital , he on occasion can answer a yes and no question, he was tachycardic this am up to 140s and was given Metoprolol for tachycardia his current HR 120s , pt now back on his home
med regimen of Metoprol , he has been off of vasopressor support since 0200 , his 3 way bladder irrigation was DC at 11:00 today, his R arm is larger than left , pt to have a ultrasound of R arm later today , pt platelets down to 26 , he to to have
a CT of head today , neurostatus is baseline
[2024-04-30 12:04] LABS: Glucose - Point of Care 111 mg/dl (70-99)
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
--- NOTE | 2024-04-30 15:20 | W.PN.URO.CBU ---
Today's Communication / Plan
-
Continue antibiotics
Trend HGB
Assessment / Plan
-
64M with neurogenic bladder and chronic barcenas
Recent admission with urosepsis from obstructing R ureteral stone
Readmitted with sepsis and perinephric/subcapsular hematoma on CT
Perinephric/subcapsular hematoma
- HGB stabilized without transfusion or intervention
- Continue to trend daily, transfuse PRN
Urosepsis/bacteremia
- Continue broad spectrum abx
- Antibiotic course per ID
- Stent in good position with no hydronephrosis on CT
Kidney stone
- Scheduled for ureteroscopy with Dr. Acuña 05/10
Hematuria
- Resolved
Neurogenic bladder
- Maintain chronic barcenas
Diagnosis
-
Date of Service: April 30, 2024
-
Patient Diagnosis:
R Retroperitoneal hemorrhage/subcapsular hematoma
Sepsis
Bacteremia
Kidney stone s/p stent
Hematuria
AVTAR
Post Op Day:
Subjective
-
confused
Objective
-
Vital Signs
Temp Pulse Resp BP Pulse Ox
97.6 F 125 13 140/94 97
04/30/24 11:19 04/30/24 13:15 04/30/24 11:30 04/30/24 13:15 04/30/24 11:00
Intake and Output
04/29/24 04/30/24 05/01/24
06:59 06:59 06:59
Intake Total 5487.5 / 5682.5 2297.0 / 2377.0 400 / 400
Output Total 2750 / 2750 2450 / 2450 0 / 0
Balance 2737.5 / 2932.5 -153.0 / -73.0 400 / 400
Intake:
Oral fluids 0 / 0
IV fluids (Total) 4637.5 / 4832.5 2297.0 / 2377.0 400 / 400
D5w 1,000 ml @ 150 mls/hr IV . 2049
Q7H40M RADHA with Sodium
Bicarbonate 150 Meq Rx#:
[id number]
levo 915.0 / 960.0 254.0 / 254.0
lr 1650 / 1800 1979 / 2059 400 / 400
vaso 63 / 63
vasopressin 22.5 / 22.5
IV piggybacks 50 / 50
Amount instilled into GI Tube ( 800 / 800
Total)
[place] Sump 800 / 800
Output:
Gastrointestinal tube output ( 550 / 550
Total)
[place] Sump 550 / 550
True Urine Output from CBI 2200 / 2200 2450 / 2450 0 / 0
Laboratory Results
04/30/24 04:11
04/30/24 04:11
Physical Exam
-
General - well developed, well nourished, no acute distress
Chest - clear
Abdomen - soft, non-tender
Barcenas with clear urine
[2024-04-30 16:58] LABS: Reticulocyte Count 1.7 % (0.4-2.8)
[2024-04-30 17:16] LABS: Iron 39 ug/dl (49-181)
[2024-04-30 17:26] LABS: Percent Saturation 14 % (20-50); Total Iron Binding Capacity 272 ug/dl (261-462)
[2024-04-30 17:35] LABS: Glucose - Point of Care 93 mg/dl (70-99)
--- NOTE | 2024-04-30 17:51 | PTCARENOTE ---
pt tolerating full liquid diet , poor appetite, HR tachycardia at times, he required x 3 doses of IV Metoprol today for HR 120-140s , he is now IMU level of care
[2024-04-30 17:54] LABS: Fibrinogen 510 MG/DL (199-459)
[2024-04-30 17:56] LABS: D-Dimer 19.88 ug/mlFEU (0.00-0.50)
[2024-04-30 18:25] LABS: Folate > 20.0 ng/ml (2.76-20); Vitamin B12 > 1000 pg/ml (239-931)
[2024-04-30] MEDS: LOPRESSOR 12.5 MG PO (19:08)
[2024-04-30] MEDS: LIORESAL 20 MG PO (23:09)
[2024-04-30] MEDS: LYRICA 100 MG PO (23:09)
[2024-04-30] MEDS: MELATONIN 3 MG PO (23:09)
[2024-05-01] VITALS (33 sets, daily range): BP systolic 91–151; BP diastolic 70–107; BMI 41.7
[2024-05-01] MEDS: VALIUM INJECTION 2.5 MG IV (04:08)
[2024-05-01] MEDS: STERILE WATER FOR INJECTION 10 ML IV ×3 (04:18→19:53)
[2024-05-01] MEDS: LOPRESSOR 5 MG IV ×2 (04:18→12:05)
[2024-05-01] MEDS: MERREM 500 MG IV ×3 (04:18→19:54)
[2024-05-01 05:59] LABS: Ammonia 13 umol/L (9-30)
[2024-05-01 06:13] LABS: Hematocrit 28.1 % (39.0-52.0); Hemoglobin 9.7 g/dL (13.0-18.0); Mean Corp Hgb Conc. 34.5 g/dL (33.0-37.0); Mean Corpuscular Hgb 28.2 pg (27.0-31.0); Mean Corpuscular Volume 81.7 fL (80.0-94.0); Mean Platelet Volume 11.5 fL (7.4-10.4); Platelet Count 54 10^3/uL (130-400); Red Blood Cell Count 3.44 10^6/uL (4.70-6.10); Red Cell Dist. Width 14.8 % (11.5-14.5); White Blood Cell Count 16.9 10^3/uL (4.8-10.8)
[2024-05-01 06:23] LABS: ALT (SGPT) 151 U/L (0-50); AST (SGOT) 88 U/L (17-59); Albumin 2.7 g/dl (3.5-5.0); Alkaline Phosphatase 158 U/L (38-126); Blood Urea Nitrogen 54 mg/dl (9-20); Calcium 8.1 mg/dl (8.4-10.2); Carbon Dioxide 29 mmol/L (22-30); Chloride 96 mmol/L (98-107); Estimated Creatinine Clearance 46 ml/min; Glucose 122 mg/dl (70-99); Magnesium 2.5 mg/dl (1.6-2.3); Potassium 3.5 mmol/L (3.5-5.1); Sodium 137 mmol/L (135-145); Total Bilirubin 5.3 mg/dl (0.2-1.3); Total Protein 6.2 g/dl (6.3-8.2); eGFR 39.15
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
[2024-05-01 07:55] LABS: Glucose - Point of Care 119 mg/dl (70-99)
--- NOTE | 2024-05-01 09:00 | PTCARENOTE ---
Additional assessment- Rec'd pt in soft wrist restaints. Pt is sleepy but cooperative. Wrist restraints removed at 0800
--- NOTE | 2024-05-01 09:30 | PTCARENOTE ---
Rec'd pt at 0800 sleeping . Does awaken to verbal stimuli and knew he was in the hospital but needed to be reminded of the time. Overall very lethargic and needs stimulation. Admits to abd pain when abd is palpated but otherwise falls back to sleep.
Moves arms weakly. Has sensation of arms and legs but is paraplegic. Skin is pale- sclera is icteric. L thigh dressing is D+I. Respirs are shallow but non-labored on 2l nc with sats of 96-98%. BS are coarse. Monitor ST in the 116-122 range. +
pulses. +1-2 generalized anascarca. +3 scrotal edema. VS as documented. ABd is round firm and obeses with hypoactive BS, Pt did take his pills with 3 spoonfuls of applesauce but only drank some OJ and a little Apple juice. Three way barcenas is intact
(irrigation port capped) draining dk jalil/tea colored urine. Capped int intact L ac. R DL picc capped. Pt had old set of blood cultures in the mobilab- tried to obtain peripherially but unable. Set drawn from PICC (Dr. Oglesby aware). Turned and
repositioned. Skin and mouth care given. Pt currently watching a movie but mostly dozing. Call [place] in reach. Updated on plan of care
[2024-05-01] MEDS: VITAMIN D3 (cholecalciferol) 25 MCG PO (09:41)
[2024-05-01] MEDS: LEXAPRO 10 MG PO (09:41)
[2024-05-01] MEDS: PROTONIX 40 MG PO (09:41)
[2024-05-01] MEDS: LOPRESSOR 12.5 MG PO ×2 (09:41→19:53)
[2024-05-01] MEDS: ATARAX 25 MG PO ×2 (09:43→20:22)
[2024-05-01] MEDS: LIORESAL 10 MG PO ×2 (09:45→19:53)
[2024-05-01 10:19] LABS: INR 1.26; PT 16.1 Sec (11.4-14.6)
--- NOTE | 2024-05-01 12:05 | PTCARENOTE ---
Hr despite po lopressor this am HR has been in the 118-124 range- mostly >120. Lopressor 5 mg IV given. Pt dozing
[2024-05-01] MEDS: FLUSH (NSS) 2 FLUSH IV (12:06)
--- NOTE | 2024-05-01 12:57 | W.PN.URO.CBU ---
Today's Communication / Plan
-
hematuria ifoley but hgb stable
Assessment / Plan
-
64M with neurogenic bladder and chronic barcenas
Recent admission with urosepsis from obstructing R ureteral stone
Readmitted with sepsis and perinephric/subcapsular hematoma on CT
Perinephric/subcapsular hematoma
- HGB stabilized without transfusion or intervention
- Continue to trend daily, transfuse PRN
Urosepsis/bacteremia
- Continue broad spectrum abx
- Antibiotic course per ID
- Stent in good position with no hydronephrosis on CT
Kidney stone
- Scheduled for ureteroscopy with Dr. Acuña 05/10
Hematuria
- Resolved
Neurogenic bladder
- Maintain chronic barcenas
Diagnosis
-
Date of Service: May 01, 2024
-
Patient Diagnosis:
Post Op Day:
Patient Diagnosis:
R Retroperitoneal hemorrhage/subcapsular hematoma
Sepsis
Bacteremia
Kidney stone s/p stent
Hematuria
AVTAR
Post Op Day:
Subjective
-
non commnicative
Objective
-
Vital Signs
Temp Pulse Resp BP Pulse Ox
98.5 F 122 19 107/89 97
05/01/24 11:27 05/01/24 12:05 05/01/24 12:00 05/01/24 12:05 05/01/24 12:00
Intake and Output
04/30/24 05/01/24 05/02/24
06:59 06:59 06:59
Intake Total 2297.0 / 2377.0 1000 / 1000
Output Total 2450 / 2450 575 / 575
Balance -153.0 / -73.0 425 / 425
Intake:
Oral fluids 600 / 600
IV fluids (Total) 2297.0 / 2377.0 400 / 400
levo 254.0 / 254.0
lr 1979 400 / 400
vaso
Output:
Urine, Barcenas 575 / 575
True Urine Output from CBI 2450 / 2450 0 / 0
Laboratory Results
05/01/24 05:37
05/01/24 05:37
Review of Systems
-
Unable to obtain full review of systems at this time due to: Patient Intubation
Physical Exam
-
General - well developed, well nourished, no acute distress
Chest - clear bilaterally
Abdomen - soft, non-tender, positive bowel sounds, no CVAT, no incisional pain or distention
Genitalia - normal
Rectal - normal
Skin - warm & dry with no rash
Neuro - AOx3, no motor deficits
Extremities - no clubbing, no cyanosis, no edema
Incision - clean, dry
Dressing - clean, dry, intact
Care Review
Data Reviewed
CT Scan: Image Pers Reviewed
--- NOTE | 2024-05-01 13:00 | PTCARENOTE ---
Remains very lethargic- will open eyes and converse but speech is slow and admits to feeling tired. Only c/o pain when abd palpated. Took some apple juice for lunch but nothing else. Turned and repositioned. Skin and mouth care given.
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
--- NOTE | 2024-05-01 14:30 | PTCARENOTE ---
Dr. Oglesby- Mary Ann had been ordered on pt- updated that pt has no appetite and has only drank and apple and OJ today. Has had 150 ml urine out - dk jalil tea colored. Per MD will hold the lasix currently
[2024-05-01 14:40] LABS: Glucose - Point of Care 123 mg/dl (70-99)
--- NOTE | 2024-05-01 17:00 | PTCARENOTE ---
Still very drowsy but sl more wakeful. Mostly just said he is tired. VS as documented. Admits to abd pain with palpation but then is instantly dozing back off unless disturbed. Padron draining dk jalli sl bloody tinged urine. Turned and repositoned.
Incont of a mod amt of pasty brown stool. Skin and mouth care given. Call [place] in reach
[2024-05-01 17:19] LABS: Glucose - Point of Care 110 mg/dl (70-99)
--- NOTE | 2024-05-01 17:48 | PTCARENOTE ---
Poor appetite for dinner. Has had a poor appetite all day. Dressing change done to L hip old wound due to mod amt of serous drainage. Chadron wound bed and scar tissue
[2024-05-01] MEDS: DILAUDID 0.5 MG IV (20:17)
--- NOTE | 2024-05-01 20:20 | PTCARENOTE ---
Received patient at 1900. Pt. currently in bed. Lethargic but arousable. Oriented. C/o pain. PRN medication given, see MAR. Afebrile. Heart rhythm sinus tachy. Currently on 2L nasal cannula. Lungs sound coarse. PO diet is ordered, pt. noted to have
poor appetite. Incontinent of bowel. Padron catheter in place. Skin as documented. Discussed plan of care with patient. Vital signs stable at this time.
[2024-05-01] MEDS: MELATONIN 3 MG PO (22:16)
[2024-05-01] MEDS: LYRICA 100 MG PO (22:16)
[2024-05-01] MEDS: LIORESAL 20 MG PO (22:17)
[2024-05-02] VITALS (27 sets, daily range): BP systolic 95–163; BP diastolic 62–93; BMI 41.5
[2024-05-02] MEDS: MERREM 500 MG IV ×3 (04:09→21:40)
[2024-05-02] MEDS: STERILE WATER FOR INJECTION 10 ML IV ×3 (04:09→21:40)
[2024-05-02 04:38] LABS: Hematocrit 28.4 % (39.0-52.0); Hemoglobin 9.3 g/dL (13.0-18.0); Mean Corp Hgb Conc. 32.7 g/dL (33.0-37.0); Mean Corpuscular Hgb 27.7 pg (27.0-31.0); Mean Corpuscular Volume 84.5 fL (80.0-94.0); Mean Platelet Volume 11.3 fL (7.4-10.4); Platelet Count 55 10^3/uL (130-400); Red Blood Cell Count 3.36 10^6/uL (4.70-6.10); Red Cell Dist. Width 15.1 % (11.5-14.5); White Blood Cell Count 14.2 10^3/uL (4.8-10.8)
[2024-05-02 04:52] LABS: ALT (SGPT) 116 U/L (0-50); AST (SGOT) 90 U/L (17-59); Albumin 2.5 g/dl (3.5-5.0); Alkaline Phosphatase 148 U/L (38-126); Blood Urea Nitrogen 60 mg/dl (9-20); Calcium 8.1 mg/dl (8.4-10.2); Carbon Dioxide 32 mmol/L (22-30); Chloride 98 mmol/L (98-107); Direct Bilirubin 3.3 mg/dl (0.0-0.4); Estimated Creatinine Clearance 52 ml/min; Glucose 116 mg/dl (70-99); Magnesium 2.4 mg/dl (1.6-2.3); Potassium 3.5 mmol/L (3.5-5.1); Sodium 138 mmol/L (135-145); Total Bilirubin 4.6 mg/dl (0.2-1.3); Total Protein 6.1 g/dl (6.3-8.2); eGFR 44.74
[2024-05-02 08:13] LABS: Glucose - Point of Care 107 mg/dl (70-99)
[2024-05-02] MEDS: LASIX 10 MG PO (09:09)
[2024-05-02] MEDS: VITAMIN D3 (cholecalciferol) 25 MCG PO (09:09)
[2024-05-02] MEDS: PROTONIX 40 MG PO (09:10)
[2024-05-02] MEDS: LOPRESSOR 12.5 MG PO ×2 (09:10→21:59)
[2024-05-02] MEDS: LIORESAL 10 MG PO (09:10)
[2024-05-02] MEDS: LEXAPRO 10 MG PO (09:10)
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
--- NOTE | 2024-05-02 09:30 | PTCARENOTE ---
Rec'd pt sleeping- does arouse to verbal stimuli. Overall remains drowsy and lethargic but does answer questions appropriately. Speech is slow. Moves arms. Pt is paraplegic but does have sensation in his legs. Skin is pale wm and dry. Wound care
done on L hip-old wound that is weeping serous drainage. Alginate and Silicone border foam applied. Respires are shallow but non-labored on 2l o2 with sats of 96%. BS are sl decreased and coarse. Coughing an intermittent mostly dry cough although is
cough up a thick james bit of mucous. Monitor ST. + pulses. +2 generalized anasarca and +3 scrotal edema. VS as documented. Abd is round/obese firm with hypoactive Bs. Pt does admit to abd tenderness- mostly on the L side. Denies nausea. Incont of a
small amt of pasty brown stool. Padron intact for jalil/tea colored bloody tinged urine. Capped int intact L arm. R arm DL picc- area around PICC Is red as previously documented. Turned and repositioned. Skin and mouth care given. Plan of care
reviewed with pt. Call [place] in reach.
[2024-05-02] MEDS: FLUSH (NSS) 1 FLUSH IV ×3 (10:24→12:34)
[2024-05-02] MEDS: ZOFRAN 4 MG IV (10:24)
--- NOTE | 2024-05-02 10:25 | PTCARENOTE ---
Fed breakfast and did actually eat a pancake and drank 3 juices over the course of an hr. Now he feels nauseated and is vomiting frequent small amts of yellow bile and admits to feeling nauseated. Zofran 4 mg IV given. Mouth care given
--- NOTE | 2024-05-02 10:25 | W.PN.URO.CBU ---
Today's Communication / Plan
-
no gu ontervenyion at this time
Assessment / Plan
-
64M with neurogenic bladder and chronic barcenas
Recent admission with urosepsis from obstructing R ureteral stone
Readmitted with sepsis and perinephric/subcapsular hematoma on CT
Perinephric/subcapsular hematoma
- HGB stabilized without transfusion or intervention
- Continue to trend daily, transfuse PRN
Urosepsis/bacteremia
- Continue broad spectrum abx
- Antibiotic course per ID
- Stent in good position with no hydronephrosis on CT
Kidney stone
- Scheduled for ureteroscopy with Dr. Acuña 05/10
Hematuria
- Resolved
Neurogenic bladder
- Maintain chronic barcenas
Diagnosis
-
Date of Service: May 02, 2024
-
Patient Diagnosis:
Post Op Day:
Patient Diagnosis:
Post Op Day:
Patient Diagnosis:
R Retroperitoneal hemorrhage/subcapsular hematoma
Sepsis
Bacteremia
Kidney stone s/p stent
Hematuria
AVTAR
Post Op Day:
Subjective
-
flank pain but improving
Objective
-
Vital Signs
Temp Pulse Resp BP Pulse Ox
98.2 F 106 17 122/80 96
05/02/24 08:16 05/02/24 09:10 05/02/24 09:00 05/02/24 09:10 05/02/24 09:00
Intake and Output
05/01/24 05/02/24 05/03/24
06:59 06:59 06:59
Intake Total 1000 / 1000 570 / 570 350 / 350
Output Total 575 / 575 675 / 675
Balance 425 / 425 -105 / -105 350 / 350
Intake:
Oral fluids 600 / 600 570 / 570 350 / 350
IV fluids (Total) 400 / 400
lr 400 / 400
Output:
Urine, Barcenas 575 / 575 675 / 675
True Urine Output from [facility] 0 / 0
Laboratory Results
05/02/24 04:13
05/02/24 04:13
Review of Systems
-
: Flank Pain
Physical Exam
-
General - well developed, well nourished, no acute distress
Chest - clear bilaterally
Abdomen - soft, non-tender, positive bowel sounds, no CVAT, no incisional pain or distention
Genitalia - normal
Rectal - normal
Skin - warm & dry with no rash
Neuro - AOx3, no motor deficits
Extremities - no clubbing, no cyanosis, no edema
Incision - clean, dry
Dressing - clean, dry, intact
Care Review
Data Reviewed
Discussed with: Nursing
CT Scan: Image Pers Reviewed
[2024-05-02] MEDS: VALIUM INJECTION 2.5 MG IV (10:41)
--- NOTE | 2024-05-02 10:45 | PTCARENOTE ---
Pt found at 1015 with yellow bile colored emesis on lowery and on his gown and sheets. Admits to feeling nauseated and vomited small to mod amts of yellow emesis frequently. Zofran 4mg IV given at 1025 and then pt insisted he wanted Valium because it
would make him feel better. C/O abd pain and 'not feeling well' Valium 2.5 m g IV given at 1041. HR in the 120's ST. BP elevated
--- NOTE | 2024-05-02 10:45 | PTCARENOTE ---
Pt states he just doesn't feel well and is insistant that he wanted Valium- asked if he was having bladder spasms as it is what it was ordered for - he just said that its what works for him. Medicated with Valium 2.5 mg IV.
--- NOTE | 2024-05-02 11:13 | PTCARENOTE ---
Continues to vomit yellow bile frequently- will use the [place] but also spitting it out on himself and the bed linens. Dr. Mendel wright. Will hold off on NG currently.
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
[2024-05-02 11:53] LABS: Glucose - Point of Care 96 mg/dl (70-99)
--- NOTE | 2024-05-02 12:00 | PTCARENOTE ---
Vomiting continued every few seconds and pt needed constant yankeur suctioning to remove it from his mouth/lips. Dr. Oglesby reupdated as there is concern for aspiration- and pt stating 'I'm going to ' #16 [place] ng inserted via the L nostril at
the 65 cm [place]. Placement auscultated but will also get xray as pt is going to need CT contrast for abd CT. Drained 300 yellow bile looking drainage along with previous vomiting. Nausea subsided after NG placed. IV team in -pt had US of the R arm on
Friday which did show a non-occlusive clot. IV team to contact Dr. Oglesby about possible removal of PICC line. Repositoned. Skin care given.
[2024-05-02] MEDS: LOPRESSOR 5 MG IV (12:41)
--- NOTE | 2024-05-02 12:45 | PTCARENOTE ---
Lopressor 5 mg Iv given for HR 122-126
[2024-05-02] MEDS: OMNIPAQUE 50 ML PO (13:33)
--- NOTE | 2024-05-02 13:40 | PTCARENOTE ---
Placement confirmed on NG tube and CT contrast- Omnipaque started via the NG. Pt asking for water-informed he can have his mouth swabbed but nothing to drink right now. Had a one point accused this RN of not giving him his medication - Informed pt
he recieved all of his meds and what he recieved. Was mad that he did not get Atarax but was not c/o itching. Stated 'Tell that to the component lab tech from you [facility] cell' Currently calm and watching a movie.
--- NOTE | 2024-05-02 16:45 | PTCARENOTE ---
Assessment is unchanged. No nausea since NG placed earlier. Tolerated CT contrast and currently CT Abd completed. NG then connected back to Low int sucton. Draining yellowish secretions. Pt intermittently coughing up small amts of thick tannish sl
bloody tinged secretions. VS as documented. Remains on 2l nc. RA sats checked and were 88%. ABd remains distended but a little softer. Padron with dk jalil/tea colored bloody tinged urine. Repositioned. Pt for transfer to IMU
[2024-05-02 17:51] LABS: Glucose - Point of Care 98 mg/dl (70-99)
--- NOTE | 2024-05-02 18:45 | PTCARENOTE ---
Report called to IMU and pt transferred to RM [id number]. Prior to transferring pt turned and repositioned. Pt awake and conversant. Admits to some abd soreness to palpation. CT scan results back. IMU will contact MD/Research Manufacturing Operator about results and what to do with
the NG with regards to keeping it on suction. Currently draining yellowish/brown drainage. Oriented to new room and call [place] in reach
[2024-05-02] MEDS: LIORESAL PO ×3 (21:36→22:56)
[2024-05-02] MEDS: LOPRESSOR PO (21:36)
[2024-05-02] MEDS: LIORESAL 20 MG TUBE (22:00)
[2024-05-02] MEDS: LYRICA 100 MG TUBE (22:38)
[2024-05-02] MEDS: MELATONIN 3 MG TUBE (22:38)
[2024-05-02] MEDS: ATARAX 25 MG TUBE (22:38)
[2024-05-02] MEDS: LYRICA PO (22:56)
[2024-05-02] MEDS: MELATONIN PO (22:56)
--- NOTE | 2024-05-02 22:58 | PTCARENOTE ---
Received patient from ICU, received report from RN bedside. PICC line removed by VAT. Pt is AAOx3 slightly anxious and slow speaking. Pt sinus tach on tele. 2L NC O2 sat 97%. NG tube in place confirmed by x-ray. #16 Ivan umana left nare measuring at
65. Advised to clamp NG and turn suction off by PAIN MEDICINE PHYSICIAN per order. NG suction to be turned to low intermittent suction if patient has nausea or vomiting. Pt made aware and verbalizes understanding. Administered medications via tube, I got route
changed by pharmacy. Confirmed that all medications are compatible and able to be given via tube. Padron in place with stat lock in place. Draining yellow clear urine. Padron care and oral care done. Bathing clothes used. L-hip wound covered with
alginate and silicone border foam. No drainage noted. Otherwise skin is intact. Encouraged and educated on repositioning, tolerating Q2 hour turns. Heels floated on regular pillow. Pt requesting hydroxyzine for itchiness of the arms. Pt denies
nausea or vomiting. Pt made aware to notify us if he is feeling nauseous. Order to resume low intermittent suction if pt is nauseous. Pt calm and appears to be resting comfortably in bed. Call stock[place] is within reach.
[2024-05-03] VITALS (14 sets, daily range): BP systolic 99–120; BP diastolic 65–88; BMI 41.6
[2024-05-03 00:24] LABS: Glucose - Point of Care 88 mg/dl (70-99)
[2024-05-03] MEDS: STERILE WATER FOR INJECTION 10 ML IV ×4 (04:23→23:34)
[2024-05-03] MEDS: MERREM 500 MG IV ×4 (04:23→23:33)
[2024-05-03 05:25] LABS: Hematocrit 30.2 % (39.0-52.0); Hemoglobin 9.9 g/dL (13.0-18.0); Mean Corp Hgb Conc. 32.8 g/dL (33.0-37.0); Mean Corpuscular Hgb 27.7 pg (27.0-31.0); Mean Corpuscular Volume 84.6 fL (80.0-94.0); Mean Platelet Volume 11.5 fL (7.4-10.4); Platelet Count 63 10^3/uL (130-400); Red Blood Cell Count 3.57 10^6/uL (4.70-6.10); Red Cell Dist. Width 15.2 % (11.5-14.5); White Blood Cell Count 14.9 10^3/uL (4.8-10.8)
[2024-05-03 05:43] LABS: Blood Urea Nitrogen 57 mg/dl (9-20); Calcium 7.8 mg/dl (8.4-10.2); Carbon Dioxide 31 mmol/L (22-30); Chloride 97 mmol/L (98-107); Estimated Creatinine Clearance 55 ml/min; Glucose 88 mg/dl (70-99); Potassium 3.7 mmol/L (3.5-5.1); Sodium 137 mmol/L (135-145); eGFR 48.11
[2024-05-03 07:32] LABS: Absolute Neutrophils -Man Diff 12.2 10^3/uL (1.4-6.5); Band Neutrophils 7 % (0-3); Lymphocytes 12 % (20-51); Monocytes 6 % (2-9); Nucleated Red Blood Cells 2 (-); Segmented Neutrophils 75 % (42-75)
[2024-05-03 07:41] LABS: Anisocytosis 1+; Hypochromasia 2+; Normal RBC Morphology No; Platelets Checked Yes; Polychromasia 1+
[2024-05-03 07:42] LABS: Ovalocytes FEW; Target Cells FEW; Total Cells Counted 100
--- NOTE | 2024-05-03 07:58 | W.PN.HOSP.TC ---
Today's Communication/Plan
-
NPO
ABX transition to ertapenem
Wean oxygen as tolerated
Follow blood cultures
Bilateral lower extremity ultrasound
Follow CBC
Assessment / Plan
Assessment / Plan
Impression: 64-year-old male with PMH of recurrent ureteral stone/sepsis and AVTAR, ESBL Proteus and E. coli colonization, essential hypertension, CKD stage IIIa, T7 spinal cord injury with paraplegia recently admitted for repeat ureteral stones and
renal failure who presented to ED on 04/27/2024 with abdominal pain and hematuria and was subsequently noted to have rights perinephric hematoma.
Assessment/plan:
# Acute abdominal pain with right perinephric hematoma.
-CT abdomen/pelvis 05/02 positive for SBO with transition point, proctocolitis cholelithiasis and improved hematoma size 3.0 cm (previously 3.8 cm) and new small volume perihepatic free fluid.
-General Surgery consult.
-Large BM with enema on presentation.
-Continue bowel regimen, added rectal Bisacodyl enema.
-Pain control with Baclofen, Avoid opioids, and anticholinergic agents.
-Check Mg/ PO4.
-Zofran for nausea.
-Maintain NGT.
-Monitor abdominal exam closely.
#LFT elevation/shock liver.
-Cholelithiasis with gallstone in the gallbladder neck on CT, no evidence of cholecystitis.
-Likely secondary to hypotension�shock liver and sepsis, also has a history of cirrhosis and HCV.
-Monitor LFTs
-Hx GERD
-Continue Protonix
#Hematuria
-Resolved.
-Multifactorial�kidney stone, right perinephric hematoma, now decreasing in size currently 3.0 cm (previously 3.8 cm).
-Scheduled for ureteroscopy with Dr. Painter 05/10.
#Recurrent Klebsiella pneumonia ESBL/E. coli bacteremia-resistant to Zosyn�renal source.
-Remains afebrile, WBC count 14.9.
-Transition ABX to ertapenem in a.m. day #8 per ID, continue until 05/11.
-Repeat blood cultures until negative.
-Infectious disease following.
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
-Cr improving; 2.7->> 1.6, baseline 1.4.
-Follow BMP.
#Neurogenic bladder
-Maintain on chronic Padron per urology.
#Severe septic shock unresponsive to fluid likely�secondary to CAUTI
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
-Off Levophed and vasopressin.
-Continue IV meropenem 500 mg Q8H, repeat cultures until negative per ID.
-Urology following.
-Acute hypoxic respiratory insufficiency
-Suspect due to aspiration with encephalopathy.
-CXR negative for PNA.
-Aspiration precautions.
-Nebulizers as needed.
-Wean O2 and maintain SpO2 >90%.
#Acute metabolic encephalopathy.
-Improving.
-Secondary to sepsis, Dilaudid.
-Avoid narcotics with suspected bowel obstruction vs ileus.
#Right upper extremity swelling
-Right upper extremity US with nonocclusive thrombus in right axillary and proximal right basilic vein.
-Heparin gtt per oncology.
#Acute on chronic thrombocytopenia (baseline 40,000-70,000).
-Symptomatic PICC line- associated thrombosis, platelet back to baseline, no evidence of bleeding.
-Heparin gtt per, recommend 6 weeks of AC and discontinue if thrombosed no longer present per oncology.
-Check lower extremity ultrasound.
#Anasarca
-Suspect due to fluid overload, hypoalbuminemia.
-Received a dose of Lasix.
-Continue to monitor daily weights, I's and O's.
-Repeat Lasix if weight gain occurs and BP stable.
-B/L LE US to assess for DVT.
#Acute on chronic anemia.
-Hb stable at baseline 9.9.
-Suspect anemia of chronic disease; other likely etiologies include but not limited to liver cirrhosis, hepatitis C, hematoma, septic shock�no signs of acute bleeding.
-Follow CBC.
-Transfuse with Hb <7.
#Depression�continue Lexapro
DVT PPx-SCD- holding anti-coags at the moment with perinephric hematoma, anemia and thrombocytopenia
CODE STATUS: Full code
Left message for listed guardian Yaritza Sun
Anticipated Discharge: > 48 hours
Subjective/Interval History
-
Date of Service: May 03, 2024
I have seen and examined this patient. Patient reports periumbilical dull abdominal pain rated 10/10. Pain does not radiate. He denies chest pain, shortness of breath, palpitations, fever or chills. General surgery was consulted and thinks that
this is more like ileus vs SBO. Patient refusing rectal enema at this time.
Objective Data
-
Labs:
Laboratory Results
05/03/24
04:57
WBC 14.9 H
Hgb 9.9 L
Hct 30.2 L
Plt Count 63 L
Sodium 137
Potassium 3.7
Chloride 97 L
Carbon Dioxide 31 H
BUN 57 H
Creatinine 1.6 H
Glucose 88
Calcium 7.8 L
Vital Signs:
Vital Signs
Temp Pulse Resp BP Pulse Ox
97.7 F 99 13 113/65 99
05/03/24 03:33 05/03/24 07:00 05/03/24 07:00 05/03/24 06:01 05/03/24 07:00
I&O
05/02/24 05/03/24 05/04/24
06:59 06:59 06:59
Intake Total 570 / 570 1400 / 1400
Output Total 675 / 675 1725 / 1725
Balance -105 / -105 -325 / -325
Review of Systems
-
History Source: Patient
All other systems: Not reviewed unless documented
Constitutional: Reports No Symptoms; Denies Fever or Chills
EENT: Reports No Symptoms Reported
Respiratory: Denies Cough or Trouble Breathing
Cardiac: Reports No Symptoms; Denies Chest Pain or Palpitations
Abdomen/GI: Reports Abdominal Pain; Denies Nausea or Vomiting
Physical Exam
-
General: Well Developed, No Apparent Distress, Comfortable and Morbidly Obese
HEENT: Normocephalic, Atraumatic, Moist Mucous Membranes and Anicteric
Respiratory: Clear to Auscultation and Non Labored Respirations; Negative Accessory Resp Muscle Use
Cardiac: Regular Rhythm, S1/S2 and Tachycardic; Negative Murmur, Rub or Gallop
GI: Soft, Normal Bowel Sounds, Tender (Periumbilical, no peritoneal signs) and Distended (mildly)
Musculoskeletal: No Clubbing, No Cyanosis and No Edema
Skin: Warm and Dry; Negative Rash
Neuro: Awake, AO x 3 and Other (Paraplegia below T7 distribution)
Psych: Calm
Data Reviewed
-
Diagnostic Radiology: Report Reviewed by me and Discussed with Physician
CT Scan: Image personally visualized and interpreted, Report Reviewed by me, Discussed with Physician and Discussed with Patient
Ultrasound: Report Reviewed by me and Discussed with Physician
Labs: Labs Reviewed by me, Discussed with Nurse and Discussed with Patient
Old Records: Reviewed
[2024-05-03] MEDS: LASIX 10 MG TUBE (08:43)
[2024-05-03] MEDS: LEXAPRO 10 MG TUBE (08:43)
[2024-05-03] MEDS: VITAMIN D3 (cholecalciferol) 25 MCG PO (08:43)
[2024-05-03] MEDS: LOPRESSOR 12.5 MG TUBE ×2 (08:44→20:19)
[2024-05-03] MEDS: PROTONIX PO ×2 (08:44→09:30)
[2024-05-03] MEDS: LIORESAL 10 MG TUBE ×2 (08:44→20:19)
--- NOTE | 2024-05-03 09:25 | W.PN.ONC2 ---
Today's Communication / Plan
-
platelets have returned to baseline, Hgb stable 9.9g/dL, has not required any transfusion support during hospitalization thus far
recommend heparin gtt for PICC associated non-occlusive thrombus
check US b/l LE -ordered
Impression
Impression
a/w septic shock, Recurrence ESBL-Klebsiella and Ecoli bacteremia, Renal source
Anemia, Hgb 9-10g/dL during Feb 2024 hospitalization
acute on chronic Thrombocytopenia, platlet count baseline 40-70,000
Elevated LFTs
35mm hematoma around the R kidney with extension along the R ureter
R ureteral stent placement on 02/18/24
AVTAR on CKD
Stercoral Colitis
T7 paraplegia
Cirrhosis 2/2 ETOH/Hep C
acute respiratory failure now off BIPAP
SBO -NGT
PICC associated Nonocclusive thrombus within the right axillary and proximal right basilic vein on 04/30/2024 RUE US.
Plan
Plan
-acute on chronic thrombocytopenia (baseline 40-70,000) - in the setting of hepatitis C/ cirrhosis and acute drop from septic shock -platelets now at baseline. No evidence DIC, B12 or folate deficency
-acute blood loss anemia - anemia of inflammation/ infection -Hgb stable 9.9g/dL
-symptomatic PICC associated thrombus -in the absence of bleeding, stable Hgb, and platelets at baseline >50,000, would treat PICC associated non-occlusive thrombus with heparin gtt during hospitalization. Recommend 6 week course of anticoagulation
then reimage.. If thrombus is no longer present then would discontinue anticoagulation.
Subjective/Objective
Subjective
awake and alert, answering questions. declined rockboard lather.
LLQ pain, denies n/v
Vital Signs:
Vital Signs
Temp Pulse Resp BP Pulse Ox
98.8 F 99 13 113/65 96
05/03/24 07:25 05/03/24 07:00 05/03/24 07:00 05/03/24 06:01 05/03/24 07:54
Lab Results:
Laboratory Data
WBC 14.9 10^3/uL (4.8-10.8) H 05/03/24 04:57
Hgb 9.9 g/dL (13.0-18.0) L 05/03/24 04:57
Plt Count 63 10^3/uL (130-400) L 05/03/24 04:57
PT 16.1 Sec (11.4-14.6) H 05/01/24 09:48
INR 1.26 05/01/24 09:48
APTT 38.5 Sec (23.4-35.0) H 04/27/24 10:01
eGFR 48.11 05/03/24 04:57
Physical Exam
HEENT: Moist Mucous Membranes; No Jaundice
Cardiology: S1 and S2
Pulmonary: Clear
GI: Soft
Extremities: Edema
Neuro: Other (awake, alert, answering questions and following commands)
--- NOTE | 2024-05-03 09:36 | PTCARENOTE ---
Surgeon at bedside, advised to hook NGT back to LIWS. Large amount of brown liquid output drained immediately.
[2024-05-03 11:00] LABS: Magnesium 2.5 mg/dl (1.6-2.3); Phosphorus 3.6 mg/dl (2.5-4.5)
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
--- NOTE | 2024-05-03 11:42 | PTCARENOTE ---
Addendum entered by Daxa Rajan 05/03/24 11:51:
Dr. Burrell and Dr. Oglesby notified via TT.
Original Note:
Pt repeatedly asking for food despite multiple attempts to re-educate on current situation/ NG tube. Pt ordered one time suppository. Pt becoming angry stating that he will not move his bowels if we don't feed him. This RN and second RN at bedside
attempting to explain and educate pt. Pt refused and told staff to get out.
--- NOTE | 2024-05-03 12:21 | W.PN.URO.CBU ---
Today's Communication / Plan
-
caren amye wit uretroscop after holiday hope[place]uly [place] [facility]
Assessment / Plan
-
64M with neurogenic bladder and chronic barcenas
Recent admission with urosepsis from obstructing R ureteral stone
Readmitted with sepsis and perinephric/subcapsular hematoma on CT
Perinephric/subcapsular hematoma
- HGB stabilized without transfusion or intervention
- Continue to trend daily, transfuse PRN
Urosepsis/bacteremia
- Continue broad spectrum abx
- Antibiotic course per ID
- Stent in good position with no hydronephrosis on CT
Kidney stone
- Scheduled for ureteroscopy with Dr. Acuña 05/10
Hematuria
- Resolved
Neurogenic bladder
- Maintain chronic barcenas
Diagnosis
-
Date of Service: May 03, 2024
-
Patient Diagnosis:
Post Op Day:
Patient Diagnosis:
Post Op Day:
Patient Diagnosis:
Post Op Day:
Patient Diagnosis:
R Retroperitoneal hemorrhage/subcapsular hematoma
Sepsis
Bacteremia
Kidney stone s/p stent
Hematuria
AVTAR
Post Op Day:
Subjective
-
improved
Objective
-
Vital Signs
Temp Pulse Resp BP Pulse Ox
98.8 F 99 13 113/65 96
05/03/24 07:25 05/03/24 07:00 05/03/24 07:00 05/03/24 06:01 05/03/24 07:54
Intake and Output
05/02/24 05/03/24 05/04/24
06:59 06:59 06:59
Intake Total 570 / 570 1400 / 1400
Output Total 675 / 675 1725 / 1725 150 / 150
Balance -105 / -105 -325 / -325 -150 / -150
Intake:
Oral fluids 570 / 570 350 / 350
Amount instilled into GI Tube ( 1050 / 1050
Total)
[place] Sump 1050 / 1050
Output:
Gastrointestinal tube output ( 800 / 800
Total)
[place] Sump 800 / 800
Urine, Barcenas 675 / 675 925 / 925 150 / 150
Other:
Number of immeasurable emeses? 20
Laboratory Results
05/03/24 04:57
05/03/24 04:57
Review of Systems
-
: No Symptoms
Physical Exam
-
General - well developed, well nourished, no acute distress
Chest - clear bilaterally
Abdomen - soft, non-tender, positive bowel sounds, no CVAT, no incisional pain or distention
Genitalia - normal
Rectal - normal
Skin - warm & dry with no rash
Neuro - AOx3, no motor deficits
Extremities - no clubbing, no cyanosis, no edema
Incision - clean, dry
Dressing - clean, dry, intact
Counseling
-
no gu ntervention until next week
Care Review
Data Reviewed
Discussed with: Hospitalist and Nursing
[2024-05-03 13:34] LABS: Glucose - Point of Care 82 mg/dl (70-99)
--- NOTE | 2024-05-03 14:33 | W.PN.UPDATE ---
Update Note
Progress Note Update
Independently evaluated the patient at the bedside. Please refer to resident's note for further information.
CT A/P yesterday showed signs of distal small bowel obstruction. Surgery was consulted, after reviewing imaging they suspect that this is more related to ileus than SBO. Hematoma near site of potential SBO complicates picture. Recommended n.p.o.
status and NGT to suction. Will start bowel regimen with suppository and enemas. Avoid opiates and anticholinergics. Monitor BMP and replete electrolytes as needed.
Remains on IV meropenem for CAUTI was present on arrival. Status post circulatory shock now stable off of pressors. Will continue with meropenem and trend CBC and temperature curve, maintain chronic Padron. ID following.
Discharge likely >48 hours
--- NOTE | 2024-05-03 15:29 | CON.GS ---
Consultation
-
Date/Time Consultation Requested: 05/03/2024 8 AM
Date/Time Consultation Performed: 05/03/2024 9 AM
Requesting Provider: Dr. Buchanan
Performing Provider: Dr. Oglesby
Reason for Consultation: Small bowel obstruction
Medical History
-
Chief Complaint: Abdominal pain
History of Present Illness:
This is a 64-year-old male with a history of T7 paraplegia, neurogenic bladder and chronic Padron here with E. coli/Klebsiella urosepsis from an obstructing right ureteral stone now with right perinephric subcapsular hematoma seen on CT when he was
admitted on 04/27/2024. Initially the hematoma expanded but then stabilized. Initial CT scans did not show any bowel pathology however on his most recent scan there was concern for dilated loops of bowel through to the colon which was read as a
small bowel obstruction but on my read more concerning for an ileus which certainly fits his clinical picture given his ongoing sepsis
Past Medical History
Past Medical History: Other (Functional paraplegia, recurrent UTI, hypertension)
Past Surgical History: Reviewed & Noncontributory
Social History
Tobacco: Non-Smoker
Alcohol: None
Drug: None
Family History
Family History: Reviewed & Not Pertinent
Allergies / Home Medications
Allergy/AdvReac Type Severity Reaction Status Date / Time
ofloxacin Allergy Unknown/pt Verified 04/27/24 03:26
tolerated
cipro
pentazocine Allergy Unknown Verified 04/27/24 03:26
�Medication �Instructions �Recorded �Confirmed �Type
acetaminophen 325 mg tablet 325 mg PO Q6HPRN PRN mild 04/25/22 04/27/24 History
(Tylenol) pain/fever
baclofen 10 mg tablet 10 mg PO BID spasms 04/25/22 04/27/24 History
baclofen 20 mg tablet 20 mg PO HS spasm 04/25/22 04/27/24 History
bisacodyl 10 mg rectal suppository 10 mg WA DAILYPRN PRN if no bm 04/25/22 04/27/24 History
(Dulcolax (bisacodyl)) aftr mom
calcium polycarbophil 625 mg 1,250 mg PO QPM Supplement 04/25/22 04/27/24 History
tablet (FiberCon)
escitalopram oxalate 10 mg tablet 10 mg PO DAILY Mental 04/25/22 04/27/24 History
(Lexapro) Health/Anxiety
famotidine 20 mg tablet (Pepcid) 20 mg PO DAILY Gastrointestinal 04/25/22 04/27/24 History
issue
folic acid 1 mg tablet 1 mg PO DAILY Supplement 04/25/22 04/27/24 History
melatonin 3 mg tablet 3 mg PO HS Sleep 04/25/22 04/27/24 History
sorbitol 70 % solution 30 ml PO [id number] PRN if no bm on 04/25/22 04/27/24 History
3rd day
therapeutic multivitamin 1 tab PO DAILY Supplement 04/25/22 04/27/24 History
thiamine HCl (vitamin B1) 100 mg 100 mg PO DAILY Supplement 04/25/22 04/27/24 History
tablet
polyethylene glycol 3350 17 gram 17 g PO DAILY #0 ea 04/29/22 04/27/24 Rx
oral powder packet
clindamycin phosphate 1 % lotion 1 applic topical DAILY back 06/20/23 04/27/24 History
sodium phosphates 19 gram-7 118 ml WA DAILYPRN PRN if no bm 06/20/23 04/27/24 History
gram/118 mL enema (Fleet Enema) aftr dulcolax
metoprolol tartrate 25 mg tablet 12.5 mg (1/2 x 25 mg) PO BID Blood 06/24/23 04/27/24 Rx
pressure #0 tabs
albuterol sulfate 90 mcg/actuation 2 puff inhalation R Q4HPRN PRN sob 02/18/24 04/27/24 History
aerosol inhaler
cranberry fruit 450 mg tablet 450 mg PO DAILY Supplement 02/18/24 04/27/24 History
(cranberry)
docusate sodium 100 mg capsule 100 mg PO DAILY Constipation 02/18/24 04/27/24 History
(Colace)
guaifenesin 400 mg tablet 800 mg PO BID MUCOUS 02/18/24 04/27/24 History
hydroxyzine HCl 25 mg tablet 25 mg PO Q6HPRN PRN itchness 02/18/24 04/27/24 History
pregabalin 100 mg capsule (Lyrica) 100 mg PO HS Pain #14 caps 02/24/24 04/27/24 Rx
furosemide 20 mg tablet (Lasix) 10 mg PO DAILY Fluid 04/27/24 04/27/24 History
Retention/Swelling
Review of Systems
-
All other systems: Negative unless noted
A 10 point review of systems was completed, and was negative except as per HPI.
Physical Exam
Vital Signs
Temp Pulse Resp BP Pulse Ox
98 F 99 13 113/65 96
05/03/24 11:35 05/03/24 07:00 05/03/24 07:00 05/03/24 06:01 05/03/24 07:54
05/02/24 05/03/24 05/04/24
06:59 06:59 06:59
Actual Weight 113 kg 113.3 kg
Body Mass Index (BMI) 41.6
Lab Results
05/03/24 04:57
05/03/24 04:57
WBC 14.9 10^3/uL (4.8-10.8) H 05/03/24 04:57
Hgb 9.9 g/dL (13.0-18.0) L 05/03/24 04:57
Hct 30.2 % (39.0-52.0) L 05/03/24 04:57
Plt Count 63 10^3/uL (130-400) L 05/03/24 04:57
Abs Immat Gran (auto) 0.1 10^3/uL (0-0.05) H 04/27/24 03:48
Neutrophils % 79.8 % (42.2-75.2) H 04/27/24 03:48
Physical Exam
General: Other (Uncomfortable)
HEENT: Other (NG tube in place with light bilious output)
Respiratory: Non Labored Respirations
GI: Soft, Non Tender, Distended and Other (He does have a well-healed periumbilical scar)
Data Reviewed
-
CT Scan: Image Personally Visualized and interpreted, Report Reviewed by me, Discussed with Physician and Discussed with Patient
Labs: Labs Reviewed by me and Discussed with Physician
Total Time Spent with Patient (in minutes): 40
Assessment / Plan
-
This is a 64-year-old male with a history of T7 paraplegia, chronic Padron and recurrent UTIs here with urosepsis and right perinephric hematoma who has developed worsening abdominal plain and bloating CT imaging concerning for ileus versus small
bowel obstruction. I favor the former as his initial scans did not show any bowel obstruction and ileus is certainly very common in the setting of sepsis and bacteremia and his subsequent x-ray does not show air-fluid levels.
Would manage nonoperatively for now.
NG tube to low intermittent wall suction.
N.p.o., IV fluids
IV antibiotics per ID
General Surgery will continue to follow with serial abdominal exams and abdominal imaging as needed.
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
[2024-05-03 18:35] LABS: Glucose - Point of Care 79 mg/dl (70-99)
[2024-05-03] MEDS: LIORESAL TUBE (23:32)
[2024-05-03] MEDS: LYRICA TUBE (23:32)
[2024-05-03] MEDS: ATARAX TUBE (23:33)
[2024-05-03] MEDS: MELATONIN TUBE (23:33)
[2024-05-04] VITALS (11 sets, daily range): BP systolic 92–132; BP diastolic 60–86; BMI 40.2
[2024-05-04 00:10] LABS: Glucose - Point of Care 84 mg/dl (70-99)
--- NOTE | 2024-05-04 00:11 | PTCARENOTE ---
Patient pulled out NG tube. Pt is increasingly agitated and angry. Pt states 'I am not getting another tube' when attempting to calm down patient and re-educate, he states 'you can get out'. JAIDA Delgado made aware. Unable to administer HS medications
via tube see AUG.
[2024-05-04 05:41] LABS: ALT (SGPT) 79 U/L (0-50); AST (SGOT) 90 U/L (17-59); Albumin 2.7 g/dl (3.5-5.0); Alkaline Phosphatase 152 U/L (38-126); Blood Urea Nitrogen 53 mg/dl (9-20); Calcium 8.1 mg/dl (8.4-10.2); Carbon Dioxide 27 mmol/L (22-30); Chloride 100 mmol/L (98-107); Estimated Creatinine Clearance 66 ml/min; Glucose 80 mg/dl (70-99); Potassium 3.8 mmol/L (3.5-5.1); Sodium 141 mmol/L (135-145); Total Bilirubin 5.3 mg/dl (0.2-1.3); Total Protein 6.8 g/dl (6.3-8.2); eGFR > 60.00
[2024-05-04 05:47] LABS: % Basophils 0.5 % (0-2); % Eosinophils 1.2 % (0-6); % Immature Granulocytes 5.2 % (0-0.5); % Lymphocytes 10.6 % (20.5-51.1); % Monocytes 7.4 % (1.7-9.3); % Neutrophils 75.1 % (42.2-75.2); Absolute Basophils 0.1 10^3/uL (0-0.2); Absolute Eosinophils 0.2 10^3/uL (0-0.7); Absolute Immature Granulocytes 0.7 10^3/uL (0-0.05); Absolute Lymphocytes 1.5 10^3/uL (1.2-3.4); Absolute Neutrophils 10.3 10^3/uL (1.4-6.5); Hematocrit 30.6 % (39.0-52.0); Hemoglobin 9.9 g/dL (13.0-18.0); Mean Corp Hgb Conc. 32.4 g/dL (33.0-37.0); Mean Corpuscular Hgb 27.5 pg (27.0-31.0); Mean Platelet Volume 10.3 fL (7.4-10.4); Nucleated Red Blood Cells % 0.2 % (-); Platelet Count 64 10^3/uL (130-400); Red Cell Dist. Width 15.5 % (11.5-14.5); White Blood Cell Count 13.7 10^3/uL (4.8-10.8)
[2024-05-04 05:53] LABS: Glucose - Point of Care 70 mg/dl (70-99)
[2024-05-04] MEDS: STERILE WATER FOR INJECTION IV ×3 (05:56→18:17)
--- NOTE | 2024-05-04 07:27 | W.PN.HOSP.TC ---
Addendum entered and electronically signed by Neyda Coto MD 05/04/24 13:58:
I saw and evaluated the patient independently. reviewed the resident�s note and agree with findings and plan as documented by Dr. Burrell.
GENERAL: well developed, well nourished, male in no apparent distress
HEENT: NC/AT --O2 NC in place
HEART: regular rate and rhythm, +S1, +S2
LUNGS : clear to auscultation bilaterally
ABDOM: soft, nontender, nondistended, + bowel sounds
EXT: no cyanosis, clubbing, or edema
NEUROLOGIC: paraplegia
: scrotal swelling, barcenas cath (chronic)
Severe septic shock secondary to E. coli and ESBL Kleb pneumo CAUTI due to chronic Barcenas s/p ureteral stent with right perinephric hematoma--was in ICU on pressors, now out and off pressors (levophed and vasopressin)--remains on meropenem, day
8--repeat cultures from 04/28 all negative--apprec urology--has blood tinged urine--would recheck UA with reflex to culture--WBC improving--await ID input
Acute abdominal pain---CT abdomen/pelvis 05/02 positive for SBO with transition point, general surgery consulted and thinks this is an ileus--Advance diet to clears per surgery---Pain control with Baclofen, Avoid opioids, and anticholinergic
agents---Zofran for nausea--can restart oral meds
Hypoglycemia---Start D5W NSS--Accu-Cheks.
Right upper extremity swelling---Due to symptomatic PICC line-associated thrombosis with right axillary and proximal basilic vein thrombosis seen on US---Bilateral LE US negative for DVT--Heparin gtt for symptomatic PICC line associated
thrombosis�oncology recommend 6 weeks of AC and discontinue if thromboses no longer present--can transition to eliquis if pt can afford it, need CM to rubio
Acute on chronic thrombocytopenia (baseline 40,000-70,000)---Back to baseline.
LFT elevation likely due to shock liver (also has history of cirrhosis and Hep C---Cholelithiasis with gallstone in the gallbladder neck on CT, no evidence of cholecystitis---Continue to reassess for pain with resolve of his ileus
Hx GERD--Continue Protonix
Hematuria--Restarted s/p heparin infusion---Other likely etiologies include; kidney stone, right perinephric hematoma, now decreasing in size currently 3.0 cm (previously 3.8 cm)---Check UA with reflex to culture--Scheduled for ureteroscopy with
Domenico 05/10.
AVTAR on CDK stage 3a---Cr back to baseline 1.3.
Neurogenic bladder due to T7 spinal cord paraplegia--Maintain on chronic Barcenas per urology.
Acute hypoxic respiratory insufficiency---Remains on 2 L O2 NC, saturating at 100%---Suspect due to aspiration with encephalopathy---CXR negative for PNA---Aspiration precautions---Nebulizers as needed--Wean O2 as tolerated with goal SpO2 >90%
Acute metabolic encephalopathy---Improving---Secondary to sepsis, Dilaudid---Avoid narcotics with suspected bowel obstruction vs ileus.
Anasarca--Suspect due to fluid overload, hypoalbuminemia---Continue Lasix with holding parameters-Continue to monitor daily weights, I's and O's.
Acute on chronic anemia---Hb down to 8.9 (was 9.9 yesterday), no evidence of bleeding---Suspect anemia of chronic disease; other likely etiologies include but not limited to liver cirrhosis, hepatitis C, hematoma, septic shock--Transfuse with Hb <7.
Depression�continue Lexapro
DVT PPx-SCD- holding anti-coags at the moment with perinephric hematoma, anemia and thrombocytopenia
CODE STATUS: Full code
Original Note:
Today's Communication/Plan
-
Advance diet
IV heparin gtt
Monitor blood sugar
Monitor CBC
Assessment / Plan
Assessment / Plan
Impression: 64-year-old male with PMH of recurrent ureteral stone/sepsis and AVTAR, ESBL Proteus and E. coli colonization, essential hypertension, CKD stage IIIa, T7 spinal cord injury with paraplegia recently admitted for repeat ureteral stones and
renal failure who presented to ED on 04/27/2024 with abdominal pain and hematuria and was subsequently noted to have rights perinephric hematoma.
Assessment/plan:
# Acute abdominal pain with right perinephric hematoma.
-CT abdomen/pelvis 05/02 positive for SBO with transition point, general surgery consulted and thinks this is an ileus versus SBO.
-Continue bowel regimen, added milk of molasses.
-Advance diet to clears per surgery.
-Pain control with Baclofen, Avoid opioids, and anticholinergic agents.
-Zofran for nausea.
#Hypoglycemia
-Start D5W NSS once
-Accu-Cheks.
#Recurrent Klebsiella pneumonia ESBL/E. coli bacteremia-resistant to Zosyn�renal source.
-Remains afebrile, WBC count trending down, 12.6.
-Continue renally dosed meropenem day #8 per ID
-Repeat blood cultures until negative.
-Infectious disease following.
#Severe septic shock secondary to CAUTI due to chronic Barcenas s/p ureteral stent.
-BP stable.
-Off Levophed and vasopressin.
-Continue IV meropenem 500 mg Q8H, repeat cultures until negative per ID.
-Urology following.
#Right upper extremity swelling.
-Due to symptomatic PICC line- associated thrombosis with right axillary and proximal basilic vein thrombosis seen on US.
-Bilateral LE US negative for DVT.
-Check PTT.
-Heparin gtt for symptomatic PICC line associated thrombosis�oncology recommend 6 weeks of AC and discontinue if thrombosed no longer present.
#Acute on chronic thrombocytopenia (baseline 40,000-70,000).
-Back to baseline.
#LFT elevation/shock liver.
-Stable.
-Cholelithiasis with gallstone in the gallbladder neck on CT, no evidence of cholecystitis.
-Likely secondary to hypotension�shock liver and sepsis, also has a history of cirrhosis and HCV.
-Monitor LFTs.
-Continue to reassess for pain with resolve of his ileus.
-Hx GERD
-Continue Protonix
#Hematuria
-Restarted s/p heparin infusion.
-Other likely etiologies include; kidney stone, right perinephric hematoma, now decreasing in size currently 3.0 cm (previously 3.8 cm).
-Hold heparin.
-Check UA with reflex to culture.
-Scheduled for ureteroscopy with Dr. Painter 05/10.
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
-Cr back to baseline 1.3.
#Neurogenic bladder
-Maintain on chronic Barcenas per urology.
#Acute hypoxic respiratory insufficiency
-Remains on 2 L O2 NC, saturating at 100%.
-Suspect due to aspiration with encephalopathy.
-CXR negative for PNA.
-Aspiration precautions.
-Nebulizers as needed.
-Wean O2 as tolerated with goal SpO2 >90%
#Acute metabolic encephalopathy.
-Improving.
-Secondary to sepsis, Dilaudid.
-Avoid narcotics with suspected bowel obstruction vs ileus.
#Anasarca
-Suspect due to fluid overload, hypoalbuminemia.
-Continue Lasix with holding parameters
-Continue to monitor daily weights, I's and O's.
-Repeat Lasix if weight gain occurs and BP stable.
-B/L LE US to assess for DVT.
#Acute on chronic anemia.
-Hb down to 8.9 (was 9.9 yesterday), no evidence of bleeding.
-Suspect anemia of chronic disease; other likely etiologies include but not limited to liver cirrhosis, hepatitis C, hematoma, septic shock.
-Follow CBC.
-Transfuse with Hb <7.
#Depression�continue Lexapro
DVT PPx-SCD- holding anti-coags at the moment with perinephric hematoma, anemia and thrombocytopenia
CODE STATUS: Full code
Anticipated Discharge: > 48 hours
Subjective/Interval History
-
Date of Service: May 04, 2024
Have seen and examined patient. Continues to report no pain that is somewhat improving. He admits passing gas but denies any BMs. Overnight, patient pulled out his NG tube and refused SCDs because they were 'bothering me'. He also refused the
enema until this morning after I had a discussion with him. He was also reported to have low blood sugars overnight in the 70s, otherwise, patient does not have any chest pain, shortness of breath, palpitations, fever or chills.
Objective Data
-
Labs:
Laboratory Results
05/04/24
05:09
WBC 13.7 H
Hgb 9.9 L
Hct 30.6 L
Plt Count 64 L
Sodium 141
Potassium 3.8
Chloride 100
Carbon Dioxide 27
BUN 53 H
Creatinine 1.3
Glucose 80
Calcium 8.1 L
Total Bilirubin 5.3 H
AST 90 H
ALT 79 H
Alkaline Phosphatase 152 H
Vital Signs:
Vital Signs
Temp Pulse Resp BP Pulse Ox
97.6 F 101 11 118/65 99
05/04/24 03:16 05/04/24 06:00 05/04/24 06:00 05/04/24 04:00 05/04/24 05:00
I&O
05/03/24 05/04/24 05/05/24
06:59 06:59 06:59
Intake Total 1400 / 1400 30 / 30
Output Total 1725 / 1725 2525 / 2525
Balance -325 / -325 -2495 / -2495
Review of Systems
-
History Source: Patient
All other systems: Not reviewed unless documented
Constitutional: Reports No Symptoms; Denies Fever or Chills
EENT: Reports No Symptoms Reported
Respiratory: Denies Cough or Trouble Breathing
Cardiac: Reports No Symptoms; Denies Chest Pain or Palpitations
Abdomen/GI: Reports Abdominal Pain; Denies Nausea or Vomiting
Genitourinary: Reports Other (Chronic Barcenas)
Musculoskeletal: Reports Other (Paraplegic)
Physical Exam
-
General: Well Developed, No Apparent Distress, Comfortable and Morbidly Obese
HEENT: Normocephalic, Atraumatic, Moist Mucous Membranes and Anicteric
Respiratory: Clear to Auscultation and Non Labored Respirations; Negative Accessory Resp Muscle Use
Cardiac: Regular Rhythm, S1/S2 and Tachycardic; Negative Murmur, Rub or Gallop
GI: Soft, Normal Bowel Sounds, Tender (Periumbilical, no peritoneal signs) and Distended (mildly)
Genito-urinary: Barcenas (Chronic)
Musculoskeletal: No Clubbing, No Cyanosis and No Edema
Skin: Warm and Dry; Negative Rash
Neuro: Awake, AO x 3 and Other (Paraplegia below T7 distribution)
Psych: Calm
Data Reviewed
-
Diagnostic Radiology: Report Reviewed by me and Discussed with Physician
CT Scan: Image personally visualized and interpreted, Report Reviewed by me, Discussed with Physician and Discussed with Patient
Ultrasound: Report Reviewed by me and Discussed with Physician
Labs: Labs Reviewed by me, Discussed with Nurse and Discussed with Patient
Old Records: Reviewed
[2024-05-04] MEDS: INVANZ 60 MG IV (10:17)
[2024-05-04 10:28] LABS: Hematocrit 27.9 % (39.0-52.0); Hemoglobin 8.9 g/dL (13.0-18.0); Mean Corp Hgb Conc. 31.9 g/dL (33.0-37.0); Mean Corpuscular Hgb 27.8 pg (27.0-31.0); Mean Corpuscular Volume 87.2 fL (80.0-94.0); Mean Platelet Volume 11.2 fL (7.4-10.4); Platelet Count 62 10^3/uL (130-400); Red Cell Dist. Width 15.8 % (11.5-14.5); White Blood Cell Count 12.6 10^3/uL (4.8-10.8)
[2024-05-04 10:33] LABS: APTT 32.8 Sec (23.4-35.0)
[2024-05-04] MEDS: D5/0.9% SODIUM CHLORIDE 1000 IV ×2 (10:37→13:28)
[2024-05-04] MEDS: HEPARIN 4000 UNITS IV (11:00)
[2024-05-04] MEDS: HEPARIN 25000 UNITS/250 ML IV (11:04)
[2024-05-04] MEDS: LASIX TUBE (11:13)
[2024-05-04] MEDS: LEXAPRO TUBE (11:14)
[2024-05-04] MEDS: LIORESAL TUBE (11:14)
[2024-05-04] MEDS: LOPRESSOR TUBE (11:14)
[2024-05-04] MEDS: VITAMIN D3 (cholecalciferol) 25 MCG PO (11:36)
[2024-05-04] MEDS: PROTONIX 40 MG PO (11:37)
[2024-05-04] MEDS: ATARAX 25 MG PO ×2 (11:42→20:13)
[2024-05-04 11:43] LABS: Glucose - Point of Care 85 mg/dl (70-99)
--- NOTE | 2024-05-04 11:50 | W.PN.GS2 ---
Today's Communication / Plan
-
Tial CLD
Assessment / Plan
-
This is a 64-year-old male with a history of T7 paraplegia, chronic Padron and recurrent UTIs here with urosepsis and right perinephric hematoma who has developed worsening abdominal plain and bloating CT imaging concerning for ileus versus small
bowel obstruction. I favor the former as his initial scans did not show any bowel obstruction and ileus is certainly very common in the setting of sepsis and bacteremia and his subsequent x-ray does not show air-fluid levels.
Pt pulled out NGT overnight, now with small flatus
Plan:
Cont expectant mgmt
Trial clears, advised to go slow
IV antibiotics per ID
General Surgery will continue to follow
Subjective Data
-
Date of Service: May 04, 2024
Denies n/v, endorses small flatus
Objective Data
-
Intake and Output
05/03/24 05/04/24 05/05/24
06:59 06:59 06:59
Intake Total 1400 / 1400 30 / 30
Output Total 1725 / 1725 2525 / 2525 225 / 225
Balance -325 / -325 -2495 / -2495 -225 / -225
Intake:
Oral fluids 350 / 350
Amount instilled into GI Tube ( 1050 / 1050 30 / 30
Total)
Larue Sump 1050 / 1050 30 / 30
Output:
Gastrointestinal tube output ( 800 / 800 1050 / 1050
Total)
Larue Sump 800 / 800 1050 / 1050
Urine, Padron 925 / 925 1475 / 1475 225 / 225
Other:
Number of immeasurable emeses? 20
Vital Signs
Temp Pulse Resp BP Pulse Ox
98.7 F 109 14 110/65 100
05/04/24 07:05 05/04/24 10:00 05/04/24 10:00 05/04/24 08:00 05/04/24 09:00
Lab Results
05/04/24 10:13
05/04/24 05:09
Calcium 8.1 mg/dl (8.4-10.2) L 05/04/24 05:09
Phosphorus 3.6 mg/dl (2.5-4.5) 05/03/24 04:57
Magnesium 2.5 mg/dl (1.6-2.3) H 05/03/24 04:57
Total Bilirubin 5.3 mg/dl (0.2-1.3) H 05/04/24 05:09
Direct Bilirubin 3.3 mg/dl (0.0-0.4) H 05/02/24 04:13
AST 90 U/L (17-59) H 05/04/24 05:09
ALT 79 U/L (0-50) H 05/04/24 05:09
Alkaline Phosphatase 152 U/L (38-126) H 05/04/24 05:09
Total Protein 6.8 g/dl (6.3-8.2) 05/04/24 05:09
Albumin 2.7 g/dl (3.5-5.0) L 05/04/24 05:09
Physical Exam
-
Gen: NAD
Abd: obese, soft, nt
--- NOTE | 2024-05-04 12:44 | W.PN.UPDATE ---
Update Note
Progress Note Update
64M w/ h/o NGB and chronic Padron catheter.
02/2024: s/p right ureteral stent placement for obstructing right ureteral stone in setting of MDR urosepsis.
Readmitted w/ urosepsis and right perinephric/subcapsular hematoma on CT imaging.
CT imaging (x2) w/ right ureteral stent in good position, no right hydronephrosis.
Small increase in size of hematoma w/ tamponade as expected.
On IV abx for urosepsis/bacteremia per ID - ESBL Klebsiella and E. Coli (MDR)
WBC slowly downtrending (infectious and inflammatory etiology)
H/H remain stable without evidence of active bleeding
Cr @baseline (1.3)
Tentatively was scheduled for right URS/laser lithotripsy/stone extraction/stent exchange 05/10 prior to recent hospitalization.
Plan:
- clears trial per GS after NGT removal
- if clinical status remains stable, tentative plan for right ULS 05/10
- Continue IV abx per ID
- NPO@[place] 05/09 (Friday)
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
--- NOTE | 2024-05-04 13:05 | PTOTSP ---
Speech Language Pathology
Pt seen for clinical bedside swallow evaluation. Provided P.O. trials of jello and sips of thin water via straw only given limitation of clear liquids per surgery at this time. No oral difficulty with minimal consistencies trialed. No overt signs
of aspiration. Also seen with RN with med pass with meds whole with liquid. No difficulty noted.
Recommend:
(1) Thin liquids (limited to clear liquids per MD)
(2) Aspiration precautions: sit upright, slow rate
(3) Meds whole with liquid
(4) WINE SALES REPRESENTATIVE to continue to follow when cleared for solids
--- NOTE | 2024-05-04 13:21 | PTCARENOTE ---
Addendum entered by Daxa Rajan 05/04/24 13:41:
Order received to hold heparin at this time- see intervention.
Original Note:
Pt initiated on heparin gtt- see AUG. Pt's barcenas output noted to be blood tinged/orange in color. Dr. Burrell notified.
--- NOTE | 2024-05-04 14:14 | VATNOTE ---
05/04 Patient on IV heparin requiring frequent blood draws and is a difficult stick. left 4fr SL midline was placed under sterile technique- TCL 16cm ECL0 UAC 38cm. to be redressed tomorrow.
[2024-05-04 14:19] LABS: Urine Albumin 3+ (Neg - Trace); Urine Bilirubin Negative (Negative); Urine Character Very Cloudy (Clear); Urine Color Red; Urine Glucose Negative (Negative); Urine Ketone Trace (Negative); Urine Leukocyte 1+ (Negative); Urine Nitrite Negative (Negative); Urine Occult Blood 4+ (Negative); Urine Specific Gravity 1.015 (<1.030); Urine Urobilinogen Negative (Neg - 1+)
[2024-05-04 14:29] LABS: Urine Red Blood Cell >100 /HPF (0-2)
[2024-05-04 14:47] LABS: Hematocrit 27.1 % (39.0-52.0); Hemoglobin 8.8 g/dL (13.0-18.0)
--- NOTE | 2024-05-04 15:00 | PTCARENOTE ---
Pt ordered M&M enema, administered as ordered with some partial relief.
[2024-05-04 18:10] LABS: Glucose - Point of Care 143 mg/dl (70-99)
[2024-05-04] MEDS: MELATONIN 3 MG PO (20:08)
[2024-05-04] MEDS: LOPRESSOR 12.5 MG PO (20:08)
[2024-05-04] MEDS: LIORESAL 10 MG PO (20:08)
[2024-05-04] MEDS: LYRICA 100 MG PO (20:08)
[2024-05-04 20:38] LABS: Hematocrit 28.7 % (39.0-52.0); Hemoglobin 9.2 g/dL (13.0-18.0)
[2024-05-05] VITALS (14 sets, daily range): BP systolic 87–130; BP diastolic 56–83; BMI 40.8
[2024-05-05] MEDS: LIORESAL 20 MG PO (00:19)
[2024-05-05] MEDS: TYLENOL 650 MG TUBE ×2 (00:19→15:29)
[2024-05-05] MEDS: STERILE WATER FOR INJECTION IV ×5 (00:23→22:32)
[2024-05-05 00:37] LABS: Glucose - Point of Care 120 mg/dl (70-99)
--- NOTE | 2024-05-05 04:51 | DOWNTIME ---
There was a SMS Assist Client Batch Operator Downtime on 05/05/2024 from 0100 to 05/05/2024 at 0350. Downtime documentation of patient's care, including medication administrations, has been reconciled in the electronic record per guidelines. Refer to the
patient's paper chart under the miscellaneous tab to see printed paper medication records and downtime forms.
[2024-05-05 05:16] LABS: Glucose - Point of Care 111 mg/dl (70-99)
[2024-05-05 06:12] LABS: Hematocrit 25.4 % (39.0-52.0); Hemoglobin 8.4 g/dL (13.0-18.0)
--- NOTE | 2024-05-05 06:12 | PTCARENOTE ---
Abd firm and distended. Pt refusing NGT; re-educated, pt continues to refuse. c/o abd pain and RN noted pt to burp intermittently overnight. denies any nausea. incont of large liquid BM with small round stool present. barcenas draining orange/jalil
urine. repositioned throughout the night; heels floated. 2L NC in place; pt takes off occasionally. sinus tach 100-120s on tele. swallowed pills w/o issues. blood glucose WNL. Left hip and right foot abrasion dressing changed. sacrum/buttock
discolored. BPs taken on LLE. RLE SCDs on. H/H stable. confirmed with DIRECTOR OF CASEWORK Hephziba no need to check BMP this AM. call [facility] suction within reach.
[2024-05-05] MEDS: INVANZ 60 MG IV (08:14)
[2024-05-05] MEDS: LASIX IV (08:15)
[2024-05-05] MEDS: LOPRESSOR 12.5 MG PO ×2 (08:16→20:30)
[2024-05-05] MEDS: PROTONIX 40 MG PO (08:16)
[2024-05-05] MEDS: LEXAPRO 10 MG PO (08:16)
[2024-05-05] MEDS: VITAMIN D3 (cholecalciferol) 25 MCG PO (08:16)
[2024-05-05] MEDS: LIORESAL 10 MG PO ×2 (08:17→20:30)
[2024-05-05 08:41] LABS: % Basophils 0.2 % (0-2); % Lymphocytes 9.3 % (20.5-51.1); % Monocytes 9.8 % (1.7-9.3); % Neutrophils 76.7 % (42.2-75.2); Absolute Eosinophils 0.1 10^3/uL (0-0.7); Absolute Immature Granulocytes 0.4 10^3/uL (0-0.05); Absolute Lymphocytes 1.1 10^3/uL (1.2-3.4); Absolute Monocytes 1.2 10^3/uL (0.1-0.6); Absolute Neutrophils 9.1 10^3/uL (1.4-6.5); Hematocrit 26.2 % (39.0-52.0); Hemoglobin 8.4 g/dL (13.0-18.0); Mean Corp Hgb Conc. 32.1 g/dL (33.0-37.0); Mean Corpuscular Hgb 28.1 pg (27.0-31.0); Mean Corpuscular Volume 87.6 fL (80.0-94.0); Nucleated Red Blood Cells % 0.2 % (-); Platelet Count 71 10^3/uL (130-400); Red Blood Cell Count 2.99 10^6/uL (4.70-6.10); Red Cell Dist. Width 15.9 % (11.5-14.5); White Blood Cell Count 11.9 10^3/uL (4.8-10.8)
[2024-05-05 08:56] LABS: Blood Urea Nitrogen 41 mg/dl (9-20); Calcium 7.2 mg/dl (8.4-10.2); Carbon Dioxide 35 mmol/L (22-30); Chloride 98 mmol/L (98-107); Estimated Creatinine Clearance 67 ml/min; Glucose 109 mg/dl (70-99); Potassium 3.2 mmol/L (3.5-5.1); Sodium 138 mmol/L (135-145); eGFR > 60.00
--- NOTE | 2024-05-05 10:11 | W.PN.HOSP.TC ---
Today's Communication/Plan
-
Restart Heparin
Check H&H
Continue Abx until stent out
Advance diet as tolerated
Follow and replete electrolytes
Wean O2 as tolerated.
Assessment / Plan
Assessment / Plan
Impression: 64-year-old male with PMH of recurrent ureteral stone/sepsis and AVTAR, ESBL Proteus and E. coli colonization, essential hypertension, CKD stage IIIa, T7 spinal cord injury with paraplegia recently admitted for repeat ureteral stones and
renal failure who presented to ED on 04/27/2024 with abdominal pain and hematuria and was subsequently noted to have rights perinephric hematoma.
Assessment/plan:
# Acute generalized abdominal pain from ileus.
-Improved with large BM.
-Continue bowel regimen, added milk of molasses.
-Advance diet as tolerated.
-Pain control with Baclofen, Avoid opioids, and anticholinergic agents.
-Zofran for nausea.
#Acute hypokalemia
-K3.2 today
-Replete and follow.
#Hypoglycemia
-Resolved with a dose of D5W NSS.
-Continue Accu-Cheks.
#Severe septic shock secondary to CAUTI due to chronic Padron s/p ureteral stent.
#Recurrent Klebsiella pneumonia ESBL/E. coli bacteremia-resistant to Zosyn�renal source.
-Remains afebrile, WBC count trending down, 11.9.
-Continue renally dosed meropenem day #9, until 05/11 per ID.
-Repeat blood cultures until negative.
-Infectious disease following.
-BP stable.
-Off Levophed and vasopressin.
-Urology following.
#Right upper extremity swelling.
-Due to symptomatic PICC line- associated thrombosis with right axillary and proximal basilic vein thrombosis seen on US.
-Bilateral LE US negative for DVT.
-Check PTT.
-Heparin gtt for symptomatic PICC line associated thrombosis�oncology recommend 6 weeks of AC and discontinue if thrombosed no longer present.
#Acute on chronic anemia.
-Hb trending down.
-Suspect anemia of chronic disease; other likely etiologies include but not limited to hematoma sequestration, recurrent hematuria, liver cirrhosis, hepatitis C, hematoma, septic shock.
-Follow CBC.
-Transfuse with Hb <7.
# Recurrent hematuria
-Restarted s/p heparin infusion.
-Other likely etiologies include; kidney stone, right perinephric hematoma, now decreasing in size currently 3.0 cm (previously 3.8 cm).
-Hold heparin.
-Check UA with reflex to culture.
-Scheduled for ureteroscopy with Dr. Painter 05/10.
#Acute on chronic thrombocytopenia (baseline 40,000-70,000).
-Improved, back to baseline.
#LFT elevation/shock liver.
-Stable.
-Cholelithiasis with gallstone in the gallbladder neck on CT, no evidence of cholecystitis.
-Likely secondary to hypotension�shock liver and sepsis, also has a history of cirrhosis and HCV.
-Monitor LFTs.
-Continue to reassess for pain with resolve of his ileus.
-Hx GERD
-Continue Protonix
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
-Cr back to baseline 1.3.
#Neurogenic bladder
-Maintain on chronic Padron per urology.
#Acute hypoxic respiratory insufficiency- From recent aspiration.
-Improving, now on 1L O2 NC.
-CXR clear.
-Aspiration precautions.
-Nebulizers as needed.
-Wean O2 as tolerated with goal SpO2 >90%
#Acute metabolic encephalopathy-from sepsis vs Dilaudid.
-Resolved, Pt likely back to baseline.
-Avoid narcotics given ongoing ileus.
#Anasarca
-Suspect due to fluid overload, hypoalbuminemia.
-Continue Lasix 10 mg daily with holding parameters
-Continue to monitor daily weights, I's and O's.
#Depression�continue Lexapro
DVT PPx-SCD- holding anti-coags at the moment with perinephric hematoma, anemia and thrombocytopenia
CODE STATUS: Full code
Anticipated Discharge: > 48 hours
Subjective/Interval History
-
Date of Service: May 05, 2024
I saw and examined this patient. Patient reports that he had an large bowel movement yesterday and his abdominal pain has decreased from 03/18 -10/16. He he tolerated his clears yesterday without any aspirations. He reports no fever, chills, chest
pain, or palpitations.
Objective Data
-
Labs:
Laboratory Results
05/05/24 05/05/24 05/05/24
05:37 08:08 08:08
WBC 11.9 H
Hgb 8.4 L Pending 8.4 L
Hct 25.4 L Pending
Plt Count
Sodium
Potassium
Chloride
Carbon Dioxide
BUN
Creatinine
Glucose
Calcium
05/05/24
08:08
WBC
Hgb
Hct 26.2 L
Plt Count 71 L
Sodium 138
Potassium 3.2 L
Chloride 98
Carbon Dioxide 35 H
BUN 41 H
Creatinine 1.3
Glucose 109 H
Calcium 7.2 L
Vital Signs:
Vital Signs
Temp Pulse Resp BP Pulse Ox
97.8 F 99 14 100/56 99
05/05/24 07:35 05/05/24 08:16 05/05/24 06:00 05/05/24 08:16 05/05/24 06:00
I&O
05/04/24 05/05/24 05/06/24
06:59 06:59 06:59
Intake Total 30 / 30 50 / 50
Output Total 2525 / 2525 1050 / 1050
Balance -2495 / -2495 -1050 / -1050 50 / 50
Review of Systems
-
History Source: Patient
All other systems: Not reviewed unless documented
Constitutional: Reports No Symptoms; Denies Fever or Chills
EENT: Reports No Symptoms Reported
Respiratory: Denies Cough or Trouble Breathing
Cardiac: Reports No Symptoms; Denies Chest Pain or Palpitations
Abdomen/GI: Reports Abdominal Pain; Denies Nausea or Vomiting
Genitourinary: Reports Other (Chronic Padron)
Musculoskeletal: Reports Other (Paraplegic)
Physical Exam
-
General: Well Developed, No Apparent Distress, Comfortable and Morbidly Obese
HEENT: Normocephalic, Atraumatic, Moist Mucous Membranes and Anicteric
Respiratory: Clear to Auscultation and Non Labored Respirations; Negative Accessory Resp Muscle Use
Cardiac: Regular Rhythm, S1/S2 and Tachycardic; Negative Murmur, Rub or Gallop
GI: Soft, Normal Bowel Sounds, Tender (Periumbilical, no peritoneal signs) and Distended (mildly)
Genito-urinary: Padron (Chronic)
Musculoskeletal: No Clubbing, No Cyanosis and No Edema
Skin: Warm and Dry; Negative Rash
Neuro: Awake, AO x 3 and Other (Paraplegia below T7 distribution)
Psych: Calm
Data Reviewed
-
Diagnostic Radiology: Report Reviewed by me and Discussed with Physician
CT Scan: Image personally visualized and interpreted, Report Reviewed by me, Discussed with Physician and Discussed with Patient
Ultrasound: Report Reviewed by me and Discussed with Physician
Labs: Labs Reviewed by me, Discussed with Nurse and Discussed with Patient
Old Records: Reviewed
[2024-05-05] MEDS: NSS with KCL 40 MEQ 1000 IV (10:45)
--- NOTE | 2024-05-05 10:56 | PTCARENOTE ---
When hanging IV fluid pt became abusive atating i did not give him his meds when trying to wexxplain I did became very irrate accused me of taking his meds , No further conversation with pt
[2024-05-05 12:54] LABS: Glucose - Point of Care 92 mg/dl (70-99)
[2024-05-05 13:29] LABS: Hematocrit 24.2 % (39.0-52.0); Hemoglobin 8.2 g/dL (13.0-18.0)
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
--- NOTE | 2024-05-05 14:05 | W.PN.GS2 ---
Today's Communication / Plan
-
Adv to fulls
Assessment / Plan
-
This is a 64-year-old male with a history of T7 paraplegia, chronic Padron and recurrent UTIs here with urosepsis and right perinephric hematoma who has developed worsening abdominal plain and bloating CT imaging concerning for ileus versus small
bowel obstruction. I favor the former as his initial scans did not show any bowel obstruction and ileus is certainly very common in the setting of sepsis and bacteremia and his subsequent x-ray does not show air-fluid levels.
Slowly clinically improving
Plan:
Adv to fulls
IV antibiotics per ID
General Surgery will continue to follow
All other care as per primary team
Subjective Data
-
Date of Service: May 05, 2024
Denies n/v, sangita clears, passing flatus and liquid BMs
Objective Data
-
Intake and Output
05/04/24 05/05/24 05/06/24
06:59 06:59 06:59
Intake Total 30 / 30 50 / 50
Output Total 2525 / 2525 1050 / 1050
Balance -2495 / -2495 -1050 / -1050 50 / 50
Intake:
IV piggybacks 50 / 50
Amount instilled into GI Tube ( 30 / 30
Total)
Arden Sump 30 / 30
Output:
Gastrointestinal tube output ( 1050 / 1050
Total)
Arden Sump 1050 / 1050
Urine, Padron 1475 / 1475 1050 / 1050
Vital Signs
Temp Pulse Resp BP Pulse Ox
98.0 F 104 19 122/76 97
05/05/24 11:23 05/05/24 10:00 05/05/24 10:00 05/05/24 10:00 05/05/24 10:00
Lab Results
05/05/24 08:08
Calcium 7.2 mg/dl (8.4-10.2) L 05/05/24 08:08
Phosphorus 3.6 mg/dl (2.5-4.5) 05/03/24 04:57
Magnesium 2.5 mg/dl (1.6-2.3) H 05/03/24 04:57
Total Bilirubin 5.3 mg/dl (0.2-1.3) H 05/04/24 05:09
Direct Bilirubin 3.3 mg/dl (0.0-0.4) H 05/02/24 04:13
AST 90 U/L (17-59) H 05/04/24 05:09
ALT 79 U/L (0-50) H 05/04/24 05:09
Alkaline Phosphatase 152 U/L (38-126) H 05/04/24 05:09
Total Protein 6.8 g/dl (6.3-8.2) 05/04/24 05:09
Albumin 2.7 g/dl (3.5-5.0) L 05/04/24 05:09
Physical Exam
-
Gen: NAD
Abd: obese, soft, moderate distention
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
[2024-05-05 18:21] LABS: Glucose - Point of Care 77 mg/dl (70-99)
[2024-05-05 18:42] LABS: Hematocrit 27.1 % (39.0-52.0); Hemoglobin 8.7 g/dL (13.0-18.0)
[2024-05-05] MEDS: DILAUDID 0.5 MG IV (19:45)
[2024-05-05] MEDS: MELATONIN 3 MG PO (20:31)
[2024-05-05] MEDS: LYRICA 100 MG PO (20:34)
[2024-05-05 21:45] LABS: Glucose - Point of Care 98 mg/dl (70-99)
[2024-05-05] MEDS: ATARAX 25 MG PO (22:26)
[2024-05-06] VITALS (13 sets, daily range): BP systolic 87–122; BP diastolic 53–74; BMI 41.2
[2024-05-06 01:07] LABS: Hematocrit 27.8 % (39.0-52.0); Hemoglobin 8.9 g/dL (13.0-18.0)
[2024-05-06] MEDS: LIORESAL PO ×2 (05:19→23:22)
[2024-05-06] MEDS: STERILE WATER FOR INJECTION IV ×3 (05:20→17:22)
[2024-05-06 05:51] LABS: Hematocrit 26.7 % (39.0-52.0); Hemoglobin 8.5 g/dL (13.0-18.0); Mean Corp Hgb Conc. 31.8 g/dL (33.0-37.0); Mean Corpuscular Volume 87.8 fL (80.0-94.0); Mean Platelet Volume 11.7 fL (7.4-10.4); Platelet Count 83 10^3/uL (130-400); Red Blood Cell Count 3.04 10^6/uL (4.70-6.10); Red Cell Dist. Width 16.2 % (11.5-14.5)
[2024-05-06 06:10] LABS: Blood Urea Nitrogen 41 mg/dl (9-20); Carbon Dioxide 28 mmol/L (22-30); Chloride 102 mmol/L (98-107); Estimated Creatinine Clearance 73 ml/min; Glucose 94 mg/dl (70-99); Magnesium 2.1 mg/dl (1.6-2.3); Phosphorus 3.6 mg/dl (2.5-4.5); Sodium 139 mmol/L (135-145); eGFR > 60.00
[2024-05-06 06:19] LABS: Potassium 4.1 mmol/L (3.5-5.1)
--- NOTE | 2024-05-06 08:13 | W.PN.HOSP.TC ---
Today's Communication/Plan
-
AVOID NARCOTICS WITH ONGOING ILEUS
Bowel regimen
Continue Abx until stent out
Advance diet as tolerated
Follow CBC
Follow and replete electrolytes
Wean O2 as tolerated.
Assessment / Plan
Assessment / Plan
Impression: 64-year-old male with PMH of recurrent ureteral stone/sepsis and AVTAR, ESBL Proteus and E. coli colonization, essential hypertension, CKD stage IIIa, T7 spinal cord injury with paraplegia recently admitted for repeat ureteral stones and
renal failure who presented to ED on 04/27/2024 with abdominal pain and hematuria and was subsequently noted to have rights perinephric hematoma.
Assessment/plan:
# Acute generalized abdominal pain from ileus.
-Improved with large BM.
-Continue bowel regimen, added milk of molasses.
-Diet downgraded to clears with worsening ileus.
-Start daily bowel regimen.
-Pain control with Baclofen, Avoid opioids, and anticholinergic agents.
-Zofran for nausea.
#Acute hypokalemia
-K3.2 today
-Replete and follow.
#Hypoglycemia
-Resolved with a dose of D5W NSS.
-Continue Accu-Cheks.
#Severe septic shock secondary to CAUTI due to chronic Padron s/p ureteral stent.
#Recurrent Klebsiella pneumonia ESBL/E. coli bacteremia-resistant to Zosyn�renal source.
-Remains afebrile, WBC count stable at 12.0.
-Continue renally dosed meropenem day #10, until 12/ per ID.
-Repeat blood cultures until negative.
-Infectious disease following.
-BP stable.
-Off Levophed and vasopressin.
-Urology following.
#Right upper extremity swelling.
-Due to symptomatic PICC line- associated thrombosis with right axillary and proximal basilic vein thrombosis seen on US.
-Bilateral LE US negative for DVT.
-Resume heparin gtt for symptomatic PICC line associated thrombosis�oncology recommend 6 weeks of AC and discontinue if thrombosed no longer present.
-Will continue heparin unless hemoglobin drops to critical levels.
-Heme/oncology appreciated.
#Acute on chronic anemia.
-Hb stable at 8.5.
-Suspect anemia of chronic disease; other likely etiologies include but not limited to hematoma sequestration, recurrent hematuria, liver cirrhosis, hepatitis C, hematoma, septic shock.
-Follow CBC.
-Transfuse with Hb <7.
# Recurrent hematuria
-Restarted s/p heparin infusion.
-Other likely etiologies include; kidney stone, right perinephric hematoma, now decreasing in size currently 3.0 cm (previously 3.8 cm).
-Hold heparin.
-Check UA with reflex to culture.
-Scheduled for ureteroscopy with Dr. Painter 05/10.
#Acute on chronic thrombocytopenia (baseline 40,000-70,000).
-Improved, back to baseline.
#LFT elevation/shock liver.
-Stable.
-Cholelithiasis with gallstone in the gallbladder neck on CT, no evidence of cholecystitis.
-Likely secondary to hypotension�shock liver and sepsis, also has a history of cirrhosis and HCV.
-Monitor LFTs.
-Continue to reassess for pain with resolve of his ileus.
-Hx GERD
-Continue Protonix
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
-Cr back to baseline 1.2
#Neurogenic bladder
-Maintain on chronic Padron per urology.
#Acute hypoxic respiratory insufficiency- From recent aspiration.
-Improving, now on 1L O2 NC.
-CXR clear.
-Aspiration precautions.
-Nebulizers as needed.
-Wean O2 as tolerated with goal SpO2 >90%
#Acute metabolic encephalopathy-from sepsis vs Dilaudid.
-Resolved, Pt likely back to baseline.
-Avoid narcotics given ongoing ileus.
#Anasarca
-Suspect due to fluid overload, hypoalbuminemia.
-Continue Lasix 10 mg daily with holding parameters
-Continue to monitor daily weights, I's and O's.
#Depression�continue Lexapro
CODE STATUS: Full code
Anticipated Discharge: > 48 hours
Subjective/Interval History
-
Date of Service: May 06, 2024
I saw and examined patient today. Patient was lying in bed eating breakfast. Overnight he was reported to have 10/10 abdominal pain and was treated with Dilaudid which decreased pain to 9/10. Today, his pain has decreased to 5/10 with enema and
large BM. He denies chest pain, shortness of breath, palpitations, fever, chills. He is abdominal exam was remarkable for generalized pain, no rebound tenderness.
Objective Data
-
Labs:
Laboratory Results
05/06/24 05/06/24
00:56 05:29
WBC 12.0 H
Hgb 8.9 L 8.5 L
Hct 27.8 L 26.7 L
Plt Count 83 L
Sodium 139
Potassium 4.1 D
Chloride 102
Carbon Dioxide 28
BUN 41 H
Creatinine 1.2
Glucose 94
Calcium 7.0 L
Vital Signs:
Vital Signs
Temp Pulse Resp BP Pulse Ox
97.9 F 100 17 100/67 98
05/06/24 07:50 05/06/24 06:00 05/06/24 06:00 05/06/24 06:00 05/06/24 06:37
I&O
05/05/24 05/06/24 05/07/24
06:59 06:59 06:59
Intake Total 950 / 950
Output Total 1050 / 1050 750 / 750
Balance -1050 / -1050 200 / 200
Review of Systems
-
History Source: Patient
All other systems: Not reviewed unless documented
Constitutional: Reports No Symptoms; Denies Fever or Chills
EENT: Reports No Symptoms Reported
Respiratory: Denies Cough or Trouble Breathing
Cardiac: Reports No Symptoms; Denies Chest Pain or Palpitations
Abdomen/GI: Reports Abdominal Pain; Denies Nausea or Vomiting
Genitourinary: Reports Other (Chronic Padron)
Musculoskeletal: Reports Other (Paraplegic)
Physical Exam
-
General: Well Developed, No Apparent Distress, Comfortable and Morbidly Obese
HEENT: Normocephalic, Atraumatic, Moist Mucous Membranes and Anicteric
Respiratory: Clear to Auscultation and Non Labored Respirations; Negative Accessory Resp Muscle Use
Cardiac: Regular Rhythm, S1/S2 and Tachycardic; Negative Murmur, Rub or Gallop
GI: Soft, Normal Bowel Sounds, Tender (Periumbilical, no peritoneal signs) and Distended (mildly)
Genito-urinary: Padron (Chronic)
Musculoskeletal: No Clubbing, No Cyanosis and No Edema
Skin: Warm and Dry; Negative Rash
Neuro: Awake, AO x 3 and Other (Paraplegia below T7 distribution)
Psych: Calm
Data Reviewed
-
Diagnostic Radiology: Report Reviewed by me and Discussed with Physician
CT Scan: Image personally visualized and interpreted, Report Reviewed by me, Discussed with Physician and Discussed with Patient
Ultrasound: Report Reviewed by me and Discussed with Physician
Labs: Labs Reviewed by me, Discussed with Nurse and Discussed with Patient
Old Records: Reviewed
[2024-05-06 08:20] LABS: Glucose - Point of Care 97 mg/dl (70-99)
[2024-05-06] MEDS: PROTONIX 40 MG PO (08:58)
[2024-05-06] MEDS: LOPRESSOR 12.5 MG PO (08:59)
[2024-05-06] MEDS: LEXAPRO 10 MG PO (08:59)
[2024-05-06] MEDS: VITAMIN D3 (cholecalciferol) 25 MCG PO (08:59)
[2024-05-06] MEDS: LASIX 10 MG IV (09:00)
[2024-05-06] MEDS: INVANZ 60 MG IV (09:00)
[2024-05-06] MEDS: LIORESAL 10 MG PO ×2 (09:01→20:32)
[2024-05-06] MEDS: ATARAX 25 MG PO ×2 (09:03→20:35)
--- NOTE | 2024-05-06 09:25 | W.PN.GS2 ---
Today's Communication / Plan
-
`
Assessment / Plan
-
This is a 64-year-old male with a history of T7 paraplegia, chronic Padron and recurrent UTIs here with urosepsis and right perinephric hematoma who has developed worsening abdominal plain and bloating CT imaging concerning for ileus versus small
bowel obstruction.
Probable ileus in the setting of sepsis and bacteremia and his subsequent x-ray does not show air-fluid levels.
Slowly clinically improving and results with enema overnight but still remains distended
Plan:
Hold on full liquid diet until abdominal distention improves
Continue bowel regimen -as needed Dulcolax and enemas
Subjective Data
-
Date of Service: May 06, 2024
Patient seen and examined. Discussed with resident covering medical service. Reviewed with nursing at bedside.
Patient reportedly given milk of magnesia enema overnight with 2 bowel movements documented (large and moderate nonliquid amount)
Patient states he still feels distended but denies significant pain
He denies nausea
Tolerating full liquids but not requesting more
Objective Data
-
Intake and Output
05/05/24 05/06/24 05/07/24
06:59 06:59 06:59
Intake Total 950 / 950
Output Total 1050 / 1050 750 / 750
Balance -1050 / -1050 200 / 200
Intake:
Oral fluids 600 / 600
IV fluids (Total) 300 / 300
IV piggybacks 50 / 50
Output:
Urine, Padron 1050 / 1050 750 / 750
Vital Signs
Temp Pulse Resp BP Pulse Ox
97.9 F 102 11 98/70 100
05/06/24 07:50 05/06/24 08:00 05/06/24 08:00 05/06/24 08:00 05/06/24 08:00
Lab Results
05/06/24 05:29
05/06/24 05:29
Calcium 7.0 mg/dl (8.4-10.2) L 05/06/24 05:29
Phosphorus 3.6 mg/dl (2.5-4.5) 05/06/24 05:29
Magnesium 2.1 mg/dl (1.6-2.3) 05/06/24 05:29
Total Bilirubin 5.3 mg/dl (0.2-1.3) H 05/04/24 05:09
Direct Bilirubin 3.3 mg/dl (0.0-0.4) H 05/02/24 04:13
AST 90 U/L (17-59) H 05/04/24 05:09
ALT 79 U/L (0-50) H 05/04/24 05:09
Alkaline Phosphatase 152 U/L (38-126) H 05/04/24 05:09
Total Protein 6.8 g/dl (6.3-8.2) 05/04/24 05:09
Albumin 2.7 g/dl (3.5-5.0) L 05/04/24 05:09
Physical Exam
-
NAD AAOx3
ABD: Distended and tympanitic but denies significant tenderness. No rebound, no voluntary or involuntary guarding.
[2024-05-06] MEDS: MIRALAX 17 GRAMS PO (12:41)
[2024-05-06 12:48] LABS: Glucose - Point of Care 99 mg/dl (70-99)
--- NOTE | 2024-05-06 13:44 | PTCARENOTE ---
Patient diet was changed after breakfast back to clear liquid diet due to abdominal distention. Patient INC of moderate to large BM this morning. Padron catheter draining orange tinge urine. Patient reports intermittent abdominal pressure. Denies
any nausea or vomiting.
[2024-05-06 17:30] LABS: Glucose - Point of Care 95 mg/dl (70-99)
[2024-05-06] MEDS: TYLENOL 650 MG TUBE (17:36)
[2024-05-06 19:46] LABS: APTT 35.9 Sec (23.4-35.0)
[2024-05-06] MEDS: HEPARIN 9000 UNITS IV (20:03)
[2024-05-06] MEDS: HEPARIN 25000 UNITS/250 ML IV (20:07)
[2024-05-06] MEDS: MELATONIN 3 MG PO (20:32)
[2024-05-06] MEDS: SENOKOT-S 1 TABLET PO (20:32)
[2024-05-06] MEDS: LYRICA 100 MG PO (20:32)
[2024-05-06] MEDS: LOPRESSOR PO (20:45)
[2024-05-06] MEDS: ProAmatine 5 MG PO (21:00)
[2024-05-06 21:18] LABS: Hematocrit 24.4 % (39.0-52.0); Hemoglobin 7.8 g/dL (13.0-18.0); Mean Corpuscular Hgb 27.8 pg (27.0-31.0); Mean Corpuscular Volume 86.8 fL (80.0-94.0); Mean Platelet Volume 11.3 fL (7.4-10.4); Platelet Count 115 10^3/uL (130-400); Red Blood Cell Count 2.81 10^6/uL (4.70-6.10); Red Cell Dist. Width 16.3 % (11.5-14.5); White Blood Cell Count 14.8 10^3/uL (4.8-10.8)
[2024-05-06 21:38] LABS: Glucose - Point of Care 86 mg/dl (70-99)
[2024-05-07] VITALS (16 sets, daily range): BP systolic 94–127; BP diastolic 57–82; BMI 41.5
[2024-05-07 02:53] LABS: APTT > 200 Sec (23.4-35.0)
--- NOTE | 2024-05-07 03:43 | PTCARENOTE ---
Addendum entered by Viridiana Gomez RN 05/07/24 03:48:
Ptt > 200, REIMBURSEMENT CONSULTANT covering house notified. Instructed to follow protocol (refer to flowsheet)
Original Note:
Pt received from previous shift in bed. AAOx2 (time), flat/forgetful. Telemetry = ST. Full physical assessment documented (refer to MAR). Plan of care discussed, pt somewhat argumentative regarding heparin gtt. Explained rationale then
receptive. Incontinent large brown liquid stool, CHG bath given. L hip dressing c/d/i. L midline w/brisk blood return. Heparin gtt infusing w/o complication (refer to MAR). #22 LH PIV patent. Refusing Q2 turns at times. Call kath w/in reach.
[2024-05-07 06:48] LABS: Blood Urea Nitrogen 39 mg/dl (9-20); Calcium 7.2 mg/dl (8.4-10.2); Carbon Dioxide 28 mmol/L (22-30); Chloride 100 mmol/L (98-107); Estimated Creatinine Clearance 73 ml/min; Glucose 80 mg/dl (70-99); Sodium 135 mmol/L (135-145); eGFR > 60.00
--- NOTE | 2024-05-07 07:26 | W.PN.HOSP.TC ---
Today's Communication/Plan
-
Repeat Abd CT
Continue heparin
Follow aPTT
Continue antibiotics
Continue bowel regimen
Continue clear liquids
Wean off oxygen
Assessment / Plan
Assessment / Plan
Impression: 64-year-old male with PMH of recurrent ureteral stone/sepsis and AVTAR, ESBL Proteus and E. coli colonization, essential hypertension, CKD stage IIIa, T7 spinal cord injury with paraplegia recently admitted for repeat ureteral stones and
renal failure who presented to ED on 04/27/2024 with abdominal pain and hematuria and was subsequently noted to have rights perinephric hematoma.
Assessment/plan:
# Acute generalized abdominal pain from ileus-from ongoing bacteremia and sepsis.
-Tense abdomen with pain /10 and rebound tenderness/ guarding this am.
-Hb dropping, suspect hematoma sequestration.
-Repeat Abd CT to reassess hematoma, ileus and assess for ascites.
-Continue bowel regimen, gave another milk of molasses. If he continues to be constipated, will give bisacodyl rectal suppository.
-Continue clear liquids for now.
-Pain control with Baclofen, Avoid opioids, and anticholinergic agents.
-Zofran for nausea.
#Acute hypokalemia
-Resolved
-Follow and replete
#Hypoglycemia
-Resolved with a dose of D5W NSS.
-Continue Accu-Cheks.
#Severe septic shock secondary to CAUTI due to chronic Padron s/p ureteral stent.
#Recurrent Klebsiella pneumonia ESBL/E. coli bacteremia-resistant to Zosyn�renal source.
-Remains afebrile.
-Blood cultures 05/01 negative.
-Continue renally dosed meropenem day #10, until stents are out, stop on 05/11 per ID.
-ID appreciated.
-BP stable.
-Off Levophed and vasopressin.
-Urology following and appreciated.
#Right upper extremity swelling.
-Due to symptomatic PICC line- associated thrombosis with right axillary and proximal basilic vein thrombosis seen on US.
-Bilateral LE US negative for DVT.
-Continue heparin gtt for symptomatic PICC line associated thrombosis�oncology recommend 6 weeks of AC and discontinue if thrombosed no longer present.
-Will continue heparin unless hemoglobin drops to critical levels.
-Follow aPTT
-Heme/oncology appreciated.
#Acute on chronic anemia.
-Hb stable.
-Suspect anemia of chronic disease; other likely etiologies include but not limited to hematoma sequestration, recurrent hematuria, liver cirrhosis, hepatitis C, hematoma, septic shock.
-Follow CBC.
-Transfuse with Hb <7.
# Recurrent hematuria
-Likely etiologies include kidney stone, right perinephric hematoma, now decreasing in size currently 3.0 cm (previously 3.8 cm).
-Continue heparin monitor H&H.
-UA culture negative.
-Scheduled for ureteroscopy with Dr. Painter 05/10.
#Acute on chronic thrombocytopenia (baseline 40,000-70,000).
-Improved, back to baseline.
#LFT elevation/shock liver.
-Stable.
-Cholelithiasis with gallstone in the gallbladder neck on CT, no evidence of cholecystitis.
-Likely secondary to hypotension�shock liver and sepsis, also has a history of cirrhosis and HCV.
-Monitor LFTs.
-Continue to reassess for pain with resolve of his ileus.
-Hx GERD
-Continue Protonix
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
-Cr back to baseline 1.2
#Neurogenic bladder
-Maintain on chronic Padron per urology.
#Acute hypoxic respiratory insufficiency- From recent aspiration.
-Improved. Currently on room air saturating at 98%.
-CXR clear.
-Aspiration precautions.
-Nebulizers as needed.
-Encourage BiPAP at night.
#Acute metabolic encephalopathy-from sepsis vs Dilaudid.
-Resolved, Pt likely back to baseline.
-Avoid narcotics given ongoing ileus.
#Anasarca
-Suspect due to fluid overload, hypoalbuminemia.
-Continue Lasix 10 mg daily with holding parameters
-Continue to monitor daily weights, I's and O's.
#Depression�continue Lexapro
CODE STATUS: Full code
Anticipated Discharge: > 48 hours
Subjective/Interval History
-
Date of Service: May 07, 2024
I have seen and examined this patient. Patient lying in bed in no acute cardiopulmonary distress. He complains of generalized abdominal pain 01/16 and reports that he has not had any BM since last night. He denies fever, chills, chest pain,
palpitations, nausea, vomiting, headaches. Physical exam was remarkable for tenderness abdomen with rebound tenderness in all quadrants.
Objective Data
-
Labs:
Laboratory Results
05/06/24 05/06/24 05/06/24
19:30 19:35 21:03
WBC 14.8 H
Hgb 7.8 L
Hct 24.4 L
Plt Count 115 L D
APTT 35.9 H Cancelled
Sodium
Potassium
Chloride
Carbon Dioxide
BUN
Creatinine
Glucose
Calcium
05/07/24 05/07/24 05/07/24
02:01 05:41 11:00
WBC Pending
Hgb Pending
Hct Pending
Plt Count Pending
APTT > 200 H*
Sodium 135
Potassium 4.0
Chloride 100
Carbon Dioxide 28
BUN 39 H
Creatinine 1.2
Glucose 80
Calcium 7.2 L
05/07/24
12:00
WBC
Hgb
Hct
Plt Count
APTT Pending
Sodium
Potassium
Chloride
Carbon Dioxide
BUN
Creatinine
Glucose
Calcium
Vital Signs:
Vital Signs
Temp Pulse Resp BP Pulse Ox
99.1 F 113 12 110/75 98
05/07/24 03:22 05/07/24 04:00 05/07/24 04:00 05/07/24 04:00 05/07/24 04:00
I&O
05/06/24 05/07/24 05/08/24
06:59 06:59 06:59
Intake Total 950 / 950 660 / 660
Output Total 750 / 750 900 / 900
Balance 200 / 200 -240 / -240
Review of Systems
-
History Source: Patient
All other systems: Not reviewed unless documented
Constitutional: Reports No Symptoms; Denies Fever or Chills
EENT: Reports No Symptoms Reported
Respiratory: Denies Cough or Trouble Breathing
Cardiac: Reports No Symptoms; Denies Chest Pain or Palpitations
Abdomen/GI: Reports Abdominal Pain; Denies Nausea or Vomiting
Genitourinary: Reports Other (Chronic Padron)
Musculoskeletal: Reports Edema and Other (Paraplegic)
Physical Exam
-
General: Well Developed, No Apparent Distress, Comfortable and Morbidly Obese
HEENT: Normocephalic, Atraumatic, Moist Mucous Membranes and Anicteric
Respiratory: Clear to Auscultation and Non Labored Respirations; Negative Accessory Resp Muscle Use
Cardiac: Regular Rhythm, S1/S2 and Tachycardic; Negative Murmur, Rub or Gallop
GI: Soft, Normal Bowel Sounds, Tender (Periumbilical, no peritoneal signs) and Distended (mildly)
Genito-urinary: Padron (Chronic)
Musculoskeletal: No Clubbing, No Cyanosis and No Edema
Skin: Warm and Dry; Negative Rash
Neuro: Awake, AO x 3 and Other (Paraplegia below T7 distribution)
Psych: Calm
Data Reviewed
-
Diagnostic Radiology: Report Reviewed by me and Discussed with Physician
CT Scan: Image personally visualized and interpreted, Report Reviewed by me, Discussed with Physician and Discussed with Patient
Ultrasound: Report Reviewed by me and Discussed with Physician
Labs: Labs Reviewed by me, Discussed with Nurse and Discussed with Patient
Old Records: Reviewed
[2024-05-07 08:27] LABS: Glucose - Point of Care 84 mg/dl (70-99)
[2024-05-07] MEDS: LASIX 10 MG IV (09:27)
[2024-05-07] MEDS: TYLENOL 650 MG TUBE ×2 (09:29→16:31)
[2024-05-07] MEDS: VITAMIN D3 (cholecalciferol) 25 MCG PO (09:29)
[2024-05-07] MEDS: SENOKOT-S 1 TABLET PO (09:29)
[2024-05-07] MEDS: PROTONIX 40 MG PO (09:30)
[2024-05-07] MEDS: LOPRESSOR 12.5 MG PO ×2 (09:30→21:03)
[2024-05-07] MEDS: LIORESAL 10 MG PO ×2 (09:30→21:03)
[2024-05-07] MEDS: LEXAPRO 10 MG PO (09:30)
[2024-05-07] MEDS: MIRALAX 17 GRAMS PO (09:31)
[2024-05-07] MEDS: ATARAX 25 MG PO ×2 (09:36→21:04)
--- NOTE | 2024-05-07 10:15 | W.PN.GS2 ---
Addendum entered and electronically signed by Raj Miles MD 05/07/24 17:06:
Patient seen in follow-up this latter half of afternoon with nurse practitioner
Patient just had a massive bowel movement overflowing onto the floor
He states he feels much better
AFVSS
ABD distended but softer, minimal tenderness
CT imaging from today reviewed. Noncontrast imaging study significantly limits interpretation of findings with regards to possible mechanical bowel obstruction. There is a transition point in the right lower quadrant but this appears to be
immediately at the terminal ileum where it is typically anchored to the peritoneum just proximal to the ileocecal valve. This imaging is similar to his previous CT which did have oral contrast and has since been completely evacuated.
Assessment/plan: 64-year-old male with probable ileus rather than mechanical obstruction which remains moderately persistent due to medical comorbidities and acute on chronic illness
Continue supportive care
No radiographic clinical signs of bowel compromise or threat
Hold diet to clear liquids until distention subsides
Generally would avoid oral bowel regiment medications but can continue with suppository or enemas if needed
Will follow-up
Original Note:
Today's Communication / Plan
-
Continue bowel regimen/liquid diet
Assessment / Plan
-
This is a 64-year-old male with a history of T7 paraplegia, chronic Padron and recurrent UTIs here with urosepsis and right perinephric hematoma who has developed worsening abdominal plain and bloating CT imaging concerning for ileus versus small
bowel obstruction.
Probable ileus in the setting of sepsis and bacteremia and his subsequent x-ray does not show air-fluid levels.
Slowly clinically improving and results with bowel regimen but still remains distended
Plan:
Hold on liquid diet until abdominal distention improves
Continue bowel regimen -as needed Dulcolax and enemas
Subjective Data
-
Date of Service: May 07, 2024
Patient seen and examined at bedside. Reports abdominal cramping/discomfort. Has had some bm's but is unsure of the amounts. Passing a little flatus.
Objective Data
-
Intake and Output
05/06/24 05/07/24 05/08/24
06:59 06:59 06:59
Intake Total 950 / 950 660 / 660
Output Total 750 / 750 900 / 900 400 / 400
Balance 200 / 200 -240 / -240 -400 / -400
Intake:
Oral fluids 600 / 600 660 / 660
IV fluids (Total) 300 / 300
IV piggybacks 50 / 50
Output:
Urine, Padron 750 / 750 900 / 900 400 / 400
Vital Signs
Temp Pulse Resp BP Pulse Ox
97.4 F 117 14 108/64 99
05/07/24 07:05 05/07/24 09:30 05/07/24 06:00 05/07/24 09:30 05/07/24 06:00
Lab Results
05/07/24 05:41
Calcium 7.2 mg/dl (8.4-10.2) L 05/07/24 05:41
Phosphorus 3.6 mg/dl (2.5-4.5) 05/06/24 05:29
Magnesium 2.1 mg/dl (1.6-2.3) 05/06/24 05:29
Total Bilirubin 5.3 mg/dl (0.2-1.3) H 05/04/24 05:09
Direct Bilirubin 3.3 mg/dl (0.0-0.4) H 05/02/24 04:13
AST 90 U/L (17-59) H 05/04/24 05:09
ALT 79 U/L (0-50) H 05/04/24 05:09
Alkaline Phosphatase 152 U/L (38-126) H 05/04/24 05:09
Total Protein 6.8 g/dl (6.3-8.2) 05/04/24 05:09
Albumin 2.7 g/dl (3.5-5.0) L 05/04/24 05:09
Physical Exam
-
NAD AAOx3
ABD: Distended and tympanitic with mild tenderness. No rebound, no voluntary or involuntary guarding.
[2024-05-07] MEDS: INVANZ 60 MG IV (11:10)
[2024-05-07 12:32] LABS: % Basophils 0.2 % (0-2); % Eosinophils 0.6 % (0-6); % Immature Granulocytes 1.3 % (0-0.5); % Lymphocytes 11.8 % (20.5-51.1); % Monocytes 13.8 % (1.7-9.3); % Neutrophils 72.3 % (42.2-75.2); Absolute Eosinophils 0.1 10^3/uL (0-0.7); Absolute Immature Granulocytes 0.2 10^3/uL (0-0.05); Absolute Lymphocytes 1.5 10^3/uL (1.2-3.4); Absolute Monocytes 1.7 10^3/uL (0.1-0.6); Absolute Neutrophils 9.2 10^3/uL (1.4-6.5); Hematocrit 24.8 % (39.0-52.0); Hemoglobin 8.1 g/dL (13.0-18.0); Mean Corp Hgb Conc. 32.7 g/dL (33.0-37.0); Mean Corpuscular Hgb 28.1 pg (27.0-31.0); Mean Corpuscular Volume 86.1 fL (80.0-94.0); Nucleated Red Blood Cells % 0 % (-); Platelet Count 128 10^3/uL (130-400); Red Blood Cell Count 2.88 10^6/uL (4.70-6.10); Red Cell Dist. Width 16.3 % (11.5-14.5); White Blood Cell Count 12.6 10^3/uL (4.8-10.8)
[2024-05-07 12:42] LABS: APTT 179.1 Sec (23.4-35.0)
[2024-05-07 12:49] LABS: Glucose - Point of Care 87 mg/dl (70-99)
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
[2024-05-07] MEDS: HEPARIN 25000 UNITS/250 ML IV (13:51)
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
[2024-05-07] MEDS: ZOFRAN 4 MG IV (16:31)
--- NOTE | 2024-05-07 17:04 | PTCARENOTE ---
Patient had ct scan earlier and milk and molasses enema administered. Patient had large amount of stool output covering bed extending to the floor. MD notified. Patients abdomen is distended and firm with hyperactive bowel sounds. Patient stated
that he vomited in CT scan, zofran administered with relief. Patient is now on right side drinking johnny meme.
[2024-05-07 17:57] LABS: Glucose - Point of Care 85 mg/dl (70-99)
[2024-05-07 18:26] LABS: Hematocrit 24.3 % (39.0-52.0); Hemoglobin 7.8 g/dL (13.0-18.0)
[2024-05-07 20:59] LABS: Hematocrit 24.7 % (39.0-52.0)
[2024-05-07] MEDS: MELATONIN 3 MG PO (21:03)
[2024-05-07] MEDS: LYRICA 100 MG PO (21:03)
[2024-05-07 21:18] LABS: APTT 165.5 Sec (23.4-35.0)
--- NOTE | 2024-05-07 21:45 | PTCARENOTE ---
received pt from day shift. pt aaox3. Pt NSR on monitor. Heparin gtt running at 13 mL/hr. Padron and rectal trumpet in place. hygiene and assessment completed. Leakage around rectal trumpet occurred, bed covered in stool. Full bed bath completed and
linens changed (see worklist). Pt sneezed and large bright red blood clot came out of his nose. PTT resulted 165.5, heparin gtt now on hold and Miroslava, HISTORICAL INTERPRETER notified. Pt resting in bed with call [place] in reach.
[2024-05-07 21:52] LABS: Glucose - Point of Care 101 mg/dl (70-99)
[2024-05-07] MEDS: LIORESAL PO (23:54)
[2024-05-08] VITALS (12 sets, daily range): BP systolic 96–134; BP diastolic 63–83; BMI 40.9
--- NOTE | 2024-05-08 00:04 | VATNOTE ---
VAT notified about bleeding at the site of lt midline. Pt is receiving Heparin gtt. RN stopped heparin. Pt refused to get dressing change not till am. Pt was agitated. Pt was informed about the consequences of not receiving heparin and if it the
continues to bleed. Pt didn't care education. Will pass down to AM IV team.
--- NOTE | 2024-05-08 00:37 | W.PN.UPDATE ---
Addendum entered and electronically signed by JAIDA Garcia 05/08/24 04:55:
pt continues to refuse restarting heparin gtt, or obtaining am labs. Pt becomes agitated with any attempts.
Original Note:
Update Note
Progress Note Update
2100 notified by RN that pt sneezed up quarter sized blood clot from nose. No signs of active bleeding afterwards. Pt on heparin gtt and ptt was just drawn. await results.
2130 ptt remains elevated at 165.5 will have nurse hold heparin gtt for 2 hr then decrease rate by 300units.
2300 RN now reports bleeding from midline. Will hold gtt for additional hour. IV to redress site.
0030 Pt now refusing to allow reconnection to heparin gtt. Attempt was made to educate him why it is important to continue heparin gtt but pt getting agitated. PT does have labile moods. Will have RN attempt again if he calms down
--- NOTE | 2024-05-08 04:46 | PTCARENOTE ---
Pt's midline IV began bleeding under dressing, applied pressure for a couple minutes and bleeding stopped. Notified IV team and when nurse came, the pt refused to allow them to change dressing. Pt would not allow me to reconnect him to heparin gtt
or to draw any labs either. Heparin gtt was to be restarted at 0020 per provider Rx, but was not restarted due to pt refusal. AYAKA [place] notified throughout night about refusals of care. Educated pt on importance of medications, labs, and plan of care
numerous times throughout the shift, but pt was and continues to be unreceptive.
--- NOTE | 2024-05-08 07:51 | PTCARENOTE ---
On walking anthony pt refusing Heparin gtt , refusing labs
--- NOTE | 2024-05-08 08:13 | PTCARENOTE ---
Pt now has allowed blood to be drawn , drawn via midline and sent to lab. Dr Oglesby aware, saw pt . Clear liq diet ordered for pt.
[2024-05-08 08:27] LABS: % Basophils 0.2 % (0-2); % Eosinophils 1.1 % (0-6); % Lymphocytes 19.9 % (20.5-51.1); % Neutrophils 58.8 % (42.2-75.2); Absolute Eosinophils 0.1 10^3/uL (0-0.7); Absolute Immature Granulocytes 0.1 10^3/uL (0-0.05); Absolute Lymphocytes 1.7 10^3/uL (1.2-3.4); Absolute Monocytes 1.7 10^3/uL (0.1-0.6); Absolute Neutrophils 5.1 10^3/uL (1.4-6.5); Hematocrit 23.5 % (39.0-52.0); Hemoglobin 7.7 g/dL (13.0-18.0); Mean Corp Hgb Conc. 32.8 g/dL (33.0-37.0); Mean Corpuscular Hgb 27.5 pg (27.0-31.0); Mean Corpuscular Volume 83.9 fL (80.0-94.0); Mean Platelet Volume 10.5 fL (7.4-10.4); Nucleated Red Blood Cells % 0 % (-); Platelet Count 140 10^3/uL (130-400); Red Cell Dist. Width 15.9 % (11.5-14.5); White Blood Cell Count 8.7 10^3/uL (4.8-10.8)
[2024-05-08 08:29] LABS: APTT 42.8 Sec (23.4-35.0)
[2024-05-08] MEDS: LASIX 10 MG IV (08:32)
[2024-05-08] MEDS: LOPRESSOR 12.5 MG PO ×2 (08:33→20:15)
[2024-05-08] MEDS: VITAMIN D3 (cholecalciferol) 25 MCG PO (08:34)
[2024-05-08] MEDS: LIORESAL 10 MG PO ×2 (08:34→20:14)
[2024-05-08] MEDS: LEXAPRO 10 MG PO (08:35)
[2024-05-08] MEDS: PROTONIX 40 MG PO (08:35)
--- NOTE | 2024-05-08 08:39 | W.PN.GS2 ---
Addendum entered and electronically signed by Raj Miles MD 05/08/24 18:10:
Patient seen and examined with surgical BROADCAST MAINTENANCE TECHNICIAN this a.m.
Rectal tube now in place with liquid stool draining.
Patient starting to feel relief and prior abdominal distention
No nausea, less abdominal pain.
AF, stable tachycardia, normotensive
ABD: More softly distended but remains distended. Mild tenderness but no rebound rigidity or guarding
A/P: Probable ileus
Continue full liquids
Supportive care
Original Note:
Today's Communication / Plan
-
full liquids
Assessment / Plan
-
This is a 64-year-old male with a history of T7 paraplegia, chronic Padron and recurrent UTIs here with urosepsis and right perinephric hematoma who has developed worsening abdominal plain and bloating CT imaging concerning for ileus versus small
bowel obstruction.
Probable ileus in the setting of sepsis and bacteremia and his subsequent x-ray does not show air-fluid levels.
CT from 05/07 Similar to previous with transition point in the right lower quadrant but this appears to be immediately at the terminal ileum where it is typically anchored to the peritoneum just proximal to the ileocecal valve. This imaging is
similar to his previous CT which did have oral contrast and has since been completely evacuated.
Slowly clinically improving with good results following enema last noc
AF, tachycardic, BP
Plan:
Ok for full liquid diet
Hold oral laxatives/stimulants
Medical management as per primary team
Subjective Data
-
Date of Service: May 08, 2024
Patient seen and examined at bedside with Dr. Miles. Denies abdominal pain. Passing loose stools and now with rectal tube in place.
Objective Data
-
Intake and Output
05/07/24 05/08/24 05/09/24
06:59 06:59 06:59
Intake Total 660 / 660
Output Total 900 / 900 1025 / 1025
Balance -240 / -240 -1025 / -1025
Intake:
Oral fluids 660 / 660
Output:
Liquid stool amount 300 / 300
Rectum 300 / 300
Urine, Padron 900 / 900 725 / 725
Other:
Number of unmeasured liquid
stools
Rectum 1
Vital Signs
Temp Pulse Resp BP Pulse Ox
99.1 F 113 12 108/64 100
05/08/24 04:00 05/08/24 08:33 05/08/24 06:58 05/08/24 08:33 05/08/24 00:00
Lab Results
05/08/24 08:07
Calcium 7.2 mg/dl (8.4-10.2) L 05/07/24 05:41
Phosphorus 3.6 mg/dl (2.5-4.5) 05/06/24 05:29
Magnesium 2.1 mg/dl (1.6-2.3) 05/06/24 05:29
Total Bilirubin 5.3 mg/dl (0.2-1.3) H 05/04/24 05:09
Direct Bilirubin 3.3 mg/dl (0.0-0.4) H 05/02/24 04:13
AST 90 U/L (17-59) H 05/04/24 05:09
ALT 79 U/L (0-50) H 05/04/24 05:09
Alkaline Phosphatase 152 U/L (38-126) H 05/04/24 05:09
Total Protein 6.8 g/dl (6.3-8.2) 05/04/24 05:09
Albumin 2.7 g/dl (3.5-5.0) L 05/04/24 05:09
Physical Exam
-
NAD AAOx3
ABD: Softly distended without tenderness. No rebound, no voluntary or involuntary guarding.
[2024-05-08] MEDS: ATARAX 25 MG PO ×2 (08:40→20:14)
--- NOTE | 2024-05-08 08:49 | PTCARENOTE ---
Pt co of pain at l mid line site, puffy. Midline did bleed during the night Iv team called to check before infusing anything
[2024-05-08 09:14] LABS: Glucose - Point of Care 70 mg/dl (70-99)
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
[2024-05-08 09:26] LABS: Blood Urea Nitrogen 32 mg/dl (9-20); Calcium 6.7 mg/dl (8.4-10.2); Carbon Dioxide 26 mmol/L (22-30); Chloride 102 mmol/L (98-107); Estimated Creatinine Clearance 73 ml/min; Glucose 75 mg/dl (70-99); Potassium 3.6 mmol/L (3.5-5.1); Sodium 134 mmol/L (135-145); eGFR > 60.00
--- NOTE | 2024-05-08 10:03 | W.PN.UPDATE ---
Update Note
Progress Note Update
64M w/ h/o NGB and chronic Padron catheter.
02/2024: s/p right ureteral stent placement for obstructing right ureteral stone in setting of MDR urosepsis.
Readmitted w/ urosepsis and right perinephric/subcapsular hematoma on CT imaging.
CT imaging (x2) w/ right ureteral stent in good position, no right hydronephrosis.
Small increase in size of hematoma w/ tamponade as expected.
On IV abx for urosepsis/bacteremia per ID - ESBL Klebsiella and E. Coli (MDR)
H/H remain stable without evidence of active bleeding
Cr @baseline (1.2)
Tentatively was scheduled for right URS/laser lithotripsy/stone extraction/stent exchange 05/10 prior to recent hospitalization.
Plan:
- diet per GS after NGT removal
- if clinical status remains stable, tentative plan for right ULS 05/10
- Continue IV abx per ID through 05/11
- NPO@[place] 05/09 (Friday) for OR 05/10
D/w patient.
D/w Hospitalist.
[2024-05-08] MEDS: OSCAL 500 + D 500 MG PO (10:06)
--- NOTE | 2024-05-08 10:14 | PTCARENOTE ---
Radhika levy called to do US bahman
--- NOTE | 2024-05-08 10:47 | PTCARENOTE ---
IV team redressed midline, pt stated his arm was painful awaiting US
--- NOTE | 2024-05-08 12:22 | PTCARENOTE ---
US done awaiting report
--- NOTE | 2024-05-08 12:34 | PTCARENOTE ---
PT WITH LA PAIN AND LESS THAN +1 EDEMA, SUGGESTED ULTRASOUND, PRIMARY RN AWARE, WILL CON TO MONITOR
[2024-05-08 12:37] LABS: Glucose - Point of Care 84 mg/dl (70-99)
[2024-05-08] MEDS: SENNA SYRUP 8.8 MG PO (13:36)
[2024-05-08] MEDS: INVANZ 60 MG IV (13:36)
[2024-05-08] MEDS: INVANZ IV (13:54)
[2024-05-08] MEDS: HEPARIN 25000 UNITS/250 ML IV (14:09)
[2024-05-08 16:49] LABS: Glucose - Point of Care 74 mg/dl (70-99)
[2024-05-08] MEDS: KCL ELIXIR 40 MEQ PO (18:28)
--- NOTE | 2024-05-08 18:32 | PTCARENOTE ---
Pt demanding meds that were given to him already. Becoming belligerent and verbal abusive. Pt told he will have meds again at 8 pm
[2024-05-08] MEDS: MELATONIN 3 MG PO (20:14)
[2024-05-08] MEDS: LYRICA 100 MG PO (20:14)
[2024-05-08] MEDS: TYLENOL 650 MG TUBE (20:16)
[2024-05-08 21:08] LABS: APTT 199.8 Sec (23.4-35.0)
--- NOTE | 2024-05-08 21:17 | PTCARENOTE ---
Received pt from day shift. pt aaox3, sinus tach on monitor, VSS. Pt had large loose mucoid BM which leaked despite rectal trumpet in place. Removed trumpet and hygiene completed (see worklist). Pt's heparin gtt infusing at 17mL/hr. Notified that
PTT is 199.8. Miroslava, PRECONSTRUCTION MANAGER notified and gtt now on hold. Pt resting in bed with call [place] in reach.
[2024-05-08 22:02] LABS: Glucose - Point of Care 79 mg/dl (70-99)
[2024-05-08] MEDS: LIORESAL PO (23:21)
[2024-05-09] VITALS (14 sets, daily range): BP systolic 96–118; BP diastolic 59–85; BMI 40.6
--- NOTE | 2024-05-09 07:20 | PTCARENOTE ---
Heparin gtt infusing at 14 mL/hr. When attempting to draw pt's PTT from midline this am, I was unable to get blood return. Another nurse came to look at pt's midline, pt became agitated and refused to allow RN to look at IV. Pt denied morning labs
and continues to not allow staff to look at midline. IV team notified.
[2024-05-09 07:43] LABS: Glucose - Point of Care 91 mg/dl (70-99)
[2024-05-09 08:00] LABS: % Basophils 0.2 % (0-2); % Immature Granulocytes 2.3 % (0-0.5); % Lymphocytes 22.6 % (20.5-51.1); % Neutrophils 56.9 % (42.2-75.2); Absolute Eosinophils 0.1 10^3/uL (0-0.7); Absolute Immature Granulocytes 0.2 10^3/uL (0-0.05); Absolute Monocytes 1.5 10^3/uL (0.1-0.6); Absolute Neutrophils 4.9 10^3/uL (1.4-6.5); Hematocrit 24.8 % (39.0-52.0); Hemoglobin 7.9 g/dL (13.0-18.0); Mean Corp Hgb Conc. 31.9 g/dL (33.0-37.0); Mean Corpuscular Hgb 26.9 pg (27.0-31.0); Mean Corpuscular Volume 84.4 fL (80.0-94.0); Mean Platelet Volume 10.7 fL (7.4-10.4); Nucleated Red Blood Cells % 0 % (-); Platelet Count 136 10^3/uL (130-400); Red Blood Cell Count 2.94 10^6/uL (4.70-6.10); Red Cell Dist. Width 15.9 % (11.5-14.5); White Blood Cell Count 8.6 10^3/uL (4.8-10.8)
[2024-05-09 08:20] LABS: Vitamin D, 25-OH*** 20.2 ng/mL (30-80)
[2024-05-09] MEDS: TYLENOL 650 MG TUBE ×3 (08:22→21:11)
[2024-05-09] MEDS: VITAMIN D3 (cholecalciferol) 25 MCG PO (08:23)
[2024-05-09] MEDS: LIORESAL 10 MG PO ×2 (08:23→21:11)
[2024-05-09] MEDS: PROTONIX 40 MG PO (08:23)
[2024-05-09] MEDS: LEXAPRO 10 MG PO (08:23)
[2024-05-09] MEDS: LOPRESSOR 12.5 MG PO ×2 (08:23→21:11)
[2024-05-09] MEDS: LASIX 10 MG IV (08:24)
[2024-05-09 08:25] LABS: APTT > 200 Sec (23.4-35.0)
[2024-05-09] MEDS: ATARAX 25 MG PO ×2 (08:29→21:11)
--- NOTE | 2024-05-09 09:04 | W.PN.GS2 ---
Addendum entered and electronically signed by Raj Miles MD 05/09/24 09:32:
Patient seen and examined with surgical PICKLE SOLUTION MAKER. Agree with documented progress note.
Overall John states that he is feeling better. Abdominal pain improving, per nursing only required Tylenol for relief
Continues with loose bowel movements passing regularly with rectal trumpet in place
AF, stable tachycardia, normotensive
NAD AAOx3
ABD: Softly protuberant/distended; no longer as tense. Mild tenderness on palpation but no rebound rigidity or guarding
A/P: Continued improvement in symptoms of ileus likely secondary to chronic and acute medical illness
Cautious dietary advancement to low residue
Monitor, as liquid stools decrease will be sure to resume daily bowel regiment
Original Note:
Today's Communication / Plan
-
Advance diet
Assessment / Plan
-
This is a 64-year-old male with a history of T7 paraplegia, chronic Padron and recurrent UTIs here with urosepsis and right perinephric hematoma who has developed worsening abdominal plain and bloating CT imaging concerning for ileus versus small
bowel obstruction.
Probable ileus in the setting of sepsis and bacteremia and his subsequent x-ray does not show air-fluid levels.
CT from 05/07 Similar to previous with transition point in the right lower quadrant but this appears to be immediately at the terminal ileum where it is typically anchored to the peritoneum just proximal to the ileocecal valve. This imaging is
similar to his previous CT which did have oral contrast and has since been completely evacuated.
Slowly clinically improving with good results following enema last noc
AF, tachycardic, BP
Plan:
Advance for LRD
Hold laxatives for now given liquid stools
Medical management as per primary team
Subjective Data
-
Date of Service: May 09, 2024
Patient seen and examined at bedside with Dr. Miles. Denies n/v. Tolerating diet and would like to try something solid. Passing liquid stools via rectal trumpet to back, more texture now.
Objective Data
-
Intake and Output
05/08/24 05/09/24 05/10/24
06:59 06:59 06:59
Intake Total 770 / 770
Output Total 1025 / 1025 700 / 700
Balance -1025 / -1025 70 / 70
Intake:
Oral fluids 240 / 240
IV fluids (Total) 480 / 480
IV piggybacks 50 / 50
Output:
Liquid stool amount 300 / 300
Rectum 300 / 300
Urine, Padron 725 / 725 700 / 700
Other:
Number of unmeasured liquid
stools
Rectum 1 1
Vital Signs
Temp Pulse Resp BP Pulse Ox
97.4 F 104 15 118/85 99
05/09/24 03:00 05/09/24 08:24 05/09/24 06:00 05/09/24 08:24 05/09/24 06:00
Lab Results
05/09/24 07:42
Calcium 6.7 mg/dl (8.4-10.2) L* 05/08/24 08:07
Phosphorus 3.6 mg/dl (2.5-4.5) 05/06/24 05:29
Magnesium 2.1 mg/dl (1.6-2.3) 05/06/24 05:29
Total Bilirubin 5.3 mg/dl (0.2-1.3) H 05/04/24 05:09
Direct Bilirubin 3.3 mg/dl (0.0-0.4) H 05/02/24 04:13
AST 90 U/L (17-59) H 05/04/24 05:09
ALT 79 U/L (0-50) H 05/04/24 05:09
Alkaline Phosphatase 152 U/L (38-126) H 05/04/24 05:09
Total Protein 6.8 g/dl (6.3-8.2) 05/04/24 05:09
Albumin 2.7 g/dl (3.5-5.0) L 05/04/24 05:09
Physical Exam
-
NAD AAOx3
ABD: Softly distended without tenderness. No rebound, no voluntary or involuntary guarding.
[2024-05-09 09:19] LABS: ALT (SGPT) 28 U/L (0-50); AST (SGOT) 45 U/L (17-59); Albumin 2.2 g/dl (3.5-5.0); Alkaline Phosphatase 120 U/L (38-126); Blood Urea Nitrogen 26 mg/dl (9-20); Calcium 7.2 mg/dl (8.4-10.2); Carbon Dioxide 23 mmol/L (22-30); Chloride 104 mmol/L (98-107); Estimated Creatinine Clearance 72 ml/min; Glucose 90 mg/dl (70-99); Magnesium 1.9 mg/dl (1.6-2.3); Potassium 3.6 mmol/L (3.5-5.1); Sodium 135 mmol/L (135-145); Total Bilirubin 1.4 mg/dl (0.2-1.3); Total Protein 6.5 g/dl (6.3-8.2); eGFR > 60.00
[2024-05-09] MEDS: HEPARIN 25000 UNITS/250 ML IV (10:35)
[2024-05-09] MEDS: INVANZ 60 MG IV (11:00)
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
[2024-05-09 12:24] LABS: Glucose - Point of Care 120 mg/dl (70-99)
--- NOTE | 2024-05-09 13:57 | W.PN.UPDATE ---
Update Note
Progress Note Update
64M w/ h/o NGB and chronic Padron catheter.
02/2024: s/p right ureteral stent placement for obstructing right ureteral stone in setting of MDR urosepsis.
Readmitted w/ urosepsis and right perinephric/subcapsular hematoma on CT imaging.
CT imaging (x2) w/ right ureteral stent in good position, no right hydronephrosis.
Small increase in size of hematoma w/ tamponade as expected.
On IV abx for urosepsis/bacteremia per ID - ESBL Klebsiella and E. Coli (MDR)
H/H remain stable without evidence of active bleeding
Cr @baseline
Urine in catheter clear
Tentatively scheduled for outpatient right URS/laser lithotripsy/stone extraction/stent exchange 05/10 prior to recent hospitalization.
New bilateral UE DVTs - on IV heparin.
Plan:
- if clinical status remains stable, tentative plan for right ULS 05/10
- Continue IV Ertapenem per ID through 05/11
- NPO@[place] 05/09 (Friday) for OR 05/10
- Hold IV Heparin ~6 hrs prior to OR (hold @0700 on 05/10)
D/w patient.
D/w Hospitalist.
[2024-05-09] MEDS: OSCAL 500 + D 500 MG PO (14:40)
[2024-05-09] MEDS: VITAMIN D3 (cholecalciferol) 50 MCG PO (14:40)
--- NOTE | 2024-05-09 14:53 | PTCARENOTE ---
Patient is back from IR s/p central line placement. IV team notified and midline removed. CHG bath completed and new IJ was dressed with sterile technique by IV team. Patient has new sheets and gown. Padron care provided, rectal trumpet draining
liquid brown stool. patient in chair position in bed. excited to eat lunch.
[2024-05-09 16:55] LABS: APTT 65.8 Sec (23.4-35.0)
[2024-05-09 17:20] LABS: Glucose - Point of Care 97 mg/dl (70-99)
[2024-05-09] MEDS: MELATONIN 3 MG PO (21:11)
[2024-05-09] MEDS: LYRICA 100 MG PO (21:11)
[2024-05-09 21:36] LABS: Glucose - Point of Care 97 mg/dl (70-99)
[2024-05-09] MEDS: LIORESAL PO (23:56)
[2024-05-10] VITALS (17 sets, daily range): BP systolic 85–130; BP diastolic 66–89; BMI 41.2
[2024-05-10 00:38] LABS: APTT 124.7 Sec (23.4-35.0)
[2024-05-10 05:26] LABS: % Basophils 0.3 % (0-2); % Eosinophils 1.3 % (0-6); % Immature Granulocytes 1.3 % (0-0.5); % Neutrophils 57.1 % (42.2-75.2); Absolute Eosinophils 0.1 10^3/uL (0-0.7); Absolute Immature Granulocytes 0.1 10^3/uL (0-0.05); Absolute Lymphocytes 2.1 10^3/uL (1.2-3.4); Absolute Monocytes 1.7 10^3/uL (0.1-0.6); Absolute Neutrophils 5.5 10^3/uL (1.4-6.5); Hematocrit 23.7 % (39.0-52.0); Hemoglobin 7.4 g/dL (13.0-18.0); Mean Corp Hgb Conc. 31.2 g/dL (33.0-37.0); Mean Corpuscular Hgb 27.1 pg (27.0-31.0); Mean Corpuscular Volume 86.8 fL (80.0-94.0); Mean Platelet Volume 10.7 fL (7.4-10.4); Nucleated Red Blood Cells % 0 % (-); Platelet Count 138 10^3/uL (130-400); Red Blood Cell Count 2.73 10^6/uL (4.70-6.10); Red Cell Dist. Width 15.9 % (11.5-14.5); White Blood Cell Count 9.7 10^3/uL (4.8-10.8)
[2024-05-10 05:55] LABS: Blood Urea Nitrogen 21 mg/dl (9-20); Carbon Dioxide 21 mmol/L (22-30); Chloride 105 mmol/L (98-107); Estimated Creatinine Clearance 72 ml/min; Glucose 97 mg/dl (70-99); Potassium 3.3 mmol/L (3.5-5.1); Sodium 134 mmol/L (135-145); eGFR > 60.00
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
[2024-05-10 07:25] LABS: Glucose - Point of Care 84 mg/dl (70-99)
--- NOTE | 2024-05-10 08:00 | W.SUR.PREOP ---
Pre-Operative Surgical Note
-
I have examined this patient prior to the performance of the scheduled procedure.
The patient's condition is unchanged from the time of the current History and
Physical and the patient is able to undergo the scheduled procedure.
Tentatively scheduled for outpatient right URS/laser lithotripsy/stone extraction/stent exchange 05/10 prior to recent hospitalization.
New bilateral UE DVTs - on IV heparin.
Plan:
- if clinical status remains stable, tentative plan for right ULS 05/10
- Continue IV Ertapenem per ID through 05/11
- Maintain NPO
- Hold IV Heparin ~6 hrs prior to OR (hold @0700 on 05/10)
D/w patient.
D/w Hospitalist.
--- NOTE | 2024-05-10 08:13 | PTCARENOTE ---
Heparin gtt placed on hold at 08:10 after orders reviewed.
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
[2024-05-10] MEDS: OSCAL 500 + D 500 MG PO (09:27)
[2024-05-10] MEDS: VITAMIN D3 (cholecalciferol) 50 MCG PO (09:27)
[2024-05-10] MEDS: LIORESAL 10 MG PO ×2 (09:27→21:00)
[2024-05-10] MEDS: PROTONIX 40 MG PO (09:27)
[2024-05-10] MEDS: LOPRESSOR 12.5 MG PO ×2 (09:27→20:59)
[2024-05-10] MEDS: KCL 40 MEQ PO (09:27)
[2024-05-10] MEDS: INVANZ 60 MG IV (09:27)
[2024-05-10] MEDS: LEXAPRO 10 MG PO (09:28)
[2024-05-10] MEDS: LASIX 10 MG IV (09:28)
--- NOTE | 2024-05-10 09:47 | WOUNDNOTE ---
L LATERAL LOWER LEG
--- NOTE | 2024-05-10 09:48 | WOUNDNOTE ---
L DORSAL FOOT AND ANKLE
--- NOTE | 2024-05-10 09:49 | WOUNDNOTE ---
R DORSAL/LATERAL FOOT
--- NOTE | 2024-05-10 09:50 | WOUNDNOTE ---
BUTTOCKS, SACRUM AND POSTERIOR THIGHS
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
--- NOTE | 2024-05-10 11:05 | PTCARENOTE ---
Pt assessed, meds given, was initially refusing to go for urologic procedure today, telling this RN he told the doctor he would not allow it, stated they were going to 'take out his uterus'-Dr. Acuña contacted by TT, arrived to bedside to
re-clarify and explain procedure to patient, pt now in agreement. Pt remains NPO, heparin gtt on hold, plan is for pt to go to OR approx 15:[address] Acuña. Plan also discussed with Dr. Rodriguez and Resident MDs. Oral care, barcenas care provided by
PCT, WOC RN Maria Eugenia re evaluated wounds and placed orders. Safe environment maintained.
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
[2024-05-10 13:08] LABS: Glucose - Point of Care 78 mg/dl (70-99)
--- NOTE | 2024-05-10 13:51 | PTCARENOTE ---
Pt turned and linens straightened, pericare provided, rectal trumpet flushed. Pt remains intermittently forgetful/confused, stated again that he is not going to have any procedure done today. States 'I haven't eaten' and asking for a snack. Ice
chips given, education provided, pleasant demeanor seems to settle patient, safe environment maintained. Pt again agreeable to go to OR later today as previously discussed.
--- NOTE | 2024-05-10 14:31 | PTCARENOTE ---
Report given to PATENT DRAFTERLUZ Lauren at this time.
[2024-05-10 15:10] LABS: Glucose - Point of Care 74 mg/dl (70-99)
--- NOTE | 2024-05-10 15:42 | W.IMMPOSTOP ---
Surgical Immed Post Op Note
-
Primary Surgeon: Domenico
Pre-op Diagnosis: Obstructing right ureteral stone s/p stent, urosepsis, right perinephric subcapsular hematoma
Post-op Diagnosis: Same
Procedure Performed: cystoscopy, right URS/LL/stone extraction/stent exchange
Anesthesia Type: LMA
Specimen / Cultures: None/None
Estimated Blood Loss: Negligible
Drains:
1. 6Fr x 26 cm JJ right ureteral stent
2. 22Fr Padron catheter (10 cc in balloon)
Complications: None
Operative Findings:
Soft yellow chalky stones w/n right renal pelvis and calyces fragmented easily via laser lithotripsy - punctate debris left.
Final KUB and cystoscopy confirming appropriate right ureteral stent position.
--- NOTE | 2024-05-10 15:46 | W.PN.UPDATE ---
Update Note
Progress Note Update
s/p right URS/LL/stone extraction/stent exchange.
Plan:
- Continue IV Invanz pe ID through 05/11
- F/U as outpatient w/ Dr. Acuña in 2-3 weeks for stent removal (office procedure)
- Padron catheter exchanged today for h/o NGB w/ chronic urinary retention
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
[2024-05-10 16:07] LABS: Glucose - Point of Care 127 mg/dl (70-99)
--- NOTE | 2024-05-10 16:54 | PTCARENOTE ---
Pt rec'd back into IMU [id number] from PACU, readmitted to monitor. Dinner tray ordered. Pt with no complaints.
--- NOTE | 2024-05-10 17:00 | PTCARENOTE ---
Heparin gtt resumed at previous rate per Dr. Rodriguez, repeat PTT ordered for 23:00.
[2024-05-10] MEDS: LASIX 20 MG IV (17:17)
--- NOTE | 2024-05-10 19:00 | PTCARENOTE ---
Heparin gtt order amended by Dr. Rodriguez. Per order, heparin gtt stopped until 10 pm, then to resume. Oncoming shift updated.
[2024-05-10] MEDS: LYRICA 100 MG PO (20:59)
[2024-05-10] MEDS: LIORESAL 20 MG PO (21:00)
[2024-05-10] MEDS: MELATONIN 3 MG PO (21:00)
[2024-05-10] MEDS: ATARAX 25 MG PO (21:02)
[2024-05-10 22:44] LABS: Glucose - Point of Care 108 mg/dl (70-99)
[2024-05-10] MEDS: HEPARIN 25000 UNITS/250 ML IV (22:48)
[2024-05-11] VITALS (10 sets, daily range): BP systolic 98–131; BP diastolic 66–79; BMI 40.2
[2024-05-11] MEDS: DILAUDID 0.25 MG IV (02:35)
--- NOTE | 2024-05-11 02:54 | PTCARENOTE ---
Caring for pt overnight. aaox2-[address] on monitor. Heparin gtt resumed at 2200, PTT at 0445. Q2T. R IJ. Rectal trumpet in place, barcenas in place. Will continue to monitor.
[2024-05-11 05:53] LABS: % Basophils 0.4 % (0-2); % Eosinophils 1.1 % (0-6); % Immature Granulocytes 1.8 % (0-0.5); % Lymphocytes 24.2 % (20.5-51.1); % Monocytes 18.8 % (1.7-9.3); % Neutrophils 53.7 % (42.2-75.2); Absolute Eosinophils 0.1 10^3/uL (0-0.7); Absolute Immature Granulocytes 0.2 10^3/uL (0-0.05); Absolute Lymphocytes 2.7 10^3/uL (1.2-3.4); Absolute Monocytes 2.1 10^3/uL (0.1-0.6); Absolute Neutrophils 5.9 10^3/uL (1.4-6.5); Hematocrit 22.4 % (39.0-52.0); Hemoglobin 7.2 g/dL (13.0-18.0); Mean Corp Hgb Conc. 32.1 g/dL (33.0-37.0); Mean Corpuscular Hgb 27.2 pg (27.0-31.0); Mean Corpuscular Volume 84.5 fL (80.0-94.0); Mean Platelet Volume 10.2 fL (7.4-10.4); Nucleated Red Blood Cells % 0 % (-); Platelet Count 150 10^3/uL (130-400); Red Blood Cell Count 2.65 10^6/uL (4.70-6.10); Red Cell Dist. Width 15.9 % (11.5-14.5)
[2024-05-11 05:55] LABS: APTT 55.6 Sec (23.4-35.0)
[2024-05-11 06:09] LABS: Blood Urea Nitrogen 18 mg/dl (9-20); Carbon Dioxide 21 mmol/L (22-30); Chloride 104 mmol/L (98-107); Estimated Creatinine Clearance 66 ml/min; Glucose 98 mg/dl (70-99); Magnesium 1.7 mg/dl (1.6-2.3); Potassium 3.8 mmol/L (3.5-5.1); Sodium 133 mmol/L (135-145); eGFR > 60.00
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
[2024-05-11 07:53] LABS: Glucose - Point of Care 87 mg/dl (70-99)
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
[2024-05-11] MEDS: PROTONIX 40 MG PO (09:51)
[2024-05-11] MEDS: OSCAL 500 + D 500 MG PO (09:51)
[2024-05-11] MEDS: LOPRESSOR 12.5 MG PO ×2 (09:51→19:31)
[2024-05-11] MEDS: VITAMIN D3 (cholecalciferol) 50 MCG PO (09:51)
[2024-05-11] MEDS: LIORESAL 10 MG PO ×2 (09:51→19:31)
[2024-05-11] MEDS: LASIX 10 MG IV (09:52)
[2024-05-11] MEDS: INVANZ 60 MG IV ×2 (09:52→10:18)
[2024-05-11] MEDS: LEXAPRO 10 MG PO (09:52)
--- NOTE | 2024-05-11 10:10 | W.PN.GS2 ---
Addendum entered and electronically signed by Trav Vuong MD 05/11/24 11:54:
Abdominal x-ray reviewed. Gastric distention, small isolated loop of small bowel distention, predominantly colonic distention all with air. Likely continued ileus secondary to bacteremia and perinephric inflammation. Possible component of
underlying dysmotility given neurologic issues.
-- Recommended plan for clears with a EUNICE to LRD.
-- Continued bowel regimen including daily MiraLAX and enemas as needed.
-- Repeat abdominal x-ray tomorrow a.m.
Original Note:
Today's Communication / Plan
-
-- Back down to clears given burping and distension
-- Enema daily PRN and Miralax daily
-- If continued issues would obtain repeat abd X-ray
Assessment / Plan
-
This is a 64-year-old male with a history of T7 paraplegia, chronic Padron and recurrent UTIs here with urosepsis and right perinephric hematoma who has developed worsening abdominal plain and bloating CT imaging concerning for ileus vs. SBO.
CT from 05/07 Similar to previous with transition point in the right lower quadrant but this appears to be immediately at the terminal ileum where it is typically anchored to the peritoneum just proximal to the ileocecal valve. This imaging is
similar to his previous CT which did have oral contrast and has since been completely evacuated.
X-ray 05/02 with dilated loops SB without air fluid levels
AF, stable tachycardia, BP stable
Reactive leukocytosis from procedure; s/p right URS/LL/stone extraction/stent exchange on 05/10
Probable ileus in the setting of sepsis and bacteremia
Slow improvement from GI standpoint previously moving bowels none over 12-24 hrs, backing down diet given belching and distension on abd exam, resume bowel regimen, if continued issues would obtain repeat abd X-ray
Plan:
-- Back down to clears given burping and distension
-- Enema daily PRN and Miralax daily
-- Medical management as per primary team
Subjective Data
-
Date of Service: May 11, 2024
Reports large amounts of belching, denies nausea or emesis. Abdomen feels tight. Denies BM or flatus; 725 liquid stool documented, in discussions with nursing no BM over past 12-24 hrs Afebrile.
Objective Data
-
Intake and Output
05/10/24 05/11/24 05/12/24
06:59 06:59 06:59
Intake Total 440 / 440 270 / 270
Output Total 1300 / 1300 3225 / 3225
Balance -860 / -860 -2955 / -2955
Intake:
Oral fluids 320 / 320 120 / 120
IV fluids (Total) 150 / 150
IVF 150 / 150
IV piggybacks 120 / 120
Output:
Liquid stool amount 1100 / 1100 725 / 725
Rectum 1100 / 1100 725 / 725
Urine, Padron 200 / 200 2500 / 2500
Vital Signs
Temp Pulse Resp BP Pulse Ox
98.0 F 112 18 98/68 99
05/11/24 07:00 05/11/24 06:00 05/11/24 06:00 05/11/24 06:00 05/10/24 16:54
Lab Results
05/11/24 05:25
05/11/24 05:25
Calcium 7.0 mg/dl (8.4-10.2) L 05/11/24 05:25
Phosphorus 3.6 mg/dl (2.5-4.5) 05/06/24 05:29
Magnesium 1.7 mg/dl (1.6-2.3) 05/11/24 05:25
Total Bilirubin 1.4 mg/dl (0.2-1.3) H 05/09/24 07:42
Direct Bilirubin 3.3 mg/dl (0.0-0.4) H 05/02/24 04:13
AST 45 U/L (17-59) 05/09/24 07:42
ALT 28 U/L (0-50) 05/09/24 07:42
Alkaline Phosphatase 120 U/L (38-126) 05/09/24 07:42
Total Protein 6.5 g/dl (6.3-8.2) 05/09/24 07:42
Albumin 2.2 g/dl (3.5-5.0) L 05/09/24 07:42
Physical Exam
-
Gen: NAD
Abd: obese, soft, NT, distended, tympanitic, non-peritoneal, prior midline well healed
[2024-05-11] MEDS: ATARAX 25 MG PO ×2 (10:18→19:34)
[2024-05-11] MEDS: BENADRYL 6.25 MG IV (10:18)
--- NOTE | 2024-05-11 10:22 | W.PN.URO.CBU ---
Today's Communication / Plan
-
OK to d/c home from urologic perspective when fit
Barcenas catheter exchanged 05/11 - continue q4 week changes @[facility]
F/U w/ Dr. Acuña in 3-4 weeks for stent removal (office procedure)
Assessment / Plan
-
64M with neurogenic bladder and chronic barcenas
Recent admission with urosepsis from obstructing R ureteral stone
Readmitted with sepsis and perinephric/subcapsular hematoma on CT
Perinephric/subcapsular hematoma
- HGB stabilized without transfusion or intervention
Urosepsis/bacteremia
- s/p completion of IV abx
- Transition to PO doxycycline per ID
Right ureteral stone
- s/p right URS/LL/stone extraction/stent exchange + Barcenas catheter exchange
Hematuria
- Resolved
Neurogenic bladder
- Maintain chronic barcenas
Diagnosis
-
Date of Service: May 11, 2024
-
Patient Diagnosis:
R Retroperitoneal hemorrhage/subcapsular hematoma
Sepsis
Bacteremia
Obstructing right ureteral stone s/p stent (02/2024)
Hematuria
AVTAR
Post Op Day:
12: s/p right URS/LL/stone extraction/stent exchange
Subjective
-
Afebrile.
IV heparin resumed last night for UE DVTs.
Denies flank or pelvic pain.
Objective
-
Vital Signs
Temp Pulse Resp BP Pulse Ox
98.0 F 112 18 98/68 99
05/11/24 07:00 05/11/24 06:00 05/11/24 06:00 05/11/24 06:00 05/10/24 16:54
Intake and Output
12/02/24 12/03/24 12/04/24
06:59 06:59 06:59
Intake Total 440 / 440 270 / 270
Output Total 1300 / 1300 3225 / 3225
Balance -860 / -860 -2955 / -2955
Intake:
Oral fluids 320 / 320 120 / 120
IV fluids (Total) 150 / 150
IVF 150 / 150
IV piggybacks 120 / 120
Output:
Liquid stool amount 1100 / 1100 725 / 725
Rectum 1100 / 1100 725 / 725
Urine, Barcenas 200 / 200 2500 / 2500
Laboratory Results
05/11/24 05:25
05/11/24 05:25
Physical Exam
-
General - no acute distress
Abdomen - soft, non-tender, non-distended
Genitalia - normal, Barcenas catheter in place
Neuro - paraplegic
Care Review
Data Reviewed
Discussed with: Hospitalist
CT Scan: Report Pers Reviewed and Image Pers Reviewed
[2024-05-11] MEDS: MAGNESIUM SULFATE 50 IV (10:23)
[2024-05-11 11:51] LABS: Glucose - Point of Care 103 mg/dl (70-99)
[2024-05-11 12:32] LABS: APTT 84.2 Sec (23.4-35.0)
[2024-05-11] MEDS: FLEET PHOSPHATE ENEMA-ADULT 135 ML RECTAL (16:19)
[2024-05-11] MEDS: LASIX 20 MG IV ×2 (16:19→17:44)
[2024-05-11 16:41] LABS: Glucose - Point of Care 93 mg/dl (70-99)
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
--- NOTE | 2024-05-11 16:50 | PTCARENOTE ---
05/11- Patient transferred and oriented to unit without issue. AAOX3; calm/pleasant. Teley #38, currently sinus tachy at FS=[id number]. This is known for this patient. Patient denies any current needs besides ordering dinner, which he was shown how to
do when oriented to room.
[2024-05-11] MEDS: HEPARIN 25000 UNITS/250 ML IV (19:06)
[2024-05-11 19:41] LABS: APTT 127.9 Sec (23.4-35.0)
[2024-05-11] MEDS: LIORESAL 20 MG PO (21:40)
[2024-05-11] MEDS: LYRICA 100 MG PO (21:40)
[2024-05-11] MEDS: MELATONIN 3 MG PO (21:40)
[2024-05-11 22:41] LABS: Glucose - Point of Care 130 mg/dl (70-99)
[2024-05-12 02:43] LABS: % Basophils 0.3 % (0-2); % Immature Granulocytes 1.9 % (0-0.5); % Lymphocytes 24.5 % (20.5-51.1); % Monocytes 19.1 % (1.7-9.3); % Neutrophils 53.2 % (42.2-75.2); Absolute Eosinophils 0.1 10^3/uL (0-0.7); Absolute Immature Granulocytes 0.2 10^3/uL (0-0.05); Absolute Lymphocytes 2.4 10^3/uL (1.2-3.4); Absolute Monocytes 1.9 10^3/uL (0.1-0.6); Absolute Neutrophils 5.2 10^3/uL (1.4-6.5); Hematocrit 24.7 % (39.0-52.0); Mean Corp Hgb Conc. 32.4 g/dL (33.0-37.0); Mean Corpuscular Hgb 27.2 pg (27.0-31.0); Mean Platelet Volume 9.8 fL (7.4-10.4); Nucleated Red Blood Cells % 0 % (-); Platelet Count 109 10^3/uL (130-400); Red Blood Cell Count 2.94 10^6/uL (4.70-6.10); Red Cell Dist. Width 15.7 % (11.5-14.5); White Blood Cell Count 9.9 10^3/uL (4.8-10.8)
[2024-05-12 02:53] LABS: APTT 118.8 Sec (23.4-35.0)
[2024-05-12 03:12] LABS: Blood Urea Nitrogen 18 mg/dl (9-20); Calcium 7.2 mg/dl (8.4-10.2); Carbon Dioxide 22 mmol/L (22-30); Chloride 103 mmol/L (98-107); Estimated Creatinine Clearance 66 ml/min; Glucose 94 mg/dl (70-99); Potassium 3.3 mmol/L (3.5-5.1); Sodium 132 mmol/L (135-145); eGFR > 60.00
[2024-05-12 03:22] VITALS: BP 107/63
[2024-05-12 06:00] VITALS: BMI 39.7
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
[2024-05-12 07:43] LABS: Glucose - Point of Care 89 mg/dl (70-99)
[2024-05-12] MEDS: VITAMIN D3 (cholecalciferol) 50 MCG PO (08:48)
[2024-05-12] MEDS: OSCAL 500 + D 500 MG PO (08:48)
[2024-05-12] MEDS: VIBRAMYCIN 100 MG PO (08:48)
[2024-05-12] MEDS: KCL 40 MEQ PO (08:48)
[2024-05-12] MEDS: LOPRESSOR 12.5 MG PO (08:48)
[2024-05-12] MEDS: LEXAPRO 10 MG PO (08:48)
[2024-05-12] MEDS: PROTONIX 40 MG PO (08:48)
[2024-05-12] MEDS: MIRALAX 17 GRAMS PO (08:48)
[2024-05-12 08:49] VITALS: BP 105/64
[2024-05-12] MEDS: LIORESAL 10 MG PO (08:49)
[2024-05-12] MEDS: LASIX 20 MG IV (08:49)
[2024-05-12] MEDS: ATARAX 25 MG PO (08:59)
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
--- NOTE | 2024-05-12 09:46 | W.PN.UPDATE ---
Update Note
Progress Note Update
Attempted to see pt, off floor for XR
[2024-05-12 11:28] VITALS: BP 93/57
[2024-05-12 11:34] LABS: Glucose - Point of Care 77 mg/dl (70-99)
--- NOTE | 2024-05-12 12:55 | W.DCSUMMARY ---
Discharge Summary
Discharge Data
Date of Admission: 04/27/24
Date of Discharge: 05/13/24
-
Pending Results: No
Hospital Course
Discharging Physician : Nils Rodriguez MD ; Sonu Burrell MD
Disposition : SNF
Primary care physician : Trav Jang DO
Principal Discharge diagnosis :
Ileus
Acute on chronic anemia
Septic circulatory shock
Catheter associated UTI
Recurrent hypokalemia
Hyponatremia
Hypocalcemia
Vitamin D deficiency
Acute hypoxemic respiratory insufficiency
Liver cirrhosis
Anasarca
Major depressive disorder
Neurogenic bladder
Shock liver
Acute metabolic encephalopathy
Acute on chronic constipation
Hospital Course :
64-year-old male with PMH of recurrent ureteral stone/sepsis and AVTAR, ESBL Proteus and E. coli colonization, essential hypertension, CKD stage IIIa, T7 spinal cord injury with paraplegia recently admitted for repeat ureteral stones and renal failure
who presented to ED on 04/27/2024 with abdominal pain and hematuria and was subsequently noted to have rights perinephric hematoma. While in the ED, patient was found to be hypotensive and was started on pressors. A CT scan of ABD/pelvis showed
right perinephric hematoma with extension to the right ureter. Patient was also found to have lactic acidosis, constipation, AVTAR, and thrombocytopenia. Cultures were obtained, antibiotics started, urology was also consulted and he was admitted to
the ICU for further evaluation and management.
While in the hospital, patient was seen in consultation with urology, pulmonology, infectious disease, hematology/oncology, and general surgery teams. His urinalysis showed infection with ESBL Proteus/E. coli, his Padron was exchanged with a
three-way Padron, due to low output and difficulty to irrigate and showed some clots with hematuria. CT scan of the abdomen was repeated on 04/28 showing increased right perinephric hematoma, kidney stone and mass effect. Over the next 2 days, his
lactic acidosis and hematuria resolved but he continued to have altered mental status suspected to be due to sepsis and the Dilaudid he received due to his abdominal pain. A repeat CT ABD/pelvis on 05/02 showed suspected SBO with transition point
which was reevaluated by general surgery to be an ileus. Patient was treated with bowel regimen with significant reduction in his abdominal pain. He was subsequently found to have a right upper extremity swelling which showed right axillary and
proximal basilic vein thrombosis on ultrasound. Patient was started on heparin gtt which was intermittently held due to hematuria. On 05/10, patient underwent cystoscopy with right URS/LL/stone extraction and stent exchange and tolerated
appropriately. His antibiotics was discontinued on 05/11. He also received 1 unit of PRBC due to anemia.
Condition on discharge: Awake, alert and oriented x3, answer question properly, speech clear and comprehensive. Patient has been afebrile, leukocytosis resolved, and hemoglobin is stable. Patient is medically stable for discharge back to SNF with
instructions to recheck CBC and BMP in 1 week. He has also been instructed to follow-up with urology in 2 to 3 weeks for stent removal in the office. Patient was on heparin and received a total of 7 days of heparin which was held due to bloody
urine. The plan is to transition him to [facility] on 05/13/24 for another 3 weeks and have a repeat ultrasound of his right arm to assess for DVT.
Important imaging findings :
Chest x-ray 02/20/2024:
Large amount of bilateral lower lobe opacifications suspected aspiration pneumonia subsegmental atelectasis or pneumonia, moderate to severe elevation right hemidiaphragm
CT abdomen and pelvis 04/27/24:
3.5 cm right renal perinephric hematoma, right double-J ureteral stent in position, large volume stool, cannot exclude stercoral colitis, contracted gallbladder with at least 1 stone
Left upper extremity peripheral ultrasound 05/08/2024:
The left internal jugular, subclavian, and axillary veins are patent and compressible with normal flow except for the subclavian which is not compressible only because of location.
There is occlusive thrombus formation in the distal left brachial vein just proximal to the antecubital fossa.
The mid and distal basilic vein and mid brachial vein are not visualized.
Abdominal x-ray 05/11/2024:
Right ureteral stent is seen in the expected location.
Intestinal bowel gas pattern is grossly nonobstructive. No findings are seen to suggest free air.
Air is seen filling the stomach.
Osseous degenerative changes are noted.
Abdominal x-ray 05/12/2024:
Nonobstructive bowel gas pattern. Gas is present throughout the colon extending to the rectum with likely mild rectal stool burden.
Procedure findings:
Cystoscopy, right URS/LL/stone extraction/stent exchange 05/10/2024:
Operative Findings:
Soft yellow chalky stones w/n right renal pelvis and calyces fragmented easily via laser lithotripsy - punctate debris left.
Final KUB and cystoscopy confirming appropriate right ureteral stent position.
Discharge Plan
-
Patient Disposition: Long-Term/SNF
Discharge Diagnosis/Procedures:
ESBL Klebsiella pneumonia and E. coli bacteremia-renal source
Right perinephric hematoma
Septic circulatory shock
Catheter associated UTI
Acute on chronic anemia
Ileus
Recurrent hypokalemia
Hyponatremia
Hypocalcemia
Vitamin D deficiency
Acute hypoxemic respiratory insufficiency
Cirrhosis
Anasarca
Major depressive disorder
Neurogenic bladder
Shock liver
Acute metabolic encephalopathy
Acute on chronic constipation
Condition: Fair
Diet: 2 Gram Sodium
Activity: As tolerated
Driving Restrictions: No driving
Bathing Restrictions: None
Blood Work: CBC in 1 week, BMP in 3 to 4 days
Other Services: PT and OT
Activity Restrictions/Additional Instructions:
Wound Care Instructions Left Hip Wound- Clean with soap and water, Apply silicone border foam. Change Q48 hours and PRN for drainage.
L lateral leg: clean with soap and water, alginate, then dry dressing change daily. Once drainage less then change q 48 hrs.
R lateral foot/ankle: clean with soap and water, silicone foam change q 48 hrs and if increased drainage can add alginate under foam.
Air bed
Keep HOB at 30 degrees with legs slightly elevated
Turning schedule
Keep heels off-loaded with pillows or air cushion under calves
Doxycycline may cause GI discomfort. Patient should be as erect as possible for at least an hour after he takes it. Also if patient has nausea it can be given with food.
F/U as outpatient w/ Dr. Acuña in 2-3 weeks for stent removal (office procedure)
Referrals:
Tip Acuña MD [Active] - in three to four weeks (Please call [facility] to schedule stent removal (office procedure) within 3-4 weeks of your surgery (surgery date 05/10/24). )
Trav Jang, [Family Provider] - in less than 1 week
Additional Discharge Medication Instructions: Doxycycline 100 mg po bid through 05/18/24
Prescriptions:
New
cholecalciferol (vitamin D3) 50 mcg (2,000 unit) Tablet
50 mcg PO DAILY Qty: 0 0RF
doxycycline hyclate 100 mg Capsule
100 mg PO Q12 Qty: 0 0RF
Rx Instructions:
start on 05/13/24-05/18/24
albuterol sulfate 2.5 mg /3 mL (0.083 %) Solution For Nebulization
2.5 mg inhalation R Q4HPRN PRN (Reason: SOB) Qty: 0 0RF
tramadol 50 mg Tablet
25 mg PO Q6HPRN PRN (Reason: pain) Qty: 10 0RF
pantoprazole 40 mg Tablet,Delayed Release (Dr/Ec)
40 mg PO DAILY Qty: 0 0RF
Continued
acetaminophen [Tylenol] 325 mg Tablet
325 mg PO Q6HPRN PRN (Reason: mild pain/fever)
thiamine HCl (vitamin B1) 100 mg Tablet
100 mg PO DAILY
therapeutic multivitamin Tablet
1 tab PO DAILY
melatonin 3 mg Tablet
3 mg PO HS
baclofen 20 mg Tablet
20 mg PO HS
famotidine [Pepcid] 20 mg Tablet
20 mg PO DAILY
baclofen 10 mg Tablet
10 mg PO BID
folic acid 1 mg Tablet
1 mg PO DAILY
sorbitol 70 % Solution
30 ml PO [id number] PRN (Reason: if no bm on 3rd day)
escitalopram oxalate [Lexapro] 10 mg Tablet
10 mg PO DAILY
Fleet Enema 19-7 gram/118 mL Enema
118 ml VA DAILYPRN PRN (Reason: if no bm aftr dulcolax)
metoprolol tartrate 25 mg Tablet
12.5 mg PO BID Qty: 0 0RF
Rx Instructions:
Hold for SBP <105 OR HR<65
docusate sodium [Colace] 100 mg Capsule
100 mg PO DAILY
hydroxyzine HCl 25 mg Tablet
25 mg PO Q6HPRN PRN (Reason: itchness)
albuterol sulfate 90 mcg/actuation Hfa Aerosol Inhaler
2 puff INHALATION R Q4HPRN PRN (Reason: sob)
cranberry 450 mg Tablet
450 mg PO DAILY
pregabalin [Lyrica] 100 mg Capsule
100 mg PO HS Qty: 14 0RF
furosemide [Lasix] 20 mg Tablet
10 mg PO DAILY
Rx Instructions:
Started 04/01/24
polyethylene glycol 3350 17 gram Powder In Packet
17 g PO DAILY Qty: 0 0RF
Discontinued
bisacodyl [Dulcolax (bisacodyl)] 10 mg Suppository
10 mg VA DAILYPRN PRN (Reason: if no bm aftr mom)
clindamycin phosphate 1 % Lotion
1 applic TOPICAL DAILY
guaifenesin 400 mg Tablet
800 mg PO BID
No Action
diphenhydramine HCl [Benadryl] 25 mg Capsule
50 mg PO Q4HPRN PRN (Reason: itching)
calcium polycarbophil [FiberCon] 625 mg Tablet
1,250 mg PO QPM
clindamycin phosphate 1 % Lotion
1 applic TOPICAL DAILY
guaifenesin 400 mg Tablet
800 mg PO BID
[place] Nasal 0.65 % Aerosol,[place]
2 spray INTRANASAL TID
midodrine 5 mg tablet
5 mg PO TID
bisacodyl [Dulcolax (bisacodyl)] 10 mg suppository
10 mg VA DAILYPRN PRN (Reason: If no BM after MOM )
Discharge Orders:
Discharge Patient (As Directed); Ordered 05/12/24
Ordered By: Sonu Burrell
Discharge Date and Time
Discharge Date/Time: 05/12/24 18:36
Print Language: KOSOVAN
[2024-05-12 13:35] LABS: APTT 48.6 Sec (23.4-35.0)
--- NOTE | 2024-05-12 14:04 | W.PN.GS2 ---
Today's Communication / Plan
-
OK for LRD
Assessment / Plan
-
This is a 64-year-old male with a history of T7 paraplegia, chronic Padron and recurrent UTIs here with urosepsis and right perinephric hematoma who has developed worsening abdominal plain and bloating CT imaging concerning for ileus vs. SBO.
CT from 05/07 Similar to previous with transition point in the right lower quadrant but this appears to be immediately at the terminal ileum where it is typically anchored to the peritoneum just proximal to the ileocecal valve. This imaging is
similar to his previous CT which did have oral contrast and has since been completely evacuated.
X-ray 05/02 with dilated loops SB without air fluid levels
AF, stable tachycardia, BP stable
Reactive leukocytosis from procedure; s/p right URS/LL/stone extraction/stent exchange on 05/10
Probable ileus in the setting of sepsis and bacteremia
KUB today with non obstructive gas pattern
Plan:
-- OK to cont LRD, advised him to eat swimmer foods (not fried) and smaller portions
-- Enema daily PRN and Miralax daily
-- Medical management as per primary team
-- Pls call with ?s
Subjective Data
-
Date of Service: May 12, 2024
Feels distended after eating 100% of his lunch of cheeseburger and fries. Denies nausea. Denies abd pain. Passing gas and BMs.
Objective Data
-
Intake and Output
05/11/24 05/12/24 05/13/24
06:59 06:59 06:59
Intake Total 270 / 270 730 / 730 0 / 0
Output Total 3225 / 3225 2400 / 2400
Balance -2955 / -2955 730 / 730 -2400 / -2400
Intake:
Oral fluids 120 / 120 480 / 480 0 / 0
IV fluids (Total) 150 / 150
IVF 150 / 150
Blood Product Amount Infused ( 250 / 250
mL)
Packed Rbc Leukoreduced Unit 250 / 250
[id number]
Output:
Liquid stool amount 725 / 725
Rectum 725 / 725
Urine, Padron 2500 / 2500 2400 / 2400
Vital Signs
Temp Pulse Resp BP Pulse Ox
97.0 F 88 18 93/57 98
05/12/24 11:28 05/12/24 11:28 05/12/24 11:28 05/12/24 11:28 05/12/24 11:28
Lab Results
05/12/24 20:00
05/12/24 02:29
Calcium 7.2 mg/dl (8.4-10.2) L 05/12/24 02:29
Phosphorus 3.6 mg/dl (2.5-4.5) 05/06/24 05:29
Magnesium 1.7 mg/dl (1.6-2.3) 05/11/24 05:25
Total Bilirubin 1.4 mg/dl (0.2-1.3) H 05/09/24 07:42
Direct Bilirubin 3.3 mg/dl (0.0-0.4) H 05/02/24 04:13
AST 45 U/L (17-59) 05/09/24 07:42
ALT 28 U/L (0-50) 05/09/24 07:42
Alkaline Phosphatase 120 U/L (38-126) 05/09/24 07:42
Total Protein 6.5 g/dl (6.3-8.2) 05/09/24 07:42
Albumin 2.2 g/dl (3.5-5.0) L 05/09/24 07:42
Physical Exam
-
Gen: NAD
Abd: soft, obese, distended, nt
[2024-05-12] MEDS: ZOFRAN 4 MG IV (14:13)
[2024-05-12] MEDS: DILAUDID 0.25 MG IV (14:18)
--- NOTE | 2024-05-12 14:25 | CM ---
CM reviewed chart, patient for discharge today. CM left VM for Lorraine at [facility] to update with discharge plan and transport time, 5:30 p.m. CM will continue to follow for all discharge planning needs.
Plan; [facility], 5:30 ambulance transport
Report [phone] 3rd floor nurses station
.
[2024-05-12 15:10] VITALS: BP 108/72
[2024-05-12] MEDS: KCL ELIXIR 40 MEQ PO (15:39)
== END 2024-05-12 18:36 | DRG 659 ==
LOC: 4 WEST ACU 05:37
PROVIDERS: Internal Medicine; Nurse Practitioner Acute Care; Nurse Practitioner Family; Nurse Practitioner Primary Care; Radiology Diagnostic Radiology; Radiology Vascular & Interventional Radiology; Student in an Organized Health Care Education/Training Program; Surgery; ADMITTING PHYSICIAN Hospitalist; ATTENDING PHYSICIAN Hospitalist; CONSULT PHYSICIAN Internal Medicine Critical Care Medicine; CONSULT PHYSICIAN Internal Medicine Infectious Disease; CONSULT PHYSICIAN Specialist; CONSULT PHYSICIAN Surgery; EMERGENCY PHYSICIAN Emergency Medicine; FAMILY PHYSICIAN Internal Medicine; OTHER PHYSICIAN Internal Medicine Hematology & Oncology
PROC: 02HV33Z Insertion of Infusion Device into Superior Vena Cava, Percutaneous Approach (ICD-10-PCS; 2024-04-27)
PROC: 0TP98DZ Removal of Intraluminal Device from Ureter, Via Natural or Artificial Opening Endoscopic (ICD-10-PCS; 2024-04-27)
PROC: 5A09357 Assistance with Respiratory Ventilation, Less than 24 Consecutive Hours, Continuous Positive Airway Pressure (ICD-10-PCS; 2024-04-27)
PROC: 0TF38ZZ Fragmentation in Right Kidney Pelvis, Via Natural or Artificial Opening Endoscopic (ICD-10-PCS; 2024-05-10)
PROC: 0T768DZ Dilation of Right Ureter with Intraluminal Device, Via Natural or Artificial Opening Endoscopic (ICD-10-PCS; 2024-05-10)
PROC: 30233N1 Transfusion of Nonautologous Red Blood Cells into Peripheral Vein, Percutaneous Approach (ICD-10-PCS; 2024-05-11)
DX: T83.511A Infection and inflammatory reaction due to indwelling urethral catheter, initial encounter (principal); A41.51 Sepsis due to Escherichia coli [E. coli]; R65.21 Severe sepsis with septic shock; A41.59 Other Gram-negative sepsis; G93.41 Metabolic encephalopathy; K72.00 Acute and subacute hepatic failure without coma; N15.1 Renal and perinephric abscess; G92.8 Other toxic encephalopathy; E87.1 Hypo-osmolality and hyponatremia; G82.20 Paraplegia, unspecified; E87.20 Acidosis, unspecified; I82.611 Acute embolism and thrombosis of superficial veins of right upper extremity; K56.7 Ileus, unspecified; D62 Acute posthemorrhagic anemia; N17.9 Acute kidney failure, unspecified; S37.021A Major contusion of right kidney, initial encounter; Z68.41 Body mass index [BMI] 40.0-44.9, adult; N20.2 Calculus of kidney with calculus of ureter; E87.6 Hypokalemia; E55.9 Vitamin D deficiency, unspecified; R06.89 Other abnormalities of breathing; R09.02 Hypoxemia; B19.20 Unspecified viral hepatitis C without hepatic coma; K70.30 Alcoholic cirrhosis of liver without ascites; F10.10 Alcohol abuse, uncomplicated; F32.9 Major depressive disorder, single episode, unspecified; E66.813 Obesity, class 3; N31.9 Neuromuscular dysfunction of bladder, unspecified; N18.31 Chronic kidney disease, stage 3a; K52.89 Other specified noninfective gastroenteritis and colitis; N39.0 Urinary tract infection, site not specified; R31.0 Gross hematuria; T40.2X5A Adverse effect of other opioids, initial encounter; I12.9 Hypertensive chronic kidney disease with stage 1 through stage 4 chronic kidney disease, or unspecified chronic kidney disease; S24.103S Unspecified injury at T7-T10 level of thoracic spinal cord, sequela; D69.6 Thrombocytopenia, unspecified; D63.1 Anemia in chronic kidney disease; G47.33 Obstructive sleep apnea (adult) (pediatric); K21.9 Gastro-esophageal reflux disease without esophagitis; Z87.891 Personal history of nicotine dependence; Z79.899 Other long term (current) drug therapy; Z88.1 Allergy status to other antibiotic agents; Y84.6 Urinary catheterization as the cause of abnormal reaction of the patient, or of later complication, without mention of misadventure at the time of the procedure; X58.XXXA Exposure to other specified factors, initial encounter
CPT/HCPCS: 36556; 36600; 70450; 71045; 74018; 74019; 74176; 76937; 77001; 80048; 80053; 81003; 81015; 82140; 82248; 82306; 82607; 82728; 82746; 82805; 82962; 83540; 83550; 83605; 83735; 84100; 85014; 85018; 85025; 85027; 85045; 85379; 85384; 85610; 85730; 86850; 86900; 86901; 86920; 87040; 87077; 87086; 87149; 87186; 87205; 92610; 93005; 93970; 93971; 94660; 96365; 96375; 96376; 99285; C1769; C1894; C2617; J1335; P9016

== ENCOUNTER → 2024-05-10 16:30 | Outpatient (REF) | payer OTHER, SELFPAY | LOC: REG 16:30 | PROVIDERS: ATTENDING PHYSICIAN Surgery; FAMILY PHYSICIAN Nurse Practitioner Family | DX: N20.0 Calculus of kidney (principal) | CPT/HCPCS: 74018; 76000 ==

== ENCOUNTER 2024-05-13 11:46 | Inpatient (IN) | payer OTHER, SELFPAY ==
[2024-05-13] VITALS (29 sets, daily range): BP systolic 72–107; BP diastolic 34–87
[2024-05-13 07:14] LABS: Glucose - Point of Care 87 mg/dl (70-99)
[2024-05-13] MEDS: ADENOCARD 6 MG IV (07:30)
[2024-05-13] MEDS: ADENOCARD 12 MG IV (07:35)
--- NOTE | 2024-05-13 07:35 | ED.GENMED ---
History of Present Illness
General
Chief Complaint: Heart Rate Problem
Source: patient, records and ambulance crew
Exam Limitations: none
Time Seen by Provider: 05/13/24 06:55
Nursing documentation reviewed up to this point in time: agreed with
History of Present Illness
History of Present Illness:
64-year-old male with past medical history of obesity, cirrhosis, paraplegia, neurogenic bladder with chronic Padron catheter who presents to the emergency room from custodial for evaluation of abdominal pain with nausea and vomiting. Patient was
notably just admitted to this hospital 04/27/2024 until 05/12/24�discharged yesterday. He had a complicated hospitalization�initially presented with abdominal pain, nausea, vomiting and was found to have a perinephric hematoma was also thought to be
septic due to complicated UTI. He was admitted in the ICU and was requiring vasopressors due to shock. He had ureteral stone as well as acute kidney injury. Hospitalization was complicated by development of a small bowel obstruction; he also was
found to have right upper extremity DVT during hospitalization. Bowel obstruction was treated with bowel regimen, DVT was treated with heparin although treatment was somewhat limited due to significant hematuria. Ultimately he was not discharged
on anticoagulation. He went to the OR with urology on 05/10 for cystoscopy, stone extraction, stent exchange. Once he was stabilized he was discharged back to nursing facility. He presents with worsening abdominal pain, abdominal distention,
nausea and vomiting over the past 24 hours. Has not moved bowels since discharge. He denies any fever. He does report some chest pain and some trouble breathing. He has chronic Padron catheter in place.
Past History
Past History
ED Past Medical History: GERD, Renal failure, Psychiatric (Depression), Other (T6 paraplegia ) and Other (Paraplegia with chronic neurogenic bladder and indwelling Padron, chronic thrombocytopenia, cirrhosis)
ED Past Surgical History: Bowel resection and Other (Left pneumonectomy)
Social History
Tobacco: Former smoker
Alcohol: None
Drug: None
Personal: Single
Living: custodial
Review of Systems
Review of Systems
All Other Systems: ROS reviewed and negative except as documented in HPI and ROS
Constitutional: Denies fever
Respiratory: Reports trouble breathing
Cardiac: Reports chest pain
ABD/GI: Reports abdominal pain, nausea, vomiting and constipated
: Denies flank pain
Neurological: Denies dizzy or headache
Phy Exam
Physical Exam
Physical Exam:
General: Awake, alert, holding emesis bag
Head: Normocephalic, atraumatic
Eyes: Scleral icterus
Throat: Airway intact, handling secretions
Neck: Trachea midline, no JVD
Lungs: Breath sounds diminished at the lung bases, mild tachypnea, no hypoxia
Heart: Tachycardia with regular rhythm, no murmurs, gallops, or rubs
Abd: Firm and distended, tympanic, diffusely tender
Neuro: No gross deficits
Extremities: Warm and perfused
Scores
Heart Failure Risk
Heart Failure Risk Score: Not Applicable
Heart Score for Chest Pain Patients
STEMI patient?: Not applicable
Withdrawal Assessment of Alcohol
Withdrawal Assessment Completed?: Not applicable
Course
Orders/Labs/Results
Orders:
Orders
05/13/24 06:55
EKG [Electrocardiogram (*1)] Stat
Reason for Study: Tachycardia
EKG- Treatment ONCE
05/13/24 06:59
Adenosine [Adenocard] 6 mg .ROUTE .STK-MED ONE
05/13/24 07:07
Portable Chest Xray [CR Chest Portable - 1 View] Stat
Comment:
Reason For Exam: pain
Reason Study Needs to be Portable: Patient Unstable
05/13/24 07:09
0.9% Sodium Chloride 1000 ml [Nss] 1,000 ml IV BOLUS
05/13/24 07:12
HYDROmorphone [Dilaudid] 1 mg IV NOW STA
Ondansetron Injectable [Zofran] 4 mg IV NOW STA
05/13/24 07:17
NG Tube [GI tube insertion- Treatment] ONCE
05/13/24 07:30
COVID-19 Antigen Urgent
Source: Nasal Swab
Complete Blood Count/With Diff Urgent
Comprehensive Metabolic Panel Urgent
Free T4 Urgent
Lipase Urgent
Magnesium Urgent
Manual Differential Urgent
TSH Reflex To Free T4 Urgent
Comment: ADD ON
Influenza A+B Rapid Molecular Urgent
[place] Source: Nasal Swab
Specimen Description:
05/13/24 07:36
Ammonia Urgent
05/13/24 07:37
CT Chest/abd/pel W Iv Cont Urgent
Reason For Exam: sob, upper abd pain, order combined
05/13/24 08:00
Diltiazem HCl [Cardizem] 10 mg IV NOW STA
05/13/24 08:14
CARDIOLOGY CONSULT Urgent
Consulting Provider: Anthony Dunne
Was physician already notified: Yes
05/13/24 08:17
0.9% Sodium Chloride 1000 ml [Nss] 1,000 ml IV BOLUS
05/13/24 08:26
Amiodarone [Cordarone] 150 mg Dextrose 5%/Water 100 ml [D5w] 100 ml IV NOW
05/13/24 09:25
Urinalysis Reflex To Culture Urgent
Date Specimen was Collected: 05/13/24
Time Specimen was Collected: 09:21
Urine Microscopic Reflex Cult Urgent
Urine Culture Urgent
[place] Source: U
Specimen Description:
Date Specimen was Collected: 05/13/24
Time Specimen was Collected: 09:21
05/13/24 09:30
Amiodarone [Cordarone] 900 mg DEXTROSE 5% PVC-free BAG [D5W PVC-free BAG] 500 ml IV PER PROTOCOL
Initial Dose in mg/min:: 1
Duration of initial dose (hours):: 6
Subsequent dose in mg/min:: 0.5
Duration of subsequent dose (hours):: 18
Maximum dose in mg/min:: 1
Hold and notify provider if:: Heart rate < 60 BPM or SBP < 90 mmHg or MAP < 60 mmHg
05/13/24 09:58
Add On- LAB Routine
Tests Added?: TSH with reflex to free T4
05/13/24 10:17
Piperacillin/Tazo 3.375 Gram [Zosyn] 3.375 gram in 50 ml IV NOW
05/13/24 10:20
EKG [Electrocardiogram (*1)] Stat
Reason for Study: Tachycardia
EKG- Treatment ONCE
05/13/24 11:23
Admit/Transfer Patient As Directed
Co-Sign Provider:
Level of Care: Inpatient admission
Assign to:: ICU
Physician / Group: Hoospitalist
Diagnosis: SVT
Reason for Hospitalization: SVT,free air
Expected length of stay greater than two midnights?: Yes
ELOS- Estimated Length of Stay in days: 2
I certify the patient meets the requirements for IP care: Yes
PRN Pain Medication Management As Directed
May give lesser potent ordered pain med per pt: Yes
preference::
Protocol:: Medication orders for pain may be administered in a
manner that supports deferring to patient preference
when the pt is:
- Requesting an ordered lesser potent pain medication.
Least to most potent pain medications are defined
as: acetaminophen < NSAID < tramadol < opioids
(morphine, oxycodone, hydromorphone).
- Requesting a lesser dose of the same medication IF
ORDERED.
- Requesting a less intrusive route of administration
if both routes are prescribed by the provider (PO <
IV).
05/13/24 11:29
IRAD CONSULT Routine
Consulting Provider: Anmol Barajas
Was physician already notified: Yes
Reason for Consult/Procedure: IJ
Acknowledgement that appropriate orders are entered: Yes
05/13/24 11:30
PHENYLephrine 50 MG/250 ML NSS [Jimbo-Synephrine] 50 mg in 250 ml IV PER PROTOCOL
Initial dose in mcg/min, then titrate:: 10
Titrate to keep:: MAP > 65 mmHg
Titrate by mcg/min:: 20 mcg/min
Frequency of titrations (minutes):: 5
Maximum dose in ICU in mcg/min:: 200
Maximum dose in IMU in mcg/min:: 80
Begin to taper infusion when:: Remained at goal for 4hrs
Taper by mcg/min:: 20 mcg/min
Frequency of taper (minutes) if patient maintains goal:: 30
Taper to off?: Yes
If infusion off & no longer maintaining goal:: Contact Provider
05/13/24 11:38
Midodrine [ProAmatine] 10 mg PO NOW STA
05/13/24 11:38
UROLOGY CONSULT Routine
Consulting Provider: Jaguar Breen
Was physician already notified: Yes
Comment: retention, recent stent
05/14/24 06:00
Echo 2D MMode Color/Doppler IN AM
Reason for Study: SVT
Comment: when HR slower
Abnormal Lab Results
05/13/24 05/13/24 05/13/24
07:30 07:36 09:25
RBC 4.54 L 10^6/uL
(4.70-6.10)
Hgb 12.2 L D g/dL
(13.0-18.0)
Hct 38.6 L %
(39.0-52.0)
MCH 26.9 L pg
(27.0-31.0)
MCHC 31.6 L g/dL
(33.0-37.0)
RDW 15.6 H %
(11.5-14.5)
Abs Neuts (Manual) 7.5 H 10^3/uL
(1.4-6.5)
Band Neutrophils 19 H %
(0-3)
Lymphocytes (Manual) 15 L %
(20-51)
Carbon Dioxide 18 L mmol/L
(22-30)
Creatinine 1.6 H mg/dL
(0.7-1.3)
Glucose 117 H mg/dl
(70-99)
Calcium 7.9 L mg/dl
(8.4-10.2)
Total Bilirubin 2.4 H mg/dl
(0.2-1.3)
AST 60 H U/L
(17-59)
Alkaline Phosphatase 173 H U/L
(38-126)
Ammonia < 9 L umol/L
(9-30)
Albumin 2.7 L g/dl
(3.5-5.0)
TSH (Reflex) 4.73 H uIU/ml
(0.47-4.68)
Free T4 2.28 H ng/dl
(0.78-2.19)
Urine Ketones Trace A
(Negative)
Ur Occult Blood Reflex 4+ A
(Negative)
Urine Bilirubin 1+ A
(Negative)
Leukocyte Esterase Rfl 2+ A
(Negative)
Urine WBC (Reflex) 11-15 A /HPF
(0-5)
Urine Bacteria (Reflex) Moderate A
(Negative)
Urine Albumin (Reflex) 2+ A
(Neg - Trace)
05/13/24 07:30
05/13/24 07:30
Vital Signs
Initial and Last Documented VS:
Initial Vital Signs
BP
102/57
05/13/24 07:08
Last Documented Vital Signs
Pulse Resp BP Pulse Ox
146 25 80/55 95
05/13/24 12:08 05/13/24 09:30 05/13/24 12:08 05/13/24 10:00
Procedures
Cardioversion
Indication:: SVT
Performed by:: Donnie Mendoza MD
Synchronized?: Yes
Energy Used: 200 joules
Number of attempts: 1
Successful?: No
MDM/Problems Addressed
Differential Diagnosis Includes:
Small bowel obstruction, ileus, cholecystitis, pancreatitis, hepatitis, gastritis, UTI, nephrolithiasis, worsening perinephric hematoma
MDM/Problems Addressed:
64-year-old male presents for evaluation of abdominal pain, nausea, vomiting in the setting of recent complicated hospitalization as above. He arrived was markedly tachycardic with a heart rate in the 170s�EKG appears to show SVT. Soft blood
pressure. Not hypoxic, mild tachypnea. Afebrile. Physical exam as above. Place an IV check labs including a CBC and CMP, lipase. Swab for COVID and flu. Check ammonia level. Will check stat chest x-ray. Check CT abdomen pelvis. Dose with
adenosine. Provide fluids and antiemetic. Pain control. Reassess after the above.
After placing IV we gave a dose of adenosine 6 mg x 1 with no effect; subsequently gave adenosine 12 mg with no effect. Remains tachycardic in the 170s. Blood pressure slightly improving with fluids. Will discuss with cardiology regarding marked
tachycardia.
Discussed with cardiology, recommended low-dose diltiazem to start if blood pressure running low can transition to amiodarone instead.
Unfortunately prior to even administering first dose of diltiazem blood pressure starting to run low again in the 80s over 50s. Will opt for treatment of SVT with amiodarone as above.
Reviewed labs: Patient has anemia with a hemoglobin of 12.2 which is actually increased from his prior labs could be hemoconcentrated. His CMP shows mild AVTAR with a creatinine of 1.6. He has a slight metabolic acidosis with no significant anion
gap. Likely GI losses from vomiting. His lipase is normal. LFTs essentially stable. Urinalysis was positive for infection. Chest x-ray was very limited and so he was sent for CT chest in addition to his CT abdomen pelvis�results show low
density perinephric hematoma/seroma compressing the right kidney�no new hemorrhage but it does appear increased compared to prior imaging. He has moderate ascites. He has fluid-filled loops of small bowel likely reflecting an ileus no clear
obstruction. He has not had additional vomiting since he was given Zofran, I did offer nasogastric tube to decompress the stomach but the patient is adamant he will not allow for nasogastric tube placement. We are continuing to manage his
tachycardia.
Unfortunately patient remaining hypotensive and actually has dropped slightly now down to 70s over 40s and although tachycardia did slightly improve with amiodarone heart rate now in the 150s he remains markedly tachycardic. Reviewed with
cardiology including repeat EKG which appears now on regular�read as sinus tachycardia but I wonder given degree of elevation whether this could be an atrial tachycardia or atrial flutter. After discussion with cardiology of the full clinical
picture recommended trial of ED cardioversion with concern that this could potentially be an unstable rhythm. We did attempt ED cardioversion x 1 but unfortunately patient remains markedly tachycardic. He did not tolerate procedure well and
concern with further sedation that we could worsen his hypotension. Defer further attempts to cardiology. Case discussed with hospitalist for admission.
Chronic conditions affecting care:
Paraplegia, cirrhosis
*Radiology
Radiology exam reviewed: preliminary read by ED provider and radiology read reviewed
*Pulse Oximetry
Patient hypoxic: no
*EKG
Interpreted by ED Provider?: Yes
Heart Rate: 178
Rate: tachycardiac
Rhythm: SVT
[place]: normal axis
Interval: normal interval
QRS Pattern: normal QRS
Ischemia: non-specific ST changes
*Critical Care Note
Total Time (30-74mins, 75-104mins- exclusive of procedures): 59
comment:
Critical care statement: A total of 59 minutes of critical care time was provided for this patient. This includes management of unstable vital signs, evaluation of the patient at bedside, frequent reassessment, discussion with
consultants/hospitalist, and review of pertinent medical records. This time was separate from time utilized to perform any aforementioned documented procedures
Data Reviewed
Review of Other/Old Records Reveals: Labs, Records, Operative Reports and Discharge Summary
Source: patient, records and ambulance crew
Patient Management
Discussion with other providers: Hospitalist (Discussed with hospitalist) and Sack Cleaning Hand (Discussed with apartment maintenance technician)
Escalation/DeEscalation of care consider admission/obs:
Admission indicated
ED Attending Note
-
Portions of this chart may have been created with voice recognition software.� Occasional wrong word or��sound alike� substitutions may have occurred due to the inherent limitations of voice recognition software.
Discharge Plan
Departure
Patient Disposition: Admit
Date of Disposition: 05/13/24
Time of Disposition: 10:56
Admit to doctor: Jennifer
Presentation/result/management discussed w/ accepting MD/DO: Hospitalist
Discharge Problem:
SVT (supraventricular tachycardia), Perinephric hematoma, Ileus, Nausea & vomiting, Acute UTI
Interventions
Interventions:
*Risk Screen - Suicide Last Done: 05/13/24 07:43
*General Assessment Last Done: 05/13/24 07:43
*Neglect/Abuse Screening Last Done: 05/13/24 07:43
*ED COVID-19 Vaccine History Last Done: 05/13/24 07:43
ED- Cardiac Assessment Last Done: 05/13/24 07:47
ED- Pulmonary Assessment Last Done: 05/13/24 07:48
[2024-05-13 07:51] LABS: Hematocrit 38.6 % (39.0-52.0); Hemoglobin 12.2 g/dL (13.0-18.0); Mean Corp Hgb Conc. 31.6 g/dL (33.0-37.0); Mean Corpuscular Hgb 26.9 pg (27.0-31.0); Mean Platelet Volume 9.4 fL (7.4-10.4); Platelet Count 228 10^3/uL (130-400); Red Blood Cell Count 4.54 10^6/uL (4.70-6.10); Red Cell Dist. Width 15.6 % (11.5-14.5); White Blood Cell Count 9.7 10^3/uL (4.8-10.8)
[2024-05-13 07:59] LABS: COVID-19 Antigen Negative (Negative)
[2024-05-13] MEDS: DILAUDID 1 MG IV ×2 (08:02→13:33)
[2024-05-13] MEDS: ZOFRAN 4 MG IV (08:03)
[2024-05-13] MEDS: NSS 1000 IV ×3 (08:04→19:30)
[2024-05-13 08:08] LABS: Ammonia < 9 umol/L (9-30)
[2024-05-13 08:10] LABS: ALT (SGPT) 31 U/L (0-50); AST (SGOT) 60 U/L (17-59); Albumin 2.7 g/dl (3.5-5.0); Alkaline Phosphatase 173 U/L (38-126); Blood Urea Nitrogen 19 mg/dl (9-20); Calcium 7.9 mg/dl (8.4-10.2); Carbon Dioxide 18 mmol/L (22-30); Chloride 105 mmol/L (98-107); Glucose 117 mg/dl (70-99); Lipase 162 U/L (23-300); Magnesium 1.7 mg/dl (1.6-2.3); Potassium 4.8 mmol/L (3.5-5.1); Sodium 136 mmol/L (135-145); Total Bilirubin 2.4 mg/dl (0.2-1.3); eGFR 48.11
[2024-05-13] MEDS: CORDARONE 103 MG IV (09:05)
--- NOTE | 2024-05-13 09:39 | CON.CAR ---
Addendum entered and electronically signed by Anthony Dunne MD 05/13/24 14:08:
64 yo male with paraplegia, chronic Padron, recent complex admission detailed below, re-admitted with abdominal pain. We are consulted for tachycardia. Exam with tachy, regular rhythm; no murmurs.
Tachycardia. Sinus tachy vs other SVT. Initially given adenosine, and also attempt at DCCV in ED due to hypotension, but tachycardia persisted. Amiodarone was used for rate control.
CT then showed free air in abdomen, and he will need urgent surgery. I suspect his tachycardia is likely sinus tachycardia in this setting. We will continue to monitor him post op.
Original Note:
Consultation
Consultation Request
Date/Time Consultation Requested: 05/13/24813
Date/Time Consultation Performed: 05/13/24904
Requesting Provider: Dr. Mendoza
Performing Provider: Liliya SENA for Dr. Dunne
Reason for Consultation: SVT
Medical History
-
Chief Complaint: abdominal pain
History of Present Illness:
64 y/o male with paraplegia, chronic Padron with recurrent UTI's, hypertension, cirrhosis, anemia, depression who was recently here for complex hospitalization from 04/17/24-05/12/24 (d/c yesterday) with perinephric hematoma, septic shock from UTI,
ureteral stones, AVTAR, ileus vs SBO, DVT, hematuria who is back due to abdominal pain, nausea, and vomiting. We are consulted due to SVT noted on that monitor, which did not respond to adenosine. His BP is not robust and so he has been initiated on
amiodarone. He is in no distress at the time of my assessment. He sometimes has palpitations. He sometimes has sharp chest pains, but pain meds help. CT and XR are pending. He is feeling improved s/p fluids, Zofran, Dilaudid.
Past Medical History
Past Medical History: Other (as above)
Social History
Living: [facility]
Family History
Family History: Reviewed & Not Pertinent
Allergies / Home Medications
Allergy/AdvReac Type Severity Reaction Status Date / Time
ofloxacin Allergy Unknown/pt Verified 04/27/24 03:26
tolerated
cipro
pentazocine Allergy Unknown Verified 04/27/24 03:26
�Medication �Instructions �Recorded �Confirmed �Type
acetaminophen 325 mg tablet 325 mg PO Q6HPRN PRN mild 04/25/22 05/13/24 History
(Tylenol) pain/fever
baclofen 10 mg tablet 10 mg PO BID spasms 04/25/22 05/13/24 History
baclofen 20 mg tablet 20 mg PO HS spasm 04/25/22 05/13/24 History
escitalopram oxalate 10 mg tablet 10 mg PO DAILY Mental 04/25/22 05/13/24 History
(Lexapro) Health/Anxiety
famotidine 20 mg tablet (Pepcid) 20 mg PO DAILY Gastrointestinal 04/25/22 05/13/24 History
issue
folic acid 1 mg tablet 1 mg PO DAILY Supplement 04/25/22 05/13/24 History
melatonin 3 mg tablet 3 mg PO HS Sleep 04/25/22 05/13/24 History
sorbitol 70 % solution 30 ml PO [id number] PRN if no bm on 04/25/22 05/13/24 History
3rd day
therapeutic multivitamin 1 tab PO DAILY Supplement 04/25/22 05/13/24 History
thiamine HCl (vitamin B1) 100 mg 100 mg PO DAILY Supplement 04/25/22 05/13/24 History
tablet
sodium phosphates 19 gram-7 118 ml OH DAILYPRN PRN if no bm 06/20/23 05/13/24 History
gram/118 mL enema (Fleet Enema) aftr dulcolax
metoprolol tartrate 25 mg tablet 12.5 mg (1/2 x 25 mg) PO BID Blood 06/24/23 05/13/24 Rx
pressure #0 tabs
albuterol sulfate 90 mcg/actuation 2 puff inhalation R Q4HPRN PRN sob 02/18/24 05/13/24 History
aerosol inhaler
cranberry fruit 450 mg tablet 450 mg PO DAILY Supplement 02/18/24 05/13/24 History
(cranberry)
docusate sodium 100 mg capsule 100 mg PO DAILY Constipation 02/18/24 05/13/24 History
(Colace)
hydroxyzine HCl 25 mg tablet 25 mg PO Q6HPRN PRN itchness 02/18/24 05/13/24 History
pregabalin 100 mg capsule (Lyrica) 100 mg PO HS Pain #14 caps 02/24/24 05/13/24 Rx
furosemide 20 mg tablet (Lasix) 10 mg PO DAILY Fluid 04/27/24 05/13/24 History
Retention/Swelling
albuterol sulfate 2.5 mg/3 mL 2.5 mg (3 mL) inhalation R Q4HPRN 05/12/24 05/13/24 Rx
(0.083 %) solution for nebulization PRN SOB #0 mL
cholecalciferol (vitamin D3) 50 50 mcg PO DAILY Supplement #0 tabs 05/12/24 05/13/24 Rx
mcg (2,000 unit) tablet
doxycycline hyclate 100 mg capsule 100 mg PO Q12 Urinary issue #0 caps 05/12/24 05/13/24 Rx
pantoprazole 40 mg tablet,delayed 40 mg PO DAILY Gastrointestinal 05/12/24 05/13/24 Rx
release issue #0 tabs
polyethylene glycol 3350 17 gram 17 g PO DAILY Constipation #0 ea 05/12/24 05/13/24 Rx
oral powder packet
tramadol 50 mg tablet 25 mg (1/2 x 50 mg) PO Q6HPRN PRN 05/12/24 05/13/24 Rx
pain #10 tabs
bisacodyl 10 mg rectal suppository 10 mg [place] DAILYPRN PRN If no BM 05/13/24 05/13/24 History
(Dulcolax (bisacodyl)) after MOM
calcium polycarbophil 625 mg 1,250 mg PO QPM Supplement 05/13/24 05/13/24 History
tablet (FiberCon)
clindamycin phosphate 1 % lotion 1 applic topical DAILY back 05/13/24 05/13/24 History
diphenhydramine HCl 25 mg capsule 50 mg PO Q4HPRN PRN itching 05/13/24 05/13/24 History
(Benadryl)
guaifenesin 400 mg tablet 800 mg PO BID cough/congestion 05/13/24 05/13/24 History
midodrine 5 mg tablet 5 mg PO TID low blood pressure 05/13/24 05/13/24 History
sodium chloride 0.65 % nasal spray 2 spray intranasal TID dry nares 05/13/24 05/13/24 History
aerosol
Review of Systems
-
History Source: Patient and Other (and chart)
Cardiac: Chest Pain
Abdomen/GI: Abdominal Pain, Nausea and Vomiting
Physical Exam
Vital Signs
Pulse Resp BP Pulse Ox
148 25 95/58 98
05/13/24 09:30 05/13/24 09:30 05/13/24 09:00 05/13/24 09:30
Lab Results
05/13/24 07:30
05/13/24 07:30
Physical Exam
General: No Apparent Distress
HEENT: Normocephalic and Anicteric
Respiratory: Clear and Non Labored Respirations
Cardiac: Regular Rhythm (tachycardia)
Musculoskeletal: Edema (mild BLE edema)
Neuro: AO x 3
Psych: Calm
Impression / Plan
-
Nausea, vomiting, abdominal pain:
-recent ileus versus SBO
-CT imaging is pending
-management per primary team
-symptoms have improved with treatment in ER
SVT:
-in setting of acute illness with GI source (nausea, vomiting, abdominal pain)- patient getting IVF and treatment in ER
-did not respond to adenosine
-BP on low and and amiodarone has been initiated. Continue amiodarone drip. This medication requires intensive monitoring. Follow telemetry. Monitor LFT's- hx liver disease. Amio to be temporary while underlying acute issue treated.
-can check echo when HR slower- order placed for tomorrow AM
-will add on TSH
AVTAR:
-monitor with fluid administration
Data Reviewed
-
EKG: Tracing Personally Visualized and interpreted (SVT 178 BPM)
Radiology: Report Reviewed by me (XR 05/12/24: Nonobstructive bowel gas pattern. Gas is present throughout the colon extending to the rectum with likely mild rectal stool burden..)
Medical Tests (Nuc Med, Echo etc): Other (echo ordered)
Labs: Labs Reviewed by me
[2024-05-13 09:46] LABS: Urine Albumin 2+ (Neg - Trace); Urine Bilirubin 1+ (Negative); Urine Character Clear (Clear); Urine Color Yellow; Urine Glucose Negative (Negative); Urine Ketone Trace (Negative); Urine Leukocyte 2+ (Negative); Urine Nitrite Negative (Negative); Urine Occult Blood 4+ (Negative); Urine Urobilinogen 1+ (Neg - 1+)
[2024-05-13] MEDS: CORDARONE 518 MG IV (09:46)
--- NOTE | 2024-05-13 10:00 | EDRN ---
Patient refused NGT
[2024-05-13 10:02] LABS: Absolute Neutrophils -Man Diff 7.5 10^3/uL (1.4-6.5); Band Neutrophils 19 % (0-3); Segmented Neutrophils 59 % (42-75)
[2024-05-13 10:03] LABS: Anisocytosis Slight; Hypochromasia 1+; Lymphocytes 15 % (20-51); Metamyelocytes 2 % (-); Monocytes 4 % (2-9); Myelocytes 1 % (-); Normal RBC Morphology No; Platelets Checked Yes; Total Cells Counted 100
[2024-05-13 10:14] LABS: Urine Bacteria Moderate (Negative); Urine Red Blood Cell 0-2 /HPF (0-2); Urine Squamous Cell 0-2 /LPF (Few)
[2024-05-13] MEDS: ZOSYN 50 IV (10:58)
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
[2024-05-13] MEDS: ProAmatine 10 MG PO (12:08)
[2024-05-13 12:11] LABS: TSH Reflex To Free T4 4.73 uIU/ml (0.47-4.68)
[2024-05-13 12:39] LABS: Free T4 2.28 ng/dl (0.78-2.19)
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
--- NOTE | 2024-05-13 13:01 | EDRN ---
Addendum entered by Patsy Leo RN 05/13/24 15:06:
20 Fr coude-tipped Barcenas was placed by Urology not 16F
Original Note:
16F barcenas placed by Urology in ER.
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
--- NOTE | 2024-05-13 13:22 | CONS.URO ---
Consultation
-
Date/Time Consultation Performed: 05/13/2024 1150
Performing Provider: Jamshid
Reason for Consultation: difficult Barcenas
Medical History
History of Present Illness
pt with ngb secondary to paraplegia
chronic barcenas- chronic ESBL bacteruria
nephrolithiasis
discharged yesterday to SNF; returned today to ED for SVT
Barcenas in ED was not draining
3 attempts failed, prompting consultation
Allergies/Home Medications
Allergies
Allergy/AdvReac Type Severity Reaction Status Date / Time
ofloxacin Allergy Unknown/pt Verified 04/27/24 03:26
tolerated
cipro
pentazocine Allergy Unknown Verified 04/27/24 03:26
Home Medications
�Medication �Instructions �Recorded �Confirmed �Type
acetaminophen 325 mg tablet 325 mg PO Q6HPRN PRN mild 04/25/22 05/13/24 History
(Tylenol) pain/fever
baclofen 10 mg tablet 10 mg PO BID spasms 04/25/22 05/13/24 History
baclofen 20 mg tablet 20 mg PO HS spasm 04/25/22 05/13/24 History
escitalopram oxalate 10 mg tablet 10 mg PO DAILY Mental 04/25/22 05/13/24 History
(Lexapro) Health/Anxiety
famotidine 20 mg tablet (Pepcid) 20 mg PO DAILY Gastrointestinal 04/25/22 05/13/24 History
issue
folic acid 1 mg tablet 1 mg PO DAILY Supplement 04/25/22 05/13/24 History
melatonin 3 mg tablet 3 mg PO HS Sleep 04/25/22 05/13/24 History
sorbitol 70 % solution 30 ml PO [id number] PRN if no bm on 04/25/22 05/13/24 History
3rd day
therapeutic multivitamin 1 tab PO DAILY Supplement 04/25/22 05/13/24 History
thiamine HCl (vitamin B1) 100 mg 100 mg PO DAILY Supplement 04/25/22 05/13/24 History
tablet
sodium phosphates 19 gram-7 118 ml [place] DAILYPRN PRN if no bm 06/20/23 05/13/24 History
gram/118 mL enema (Fleet Enema) aftr dulcolax
metoprolol tartrate 25 mg tablet 12.5 mg (1/2 x 25 mg) PO BID Blood 06/24/23 05/13/24 Rx
pressure #0 tabs
albuterol sulfate 90 mcg/actuation 2 puff inhalation R Q4HPRN PRN sob 02/18/24 05/13/24 History
aerosol inhaler
cranberry fruit 450 mg tablet 450 mg PO DAILY Supplement 02/18/24 05/13/24 History
(cranberry)
docusate sodium 100 mg capsule 100 mg PO DAILY Constipation 02/18/24 05/13/24 History
(Colace)
hydroxyzine HCl 25 mg tablet 25 mg PO Q6HPRN PRN itchness 02/18/24 05/13/24 History
pregabalin 100 mg capsule (Lyrica) 100 mg PO HS Pain #14 caps 02/24/24 05/13/24 Rx
furosemide 20 mg tablet (Lasix) 10 mg PO DAILY Fluid 04/27/24 05/13/24 History
Retention/Swelling
albuterol sulfate 2.5 mg/3 mL 2.5 mg (3 mL) inhalation R Q4HPRN 05/12/24 05/13/24 Rx
(0.083 %) solution for nebulization PRN SOB #0 mL
cholecalciferol (vitamin D3) 50 50 mcg PO DAILY Supplement #0 tabs 05/12/24 05/13/24 Rx
mcg (2,000 unit) tablet
doxycycline hyclate 100 mg capsule 100 mg PO Q12 Urinary issue #0 caps 05/12/24 05/13/24 Rx
pantoprazole 40 mg tablet,delayed 40 mg PO DAILY Gastrointestinal 05/12/24 05/13/24 Rx
release issue #0 tabs
polyethylene glycol 3350 17 gram 17 g PO DAILY Constipation #0 ea 05/12/24 05/13/24 Rx
oral powder packet
tramadol 50 mg tablet 25 mg (1/2 x 50 mg) PO Q6HPRN PRN 05/12/24 05/13/24 Rx
pain #10 tabs
bisacodyl 10 mg rectal suppository 10 mg [place] DAILYPRN PRN If no BM 05/13/24 05/13/24 History
(Dulcolax (bisacodyl)) after MOM
calcium polycarbophil 625 mg 1,250 mg PO QPM Supplement 05/13/24 05/13/24 History
tablet (FiberCon)
clindamycin phosphate 1 % lotion 1 applic topical DAILY back 05/13/24 05/13/24 History
diphenhydramine HCl 25 mg capsule 50 mg PO Q4HPRN PRN itching 05/13/24 05/13/24 History
(Benadryl)
guaifenesin 400 mg tablet 800 mg PO BID cough/congestion 05/13/24 05/13/24 History
midodrine 5 mg tablet 5 mg PO TID low blood pressure 05/13/24 05/13/24 History
sodium chloride 0.65 % nasal spray 2 spray intranasal TID dry nares 05/13/24 05/13/24 History
aerosol
Physical Exam
Vital Signs
Vital Signs
Pulse Resp BP Pulse Ox
146 25 80/55 95
05/13/24 12:08 05/13/24 09:30 05/13/24 12:08 05/13/24 10:00
Lab / Testing Results
Laboratory Results
05/13/24 07:30
05/13/24 07:30
Physical Exam
per pt's request, a 20 Fr coude-tipped Barcenas was placed with return of jalil urine
Assessment / Plan
-
pt with ngb secondary to paraplegia
chronic barcenas- chronic ESBL bacteruria
nephrolithiasis
difficult barcenas --> new Barcenas placed
[2024-05-13] MEDS: MERREM 1000 MG IV (13:24)
[2024-05-13] MEDS: STERILE WATER FOR INJECTION 20 ML IV (13:30)
[2024-05-13] MEDS: VANCOCIN 540 MG IV (14:00)
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
--- NOTE | 2024-05-13 14:27 | W.PN.SURGUPD ---
Surgical Update
Surgical Update
Patient is in the preoperative holding area.
He is currently refusing surgery. He is oriented to himself and location but not his current medical condition. Patient stating that we have his son locked in a closet in the holding area as evidence of his current mental status. I have attempted
numerous times to explain to the patient the gravity of his current situation. He has free air, tachycardia with hypotension (septic shock), diffuse peritonitis on examination with rebound and guarding. There is a immediate threat to his life due
to high suspicion for perforated hollow viscus - small bowel, colon or peptic ulcer. Although he is refusing surgery he does not acknowledge the consequences of refusing surgery that would essentially most likely be worsening septic shock and
subsequent if we did not proceed with surgical intervention to control the source of his peritonitis and sepsis surgically. He does not acknowledge that this is the risk of refusing surgery.
I have reviewed his medical records from his long-term care facility and our hospital. There is a single contact who I reached out to and spoke to but she refused to acknowledge that she knew Mr. Adame and she would not give me her name. The
hospitalist have come and evaluated the patient again as well in preoperative holding area in an effort to tell him regarding the necessity of surgery. I have requested to the patient numerous times if there is any other contacts I can reach out to
and he does not know of anybody else and cannot provide me with any phone numbers in his current state.
It is our medical belief that surgery is necessary for lifesaving care and that Mr. Adame is currently medically not competent to provide refusal of surgery given his acute illness and confusion. Under the circumstances we are proceeding with
exploratory laparotomy, repair of perforated viscus.
Reviewed with medicolegal risk marriage counselor as well.
--- NOTE | 2024-05-13 14:31 | W.PN.UPDATE ---
Update Note
Progress Note Update
I was called to see the patient again in PACU as he was not agreeing for surgery thinking that a 'Elvis Dolan ' was going to do his surgery.
He was initially not willing to do a central line in the ER however after I spoke to him in the ER he was agreeable and did not let IR do the procedure. During that conversation I spoke to him about his life-saving surgery and he was agreeable and
I did discuss that Dr. Miles will be doing it.
He received Dilaudid after which he became confused. When I saw him in the PACU he was confused and felt that his son Deep Salvador is locked up in the shelf next to him. He also told me that Elvis Dolan is disguised and he will be doing his
surgery and he does not want him to do surgery. At this point patient is very confused and surgery is an emergency. Dr. Miles called and spoke to the the person on the power of litigation attorney associate number listed and she stated told him that there is nothing
to do with the patient. We do not have a contact number at this point and I think this is a lifesaving emergency procedure therefore we will proceed with the procedure .
--- NOTE | 2024-05-13 14:34 | W.SUR.PREOP ---
Pre-Operative Surgical Note
-
I have examined this patient prior to the performance of the scheduled procedure.
The patient's condition is unchanged from the time of the current History and
Physical and the patient is able to undergo the scheduled procedure.
[2024-05-13 16:10] LABS: B.E. - POC -11.9 mmol/L; Glucose - POC 98 mg/dl (70-99); HCO3 - POC 16 mmol/L (21-28); Hematocrit - POC 24 % PCV (42-52); Hemodilution- POC Yes; Hemoglobin Calculated - POC 8.2; Ionized Calcium - POC 1.04 mmol/L (1.15-1.33); Lactate - POC 2.02 mmol/L (0.36-0.75); O2 Saturation %Calculated-POC 98.5 % (94-98); PCO2 - POC 47 mmHg (35-48); PO2 - POC 148 mmHg (83-108); Potassium - POC 4.5 mmol/L (3.5-5.1); Sodium - POC 139 mmol/L (136-145); Specimen Type - POC Arterial; pH - POC 7.15 (7.35-7.45)
[2024-05-13 16:59] LABS: B.E. - POC -8.3 mmol/L; Glucose - POC 100 mg/dl (70-99); HCO3 - POC 19 mmol/L (21-28); Hematocrit - POC 22 % PCV (42-52); Hemodilution- POC Yes; Hemoglobin Calculated - POC 7.5; Ionized Calcium - POC 1.11 mmol/L (1.15-1.33); Lactate - POC 2.33 mmol/L (0.36-0.75); O2 Saturation %Calculated-POC 99.1 % (94-98); PCO2 - POC 44 mmHg (35-48); PO2 - POC 161 mmHg (83-108); Potassium - POC 4.7 mmol/L (3.5-5.1); Sodium - POC 141 mmol/L (136-145); Specimen Type - POC Arterial; pH - POC 7.23 (7.35-7.45)
[2024-05-13 17:40] LABS: B.E. - POC -7.3 mmol/L; Glucose - POC 111 mg/dl (70-99); HCO3 - POC 19 mmol/L (21-28); Hematocrit - POC 22 % PCV (42-52); Hemodilution- POC Yes; Hemoglobin Calculated - POC 7.5; Ionized Calcium - POC 1.15 mmol/L (1.15-1.33); Lactate - POC 2.45 mmol/L (0.36-0.75); O2 Saturation %Calculated-POC 99.2 % (94-98); PCO2 - POC 40 mmHg (35-48); PO2 - POC 158 mmHg (83-108); Potassium - POC 4.6 mmol/L (3.5-5.1); Sodium - POC 142 mmol/L (136-145); Specimen Type - POC Arterial; pH - POC 7.28 (7.35-7.45)
--- NOTE | 2024-05-13 17:56 | W.IMMPOSTOP ---
Addendum entered and electronically signed by Raj Miles MD 05/31/24 15:02:
[id number]
Original Note:
Surgical Immed Post Op Note
-
Primary Surgeon: Jd
Assisting Surgeon: Sy Hansen MD
Pre-op Diagnosis: Perforated viscus, peritonitis, septic shock
Post-op Diagnosis: Perforated ileum with generalized peritonitis, septic shock
Procedure Performed: Exploratory laparotomy right hemicolectomy
Anesthesia Type: GETA
Specimen / Cultures: Right hemicolectomy
Estimated Blood Loss: 200 mL
Complications: None immediate
Operative Findings: Perforated terminal ileum with bilious ascites. Remaining small bowel unremarkable. Distended colon but no acute colonic process. Cirrhotic liver. Right hemicolectomy; stapled ileocolonic [id number] anastomosis VIKRAM 80
purple Tri stapler. Hand sewn closure of enterotomies for anastomosis with 2-0 PDS STRATAFIX spiral - 2 layer closure. Oozing tissues with collaterals indicative of underlying cirrhosis with probable portal hypertension. Mesenteric division with
Voyant vessel sealer but oversewn in numerous locations as well. Chronically fibrotic tissues as well overlying right kidney/Gerota's fascia and hepatic flexure. NG tube positioning confirmed intraoperatively.
Drains: 19 Jayme right paracolic gutter/subhepatic space.
Plan: Transfer to ICU for postoperative resuscitation
Will remain intubated initially postoperatively
Zosyn for coverage of perforation
Therapeutic anticoagulation will likely have to be held 48 hours postop given underlying cirrhosis and propensity for bleeding postoperatively
Updated hospitalist and searchlight operator via [place] text at conclusion of procedure
There is no family/power of attorney general or next of kin to notify (person at number listed denied knowing patient)
[2024-05-13] MEDS: LR 500 IV (19:30)
[2024-05-13] MEDS: DIPRIVAN 100 IV ×2 (19:30→23:47)
[2024-05-13] MEDS: SUBLIMAZE 100 IV (19:30)
--- NOTE | 2024-05-13 19:30 | PTCARENOTE ---
pt adm at 1900 direct from OR, arrived intub on Levo/Vaso, SBP 70s- pressors titrated as documented, LR bolus, R rad AL leveled/zeroed. abd with ne arzola CDI- EN drain filled with sang drainage. Sat 100% on Fi02 100. L ngt to LIWS. Padron with
jalil/Bl tinged UO. awaiting 2nd unit PRBC, care ongoing.
[2024-05-13 19:42] LABS: Hematocrit 28.4 % (39.0-52.0); Hemoglobin 9.5 g/dL (13.0-18.0); Mean Corp Hgb Conc. 33.5 g/dL (33.0-37.0); Mean Corpuscular Hgb 28.7 pg (27.0-31.0); Mean Corpuscular Volume 85.8 fL (80.0-94.0); Mean Platelet Volume 9.9 fL (7.4-10.4); Platelet Count 198 10^3/uL (130-400); Red Blood Cell Count 3.31 10^6/uL (4.70-6.10); Red Cell Dist. Width 15.6 % (11.5-14.5); White Blood Cell Count 24.4 10^3/uL (4.8-10.8)
--- NOTE | 2024-05-13 19:42 | PHA.VAN.IN ---
Assessment
- Assessment
Renal Function: Appears elevated from baseline (1.3)
Concomitant Antimicrobials: meropenem
Plan
- Plan
Initial / Loading Dose: vanc 2000mg administered @ 1400
Maintenance Regimen: dosing by level
Monitoring: random level 05/14 06
Pharmacokinetics Vancomycin I
- -
Patient Age: 64
Patient Sex: Male
Vancomycin Day #: 1
Indication: Gi / Intra-Abdominal
Requesting Provider: Dr. Miles/Dr. Riggins
Pertinent Antimicrobial Allergies:
ofloxacin - unknown (pt tolerated ciprofloxacin)
Height / Weight:
Height 5 ft 5 in
Actual Weight 121 kg
Pertinent Past Medical History: BMI ~44, Paraplegia, CKD III
- Vital Signs / Lab Results
Pulse Resp BP Pulse Ox
134 22 72/57 100
05/13/24 14:00 05/13/24 13:30 05/13/24 14:05 05/13/24 18:40
Lab Results - Hematology
05/13/24
07:30
WBC 9.7
Band Neutrophils 19 H
Lab Results - Chemistry
05/13/24 05/13/24
07:30 13:27
BUN 19
Creatinine 1.6 H
Estimated Creat Clear Garment Manufacturer
Albumin 2.7 L
Lab Results - Urine
05/13/24
09:25
Urine Nitrite (Reflex) Negative
Leukocyte Esterase Rfl 2+ A
Urine WBC (Reflex) 11-15 A
Ur Squamous Epith Cells 0-2
Urine Bacteria (Reflex) Moderate A
Microbiology Results
05/13/24 07:30 Influenza Types A & B (ALEYDA) - Final
Nasal Swab Negative for Influenza A & B, NAAT
Negative results must be combined with clinical observations
and patient history.
Nucleic Acid Amplification test (NAAT)performed on the
[employer] platform.
[2024-05-13 19:54] LABS: Blood Urea Nitrogen 18 mg/dl (9-20); Calcium 6.4 mg/dl (8.4-10.2); Carbon Dioxide 16 mmol/L (22-30); Chloride 112 mmol/L (98-107); Estimated Creatinine Clearance 61 ml/min; Glucose 125 mg/dl (70-99); Sodium 139 mmol/L (135-145); eGFR 51.99
[2024-05-13 19:57] LABS: Troponin I < 0.012 ng/ml
[2024-05-13] MEDS: NSS IV (20:44)
[2024-05-13] MEDS: CALCIUM GLUCONATE 100 IV ×2 (21:08→23:12)
[2024-05-13] MEDS: LEVOPHED 250 IV ×2 (22:00→23:48)
[2024-05-13 22:18] LABS: Triglycerides 77 mg/dl (10-149)
[2024-05-13 22:20] LABS: B.E. -12.8 mmol/L; O2 Saturation % 98.7 % (94-98); PCO2 34 mmHg (35-48); PO2 106 mmHg (83-108); pH 7.22 (7.35-7.45)
[2024-05-13 22:22] LABS: HCO3 13.9 mmol/L (21-28)
[2024-05-13] MEDS: LIORESAL TUBE (22:31)
[2024-05-13 22:36] LABS: Lactic Acid 4.7 mmol/L (0.7-2.0)
[2024-05-13] MEDS: SODIUM BICARBONATE 50 MEQ IV (23:12)
[2024-05-13] MEDS: SODIUM BICARBONATE 1150 MEQ IV (23:47)
[2024-05-13] MEDS: PITRESSIN 100 IV (23:48)
[2024-05-14] MEDS: MERREM 500 MG IV ×4 (00:04→17:05)
[2024-05-14] MEDS: STERILE WATER FOR INJECTION 10 ML IV ×4 (00:04→17:05)
[2024-05-14] MEDS: LEVOPHED 250 IV ×4 (02:00→10:25)
[2024-05-14 04:00] LABS: Hemoglobin 10.9 g/dL (13.0-18.0); Mean Corpuscular Hgb 28.5 pg (27.0-31.0); Mean Corpuscular Volume 86.2 fL (80.0-94.0); Platelet Count 185 10^3/uL (130-400); Red Blood Cell Count 3.83 10^6/uL (4.70-6.10); Red Cell Dist. Width 15.1 % (11.5-14.5); White Blood Cell Count 32.1 10^3/uL (4.8-10.8)
--- NOTE | 2024-05-14 04:00 | PTCARENOTE ---
no changes in pt assessment, weaning pressors as able.
[2024-05-14 04:05] LABS: INR 2.45
[2024-05-14 04:06] LABS: APTT 46.1 Sec (23.4-35.0)
[2024-05-14 04:12] VITALS: BMI 40.1
[2024-05-14 04:29] LABS: Troponin I < 0.012 ng/ml
[2024-05-14 04:37] LABS: Lactic Acid 6.2 mmol/L (0.7-2.0)
[2024-05-14 04:38] LABS: ALT (SGPT) 24 U/L (0-50); AST (SGOT) 54 U/L (17-59); Albumin 1.6 g/dl (3.5-5.0); Alkaline Phosphatase 76 U/L (38-126); Blood Urea Nitrogen 17 mg/dl (9-20); Calcium 6.9 mg/dl (8.4-10.2); Carbon Dioxide 15 mmol/L (22-30); Chloride 108 mmol/L (98-107); Estimated Creatinine Clearance 57 ml/min; Glucose 280 mg/dl (70-99); Magnesium 1.3 mg/dl (1.6-2.3); Potassium 4.5 mmol/L (3.5-5.1); Sodium 136 mmol/L (135-145); Total Bilirubin 3.9 mg/dl (0.2-1.3); Total Protein 4.9 g/dl (6.3-8.2); eGFR 51.99
[2024-05-14] MEDS: DIPRIVAN 100 IV ×5 (04:49→22:50)
[2024-05-14 04:54] LABS: Vancomycin Random 15.5 ug/ml
[2024-05-14] MEDS: MAGNESIUM SULFATE 50 IV (05:21)
[2024-05-14] MEDS: CALCIUM GLUCONATE 100 IV ×2 (05:22→06:40)
[2024-05-14] MEDS: NOVOLOG FLEXPEN-MODERATE RESISTANCE 5 UNITS SC (05:51)
[2024-05-14 05:54] LABS: B.E. -9.8 mmol/L; HCO3 14.6 mmol/L (21-28); O2 Saturation % 98.9 % (94-98); PCO2 27 mmHg (35-48); PO2 98 mmHg (83-108); pH 7.34 (7.35-7.45)
[2024-05-14 06:03] LABS: Glucose - Point of Care 280 mg/dl (70-99)
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
--- NOTE | 2024-05-14 08:30 | PTCARENOTE ---
Assumed care of pt at 0700. Assessment as noted. Pt intubated/sedated on propofol and fentanyl. On Vasopressin and levophed to maintain MAP>65. Not following commands but withdraws to pain, + reflexes. NSR. Scant inline suction, course rhonchi and
rales throughout. NGT to LIWS-scant O/P. Absent bowel sounds. ML ABD incision with dressing, small amount of shadowing present and marked. Padron draining clear yellow urine. Suttocks with open stage 2 vs abrasions.
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
[2024-05-14] MEDS: NSS (PRESERVATIVE FREE) 10 ML IV (09:00)
[2024-05-14] MEDS: PROTONIX IV 40 MG IV (09:00)
[2024-05-14] MEDS: PITRESSIN 100 IV ×2 (09:00→17:37)
[2024-05-14] MEDS: LIORESAL TUBE (09:00)
[2024-05-14 09:16] LABS: Absolute Neutrophils -Man Diff 24.3 10^3/uL (1.4-6.5); Band Neutrophils 15 % (0-3); Eosinophils 2 % (0-6); Lymphocytes 9 % (20-51); Metamyelocytes 5 % (-); Microcytosis 1+; Monocytes 6 % (2-9); Myelocytes 2 % (-); Normal RBC Morphology No; Platelets Checked Yes; Segmented Neutrophils 61 % (42-75); Toxic Granulation 2+
[2024-05-14 09:17] LABS: Smudge Cells 1+; Total Cells Counted 100
--- NOTE | 2024-05-14 09:18 | W.PN.CD ---
Today's Communication / Plan
-
Trend tele.
Please call us back with additional questions.
Impression / Plan
-
64 yo male with paraplegia, chronic Padron, admitted with abdominal pain. Found to have perforated ileum with generalized peritonitis, septic shock. s/p OR 05/13.
He remains critically ill on multiple pressors.
We were consulted for tachycardia. At first, thought to be re-entrant SVT, but now it seems the rhythm was sinus tachycardia in setting of septic shock.
His HR has improved, and is sinus rhythm and sinus tachycardia on tele.
Please call us back with additional questions.
CCT 30 minutes.
Physical Exam
Vital Signs/Labs
Vital Signs
Temp Pulse Resp BP Pulse Ox
97.5 F 98 18 96/52 100
05/14/24 07:55 05/14/24 06:30 05/14/24 06:30 05/13/24 22:08 05/14/24 07:55
05/13/24 05/14/24 05/15/24
06:59 06:59 06:59
Actual Weight 109.3 kg
05/14/24 03:34
05/14/24 03:34
PT 27.0 Sec (11.4-14.6) H 05/14/24 03:34
INR 2.45 05/14/24 03:34
APTT 46.1 Sec (23.4-35.0) H 05/14/24 03:34
Magnesium 1.3 mg/dl (1.6-2.3) L 05/14/24 03:34
Triglycerides Cancelled 05/13/24 19:32
Free T4 2.28 ng/dl (0.78-2.19) H 05/13/24 07:30
LAB Results
05/13/24 05/14/24
19:20 03:34
Troponin I < 0.012 < 0.012
Physical Exam
EENT: Moist mucous membranes
Cardiovascular: Rhythm & rate is regular, JVD pressure is normal, Systolic murmur absent and Systolic murmur present
Respiratory: Other (mechanical ventilation)
Neuro/Psych: Other (sedated)
Data Reviewed
-
Date of Service: May 14, 2024
EKG: Other (Tele: SR/ST, no arrhythmia)
Labs: Labs Reviewed by me
Critical Care Time (in minutes): 30
[2024-05-14 09:33] LABS: Lactic Acid 5.4 mmol/L (0.7-2.0)
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
[2024-05-14 09:42] LABS: Troponin I < 0.012 ng/ml
[2024-05-14 09:57] VITALS: BP 92/43
--- NOTE | 2024-05-14 10:51 | PHA.VAN.FU ---
Vancomycin Assessment / Plan
- Assessment
Renal Function: Stable (1.6-1.5 ( elevated))
WBC's are: Trending Up (24.4.->32.1)
In the past 24 hrs, patient has been: Afebrile
Concomitant Antimicrobials: meropenem
- Assessment - Therapeutic Drug Monitoring
Random Level: 15.5 - ~ 13.5 hours post 2000 mg dose
- Dosing Plan
Continue: dose by random level due to elevated SCR
Dosing by Level: Re-dose today (1500 mg x 1 dose)
- Monitoring Plan
Random Level: repeat random level AM 05/15
- Follow Up
Pharmacy will continue to follow.
Vancomycin Follow UP
- -
Patient Age: 64
Patient Sex: Male
Vancomycin Day #: 2
Indication: Gi / Intra-Abdominal
Requesting Provider: Dr. Miles/Dr. Riggins
Pertinent Antimicrobial Allergies:
ofloxacin - unknown (pt tolerated ciprofloxacin)
Height / Weight:
Height 5 ft 5 in
Actual Weight 109.3 kg
Pertinent Past Medical History: BMI ~44, Paraplegia, CKD III
- Vital Signs / Lab Results
Temp Pulse Resp BP Pulse Ox
97.5 F 98 18 96/52 97
05/14/24 07:55 05/14/24 06:30 05/14/24 06:30 05/13/24 22:08 05/14/24 08:00
Lab Results - Hematology
05/13/24 05/13/24 05/14/24
07:30 19:20 03:34
WBC 9.7 24.4 H 32.1 H
Band Neutrophils 19 H 15 H
Lab Results - Chemistry
05/13/24 05/13/24 05/14/24
07:30 19:20 03:34
BUN 19 18 17
Creatinine 1.6 H 1.5 H 1.5 H
Estimated Creat Clear 61 57
Albumin 2.7 L 1.6 L
05/13/24 05/14/24 05/14/24
22:15 03:34 09:08
Lactic Acid 4.7 H* 6.2 H* 5.4 H*
Microbiology Results
05/13/24 09:25 Urine Culture - Final
Urine NO GROWTH
05/13/24 07:30 Influenza Types A & B (ALEYDA) - Final
Nasal Swab Negative for Influenza A & B, NAAT
Negative results must be combined with clinical observations
and patient history.
Nucleic Acid Amplification test (NAAT)performed on the
[employer] platform.
Therapeutic Drug Monitoring
Random Vancomycin 15.5 ug/ml 05/14/24 03:34
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
--- NOTE | 2024-05-14 11:21 | W.PN.GS2 ---
Addendum entered and electronically signed by Claudy Grover MD 05/14/24 12:38:
I saw and examined the patient.
The Waiver Analyst's note was reviewed and I agree with the note.
Comment: Remains sedated, intubated, on pressors. Winces with palpation of abd, mostly right side. Drains serous. Cont NPO/IVF/NGT, wean vent and pressors as sangita
Original Note:
Today's Communication / Plan
-
NPO/NGT
Assessment / Plan
-
64 yo male with pmh of T7 spinal cord injury with paraplegia, recurrent ureteral stone, CKD stage IIIa, recurrent UTI with ESBL Proteus and E. coli sepsis, essential hypertension, recently discharged after complex hospitalization from 04/17 to 05/12
due to perinephric hematoma, ileus, septic shock UTI, ureteral stone s/p right URS/LL/stone extraction and stent exchange presenting back from SNF with septic shock from perforated ileum.
POD #1 Exploratory laparotomy right hemicolectomy
VDRF
Hypotension on IV pressors
Afebrile
Leukocytosis trending up
H/H stable post operatively
--Continue IV abx, ID following
--Continue NGT to LIWS, continue in place if extubated
--Continue EN drain, higher outputs expected in setting of cirrhosis/ascites
--Will follow labs
--Medical management as per primary team/independent trader
--IV ppi for GI ppx
--SCDS with SQ heparin for VTE ppx
--Hold therapeutic AC for minimum of 48hours post op
Subjective Data
-
Date of Service: May 14, 2024
Patient seen and examined at bedside with Dr. Grover. ETT in place and mechanically ventilated/sedated. Opens eyes to light stimulation.
Objective Data
-
Intake and Output
05/13/24 05/14/24 05/15/24
06:59 06:59 06:59
Intake Total 4291.4 / 4530.2 955.4 / 955.4
Output Total 1470 / 1470 660 / 660
Balance 2821.4 / 3060.2 295.4 / 295.4
Intake:
IV fluids (Total) 3291.4 / 3530.2 955.4 / 955.4
D5w 1,000 ml @ 125 mls/hr IV . 750 / 875 500 / 500
Q9H12M RADHA with Sodium
Bicarbonate 150 Meq Rx#:
[id number]
Fent 60 / 65 25 / 25
Levo 1241.5 / 1316.5 305.0 / 305.0
Nss 1,000 ml @ 150 mls/hr IV . 900 / 900
Q6H40M RADHA Rx#:[id number]
Prop 195.9 / 217.7 65.4 / 65.4
Vaso 144 / 156 60 / 60
IV piggybacks 750 / 750
Blood Product Amount Infused ( 250 / 250
mL)
Packed Rbc Leukoreduced Unit 250 / 250
[id number]
Output:
Drain Output (Total) 950 / 950 450 / 450
Right Abdomen Wing-Morris 950 / 950 450 / 450
Urine, Padron 520 / 520 210 / 210
Vital Signs
Temp Pulse Resp BP Pulse Ox
97.5 F 98 18 96/52 97
05/14/24 07:55 05/14/24 06:30 05/14/24 06:30 05/13/24 22:08 05/14/24 08:00
Lab Results
05/14/24 03:34
Calcium 6.9 mg/dl (8.4-10.2) L* 05/14/24 03:34
Magnesium 1.3 mg/dl (1.6-2.3) L 05/14/24 03:34
Total Bilirubin 3.9 mg/dl (0.2-1.3) H D 05/14/24 03:34
AST 54 U/L (17-59) 05/14/24 03:34
ALT 24 U/L (0-50) 05/14/24 03:34
Alkaline Phosphatase 76 U/L (38-126) 05/14/24 03:34
Total Protein 4.9 g/dl (6.3-8.2) L D 05/14/24 03:34
Albumin 1.6 g/dl (3.5-5.0) L 05/14/24 03:34
Physical Exam
-
VDRF, ETT in place
Abd: soft, obese, distended, some tenderness to the right side. Surgical dressing in place and intact
NGT with bilious ouptuts, minimal. EN with SSF
[2024-05-14] MEDS: SODIUM BICARBONATE 1150 MEQ IV ×2 (11:31→20:40)
[2024-05-14] MEDS: VANCOCIN 530 MG IV (11:35)
[2024-05-14] MEDS: NSS 250 IV (12:14)
[2024-05-14 12:15] LABS: Glucose - Point of Care 268 mg/dl (70-99)
[2024-05-14] MEDS: NOVOLOG FLEXPEN-MODERATE RESISTANCE 3 UNITS SC (12:29)
[2024-05-14 12:39] LABS: Glucose - Point of Care 224 mg/dl (70-99)
[2024-05-14] MEDS: SUBLIMAZE 50 MCG IV ×2 (12:49→20:51)
--- NOTE | 2024-05-14 12:51 | CM ---
CM following re: discharge planning.
Discussed in Rounds, reviewed the chart, met with pt.
Pt is a 64 year old male, admitted with primary dx of POD #1 s/p Exploratory laparotomy right hemicolectomy. Pt is intubated, continue supportive care.
Pt has been a shelter care resident at [facility] since February 2022, is wheelchair/bedbound, requires total care.
Pt has legal guardian appointed by [employer] in 2021 and she is not available. Pt declared During last admission this CM requested wellness check from [employer] department in order to fin/locate pt's legal guardian. No success. Per
[facility] admissions department they will file a petition to [employer] to request a new legal guardian. A referral to [facility] noted, case packer Anuradha.
CM spoken to [facility] public information director and she stated that she will talk to her financial administrator regarding legal guardian satiation.
D/C plan: return back to [facility] for a LTC when medically stable.
CM will follow with discharge plan updates as hospitalization progresses
[2024-05-14 12:57] LABS: Lactic Acid 5.2 mmol/L (0.7-2.0)
--- NOTE | 2024-05-14 13:00 | PTCARENOTE ---
SAT completed due to HR 130s. Pt able to nod and move all extremities. Assessment unchanged. EN draining large amt serosang output. Started glycemic protocol as ordered-see AUG.
[2024-05-14 13:02] LABS: Blood Urea Nitrogen 17 mg/dl (9-20); Calcium 7.1 mg/dl (8.4-10.2); Carbon Dioxide 18 mmol/L (22-30); Chloride 106 mmol/L (98-107); Estimated Creatinine Clearance 62 ml/min; Glucose 210 mg/dl (70-99); Magnesium 1.9 mg/dl (1.6-2.3); Phosphorus 3.4 mg/dl (2.5-4.5); Potassium 3.7 mmol/L (3.5-5.1); Sodium 133 mmol/L (135-145); eGFR 56.48
[2024-05-14 13:33] VITALS: BMI 40.1
[2024-05-14] MEDS: SUBLIMAZE 100 IV (13:35)
--- NOTE | 2024-05-14 13:48 | PN.DE.MGMTRT ---
Insulin Management
- -
05/14/2024: Diabetes Management Consult
64 year old male with PMH: T7 spinal cord injury with paraplegia, recurrent ureteral stone, CKD stage IIIa, recurrent UTI with ESBL Proteus and E. coli sepsis, essential HTN, recently discharged after complex hospitalization from 04/17 to 05/12 due to
perinephric hematoma, ileus, septic shock UTI, ureteral stone s/p right URS/LL/stone extraction and stent exchange. Patient presented back to from SNF with septic shock from perforated ileum.
Now POD #1 Exploratory lap right hemicolectomy.
He is currently intubated and sedated on pressors, unable to discuss hx of diabetes.
Recent A1C 5.6% on 02/20/2024. Cr 1.4, eGFR 56.48
Glucose elevated, recent venous glucose was 210 and 264 POC.
Pt has been initiated on glycemic protocol for optimal glucose control.
Will update A1C, placed add on order to AM labs.
Will closely follow and assist with glucose management as necessary
Diabetes History
- -
Type of Diabetes: 2
Pre-Admission Diabetes Regimen
05/13/24 05/14/24 05/14/24
19:20 03:34 12:30
Creatinine 1.5 H 1.5 H 1.4 H
Insulin Pump Settings
IP Diabetes Regimen
05/13/24 05/14/24 05/14/24
19:20 03:34 05:51
Glucose 125 H 280 H
POC Glucose 280 H
05/14/24 05/14/24 05/14/24
12:03 12:27 12:30
Glucose 210 H
POC Glucose 268 H 224 H
Patient Education
[2024-05-14 14:13] LABS: Glucose - Point of Care 153 mg/dl (70-99)
[2024-05-14] MEDS: NOVOLIN R INSULIN INFUSION 100 IV (14:20)
--- NOTE | 2024-05-14 14:30 | PN.CDI ---
Addendum entered and electronically signed by Nils Rodriguez MD 05/14/24 18:46:
Documentation is complete at this time.
Original Note:
CDI
- -
CDI:
Physician Documentation Request
Admit Date: 05/13/24 11:46
Dear Doctor Jennifer/Resident,
Please review the following and provide your response in the progress notes.
Clinical Indicators:
Pt admitted with Septic Shock 2/2 perforated ileum s/p Laparotomy/ Hemicolectomy
Documented per update note 05/14 , ' Postop VDRF-went management per longwall shearer operator...'
05/13/24
22:15
pH 7.22 L
pCO2 34 L
HCO3 13.9 L*
05/14/24
05:40
pH 7.34 L
pCO2 27 L
HCO3 14.6 L*
Please further specify the documented ' Postop VDRF' :
Post op Acute Hypoxic Respiratory Failure
Post op Acute Hypercapnic Respiratory Failure
Other ( please specify)
Use of terms such as suspected, likely, concern for, or probable (associated with a specific diagnosis that is being evaluated, monitored, or treated as if it exists) are acceptable and can be coded in the inpatient setting, when documented at the
time of discharge.
Thank you,
Alem Valdovinos RN
CDI Specialist
[place] [facility]
Please use your independent medical judgment in providing your response.
[2024-05-14] MEDS: NOVOLIN R 3 UNITS IV (14:31)
--- NOTE | 2024-05-14 14:42 | PN.CDI ---
CDI
- -
CDI:
Physician Documentation Request
Admit Date: 05/13/24 11:46
Dear Doctor Jennifer/Resident,
Please review the following and provide your response in the progress notes.
Clinical Indicators:
Pt admitted with Septic Shock 2/2 perforated ileum s/p Laparotomy/ Hemicolectomy
Update note 05/13 surgery , ' He is currently refusing surgery. He is oriented to himself and location but not his current medical condition. Patient stating that we have his son locked in a closet in the holding area as evidence of his current
mental status. I have attempted numerous times to explain to the patient the gravity of his current situation.....I have requested to the patient numerous times if there is any other contacts I can reach out to and he does not know of anybody else
and cannot provide me with any phone numbers in his current state. ...'
Update note 05/13 ,'I have requested to the patient numerous times if there is any other contacts I can reach out to and he does not know of anybody else and cannot provide me with any phone numbers in his current state. ...He received Dilaudid
after which he became confused. When I saw him in the PACU he was confused and felt that his son Deep Salvador is locked up in the shelf next to him. He also told me that Elvis Dolan is disguised and he will be doing his surgery and he does not
want him to do surgery. At this point patient is very confused and surgery is an emergency.....'
Based on the above, could you clarify in the Progress Notes and Discharge Summary which, if any of the following, is the most likely etiology of the confusion:
Toxic Metabolic Encephalopathy
Acute confusion only
Other ( please specify)
Use of terms such as suspected, likely, concern for, or probable (associated with a specific diagnosis that is being evaluated, monitored, or treated as if it exists) are acceptable and can be coded in the inpatient setting, when documented at the
time of discharge.
Thank you,
Alem Valdovinos RN
CDI Specialist
[place] [facility]
Please use your independent medical judgment in providing your response.
[2024-05-14] MEDS: LEVOPHED 258 MG IV ×2 (14:47→20:41)
--- NOTE | 2024-05-14 14:50 | PN.CDI ---
Addendum entered and electronically signed by Nils Rodriguez MD 05/14/24 18:45:
Documentation is complete at this time.
Original Note:
CDI
- -
CDI:
Physician Documentation Request
Admit Date: 05/13/24 11:46
Dear Doctor Jennifer/Resident ,
Please review the following and provide your response in the progress notes.
The purpose of this query is not to question medical judgement, but to ensure the accuracy of the conditions reported for your patient.
Diagnosis: Shock Liver
The diagnosis is documented in the record update note 05/14 , 'Coagulopathy likely secondary to shock liver...'
There is either a lack of clinical support for this condition in the current medical record, or there is a lack of recognized standard criteria to support the condition.
Clinical indicators:
AST/ALT are below
05/13/24 05/14/24
07:30 03:34
AST 60 H 54
ALT 31 24
The request is for one of the following:
- Additional documentation to support the condition. Indicate if this is in lieu of what may be considered standard criteria, and/or support why the standard criteria may not be present for this patient.
- A more appropriate diagnosis, reflecting the patient's condition
- Diagnosis Shock Liver remains a known or suspected condition for this patient and is further supported by (include additional documentation in the medical record)
- Diagnosis Shock Liver has been ruled out and a more appropriate diagnosis for this patient's condition is .
- Other (please specify)
Use of terms such as suspected, likely, concern for, or probable (associated with a specific diagnosis that is being evaluated, monitored, or treated as if it exists) are acceptable and can be coded in the inpatient setting, when documented at the
time of discharge.
Thank you,
Alem Valdovinos RN
CDI Specialist
[place] [facility]
Please use your independent medical judgment in providing your response.
[2024-05-14 15:47] LABS: Glucose - Point of Care 154 mg/dl (70-99)
[2024-05-14 16:16] LABS: Glucose - Point of Care 138 mg/dl (70-99)
[2024-05-14] MEDS: HEPARIN 5000 UNITS SC (16:41)
[2024-05-14 17:02] VITALS: BP 108/50
--- NOTE | 2024-05-14 17:04 | PTCARENOTE ---
Vasopressin restarted due to need for BP support. Assessment unchanged.
[2024-05-14 17:17] LABS: Glucose - Point of Care 127 mg/dl (70-99)
[2024-05-14 18:17] LABS: Glucose - Point of Care 131 mg/dl (70-99)
[2024-05-14 19:19] LABS: Glucose - Point of Care 99 mg/dl (70-99)
--- NOTE | 2024-05-14 20:30 | PTCARENOTE ---
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 abd drsg unchanged with small amt shadowing as marked in am, EN with SS
drainage, Sat 97% on MV Fi02 40%. L SS to LIWS, flushed, minimal output. Padrno draining borderline amt jalil urine.
[2024-05-14 21:17] LABS: Glucose - Point of Care 112 mg/dl (70-99)
[2024-05-14 21:32] LABS: Lactic Acid 3.7 mmol/L (0.7-2.0)
[2024-05-14 21:41] LABS: Blood Urea Nitrogen 18 mg/dl (9-20); Carbon Dioxide 21 mmol/L (22-30); Chloride 101 mmol/L (98-107); Estimated Creatinine Clearance 72 ml/min; Glucose 108 mg/dl (70-99); Potassium 3.6 mmol/L (3.5-5.1); Sodium 132 mmol/L (135-145); eGFR > 60.00
[2024-05-14 23:15] LABS: Glucose - Point of Care 105 mg/dl (70-99)
[2024-05-15] MEDS: STERILE WATER FOR INJECTION 10 ML IV ×4 (00:48→17:14)
[2024-05-15] MEDS: MERREM 500 MG IV ×4 (00:48→17:14)
[2024-05-15 01:10] LABS: Glucose - Point of Care 87 mg/dl (70-99)
[2024-05-15] MEDS: SUBLIMAZE 50 MCG IV (01:13)
[2024-05-15 03:31] LABS: Glucose - Point of Care 101 mg/dl (70-99)
[2024-05-15] MEDS: LEVOPHED 258 MG IV ×3 (04:06→17:12)
[2024-05-15] MEDS: DIPRIVAN 100 IV ×4 (04:21→18:36)
--- NOTE | 2024-05-15 04:30 | PTCARENOTE ---
pt with intermittent agitation with care. no further changes in assessment. CHG bath, turned/repositioned.
[2024-05-15 04:48] LABS: Vancomycin Random 20.6 ug/ml
[2024-05-15 04:49] LABS: Lactic Acid 3.4 mmol/L (0.7-2.0)
[2024-05-15 04:50] LABS: Hematocrit 27.3 % (39.0-52.0); Hemoglobin 9.2 g/dL (13.0-18.0); Mean Corp Hgb Conc. 33.7 g/dL (33.0-37.0); Mean Corpuscular Hgb 27.9 pg (27.0-31.0); Mean Corpuscular Volume 82.7 fL (80.0-94.0); Mean Platelet Volume 9.8 fL (7.4-10.4); Platelet Count 105 10^3/uL (130-400); Red Cell Dist. Width 15.1 % (11.5-14.5); White Blood Cell Count 20.4 10^3/uL (4.8-10.8)
[2024-05-15 04:55] LABS: INR 1.91
[2024-05-15 04:56] LABS: APTT 51.3 Sec (23.4-35.0)
[2024-05-15 04:59] LABS: NT-proBNP 2020 pg/ml
[2024-05-15 05:09] LABS: Blood Urea Nitrogen 19 mg/dl (9-20); Calcium 6.7 mg/dl (8.4-10.2); Carbon Dioxide 24 mmol/L (22-30); Chloride 100 mmol/L (98-107); Estimated Creatinine Clearance 66 ml/min; Glucose 97 mg/dl (70-99); Magnesium 1.6 mg/dl (1.6-2.3); Phosphorus 2.9 mg/dl (2.5-4.5); Potassium 3.8 mmol/L (3.5-5.1); Sodium 132 mmol/L (135-145); eGFR > 60.00
[2024-05-15] MEDS: SODIUM BICARBONATE 1150 MEQ IV (05:11)
[2024-05-15 05:16] LABS: Glucose - Point of Care 93 mg/dl (70-99)
[2024-05-15 05:19] VITALS: BMI 42.7
[2024-05-15] MEDS: CALCIUM GLUCONATE 100 IV ×2 (06:15)
[2024-05-15] MEDS: MAGNESIUM SULFATE 100 IV (06:16)
[2024-05-15 07:15] LABS: Glucose - Point of Care 90 mg/dl (70-99)
--- NOTE | 2024-05-15 07:40 | W.PN.URO.CBU ---
Today's Communication / Plan
-
continue barcenas
Assessment / Plan
-
neurogenic bladder with chronic barcenas
intermittent hematuria
chronic cystitis- drug res organisms
recent right subcapsular bleed
recent right ureteral stone s/p stent- with follow up ureteroscopy/laser litho and stent replacement
s/p ex lap and bowel perf repair
pt remains intubated
barcenas functional/renal function stable
recent ct shows well positioned right ureteral stent
right subcapsular hematoma
continue barcenas
delay restart of anticoagulation as long as possible- when re-initiated- close monitoring of hgb levels
will follow
Diagnosis
-
Date of Service: May 15, 2024
-
Patient Diagnosis:
neurogenic bladder with chronic barcenas
right subcapsular hematoma
right ureteral stone s/p ureteroscopy and stent
s/p ex lap and bowel perf repair
Subjective
-
pt remains intubated
barcenas replaced on admit- draining jalil urine- cr 1.3
Objective
-
Vital Signs
Temp Pulse Resp BP Pulse Ox
98.4 F 117 18 92/43 97
05/15/24 04:00 05/15/24 06:15 05/15/24 06:15 05/14/24 09:57 05/15/24 07:17
Intake and Output
05/14/24 05/15/24 05/16/24
06:59 06:59 06:59
Intake Total 4291.4 / 4530.2 5597.4 / 5597.4
Output Total 1470 / 1470 2375 / 2375
Balance 2821.4 / 3060.2 3222.4 / 3222.4
Intake:
IV fluids (Total) 3291.4 / 3530.2 4547.4 / 4547.4
D5w 1,000 ml @ 125 mls/hr IV . 750 / 875 870 / 870
Q9H12M RADHA with Sodium
Bicarbonate 150 Meq Rx#:
[id number]
Fent 60 / 65 120 / 120
Insulin 28.1 / 28.1
Levo 1241.5 / 1316.5 1044.2 / 1044.2
Nss 1,000 ml @ 150 mls/hr IV . 900 / 900
Q6H40M RADHA Rx#:[id number]
Prop 195.9 / 217.7 376.1 / 376.1
Sterile Water For Injection 1920 / 1920
1000 ml 1,000 ml @ 120 mls/hr
IV .Q9H35M RADHA with Sodium
Bicarbonate 150 Meq Rx#:
[id number]
Vaso 144 / 156 189 / 189
IV piggybacks 750 / 750 1050 / 1050
Blood Product Amount Infused ( 250 / 250
mL)
Packed Rbc Leukoreduced Unit 250 / 250
[id number]
Output:
Drain Output (Total) 950 / 950 1675 / 1675
Right Abdomen Wing-Morris 950 / 950 1675 / 1675
Urine, Barcenas 520 / 520 700 / 700
Laboratory Results
05/15/24 04:13
05/15/24 04:13
Review of Systems
-
Unable to obtain full review of systems at this time due to: Patient Intubation
Physical Exam
-
General - intubated
Genitalia - barcenas in place
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
--- NOTE | 2024-05-15 08:07 | PHA.VAN.FU ---
Vancomycin Assessment / Plan
- Assessment
Renal Function: Stable
WBC's are: Trending Down
In the past 24 hrs, patient has been: Afebrile
Concomitant Antimicrobials: Meropenem
- Assessment - Therapeutic Drug Monitoring
Random Level: R = 20.6 ~ 17hrs post Vanc 1500mg
- Dosing Plan
Continue: Dose by level
Dosing by Level: Hold off on dosing today
- Monitoring Plan
Random Level: 12/8 AM
- Follow Up
Pharmacy will continue to follow.
Vancomycin Follow UP
- -
Patient Age: 64
Patient Sex: Male
Vancomycin Day #: 3
Indication: Gi / Intra-Abdominal
Requesting Provider: Dr. Miles/Dr. Riggins
Pertinent Antimicrobial Allergies:
ofloxacin - unknown (pt tolerated ciprofloxacin)
Height / Weight:
Height 5 ft 5 in
Actual Weight 116.3 kg
Pertinent Past Medical History: BMI ~44, Paraplegia, CKD III
- Vital Signs / Lab Results
Temp Pulse Resp BP Pulse Ox
98.4 F 117 18 92/43 97
05/15/24 04:00 05/15/24 06:15 05/15/24 06:15 05/14/24 09:57 05/15/24 07:17
Lab Results - Hematology
05/13/24 05/13/24 05/14/24
07:30 19:20 03:34
WBC 9.7 24.4 H 32.1 H
Band Neutrophils 19 H 15 H
05/15/24
04:13
WBC 20.4 H
Band Neutrophils
Lab Results - Chemistry
05/13/24 05/13/24 05/14/24
07:30 19:20 03:34
BUN 19 18 17
Creatinine 1.6 H 1.5 H 1.5 H
Estimated Creat Clear 61 57
Albumin 2.7 L 1.6 L
05/14/24 05/14/24 05/15/24
12:30 21:08 04:13
BUN 17 18 19
Creatinine 1.4 H 1.2 1.3
Estimated Creat Clear 62 72 66
Albumin
05/13/24 05/14/24 05/14/24
22:15 03:34 08:00
Lactic Acid 4.7 H* 6.2 H* Cancelled
05/14/24 05/14/24 05/14/24
09:08 12:29 13:42
Lactic Acid 5.4 H* 5.2 H* Cancelled
05/14/24 05/15/24
21:08 04:13
Lactic Acid 3.7 H 3.4 H
Microbiology Results
05/13/24 09:25 Urine Culture - Final
Urine NO GROWTH
05/13/24 07:30 Influenza Types A & B (ALEYDA) - Final
Nasal Swab Negative for Influenza A & B, NAAT
Negative results must be combined with clinical observations
and patient history.
Nucleic Acid Amplification test (NAAT)performed on the
[employer] platform.
Therapeutic Drug Monitoring
Random Vancomycin 20.6 ug/ml 05/15/24 04:13
[2024-05-15] MEDS: PROTONIX IV 40 MG IV (08:09)
[2024-05-15] MEDS: NSS (PRESERVATIVE FREE) 10 ML IV (08:09)
[2024-05-15 08:11] LABS: Glucose - Point of Care 98 mg/dl (70-99)
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
--- NOTE | 2024-05-15 08:30 | PTCARENOTE ---
Rec'd pt at 0700. Pt sedate on Prop/Fent gtts on vent. Grimaces and briefly opens eyes to verbal/tactile stimuli. SBP 80-100's via right radial a-line, on Vaso/Levo gtts via RIJ to keep MAP >65. Monitor SR/ST. Lungs dim/sct coarse. POx 97% on 40%
fio2. Abd large/round. Midline abdominal dressing with old shadowing noted, areas marked. Right EN with large amts serosang output to bulb. Absent bowel sounds. Somers to LIWS, yellow/green drainage. Padron draining tea colored urine. +3/+4 gen edema,
extremities elevated on pillows. Continued on Glycemic protocol with Q1hr accuchecks.
[2024-05-15] MEDS: PITRESSIN 100 IV (08:50)
[2024-05-15] MEDS: SUBLIMAZE 100 IV ×2 (08:51→22:51)
[2024-05-15] MEDS: ALBUMIN 5% 250 IV (08:58)
[2024-05-15 09:14] LABS: Glucose - Point of Care 105 mg/dl (70-99)
[2024-05-15] MEDS: LR 1000 IV ×2 (09:20→18:35)
[2024-05-15 09:22] LABS: Absolute Neutrophils -Man Diff 16.9 10^3/uL (1.4-6.5); Band Neutrophils 14 % (0-3); Lymphocytes 6 % (20-51); Metamyelocytes 2 % (-); Monocytes 4 % (2-9); Myelocytes 5 % (-); Platelets Checked Yes; Segmented Neutrophils 69 % (42-75); Total Cells Counted 100
[2024-05-15 09:23] LABS: Toxic Granulation 1+
[2024-05-15 09:24] LABS: Hypochromasia 1+; Microcytosis 1+
[2024-05-15 09:25] LABS: Normal RBC Morphology No
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
[2024-05-15 10:13] LABS: Glucose - Point of Care 108 mg/dl (70-99)
[2024-05-15 11:15] LABS: Glucose - Point of Care 102 mg/dl (70-99)
--- NOTE | 2024-05-15 12:38 | W.PN.GS2 ---
Addendum entered and electronically signed by Claudy Grover MD 05/15/24 12:55:
I saw and examined the patient.
The Medical Services Manager's note was reviewed and I agree with the note.
Comment: Remains sedated/intubated on 2 pressors. Belly soft, drain ss. Wean pressors/vent as sangita. Cont abx. OK for hep gtt without bolus
Original Note:
Today's Communication / Plan
-
NPO/IVF/NGT
OK to resume full dose AC with heparin gtt but would avoid bolus dosing
Assessment / Plan
-
64 yo male with pmh of T7 spinal cord injury with paraplegia, recurrent ureteral stone, CKD stage IIIa, recurrent UTI with ESBL Proteus and E. coli sepsis, essential hypertension, recently discharged after complex hospitalization from 04/17 to 05/12
due to perinephric hematoma, ileus, septic shock UTI, ureteral stone s/p right URS/LL/stone extraction and stent exchange presenting back from SNF with septic shock from perforated ileum.
POD #2 Exploratory laparotomy right hemicolectomy
VDRF
Hypotension on IV pressors (vasopressin and levophed)
Afebrile
Leukocytosis still present but trending down
Acute on chronic anemia present. Suspect hemoconcentrated on admission. With volume resuscitation, his H/h is slowly returning to where it was prior to this acute event (8.0). No active bleeding noted.
--Continue IV abx, ID following
--IVF while NPO
--Continue NGT to LIWS, continue in place if extubated
--Continue EN drain, higher outputs expected in setting of cirrhosis/ascites (mostly serous)
--Will follow labs
--Medical management as per primary team/division controller
--IV ppi for GI ppx
--SCDS with SQ heparin for VTE ppx
OK to resume full dose AC with heparin gtt but would avoid bolus dosing
Subjective Data
-
Date of Service: May 15, 2024
Patient seen and examined at bedside with Dr. Grover. Sedated and intubated. Appears comfortable.
Objective Data
-
Intake and Output
05/14/24 05/15/24 05/16/24
06:59 06:59 06:59
Intake Total 4291.4 / 4530.2 5597.4 / 5890.1 1529.6 / 1529.6
Output Total 1470 / 1470 2375 / 2635 745 / 745
Balance 2821.4 / 3060.2 3222.4 / 3255.1 784.6 / 784.6
Intake:
IV fluids (Total) 3291.4 / 3530.2 4547.4 / 4740.1 1069.6 / 1069.6
D5w 1,000 ml @ 125 mls/hr IV . 750 / 875 870 / 870
Q9H12M RADHA with Sodium
Bicarbonate 150 Meq Rx#:
[id number]
Fent 60 / 65 120 / 127.5 37.5 / 37.5
Insulin 28.1 / 28.7 4.5 / 4.5
Levo 1241.5 / 1316.5 1044.2 / 1081.7 225.0 / 225.0
Lr 1,000 ml @ 100 mls/hr IV . 400 / 400
Q10H RADHA Rx#:[id number]
Nss 1,000 ml @ 150 mls/hr IV . 900 / 900
Q6H40M RADHA Rx#:[id number]
Prop 195.9 / 217.7 376.1 / 394.2 108.6 / 108.6
Sterile Water For Injection 1919 240 / 240
1000 ml 1,000 ml @ 120 mls/hr
IV .Q9H35M RADHA with Sodium
Bicarbonate 150 Meq Rx#:
[id number]
Vaso 144 / 156 189 / 198 54 / 54
IV piggybacks 750 / 750 1050 / 1150 400 / 400
Amount instilled into GI Tube ( 60 / 60
Total)
[place] Sump 60 / 60
Blood Product Amount Infused ( 250 / 250
mL)
Packed Rbc Leukoreduced Unit 250 / 250
[id number]
Output:
Drain Output (Total) 950 / 950 1675 / 1805 490 / 490
Right Abdomen Wing-Morris 950 / 950 1675 / 1805 490 / 490
Gastrointestinal tube output ( 130 / 130
Total)
[place] Sump 130 / 130
Urine, Padron 520 / 520 700 / 700 125 / 125
Vital Signs
Temp Pulse Resp BP Pulse Ox
97.9 F 88 18 92/43 98
05/15/24 11:30 05/15/24 11:30 05/15/24 11:30 05/14/24 09:57 05/15/24 11:47
Lab Results
05/15/24 04:13
05/15/24 04:13
Calcium 6.7 mg/dl (8.4-10.2) L* 05/15/24 04:13
Phosphorus 2.9 mg/dl (2.5-4.5) 05/15/24 04:13
Magnesium 1.6 mg/dl (1.6-2.3) 05/15/24 04:13
Total Bilirubin 3.9 mg/dl (0.2-1.3) H D 05/14/24 03:34
AST 54 U/L (17-59) 05/14/24 03:34
ALT 24 U/L (0-50) 05/14/24 03:34
Alkaline Phosphatase 76 U/L (38-126) 05/14/24 03:34
Total Protein 4.9 g/dl (6.3-8.2) L D 05/14/24 03:34
Albumin 1.6 g/dl (3.5-5.0) L 05/14/24 03:34
Physical Exam
-
VDRF, ETT in place. Sedated.
Abd: soft, obese, distended. Surgical dressing in place and intact
NGT with bilious outputs, minimal. EN with SSF
[2024-05-15 13:20] LABS: Glucose - Point of Care 96 mg/dl (70-99)
[2024-05-15 15:12] LABS: Glucose - Point of Care 126 mg/dl (70-99)
[2024-05-15] MEDS: HEPARIN 5000 UNITS SC (15:28)
[2024-05-15 16:16] LABS: Glucose - Point of Care 119 mg/dl (70-99)
--- NOTE | 2024-05-15 16:57 | PTCARENOTE ---
No changes in assessment.
[2024-05-15 17:14] LABS: Glucose - Point of Care 109 mg/dl (70-99)
[2024-05-15 19:07] LABS: Glucose - Point of Care 116 mg/dl (70-99)
[2024-05-15 21:22] LABS: Glucose - Point of Care 95 mg/dl (70-99)
--- NOTE | 2024-05-15 22:28 | PTCARENOTE ---
Assumed care of pt at 1900. Received pt intubated, sedated, #8 ETT, 23cm at lip, AC 18/500/40/5. ST on monitor, low 100s-110s. SpO2 96-97% on current vent settings. Received pt on Propofol at 25mcg/kg/min, Fentanyl at 75mcg/hr, Levophed (double
concentrated) at 20mcg/min and Vasopressin at 0.03 units/min. Weaning Levophed as tolerated to keep MAP >65. Pt also on insulin drip per critical care glycemic protocol. EN drain to right abd with serosanguinous drainage, needing to be emptied
almost every hour. See nursing shift assessment flowsheet for full physical assessment details.
[2024-05-15 23:23] LABS: Glucose - Point of Care 112 mg/dl (70-99)
[2024-05-16] MEDS: MERREM 500 MG IV ×4 (00:08→17:40)
[2024-05-16] MEDS: DIPRIVAN 100 IV ×4 (00:08→14:30)
[2024-05-16] MEDS: STERILE WATER FOR INJECTION 10 ML IV ×4 (00:08→17:40)
[2024-05-16] MEDS: HEPARIN 5000 UNITS SC (00:08)
--- NOTE | 2024-05-16 00:56 | PTCARENOTE ---
Assessment unchanged. Remains on same drips as previously noted, Levophed weaned to 14mcg/min at this point. EN still with high output, >80mL per hour. SR 80s, SpO2 96% on same vent settings.
[2024-05-16] MEDS: LEVOPHED 258 MG IV ×2 (01:15→14:19)
[2024-05-16 01:17] LABS: Glucose - Point of Care 104 mg/dl (70-99)
[2024-05-16 03:16] LABS: Glucose - Point of Care 95 mg/dl (70-99)
[2024-05-16 03:38] LABS: B.E. 2.6 mmol/L; HCO3 23.6 mmol/L (21-28); O2 Saturation % 99.8 % (94-98); PCO2 23 mmHg (35-48); PO2 119 mmHg (83-108)
[2024-05-16 03:43] LABS: pH 7.62 (7.35-7.45)
[2024-05-16 04:16] LABS: Lactic Acid 2.1 mmol/L (0.7-2.0)
[2024-05-16 04:23] LABS: % Basophils 0.3 % (0-2); % Eosinophils 1.3 % (0-6); % Immature Granulocytes 4.2 % (0-0.5); % Lymphocytes 12.5 % (20.5-51.1); % Monocytes 6.8 % (1.7-9.3); % Neutrophils 74.9 % (42.2-75.2); Absolute Eosinophils 0.2 10^3/uL (0-0.7); Absolute Immature Granulocytes 0.5 10^3/uL (0-0.05); Absolute Lymphocytes 1.6 10^3/uL (1.2-3.4); Absolute Monocytes 0.9 10^3/uL (0.1-0.6); Absolute Neutrophils 9.6 10^3/uL (1.4-6.5); Hemoglobin 7.6 g/dL (13.0-18.0); Mean Corp Hgb Conc. 34.5 g/dL (33.0-37.0); Mean Corpuscular Hgb 28.6 pg (27.0-31.0); Mean Corpuscular Volume 82.7 fL (80.0-94.0); Nucleated Red Blood Cells % 0.2 % (-); Red Blood Cell Count 2.66 10^6/uL (4.70-6.10); Red Cell Dist. Width 15.2 % (11.5-14.5); White Blood Cell Count 12.8 10^3/uL (4.8-10.8)
[2024-05-16 04:25] LABS: ALT (SGPT) 37 U/L (0-50); AST (SGOT) 94 U/L (17-59); Albumin 1.5 g/dl (3.5-5.0); Alkaline Phosphatase 135 U/L (38-126); Blood Urea Nitrogen 20 mg/dl (9-20); Calcium 6.8 mg/dl (8.4-10.2); Carbon Dioxide 24 mmol/L (22-30); Chloride 99 mmol/L (98-107); Direct Bilirubin 3.2 mg/dl (0.0-0.4); Estimated Creatinine Clearance 81 ml/min; Glucose 89 mg/dl (70-99); Magnesium 1.8 mg/dl (1.6-2.3); Phosphorus 2.8 mg/dl (2.5-4.5); Potassium 3.2 mmol/L (3.5-5.1); Sodium 129 mmol/L (135-145); Total Bilirubin 4.2 mg/dl (0.2-1.3); Total Protein 4.4 g/dl (6.3-8.2); Triglycerides 170 mg/dl (10-149); Vancomycin Random 11.7 ug/ml; eGFR > 60.00
[2024-05-16 04:26] LABS: Procalcitonin 2.15 ng/ml (0.0-0.25)
[2024-05-16] MEDS: LR 1000 IV ×2 (04:57→20:11)
[2024-05-16 05:10] VITALS: BMI 42.9
[2024-05-16] MEDS: CALCIUM CHLORIDE 10% SYRINGE 60 MG IV (05:12)
[2024-05-16] MEDS: KCL 270 MEQ IV (05:12)
[2024-05-16 05:22] LABS: Glucose - Point of Care 82 mg/dl (70-99)
[2024-05-16 05:45] LABS: Mean Platelet Volume 9.9 fL (7.4-10.4); Platelet Count 51 10^3/uL (130-400)
--- NOTE | 2024-05-16 06:31 | PTCARENOTE ---
0400 assessment unchanged. Remains on Propofol and Fentanyl at same rates, insulin per critical care glycemic protocol, Levophed weaned to 10mcg/min, vasopressin infusing at 0.03 units/min. Calcium and potassium repleted with riders based on AM lab
results. EN still with large amounts of output. CHG cloth bath done, linens changed.
--- NOTE | 2024-05-16 07:10 | W.PN.URO.CBU ---
Today's Communication / Plan
-
medical support and transfusion
barcenas and stent in place
Assessment / Plan
-
neurogenic bladder with chronic barcenas
intermittent hematuria
chronic cystitis- drug res organisms
recent right subcapsular bleed
recent right ureteral stone s/p stent- with follow up ureteroscopy/laser litho and stent replacement
s/p ex lap and bowel perf repair
pt remains intubated
barcenas functional/renal function stable
recent ct shows well positioned right ureteral stent
right subcapsular hematoma
continue barcenas
drop in hgb- transfusion and anticoag per med team- subcapsular hematoma appeared stable- if ongoing bleeding a concern would need re-imaging- but given pt's overall status management would be with transfusion at this point
will contiue to follow
Diagnosis
-
Date of Service: May 16, 2024
-
Patient Diagnosis:
neurogenic bladder with chronic barcenas
right subcapsular hematoma
right ureteral stone s/p ureteroscopy and stent
s/p ex lap and bowel perf repair
Subjective
-
pt remains critically ill- in ICU and intubated
barcenas in place- adequate urine output and cr stable- jalil- no hematuria
sub q heparin started yesterday- hct down to 22
Objective
-
Vital Signs
Temp Pulse Resp BP Pulse Ox
97.5 F 90 14 92/43 99
05/16/24 03:08 05/16/24 06:00 05/16/24 06:00 05/14/24 09:57 05/16/24 06:00
Intake and Output
05/15/24 05/16/24 05/17/24
06:59 06:59 06:59
Intake Total 5597.4 / 5890.1 4754.3 / 4754.3
Output Total 2375 / 2635 3470 / 3470
Balance 3222.4 / 3255.1 1284.3 / 1284.3
Intake:
IV fluids (Total) 4547.4 / 4740.1 4046.8 / 4046.8
D5w 1,000 ml @ 125 mls/hr IV . 870 / 870
Q9H12M RADHA with Sodium
Bicarbonate 150 Meq Rx#:
[id number]
Fent 120 / 127.5 172.5 / 172.5
Insulin 28.1 / 28.7 19.5 / 19.5
Levo 1044.2 / 1081.7 814.4 / 814.4
Lr 1,000 ml @ 100 mls/hr IV . 2149 / 2149
Q10H RADHA Rx#:[id number]
Prop 376.1 / 394.2 434.4 / 434.4
Sterile Water For Injection 192 / 2039 240 / 240
1000 ml 1,000 ml @ 120 mls/hr
IV .Q9H35M RADHA with Sodium
Bicarbonate 150 Meq Rx#:
[id number]
Vaso 189 / 198 216 / 216
IV piggybacks 1050 / 1150 527.5 / 527.5
Amount instilled into GI Tube ( 180 / 180
Total)
[place] Sump 180 / 180
Output:
Drain Output (Total) 1675 / 1805 2114
Right Abdomen Wing-Morris 167 / 1805 2114
Gastrointestinal tube output ( 500 / 500
Total)
[place] Sump 500 / 500
Urine, Barcenas 700 / 700 855 / 855
Laboratory Results
05/16/24 03:32
05/16/24 03:32
Review of Systems
-
Unable to obtain full review of systems at this time due to: Patient Intubation
Physical Exam
-
General -intubated
Genitalia - barcenas in place
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
[2024-05-16 07:19] LABS: Glucose - Point of Care 89 mg/dl (70-99)
[2024-05-16] MEDS: NSS (PRESERVATIVE FREE) 10 ML IV (08:00)
[2024-05-16] MEDS: PROTONIX IV 40 MG IV (08:00)
--- NOTE | 2024-05-16 08:09 | PHA.VAN.FU ---
Vancomycin Assessment / Plan
- Assessment
Renal Function: SCR Decreasing
WBC's are: Trending Down
In the past 24 hrs, patient has been: Afebrile
Concomitant Antimicrobials: Meropenem
- Assessment - Therapeutic Drug Monitoring
Random Level: R = 11.7 ~39 hours post Vanc 1500mg
- Dosing Plan
Continue: Dosing by level
Dosing by Level: Re-dose today (Vanc 1500mg--12.8mg/kg)
- Monitoring Plan
Random Level: R 12/9 AM
- Follow Up
Pharmacy will continue to follow.
Vancomycin Follow UP
- -
Patient Age: 64
Patient Sex: Male
Vancomycin Day #: 4
Indication: Gi / Intra-Abdominal
Requesting Provider: Dr. Miles/Dr. Riggins
Pertinent Antimicrobial Allergies:
ofloxacin - unknown (pt tolerated ciprofloxacin)
Height / Weight:
Height 5 ft 5 in
Actual Weight 116.9 kg
Pertinent Past Medical History: BMI ~44, Paraplegia, CKD III
- Vital Signs / Lab Results
Temp Pulse Resp BP Pulse Ox
97.7 F 87 14 92/43 98
05/16/24 07:36 05/16/24 07:00 05/16/24 07:00 05/14/24 09:57 05/16/24 07:59
Lab Results - Hematology
05/13/24 05/13/24 05/14/24
07:30 19:20 03:34
WBC 24.4 H 32.1 H
Band Neutrophils 19 H 15 H
05/15/24 05/16/24
04:13 03:32
WBC 20.4 H 12.8 H
Band Neutrophils 14 H
Lab Results - Chemistry
05/13/24 05/13/24 05/14/24
07:30 19:20 03:34
BUN 19 18 17
Creatinine 1.6 H 1.5 H 1.5 H
Estimated Creat Clear 61 57
Albumin 2.7 L 1.6 L
05/14/24 05/14/24 05/15/24
12:30 21:08 04:13
BUN 17 18 19
Creatinine 1.4 H 1.2 1.3
Estimated Creat Clear 62 72 66
Albumin
05/16/24
03:32
BUN 20
Creatinine 1.1
Estimated Creat Clear 81
Albumin 1.5 L
05/13/24 05/14/24 05/14/24
22:15 03:34 08:00
Lactic Acid 4.7 H* 6.2 H* Cancelled
05/14/24 05/14/24 05/14/24
09:08 12:29 13:42
Lactic Acid 5.4 H* 5.2 H* Cancelled
05/14/24 05/15/24 05/16/24
21:08 04:13 03:32
Lactic Acid 3.7 H 3.4 H 2.1 H
Microbiology Results
05/13/24 22:15 MRSA Screen - Final
Nose Staph aureus MRSA
05/13/24 09:25 Urine Culture - Final
Urine NO GROWTH
Therapeutic Drug Monitoring
Random Vancomycin 11.7 ug/ml 05/16/24 03:32
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
[2024-05-16] MEDS: VANCOCIN 530 MG IV (08:45)
[2024-05-16 09:06] LABS: Glucose - Point of Care 94 mg/dl (70-99)
[2024-05-16 09:48] VITALS: BP 121/55
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
--- NOTE | 2024-05-16 10:25 | PTCARENOTE ---
Rec'd pt at 0700. Pt sedate on Prop/Fent gtts on vent. Opens eyes/grimaces with verbal/tactile stimuli. Monitor ST 100's. SBP 110-120's via right radial a-line, on Levophed/Vaso gtts via RIJ, to keep MAP >65. Lungs dim/sct coarse, pox 97% on 40%
fio2. Abd large/round, absent bowel sounds. NGT to LIWS with yellow/green drainage. Right EN with large amt serous drainage to bulb. Midline dressing intact with some blistering to tape site. Padron draining tea colored urine. Glycemic protocol
continued with Q2hr accuchecks. 1 unit PRBCs ordered and transfusing at this time.
[2024-05-16 11:12] LABS: Glucose - Point of Care 83 mg/dl (70-99)
[2024-05-16] MEDS: LASIX 40 MG IV (11:24)
[2024-05-16] MEDS: KCL 260 MEQ IV (11:32)
--- NOTE | 2024-05-16 12:01 | W.PN.GS2 ---
Addendum entered and electronically signed by Claudy Grover MD 05/16/24 12:13:
I saw and examined the patient.
The Television Reporter's note was reviewed and I agree with the note.
Comment: Intubated/sedated. Pressor requirements have decreased but remains on 2 pressors. Belly more tightly distended today on exam, unable to discern tenderness. High EN outputs (serous) likely 2/2 ascites from known hepatic cirrhosis. WBC
improved, Hb has trended down. Cont to wean vent/pressors as sangita. Hold AC given declining Hb.
Original Note:
Today's Communication / Plan
-
NPO/NGT/Local wound care
Assessment / Plan
-
64 yo male with pmh of T7 spinal cord injury with paraplegia, recurrent ureteral stone, CKD stage IIIa, recurrent UTI with ESBL Proteus and E. coli sepsis, essential hypertension, recently discharged after complex hospitalization from 04/17 to 05/12
due to perinephric hematoma, ileus, septic shock UTI, ureteral stone s/p right URS/LL/stone extraction and stent exchange presenting back from SNF with septic shock from perforated ileum.
POD #3 Exploratory laparotomy right hemicolectomy
VDRF
Hypotension on IV pressors (vasopressin and levophed)
Afebrile
Leukocytosis trending down
Acute on chronic anemia present. Suspect hemoconcentrated on admission. With volume resuscitation, his H/h is slowly returning to where it was prior to this acute event (8.0). No active bleeding noted. Being transfused today.
EN with high volume serous fluid
--Continue IV abx, ID following
--IVF while NPO
--Continue NGT to LIWS, continue in place if extubated. Awaiting bowel recovery.
--Continue EN drain, higher outputs expected in setting of cirrhosis/ascites
--Will follow labs
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
--IV ppi for GI ppx
--SCDS with SQ heparin for VTE ppx. Full AC on hold given anemia.
Subjective Data
-
Date of Service: May 16, 2024
Patient seen and examined at bedside with Dr. Grover. Intubated/sedated. Appears comfortable.
Objective Data
-
Intake and Output
05/15/24 05/16/24 05/17/24
06:59 06:59 06:59
Intake Total 5597.4 / 5890.1 4754.3 / 4975.4 1433.2 / 1433.2
Output Total 2375 / 2635 3470 / 3560 740 / 740
Balance 3222.4 / 3255.1 1284.3 / 1415.4 693.2 / 693.2
Intake:
IV fluids (Total) 4547.4 / 4740.1 4046.8 / 4200.4 768.2 / 768.2
D5w 1,000 ml @ 125 mls/hr IV . 870 / 870
Q9H12M RADHA with Sodium
Bicarbonate 150 Meq Rx#:
[id number]
Fent 120 / 127.5 172.5 / 180.0 37.5 / 37.5
Insulin 28.1 / 28.7 19.5 / 19.7 1.2 / 1.2
Levo 1044.2 / 1081.7 814.4 / 833.2 94.0 / 94.0
Lr 1,000 ml @ 60 mls/hr IV . 2149 500 / 500
[id number] RADHA Rx#:[id number]
Prop 376.1 / 394.2 434.4 / 452.5 90.5 / 90.5
Sterile Water For Injection 1919 240 / 240
1000 ml 1,000 ml @ 120 mls/hr
IV .Q9H35M RADHA with Sodium
Bicarbonate 150 Meq Rx#:
[id number]
Vaso 189 / 198 216 / 225 45 / 45
IV piggybacks 1050 / 1150 527.5 / 595.0 635.0 / 635.0
Amount instilled into GI Tube ( 180 / 180 30 / 30
Total)
[place] 180 / 180 30 / 30
Output:
Drain Output (Total) 1675 / 1805 2115 / 2205 740 / 740
Right Abdomen Wing-[place] 167 / 1805 2114 / 2205 740 / 740
Gastrointestinal tube output ( 500 / 500
Total)
[place] 500 / 500
Urine, Padron 700 / 700 855 / 855
Vital Signs
Temp Pulse Resp BP Pulse Ox
97.6 F 110 12 121/55 98
05/16/24 11:19 05/16/24 11:00 05/16/24 11:00 05/16/24 09:48 05/16/24 11:26
Lab Results
05/16/24 03:32
Calcium 6.8 mg/dl (8.4-10.2) L* 05/16/24 03:32
Phosphorus 2.8 mg/dl (2.5-4.5) 05/16/24 03:32
Magnesium 1.8 mg/dl (1.6-2.3) 05/16/24 03:32
Total Bilirubin 4.2 mg/dl (0.2-1.3) H 05/16/24 03:32
Direct Bilirubin 3.2 mg/dl (0.0-0.4) H 05/16/24 03:32
AST 94 U/L (17-59) H 05/16/24 03:32
ALT 37 U/L (0-50) 05/16/24 03:32
Alkaline Phosphatase 135 U/L (38-126) H 05/16/24 03:32
Total Protein 4.4 g/dl (6.3-8.2) L 05/16/24 03:32
Albumin 1.5 g/dl (3.5-5.0) L 05/16/24 03:32
Physical Exam
-
VDRF, ETT in place. Sedated.
Abd: soft, obese, distended. Surgical dressing in place and intact
NGT with bilious outputs, minimal. EN with SSF
[2024-05-16] MEDS: SUBLIMAZE 100 IV (12:36)
[2024-05-16 12:44] LABS: Hematocrit 28.5 % (39.0-52.0); Hemoglobin 9.6 g/dL (13.0-18.0)
[2024-05-16 12:50] LABS: B.E. -0.4 mmol/L; HCO3 24.8 mmol/L (21-28); O2 Saturation % 98.9 % (94-98); PCO2 42 mmHg (35-48); PO2 108 mmHg (83-108); pH 7.38 (7.35-7.45)
--- NOTE | 2024-05-16 13:12 | PTCARENOTE ---
Abdominal dressing changed as per orders. Midline incision with urbano intact, open areas noted with dimas in place. Multiple areas to abdomen with open blisters from dressing tape, new midline abdominal dressing applied with silicone tape.
Aquacells applied to open blisters on abdomen-see flowsheet. Repeat HGB 9.6 after blood transfusion. Assessment unchanged.
[2024-05-16 13:17] LABS: Glucose - Point of Care 78 mg/dl (70-99)
[2024-05-16 15:28] LABS: Glucose - Point of Care 85 mg/dl (70-99)
[2024-05-16 17:08] LABS: Glucose - Point of Care 76 mg/dl (70-99)
[2024-05-16] MEDS: DEXTROSE 50% SYRINGE 12.5 GRAMS IV (19:12)
[2024-05-16 19:16] LABS: Glucose - Point of Care 69 mg/dl (70-99)
[2024-05-16 19:42] LABS: Hematocrit 30.1 % (39.0-52.0); Hemoglobin 10.2 g/dL (13.0-18.0)
[2024-05-16 19:45] LABS: Glucose - Point of Care 124 mg/dl (70-99)
[2024-05-16] MEDS: PITRESSIN 100 IV (20:11)
[2024-05-16 20:40] LABS: Glucose - Point of Care 99 mg/dl (70-99)
--- NOTE | 2024-05-16 21:00 | PTCARENOTE ---
Assumed care of pt at 1900. Received pt intubated, #8 ETT 23cm at lip, AC 12/350/40/5, maintaining SpO2 in mid 90s. ST 110s on monitor. Received pt on Levophed at 10mcg/min, Fentanyl at 75mcg/hr, Propofol at 25mcg/kg/min, and pt on insulin drip her
critical care glycemic protocol. Initial 1900 blood sugar was 69, protocol followed, after receiving 1/2 amp D50 was 124. Discussed with Rylie SENA, insulin drip dc'd and Q4 accuchecks with coverage ordered. EN continues with high output,
jalil in color, almost the exact color of pt's urine. See nursing shift assessment flowsheet for full physical assessment details.
[2024-05-17] MEDS: MERREM 500 MG IV ×4 (00:11→17:41)
[2024-05-17] MEDS: STERILE WATER FOR INJECTION 10 ML IV ×4 (00:11→17:41)
[2024-05-17 00:33] LABS: Glucose - Point of Care 88 mg/dl (70-99)
--- NOTE | 2024-05-17 02:28 | PTCARENOTE ---
Midnight assessment unchanged. Pt with increasing vasopressor requirements, vasopressin restarted shortly after 1999, Levophed needing to be titrated up to keep MAP >65, now at 16mcg/min. Attempting to wean down sedation as well to help with BP.
SpO2 96% on same vent settings, ST 110s on monitor. Continues with high output from EN, 935mL so far this shift at the time of this note, jalil in color.
[2024-05-17] MEDS: LEVOPHED 258 MG IV ×2 (02:40→11:11)
[2024-05-17] MEDS: SUBLIMAZE 100 IV ×2 (03:09→20:01)
[2024-05-17 03:27] LABS: B.E. -4.5 mmol/L; HCO3 22.5 mmol/L (21-28); O2 Saturation % 99.2 % (94-98); PCO2 49 mmHg (35-48); PO2 109 mmHg (83-108); pH 7.27 (7.35-7.45)
[2024-05-17 03:29] LABS: O2 Therapy 98%
[2024-05-17 03:48] LABS: Hematocrit 32.8 % (39.0-52.0); Hemoglobin 10.7 g/dL (13.0-18.0); Mean Corp Hgb Conc. 32.6 g/dL (33.0-37.0); Mean Corpuscular Hgb 28.2 pg (27.0-31.0); Mean Corpuscular Volume 86.5 fL (80.0-94.0); Mean Platelet Volume 9.9 fL (7.4-10.4); Platelet Count 68 10^3/uL (130-400); Red Blood Cell Count 3.79 10^6/uL (4.70-6.10); Red Cell Dist. Width 15.2 % (11.5-14.5); White Blood Cell Count 34.3 10^3/uL (4.8-10.8)
[2024-05-17 04:12] LABS: % Basophils 0.1 % (0-2); % Eosinophils 0.7 % (0-6); % Immature Granulocytes 8.1 % (0-0.5); % Monocytes 6.1 % (1.7-9.3); Absolute Eosinophils 0.2 10^3/uL (0-0.7); Absolute Immature Granulocytes 2.8 10^3/uL (0-0.05); Absolute Lymphocytes 2.1 10^3/uL (1.2-3.4); Absolute Monocytes 2.1 10^3/uL (0.1-0.6); Absolute Neutrophils 27.2 10^3/uL (1.4-6.5); Nucleated Red Blood Cells % 0.1 % (-)
[2024-05-17 04:15] LABS: Lactic Acid 1.4 mmol/L (0.7-2.0)
[2024-05-17 04:16] LABS: Vancomycin Random 16.7 ug/ml
--- NOTE | 2024-05-17 04:30 | PTCARENOTE ---
Addendum entered by Aruna Allison RN 05/17/24 06:28:
No new orders for patient
Original Note:
Assessment unchanged. Propofol weaned down to 15mcg/kg/min. Remains on Levo at 16mcg/min, Vaso at 0.03 units/min, Fentanyl at 75mcg/hr. AM labs revealed a significant jump in WBC. [place] text sent to general surgery (Dr. Grover) at 1260 relaying this
info along with other labs, EN drain and urine output, and the increased vasopressor requirement.
[2024-05-17 04:44] LABS: ALT (SGPT) 50 U/L (0-50); AST (SGOT) 130 U/L (17-59); Albumin 1.7 g/dl (3.5-5.0); Alkaline Phosphatase 198 U/L (38-126); Blood Urea Nitrogen 22 mg/dl (9-20); Calcium 7.2 mg/dl (8.4-10.2); Carbon Dioxide 25 mmol/L (22-30); Chloride 100 mmol/L (98-107); Direct Bilirubin 7.1 mg/dl (0.0-0.4); Estimated Creatinine Clearance 75 ml/min; Glucose 93 mg/dl (70-99); Magnesium 1.7 mg/dl (1.6-2.3); Phosphorus 5.6 mg/dl (2.5-4.5); Potassium 4.3 mmol/L (3.5-5.1); Sodium 129 mmol/L (135-145); Total Bilirubin 7.9 mg/dl (0.2-1.3); Total Protein 5.1 g/dl (6.3-8.2); eGFR > 60.00
[2024-05-17 04:57] VITALS: BMI 42.8
[2024-05-17] MEDS: PITRESSIN 100 IV ×2 (06:17→15:49)
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
[2024-05-17] MEDS: DIPRIVAN 100 IV ×3 (07:25→21:40)
[2024-05-17] MEDS: NSS (PRESERVATIVE FREE) 10 ML IV (07:26)
[2024-05-17] MEDS: PROTONIX IV 40 MG IV (07:26)
[2024-05-17 07:35] LABS: Glucose - Point of Care 96 mg/dl (70-99)
--- NOTE | 2024-05-17 08:06 | PN.DE.MGMTRT ---
Insulin Management
- -
05/17/2024: Diabetes Management f/u:
64 year old male with PMH: T7 spinal cord injury with paraplegia, recurrent ureteral stone, CKD stage IIIa, recurrent UTI with ESBL Proteus and E. coli sepsis, essential HTN, recently discharged after complex hospitalization from 04/17 to 05/12 due to
perinephric hematoma, ileus, septic shock UTI, ureteral stone s/p right URS/LL/stone extraction and stent exchange. Patient presented back to from [facility] with septic shock from perforated ileum.
Now POD # 4 Exploratory lap right hemicolectomy.
Pt remains intubated and sedated on pressors, unable to discuss diabetes mgt, no family at bedside.
Current A1C 5.0%, was 5.6% on 02/20/2024. Cr 1.4-->1.2 today, eGFR >60
Pt was briefly initiated on glycemic protocol for optimal glucose control. Transitioned off drip on 05/16 @5pm to moderate corrective Q4 hrs
Glucose remains low normal of 69 to 94, fasting 96 this AM.
Will closely monitor and assist with glucose management as necessary
Diabetes History
- -
Type of Diabetes: 2
Pre-Admission Diabetes Regimen
05/17/24
03:18
Creatinine 1.2
Lab Results
Hemoglobin A1c 5.0 % (4.0-5.6) 05/14/24 03:34
Insulin Pump Settings
IP Diabetes Regimen
05/16/24 05/16/24 05/16/24
08:55 11:01 13:06
Glucose
POC Glucose 94 83 78
05/16/24 05/16/24 05/16/24
15:17 16:57 19:04
Glucose
POC Glucose 85 76 69 L
05/16/24 05/16/24 05/17/24
19:33 20:19 00:10
Glucose
POC Glucose 124 H 99 88
05/17/24 05/17/24
03:18 07:25
Glucose 93
POC Glucose 96
Patient Education
[2024-05-17] MEDS: LASIX 40 MG IV (08:31)
--- NOTE | 2024-05-17 08:45 | PTCARENOTE ---
Assumed care of pt at 0700. Received pt intubated, #8 ETT 23cm at lip, AC 12/350/40/5, maintaining SpO2 in mid 90s. ST 110s on monitor. Received pt on Levophed, Fentanyl, Propofol, and LR as ordered. BG Q4 accuchecks with coverage ordered. EN
continues with high output, jalil in color, almost the exact color of pt's urine. See nursing shift assessment flowsheet for full physical assessment details. SAT began at 0810 and stopped at 0845 as per Cerner Analyst's request. During SAT, pt opening
eyes, shrugs shoulders.
[2024-05-17 09:01] LABS: Body Fluid Creatinine 1.4 mg/dl
--- NOTE | 2024-05-17 09:52 | PTCARENOTE ---
Addendum entered by Bushra You RN 05/17/24 13:59:
ABD pressure reassessed with patient supine at end expiration at 23. Surgeon and Licensed Mental Health Counselor notified.
Original Note:
ABD pressure obtained at 34mmhg. Surgeon and Licensed Mental Health Counselor notified.
--- NOTE | 2024-05-17 10:59 | W.PN.GS2 ---
Today's Communication / Plan
-
-EN creatinine is 1.4, similar to serum. Unlikely to be ureteral injury.
-Will check a bladder pressure and trend, I have low suspicion for abdominal compartment syndrome at this time.
-Continue IV abx, ID following
-IVF while NPO, will consider TPN sooner rather than later given overall global picture and expected prolonged ileus
-Continue NGT to LIWS, continue in place if extubated. Awaiting bowel recovery.
-Continue EN drain, higher outputs expected in setting of cirrhosis/ascites
-Will follow labs
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
-IV ppi for GI ppx
-SCDS with SQ heparin for VTE ppx. Full AC on hold given anemia
-General Surgery will continue to follow
Assessment / Plan
-
64 yo male with pmh of T7 spinal cord injury with paraplegia, recurrent ureteral stone, CKD stage IIIa, recurrent UTI with ESBL Proteus and E. coli sepsis, essential hypertension, recently discharged after complex hospitalization from 04/17 to 05/12
due to perinephric hematoma, ileus, septic shock UTI, ureteral stone s/p right URS/LL/stone extraction and stent exchange presenting back from [facility] with septic shock from perforated ileum.
POD #4 Exploratory laparotomy right hemicolectomy. Remains unstable and critically ill on pressors.
-EN creatinine is 1.4, similar to serum. Unlikely to be ureteral injury.
-Will check a bladder pressure and trend, I have low suspicion for abdominal compartment syndrome at this time.
-Continue IV abx, ID following
-IVF while NPO, will consider TPN sooner rather than later given overall global picture and expected prolonged ileus
-Continue NGT to LIWS, continue in place if extubated. Awaiting bowel recovery.
-Continue EN drain, higher outputs expected in setting of cirrhosis/ascites
-Will follow labs
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
-IV ppi for GI ppx
-SCDS with SQ heparin for VTE ppx. Full AC on hold given anemia
-General Surgery will continue to follow
Time Spent
Total Time Spent with Patient (in minutes): 25
Subjective Data
-
Date of Service: May 17, 2024
Interval Events:
Increasing pressor requirement, leukocytosis, low urine output though serum creatinine stable. Lactate normal, acidotic on ABG.
Objective Data
-
Intake and Output
05/16/24 05/17/24 05/18/24
06:59 06:59 06:59
Intake Total 4754.3 / 4975.4 3900.7 / 4018.1 461.2 / 461.2
Output Total 3470 / 3560 4710 / 4710 785 / 785
Balance 1284.3 / 1415.4 -809.3 / -691.9 -323.8 / -323.8
Intake:
IV fluids (Total) 4046.8 / 4200.4 2825.7 / 2943.1 461.2 / 461.2
Fent 172.5 / 180.0 180.0 / 187.5 25.5 / 25.5
Insulin 19.5 / 19.7 2.7 / 2.7
Levo 814.4 / 833.2 503.0 / 533.0 123 / 123
Lr 1,000 ml @ 60 mls/hr IV . 2150 / 2250 1540 / 1600 240 / 240
[id number] RADHA Rx#:[id number]
Prop 434.4 / 452.5 402.0 / 412.9 36.7 / 36.7
Sterile Water For Injection 240 / 240
1000 ml 1,000 ml @ 120 mls/hr
IV .Q9H35M RADHA with Sodium
Bicarbonate 150 Meq Rx#:
[id number]
Vaso 216 / 225 198 / 207 36 / 36
IV piggybacks 527.5 / 595.0 925.0 / 925.0
Amount instilled into GI Tube ( 180 / 180 150 / 150
Total)
Milam Sump 180 / 180 150 / 150
Output:
Drain Output (Total) 2114 2935 / 2935 445 / 445
Right Abdomen Wing-Morris 2114 2935 / 2935 445 / 445
Gastrointestinal tube output ( 500 / 500 500 / 500
Total)
Milam Sump 500 / 500 500 / 500
Urine, Padron 855 / 855 1275 / 1275 340 / 340
Vital Signs
Temp Pulse Resp BP Pulse Ox
97.7 F 108 20 121/55 97
05/17/24 07:35 05/17/24 10:00 05/17/24 10:00 05/16/24 09:48 05/17/24 10:00
Lab Results
05/17/24 03:18
05/17/24 03:18
Calcium 7.2 mg/dl (8.4-10.2) L 05/17/24 03:18
Phosphorus 5.6 mg/dl (2.5-4.5) H 05/17/24 03:18
Magnesium 1.7 mg/dl (1.6-2.3) 05/17/24 03:18
Total Bilirubin 7.9 mg/dl (0.2-1.3) H D 05/17/24 03:18
Direct Bilirubin 7.1 mg/dl (0.0-0.4) H 05/17/24 03:18
AST 130 U/L (17-59) H 05/17/24 03:18
ALT 50 U/L (0-50) 05/17/24 03:18
Alkaline Phosphatase 198 U/L (38-126) H 05/17/24 03:18
Total Protein 5.1 g/dl (6.3-8.2) L 05/17/24 03:18
Albumin 1.7 g/dl (3.5-5.0) L 05/17/24 03:18
Physical Exam
-
GENERAL/NEURO: Intubated and sedated
CHEST: Unlabored breathing on vent
ABDOMEN: Soft, obese, distended, edematous but compliant
EXTREMITIES: Cold, no cyanosis,++ edema.
[2024-05-17] MEDS: LR 1000 IV (11:10)
[2024-05-17 11:11] LABS: B.E. -2.7 mmol/L; HCO3 21.8 mmol/L (21-28); O2 Saturation % 99.5 % (94-98); PCO2 36 mmHg (35-48); PO2 152 mmHg (83-108); pH 7.39 (7.35-7.45)
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
[2024-05-17] MEDS: NOVOLOG FLEXPEN-MODERATE RESISTANCE SC ×2 (11:24→17:43)
[2024-05-17 11:26] LABS: Ammonia 23 umol/L (9-30)
[2024-05-17 11:34] LABS: Glucose - Point of Care 96 mg/dl (70-99)
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
--- NOTE | 2024-05-17 11:44 | PHA.VAN.FU ---
Vancomycin Assessment / Plan
- Assessment
Renal Function: SCR Increasing (Scr 1.1-->1.2, BUN increasing)
WBC's are: Trending Up (12.8--> 34.3)
In the past 24 hrs, patient has been: Afebrile
Concomitant Antimicrobials: Meropenem 500mg IV Q6h
- Assessment - Therapeutic Drug Monitoring
Random Level: 16.7 drawn approx 18h after 1500mg on 05/16 at 0845
Calculated ke: 0.0246 calculated from levels on 05/15 and 05/16-pt did not receive dose
Calculated half life (H): 28hr
- Dosing Plan
Dosing by Level: Re-dose today (Vancomycin 500mg IV now)
- Monitoring Plan
Random Level: Will repeat level 05/18 with AM labs.
- Follow Up
Pharmacy will continue to follow.
Vancomycin Follow UP
- -
Patient Age: 64
Patient Sex: Male
Vancomycin Day #: 5
Indication: Gi / Intra-Abdominal
Requesting Provider: Dr. Miles/Dr. Riggins
Pertinent Antimicrobial Allergies:
ofloxacin - unknown (pt tolerated ciprofloxacin)
Height / Weight:
Height 5 ft 5 in
Actual Weight 116.8 kg
Pertinent Past Medical History: BMI ~44, Paraplegia, CKD III
- Vital Signs / Lab Results
Temp Pulse Resp BP Pulse Ox
97.7 F 110 14 121/55 99
05/17/24 07:35 05/17/24 11:00 05/17/24 11:00 05/16/24 09:48 05/17/24 11:14
Lab Results - Hematology
05/15/24 05/16/24 05/17/24
04:13 03:32 03:18
WBC 20.4 H 12.8 H 34.3 H
Band Neutrophils 14 H
Lab Results - Chemistry
05/14/24 05/14/2424
12:30 21:08 04:13
BUN 17 18 19
Creatinine 1.4 H 1.2 1.3
Estimated Creat Clear 62 72 66
Albumin
05/16/24 05/17/24
03:32 03:18
BUN 20 22 H
Creatinine 1.1 1.2
Estimated Creat Clear 81 75
Albumin 1.5 L 1.7 L
05/14/24 05/14/24 05/14/24
08:00 12:29 13:42
Lactic Acid Cancelled 5.2 H* Cancelled
05/14/24 05/15/24 05/16/24
21:08 04:13 03:32
Lactic Acid 3.7 H 3.4 H 2.1 H
05/17/24
03:18
Lactic Acid 1.4
Microbiology Results
05/13/24 22:15 MRSA Screen - Final
Nose Staph aureus MRSA
Therapeutic Drug Monitoring
Random Vancomycin 16.7 ug/ml 05/17/24 03:18
[2024-05-17 12:06] LABS: Cortisol, Random 14.3 ug/dl
[2024-05-17] MEDS: VANCOCIN HCL 500 MG 100 IV (12:43)
--- NOTE | 2024-05-17 13:58 | PTCARENOTE ---
Assessment unchanged. ABG obtaines after AM vent changes.
--- NOTE | 2024-05-17 14:49 | CM ---
CM following re: discharge planning.
Discussed in Rounds, reviewed pt's chart, met with pt. Per rounds meeting, pt is POD #4 Exploratory laparotomy right hemicolectomy. Remains intubated, unstable and critically ill, on pressors.
CM spoke to [facility] A[employer] family independence case manager Anuradha [phone] and at this point no solution brought to the case regarding legal guardian issue and she will discuss it with her control supervisor.
CM spoke to [facility] [employer] athletic director and she stated she will discuss pt's case with one of legal guardian office to find a solution.
D/C plan: Uncertain at this time and will depend on pt's progress. Pt is a LTC resident at [facility], on 15 day Medicaid bed hold.
CM will follow with discharge plan updates as hospitalization progresses
--- NOTE | 2024-05-17 15:48 | PTCARENOTE ---
Assessment unchanged. Blood cultures were attempted X2 without success. Therefore, one set drawn via central line and second set via a-line.
[2024-05-17 15:49] LABS: Lactic Acid 1.7 mmol/L (0.7-2.0)
[2024-05-17 15:57] LABS: Blood Urea Nitrogen 22 mg/dl (9-20); Calcium 6.9 mg/dl (8.4-10.2); Carbon Dioxide 22 mmol/L (22-30); Chloride 99 mmol/L (98-107); Estimated Creatinine Clearance 81 ml/min; Glucose 95 mg/dl (70-99); Potassium 3.8 mmol/L (3.5-5.1); Sodium 127 mmol/L (135-145); eGFR > 60.00
--- NOTE | 2024-05-17 16:02 | CON.GI ---
Addendum entered and electronically signed by Verenice Pruitt MD 05/17/24 18:13:
I saw and examined the patient.
The PERSONAL SHOPPER's note was reviewed and I agree with the note.
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
hospital course from 04/27-05/12 with urosepsis with septic shock, perinephric hematoma had stone extraction with stent placement with urology and also had ileus he returned within a couple of hours on 05/13 with worsening abdominal pain/ hypotension
and tachycardic in the ER, CT showed perforated bowel with free air and he had emergent surgery on 05/[address] Miles found to have perforated ileum and peritonitis status post right hemicolectomy and has been critically ill with pressor support
intubated and sedated and we were consulted for underlying cirrhosis which was noted on imaging and also IntraOp. he was scheduled for an outpatient visit in June with Dr. Bowling.
Assessment and plan cirrhosis most likely secondary to HCV and and unsure if he had prior history of EtOH and abnormal LFTs most likely related to shock liver. Currently critically ill with septic shock from peritonitis from perforated bowel status
post right hemicolectomy with multiple pressors, antibiotics and ventilator support. He also has thrombocytopenia related to sepsis and cirrhosis. continue supportive care per critical care and primary team and surgery. Will pursue cirrhosis
workup and HCV treatment as outpatient once medically stable. Will sign off and will be available as needed
Original Note:
Consultation
-
Date/Time Consultation Requested: 05/17/24 1045
Date/Time Consultation Performed: 05/17/24 1600
Requesting Provider: Sonu Burrell MD
Performing Provider: JAIDA Welsh, Verenice Pruitt MD
Reason for Consultation: cirrhosis with rise in LFTs
Medical History
Chief Complaint / HPI
Chief Complaint: abdominal pain on admission
History of Present Illness:
Pt is a 64yo with hx paraplegia (T6), CVA with left sided weakness, recurrent ureteral stones, ESBL UTI, Ecoli sepsis, CKD, obesity, GERD, depression, thrombocytopenia, pneumonectomy, cirrhosis with admission 05/13 with onset of nausea/vomiting
and abdominal pain. Pt with recent admission 04/27- 05/12 with perinephric hematoma, septic shock, ureteral stone with extraction and stent, ileus vs SBO with SB distention, fecal impaction DVT and hematuria. Pt was followed by surgical team
during last admission with slow advancement of diet and bowel regiment. On return noted with abdominal pain with hypotension with SVT. Ct in ER with free air and pt went to OR 05/13 with noted perforated ileum and generalized peritonitis and
sepsis with ex lap and right hemicolectomy completed. Pt did also have EN placed with large volume output since surgery. Pt has been critically ill requiring vent support, multiple pressors with consult to tube handler, ID, urology. Asked to see
for hx cirrhosis and rise in LFT's with bili 7.9, d bili 7.1, AST 130, ALT 50, and alk phos 198. Pt also noted with noted drop in platelets but also noted down as low as 26,000 last admission, albumin 1.5, rise in initial INR 2.45 on 05/14. No
prior DH follow due for new pt visit in June with Dr. Bowling.
Pt currently non verbal as intubated and sedated.
Past Medical History
Past Medical History: CVA, GERD, HTN, Renal Failure, Psychiatric (depression ) and Other (T6 paraplegia with chronic barcenas , chronic thrombocytopenia, cirrhosis, obesity , recurrent uretheral stones, UTI ESBL, Ecoli sepsis, perinephric hematoma DVT.)
Past Surgical History: Other (pneumomectomy )
Social History
Tobacco: Former Smoker (per chart)
Alcohol: None (per chart )
Drug: None (per chart )
Family History
Family History: Unable to Obtain
Allergies / Home Medications
Allergy/AdvReac Type Severity Reaction Status Date / Time
ofloxacin Allergy Unknown/pt Verified 04/27/24 03:26
tolerated
cipro
pentazocine Allergy Unknown Verified 04/27/24 03:26
�Medication �Instructions �Recorded
acetaminophen 325 mg tablet 325 mg PO Q6HPRN PRN mild 04/25/22
(Tylenol) pain/fever
baclofen 10 mg tablet 10 mg PO BID spasms 04/25/22
baclofen 20 mg tablet 20 mg PO HS spasm 04/25/22
escitalopram oxalate 10 mg tablet 10 mg PO DAILY Mental 04/25/22
(Lexapro) Health/Anxiety
famotidine 20 mg tablet (Pepcid) 20 mg PO DAILY Gastrointestinal 04/25/22
issue
folic acid 1 mg tablet 1 mg PO DAILY Supplement 04/25/22
melatonin 3 mg tablet 3 mg PO HS Sleep 04/25/22
sorbitol 70 % solution 30 ml PO [id number] PRN if no bm on 04/25/22
3rd day
therapeutic multivitamin 1 tab PO DAILY Supplement 04/25/22
thiamine HCl (vitamin B1) 100 mg 100 mg PO DAILY Supplement 04/25/22
tablet
sodium phosphates 19 gram-7 118 ml WI DAILYPRN PRN if no bm 06/20/23
gram/118 mL enema (Fleet Enema) aftr dulcolax
metoprolol tartrate 25 mg tablet 12.5 mg (1/2 x 25 mg) PO BID Blood 06/24/23
pressure #0 tabs
albuterol sulfate 90 mcg/actuation 2 puff inhalation R Q4HPRN PRN sob 02/18/24
aerosol inhaler
cranberry fruit 450 mg tablet 450 mg PO DAILY Supplement 02/18/24
(cranberry)
docusate sodium 100 mg capsule 100 mg PO DAILY Constipation 02/18/24
(Colace)
hydroxyzine HCl 25 mg tablet 25 mg PO Q6HPRN PRN itchness 02/18/24
pregabalin 100 mg capsule (Lyrica) 100 mg PO HS Pain #14 caps 02/24/24
furosemide 20 mg tablet (Lasix) 10 mg PO DAILY Fluid 04/27/24
Retention/Swelling
albuterol sulfate 2.5 mg/3 mL 2.5 mg (3 mL) inhalation R Q4HPRN 05/12/24
(0.083 %) solution for nebulization PRN SOB #0 mL
cholecalciferol (vitamin D3) 50 50 mcg PO DAILY Supplement #0 tabs 05/12/24
mcg (2,000 unit) tablet
doxycycline hyclate 100 mg capsule 100 mg PO Q12 Urinary issue #0 caps 05/12/24
pantoprazole 40 mg tablet,delayed 40 mg PO DAILY Gastrointestinal 05/12/24
release issue #0 tabs
polyethylene glycol 3350 17 gram 17 g PO DAILY Constipation #0 ea 05/12/24
oral powder packet
tramadol 50 mg tablet 25 mg (1/2 x 50 mg) PO Q6HPRN PRN 05/12/24
pain #10 tabs
bisacodyl 10 mg rectal suppository 10 mg WI DAILYPRN PRN If no BM 05/13/24
(Dulcolax (bisacodyl)) after MOM
calcium polycarbophil 625 mg 1,250 mg PO QPM Supplement 05/13/24
tablet (FiberCon)
clindamycin phosphate 1 % lotion 1 applic topical DAILY back 05/13/24
diphenhydramine HCl 25 mg capsule 50 mg PO Q4HPRN PRN itching 05/13/24
(Benadryl)
guaifenesin 400 mg tablet 800 mg PO BID cough/congestion 05/13/24
midodrine 5 mg tablet 5 mg PO TID low blood pressure 05/13/24
sodium chloride 0.65 % nasal spray 2 spray intranasal TID dry nares 05/13/24
aerosol
Review of Systems
-
Unable to obtain full review of systems at this time due to: Patient Intubation and Patient Non Verbal
History Source: Patient and Other (nursing staff )
Abdomen/GI: Reports Other (per review with staff noted with nausea and vomiting last admission )
: Reports Other (recent urologic issues )
Neurological: Reports Weakness
Vital Signs
Temp Pulse Resp BP Pulse Ox
97.6 F 107 16 121/55 99
05/17/24 14:45 05/17/24 14:00 05/17/24 14:00 05/16/24 09:48 05/17/24 14:00
Physical Exam
Exam
General: Other (chronic ill appearing, sedated and intubated )
HEENT: Normocephalic and Other (jaundice )
Respiratory: Clear
Cardiac: Peripheral Edema and Other (tachy)
GI: Soft, Distended and Other (unable to assess tenderness, mid line incision with dressing, EN with yellow drainage )
Musculoskeletal: No Clubbing and No Cyanosis
Neuro: Sedated
Psych: Calm
Results
WBC 34.3 10^3/uL (4.8-10.8) H 05/17/24 03:18
Hgb 10.7 g/dL (13.0-18.0) L 05/17/24 03:18
Hct 32.8 % (39.0-52.0) L 05/17/24 03:18
MCV 86.5 fL (80.0-94.0) 05/17/24 03:18
Plt Count 68 10^3/uL (130-400) L D 05/17/24 03:18
Absolute Neuts (auto) 27.2 10^3/uL (1.4-6.5) H 05/17/24 03:18
PT 22.0 Sec (11.4-14.6) H 05/15/24 04:13
INR 1.91 05/15/24 04:13
APTT 51.3 Sec (23.4-35.0) H 05/15/24 04:13
Sodium 127 mmol/L (135-145) L 05/17/24 15:26
Potassium 3.8 mmol/L (3.5-5.1) 05/17/24 15:26
Chloride 99 mmol/L (98-107) 05/17/24 15:26
Carbon Dioxide 22 mmol/L (22-30) 05/17/24 15:26
BUN 22 mg/dl (9-20) H 05/17/24 15:26
Creatinine 1.1 mg/dL (0.7-1.3) 05/17/24 15:
Calcium 6.9 mg/dl (8.4-10.2) L* 05/17/24 15:26
Total Bilirubin 7.9 mg/dl (0.2-1.3) H D 05/17/24 03:18
AST 130 U/L (17-59) H 05/17/24 03:18
ALT 50 U/L (0-50) 05/17/24 03:18
Alkaline Phosphatase 198 U/L (38-126) H 05/17/24 03:18
Lipase 162 U/L (23-300) 05/13/24 07:30
Diagnostic Image Results:
04/28/24 CT Abd/pel (oral only)-DH Only
The right perinephric hematoma appears slightly increased in size 3.8 cm in maximal thickness, previously 3.5 cm with slightly increased posterior extension. There is associated mass effect on the right kidney.
There is decreased colonic/rectal stool burden however there is increased wall thickening with pericolonic and perirectal stranding suggestive of proctocolitis.
05/02/24 CT Abd/pelvis Wo Iv Cont
Small bowel obstruction with transition point in the right lower quadrant.
Mild rectal stool burden with persistent mild wall thickening of the sigmoid colon and rectum which may represent proctocolitis.
Cholelithiasis with gallstone in the gallbladder neck, similar to prior
There is slightly decreased size of the right perinephric hematoma measuring 3.0 cm in thickness, previously 3.8 cm.
There is new small volume perihepatic free fluid.
05/07/24 CT Abd/pel Without Iv Or Oral
There is distention of the small bowel with transition point in the right lower quadrant and probably decompressed colon consistent with of ongoing obstruction. There is similar appearance of the mild stool burden within the distal colon/rectum with
slightly decreased associated wall thickening.
The right perinephric hematoma is now probably isodense to the right kidney which makes evaluation challenging however appears overall stable in size with associated mass effect on the right kidney.
There is small volume perihepatic free fluid, similar in appearance to prior.
Cholelithiasis with gallstone in the gallbladder neck, unchanged.
05/13/24 CT Chest/abd/pel W Iv Cont
1). There is free intraperitoneal air suggesting the presence of perforated abdominal viscus.
2).There is very large low-density perinephric hematoma/seroma compressing the right kidney. While no new high density hemorrhage is demonstrated in this collection, the low density collection is increased in size measuring 5 cm in diameter at its
anterior and superior margins and is associated with compression of the right kidney
3). Cirrhosis with moderate ascites.
4). Cholelithiasis
5).Imaging for bowel pathology is limited by the lack of enteric contrast
There are dilated fluid-filled loops of small bowel likely reflecting ileus
6).There is minimal right pleural effusion with compressive atelectasis at the right lung base, less prominent than on the prior study
7). Right-sided ureteral stent in satisfactory position
05/17/24 Abd X ray
IMPRESSION: No free intraperitoneal air identified radiographically. There is relative paucity of bowel gas. Probable dilated small bowel loop over left abdomen as above which could be related to focal ileus or obstruction. Short-term follow-up
radiographs may be helpful in further evaluation.
Prior GI Procedures:
EGD: unknown
Colonoscopy: unknown
Assessment / Plan
-
Pt is a 64yo with hx paraplegia (T6), CVA with left sided weakness, recurrent ureteral stones, ESBL UTI, Ecoli sepsis, CKD, obesity, GERD, depression, thrombocytopenia, pneumonectomy, cirrhosis with admission 05/13 with onset of nausea/vomiting
and abdominal pain. Pt with recent admission 04/27- 05/12 with perinephric hematoma, septic shock, ureteral stone with extraction and stent, ileus vs SBO with SB distention, fecal impaction DVT and hematuria. Pt was followed by surgical team
during last admission with slow advancement of diet and bowel regiment. On return noted with abdominal pain with hypotension with SVT. Ct in ER with free air and pt went to OR 05/13 with noted perforated ileum and generalized peritonitis and
sepsis with ex lap and right hemicolectomy completed. Pt did also have EN placed with large volume output since surgery. Pt has been critically ill requiring vent support, multiple pressors with consult to tube handler, ID, urology. Asked to see
for hx cirrhosis and rise in LFT's with bili 7.9, d bili 7.1, AST 130, ALT 50, and alk phos 198. Pt also noted with noted drop in platelets but also noted down as low as 26,000 last admission, albumin 1.5, rise in initial INR 2.45 on 05/14. No
prior DH follow due for new pt visit in June with Dr. Bowling.
-elevated LFT's
-hx cirrhosis
-sepsis s/p perforated ileum with ex lap and right hemicolectomy
-thrombocytopenia
-hypoalbuminemia
-coagulopathy
-leukocytosis
-anemia
-increased output from EN drain
-hypotension requiring pressor for support
-recent perinephric hematoma/stone with extraction/stent/hematuria/ileus vs SBO/impaction
other med problems:
-CVA
-T6 para
-hx UTI-ESBL
-CKD
-obesity
-GERD
PLAN:
elevated LFT's likely related to shock with underlying cirrhosis
add INR for AM to calculate meld
trend labs
cont supportive care per tube handler team
remains with large volume from EN - with underlying cirrhosis may be ascites related vs other
NPO
nutrition per surgical team -- via NGT vs consider TPN
cont abx per ID
pt remain critically ill with multiple system failure prognosis poor
pt is scheduled OP for GI follow up in June
-
-
Thank you for consultation and allowing me to participate in the patient's care. Please call the specialty finishing utility person GI physician during the after hours with any questions or concerns.
[2024-05-17] MEDS: MYCAMINE 105 MG IV (16:06)
--- NOTE | 2024-05-17 16:14 | W.PN.UPDATE ---
Update Note
Progress Note Update
05/10/24: s/p right ureteroscopy/laser lithotripsy/stone extraction/stent exchange.
Originally outpatient cysto + stent removal planned after last discharge.
05/13/24: s/p exploratory laparotomy + right hemicolectomy for perforated ileum and peritonitis.
Currently remains intubated on vasopressors.
Given critical status in ICU, plan for stent removal once clinically stabilized pending his clinical course.
- Maintain Padron catheter to drainage (h/o chronic catheter for neurogenic bladder)
- Stent removal will be coordinated by Urology as inpatient vs. outpatient (pending clinical course)
[2024-05-17] MEDS: REFRESH CELLUVISC GEL 1 DROPS BOTH EYES ×2 (17:41→20:18)
[2024-05-17 17:53] LABS: Glucose - Point of Care 112 mg/dl (70-99)
--- NOTE | 2024-05-17 20:00 | PTCARENOTE ---
Resumed care of pt this evening. Received pt intubated and sedated, RASS -2. Pt on levo, vaso, fentanyl, and propofol gtts infusing via right TLC. Pt withdrawals to pain and opens eyes occasionally. Pt is NSR to ST on tele monitor, has +4 pitting
GA, and has + pedal pulses via doppler. Pt tolerating vent settings: AC 14/460/+5/.40 satting at 100% pulse ox. On auscultation pt lungs sound diminished TO and coarse at the bases. Pt suctioned orally for small amount of clear secretions. NG tube
in place connected to low intermittent suctioning, drainage is dark green in color. EN is draining frequent yellow/orange drainage, see I&Os. Chronic barcenas in place draining orange colored urine. Surgical wound dressings intact.
[2024-05-18 00:04] LABS: Glucose - Point of Care 79 mg/dl (70-99)
--- NOTE | 2024-05-18 00:30 | PTCARENOTE ---
Upon reassessment pt continues to tolerate vent settings satting at 99% pulse ox. Pt's levo gtt weaned down to 10 mcg/min.
[2024-05-18] MEDS: MERREM 500 MG IV ×4 (01:17→17:40)
[2024-05-18] MEDS: STERILE WATER FOR INJECTION 10 ML IV ×4 (01:17→17:41)
[2024-05-18] MEDS: NOVOLOG FLEXPEN-MODERATE RESISTANCE SC ×4 (01:18→17:44)
[2024-05-18] MEDS: PITRESSIN 100 IV ×2 (03:13→13:20)
[2024-05-18] MEDS: LR 1000 IV ×2 (03:14→19:41)
[2024-05-18 03:43] LABS: Hematocrit 28.7 % (39.0-52.0); Hemoglobin 9.8 g/dL (13.0-18.0); Mean Corp Hgb Conc. 34.1 g/dL (33.0-37.0); Mean Corpuscular Hgb 28.7 pg (27.0-31.0); Mean Corpuscular Volume 84.2 fL (80.0-94.0); Platelet Count 63 10^3/uL (130-400); Red Blood Cell Count 3.41 10^6/uL (4.70-6.10); Red Cell Dist. Width 15.1 % (11.5-14.5); White Blood Cell Count 18.6 10^3/uL (4.8-10.8)
[2024-05-18 03:57] LABS: INR 1.64; PT 19.6 Sec (11.4-14.6)
[2024-05-18 04:02] LABS: ALT (SGPT) 45 U/L (0-50); AST (SGOT) 118 U/L (17-59); Albumin 1.6 g/dl (3.5-5.0); Alkaline Phosphatase 217 U/L (38-126); Blood Urea Nitrogen 22 mg/dl (9-20); Carbon Dioxide 22 mmol/L (22-30); Chloride 99 mmol/L (98-107); Estimated Creatinine Clearance 75 ml/min; Glucose 88 mg/dl (70-99); Potassium 3.5 mmol/L (3.5-5.1); Sodium 128 mmol/L (135-145); Total Bilirubin 6.8 mg/dl (0.2-1.3); Total Protein 5.1 g/dl (6.3-8.2); eGFR > 60.00
[2024-05-18 04:05] LABS: Vancomycin Random 15.3 ug/ml
[2024-05-18 04:08] LABS: Absolute Neutrophils -Man Diff 16.1 10^3/uL (1.4-6.5); Band Neutrophils 2 % (0-3); Lymphocytes 2 % (20-51); Segmented Neutrophils 85 % (42-75)
[2024-05-18 04:09] LABS: Anisocytosis 1+; Eosinophils 1 % (0-6); Hypochromasia 1+; Metamyelocytes 2 % (-); Monocytes 8 % (2-9); Normal RBC Morphology No; Platelets Checked Yes; Polychromasia Slight; Total Cells Counted 100
[2024-05-18 04:22] VITALS: BMI 42.1
--- NOTE | 2024-05-18 06:00 | PTCARENOTE ---
morning labs drawn. IV calcium chloride administered by this RN.
[2024-05-18] MEDS: CALCIUM CHLORIDE 10% SYRINGE 60 MG IV (06:10)
[2024-05-18 06:36] LABS: Glucose - Point of Care 75 mg/dl (70-99)
[2024-05-18] MEDS: DIPRIVAN 100 IV (07:08)
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
[2024-05-18] MEDS: REFRESH CELLUVISC GEL 1 DROPS BOTH EYES ×2 (07:51→19:40)
[2024-05-18] MEDS: NSS (PRESERVATIVE FREE) 10 ML IV (07:51)
[2024-05-18] MEDS: LEVOPHED 258 MG IV (07:51)
[2024-05-18] MEDS: PROTONIX IV 40 MG IV (07:52)
--- NOTE | 2024-05-18 08:10 | W.PN.URO.CBU ---
Today's Communication / Plan
-
Maintain Barcenas catheter
Prior right subcapsular hematoma stable on CT imaging - if bleeding concern, would advise transfusion given current clinical status
Pending clinical course, will coordinate cysto + right stent removal
Urology following peripherally, please call w/ questions
Assessment / Plan
-
Neurogenic bladder with chronic barcenas
Intermittent hematuria - s/p abx course for urosepsis (last admission) and cystoscopy
Chronic cystitis - MDR
Recent right subcapsular bleed
s/p right ureteral stent (02/2024) and s/p right ureteroscopy/laser/stent exchange (05/10/24)
s/p ex lap and bowel perf repair
Remains intubated on vasopressors
Barcenas catheter functional
CT showed well-positioned right ureteral stent
Right subcapsular hematoma
Diagnosis
-
Date of Service: May 18, 2024
-
Patient Diagnosis:
Neurogenic bladder with chronic catheter
Right subcapsular hematoma
Right ureteral stone s/p ureteroscopy/laser/stone extraction/stent exchange
s/p ex lap and bowel perf repair
Subjective
-
Remains intubated and sedated.
Requiring vasopressors.
Objective
-
Vital Signs
Temp Pulse Resp BP Pulse Ox
97.7 F 99 14 121/55 99
05/18/24 00:33 05/18/24 06:00 05/18/24 06:00 05/16/24 09:48 05/18/24 07:34
Intake and Output
05/17/24 05/18/24 05/19/24
06:59 06:59 06:59
Intake Total 3900.7 / 4018.1 2708.5 / 2708.5
Output Total 4710 / 4710 4000 / 4000
Balance -809.3 / -691.9 -1291.5 / -1291.5
Intake:
IV fluids (Total) 2825.7 / 2943.1 2608.5 / 2608.5
Fent 180.0 / 187.5 135.5 / 135.5
Insulin 2.7 / 2.7
Levo 503.0 / 533.0 562.3 / 562.3
Lr 1,000 ml @ 60 mls/hr IV . 1540 / 1600 1440 / 1440
[id number] [facility] Rx#:[id number]
Prop 402.0 / 412.9 254.7 / 254.7
Vaso 198 / 207 216 / 216
IV piggybacks 925.0 / 925.0 60 / 60
Amount instilled into GI Tube ( 150 / 150 40 / 40
Total)
[place] Sump 150 / 150 40 / 40
Output:
Drain Output (Total) 2935 / 2935 1964 / 1964
Right Abdomen Wing-Morris 2935 / 2935 1964
Gastrointestinal tube output ( 500 / 500 100 / 100
Total)
[place] Sump 500 / 500 100 / 100
Urine, Barcenas 1275 / 1275 1934 / 1934
Laboratory Results
05/18/24 09:01
05/18/24 03:29
Physical Exam
-
Chest - intubated
Abdomen - NGT in place, obese abdomen, EN drain in place, midline incision
- Barcenas catheter draining well
Care Review
Data Reviewed
Discussed with: Hospitalist
CT Scan: Report Pers Reviewed and Image Pers Reviewed
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
--- NOTE | 2024-05-18 08:44 | PN.DE.MGMTRT ---
Insulin Management
- -
05/18/2024: Diabetes Management follow up:
Patient admitted with septic shock perforated ileum. PMH: T7 spinal cord injury with paraplegia, recurrent ureteral stone, CKD stage IIIa, recurrent UTI with ESBL Proteus and E. coli sepsis, essential HTN, recently discharged after complex
hospitalization from 04/17 to 05/12 due to perinephric hematoma, ileus, septic shock UTI, ureteral stone s/p right URS/LL/stone extraction and stent exchange.
Pt remains intubated and sedated on pressors, unable to discuss diabetes mgt, no family at bedside.
Current A1C 5.0%, was 5.6% on 02/20/2024. Cr 1.2 today, eGFR >60
Glucose remains low normal of 69 to 94, fasting 96 this AM with corrective insulin only. Will make no changes. To start trickle feeds later today.
Will follow for further needed adjustments.
Diabetes History
- -
Pre-Admission Diabetes Regimen
05/17/24 05/18/24
15:26 03:29
Creatinine 1.1 1.2
Lab Results
Hemoglobin A1c 5.0 % (4.0-5.6) 05/14/24 03:34
Insulin Pump Settings
IP Diabetes Regimen
05/17/24 05/17/24 05/17/24
11:23 15:26 17:36
Glucose 95
POC Glucose 96 112 H
05/17/24 05/18/24 05/18/24
23:53 03:29 06:26
Glucose 88
POC Glucose 79 75
Patient Education
[2024-05-18 09:01] LABS: B.E. -0.7 mmol/L; HCO3 22.9 mmol/L (21-28); PCO2 33 mmHg (35-48); PO2 150 mmHg (83-108); pH 7.45 (7.35-7.45)
[2024-05-18] MEDS: LASIX 40 MG IV (09:31)
[2024-05-18] MEDS: KCL 270 MEQ IV (09:31)
[2024-05-18 09:44] LABS: APTT 49.9 Sec (23.4-35.0)
--- NOTE | 2024-05-18 09:51 | PHA.VAN.FU ---
Vancomycin Assessment / Plan
- Assessment
Renal Function: SCR Increasing
WBC's are: Trending Down
In the past 24 hrs, patient has been: Afebrile
Concomitant Antimicrobials: meropenem, micafungin
- Assessment - Therapeutic Drug Monitoring
Random Level: 15.3 ~15 hours post 500 mg dose
- Dosing Plan
Continue: to dose vancomycin by level
Dosing by Level: Re-dose today (1000 mg (9 mg/kg))
- Monitoring Plan
Random Level: 12/11 am
- Follow Up
Pharmacy will continue to follow.
Vancomycin Follow UP
- -
Patient Age: 64
Patient Sex: Male
Vancomycin Day #: 6
Indication: Gi / Intra-Abdominal
Requesting Provider: Dr. Miles/Dr. Riggins
Pertinent Antimicrobial Allergies:
ofloxacin - unknown (pt tolerated ciprofloxacin)
Height / Weight:
Height 5 ft 5 in
Actual Weight 114.8 kg
Pertinent Past Medical History: BMI ~44, Paraplegia, CKD III
- Vital Signs / Lab Results
Temp Pulse Resp BP Pulse Ox
97.7 F 99 14 121/55 99
05/18/24 00:33 05/18/24 06:00 05/18/24 06:00 05/16/24 09:48 05/18/24 07:34
Lab Results - Hematology
05/16/24 05/17/24 05/18/24
03:32 03:18 03:29
WBC 12.8 H 34.3 H 18.6 H
Band Neutrophils 2 D
05/18/24
09:01
WBC Cancelled
Band Neutrophils
Lab Results - Chemistry
05/16/24 05/17/24 05/17/24
03:32 03:18 15:26
BUN 20 22 H 22 H
Creatinine 1.1 1.2 1.1
Estimated Creat Clear 81 75 81
Albumin 1.5 L 1.7 L
05/18/24
03:29
BUN 22 H
Creatinine 1.2
Estimated Creat Clear 75
Albumin 1.6 L
05/16/24 05/17/24 05/17/24
03:32 03:18 15:26
Lactic Acid 2.1 H 1.4 1.7
Therapeutic Drug Monitoring
Random Vancomycin 15.3 ug/ml 05/18/24 03:29
[2024-05-18 10:05] VITALS: BP_SYST 113
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
--- NOTE | 2024-05-18 10:38 | PTCARENOTE ---
Assumed care of pt at 0700. Received pt intubated, #8 ETT 23cm at lip, AC 14/460/40/5, maintaining SpO2 in high 90s. ST 90-120s on monitor. Received pt on Levophed, vasopressin, Fentanyl, Propofol, and LR as ordered. BG Q6 accuchecks with coverage
ordered. EN continues with high output, yellow in color. Surgeon to bedside, dressing removed, jesika drains out and site redressed. See nursing shift assessment flowsheet for full physical assessment details. SAT began at 0735. pt opening eyes,
shrugs shoulders.
[2024-05-18] MEDS: VANCOCIN 200 IV (10:46)
[2024-05-18 11:39] LABS: Glucose - Point of Care 86 mg/dl (70-99)
--- NOTE | 2024-05-18 12:12 | PTCARENOTE ---
Spont awakening trial continues. Pt opens eyes to voice, nods, moves with purpose, generalized weakness BUE. Initiating occasional breaths. Tachycardia 120-130s. Assessment unchanged.
--- NOTE | 2024-05-18 14:32 | PTCARENOTE ---
tube feeding started Osmolite 1.2 at 10cc/hr with no water flush.
--- NOTE | 2024-05-18 14:35 | CM ---
CM following re: discharge planning.
Discussed in Rounds, reviewed pt's chart, met with pt. Per rounds meeting, pt is POD #5 Exploratory laparotomy right hemicolectomy. Remains intubated, unstable and critically ill, on pressors.
Working progress to locate legal guardian.
D/C plan: Return back to [facility] for a assisted care.
CM will follow with discharge plan updates as hospitalization progresses
[2024-05-18] MEDS: NEO-SYNEPHRINE 1% 260 MG IV ×2 (14:52→22:35)
--- NOTE | 2024-05-18 15:31 | PTCARENOTE ---
Neosynephrine double strength started to wean off Levophed for elevated HR. Jimbo now maxed and Levo gtt continues but at a lesser dose.
[2024-05-18] MEDS: MYCAMINE 105 MG IV (15:45)
[2024-05-18 17:05] LABS: APTT > 200 Sec (23.4-35.0)
[2024-05-18 17:54] LABS: Glucose - Point of Care 70 mg/dl (70-99)
--- NOTE | 2024-05-18 20:00 | PTCARENOTE ---
Pt intubated, remains on Fent gtt for comfort. Moves upper extremities to pain, reaching for ETT when unrestrained. In between care/turns, pt clam. Afebrile, ST on monitor. MAP goal 65, still requiring triple pressors to achieve/maintain. +4
anasarca. Pulses via doppler. Heparin gtt titrated to clinical endpoints. Recheck PTT at 0130. #8 ETT 23 lip. Vent settings as ordered. Copious amt oral secretions, small thick pink tinged from ETT. Lungs with rales/rhonchi posteriorly. NGT L nare
with osmolite at 10cc hourly, no water flush, no order to advance. JPX1 with copious amount serous fluid. Order noted to empty 16h. Chronic barcenas orange urine. Will monitor.
[2024-05-18] MEDS: SUBLIMAZE 100 IV (21:54)
[2024-05-19] MEDS: NOVOLOG FLEXPEN-MODERATE RESISTANCE SC ×5 (00:04→23:32)
[2024-05-19] MEDS: STERILE WATER FOR INJECTION 10 ML IV ×5 (00:04→23:20)
[2024-05-19] MEDS: MERREM 500 MG IV ×5 (00:04→23:21)
[2024-05-19] MEDS: PITRESSIN 100 IV ×4 (00:05→20:40)
[2024-05-19] MEDS: HEPARIN 25000 UNITS/250 ML IV (00:05)
[2024-05-19 00:09] LABS: Glucose - Point of Care 59 mg/dl (70-99)
--- NOTE | 2024-05-19 02:00 | PTCARENOTE ---
Pt bucking vent, reaching for ETT, biting tube. Propofol restarted as ordered for comfort/safety. AM labs pending. Will monitor.
[2024-05-19] MEDS: DIPRIVAN 100 IV ×2 (02:11→14:19)
[2024-05-19 02:22] LABS: Hematocrit 28.3 % (39.0-52.0); Hemoglobin 9.7 g/dL (13.0-18.0); Mean Corp Hgb Conc. 34.3 g/dL (33.0-37.0); Mean Corpuscular Volume 81.8 fL (80.0-94.0); Mean Platelet Volume 11.5 fL (7.4-10.4); Platelet Count 77 10^3/uL (130-400); Red Blood Cell Count 3.46 10^6/uL (4.70-6.10); Red Cell Dist. Width 15.1 % (11.5-14.5); White Blood Cell Count 22.4 10^3/uL (4.8-10.8)
[2024-05-19 02:31] LABS: Triglycerides 189 mg/dl (10-149)
[2024-05-19 02:33] LABS: Blood Urea Nitrogen 25 mg/dl (9-20); Calcium 7.2 mg/dl (8.4-10.2); Carbon Dioxide 20 mmol/L (22-30); Chloride 99 mmol/L (98-107); Estimated Creatinine Clearance 63 ml/min; Glucose 71 mg/dl (70-99); Magnesium 1.5 mg/dl (1.6-2.3); Phosphorus 5.5 mg/dl (2.5-4.5); Sodium 129 mmol/L (135-145); eGFR 56.48
[2024-05-19 02:36] LABS: Vancomycin Random 19.8 ug/ml
[2024-05-19 02:44] LABS: APTT > 200 Sec (23.4-35.0)
[2024-05-19] MEDS: NEO-SYNEPHRINE 1% 260 MG IV ×2 (05:58→11:45)
[2024-05-19 06:00] VITALS: BMI 42.0
[2024-05-19 06:25] LABS: Glucose - Point of Care 73 mg/dl (70-99)
[2024-05-19] MEDS: MAGNESIUM SULFATE 50 IV (06:43)
--- NOTE | 2024-05-19 07:41 | PN.DE.MGMTRT ---
Insulin Management
- -
05/19/2024: Diabetes Management follow up:
Patient admitted with septic shock perforated ileum. PMH: T7 spinal cord injury with paraplegia, recurrent ureteral stone, CKD stage IIIa, recurrent UTI with ESBL Proteus and E. coli sepsis, essential HTN, recently discharged after complex
hospitalization from 04/17 to 05/12 due to perinephric hematoma, ileus, septic shock UTI, ureteral stone s/p right URS/LL/stone extraction and stent exchange.
Pt remains intubated and sedated on pressors, unable to discuss diabetes mgt, no family at bedside.
Current A1C 5.0%, was 5.6% on 02/20/2024. Cr 1.2 today, eGFR >60
Glucose remains low normal of 59 to 94, fasting 73 this AM has received no corrective insulin in past 48 hours. Will make no changes. To possibly start trickle feeds today.
Will follow for further needed adjustments.
Diabetes History
- -
Pre-Admission Diabetes Regimen
05/19/24
01:57
Creatinine 1.4 H
Lab Results
Hemoglobin A1c 5.0 % (4.0-5.6) 05/14/24 03:34
Insulin Pump Settings
IP Diabetes Regimen
05/18/24 05/18/24 05/18/24
11:27 17:42 23:58
Glucose
POC Glucose 86 70 59 L
05/19/24 05/19/24
01:57 06:14
Glucose 71
POC Glucose 73
Patient Education
--- NOTE | 2024-05-19 07:52 | W.PN.GS2 ---
Today's Communication / Plan
-
`
Assessment / Plan
-
Assessment: 64 yo male with pmh of T7 spinal cord injury with paraplegia, recurrent ureteral stone, CKD stage IIIa, recurrent UTI with ESBL Proteus and E. coli sepsis, essential hypertension, recently discharged after complex hospitalization from
04/17 to 05/12 due to perinephric hematoma, ileus, septic shock UTI, ureteral stone s/p right URS/LL/stone extraction and stent exchange presenting back from [facility] with septic shock from perforated ileum.
POD #6 Exploratory laparotomy right hemicolectomy for perforated ileum
remains critically ill on multiple pressors with MSOF
---shock liver
---ARF
---intubated
large quantity of EN output expected from cirrhosis and acute decompensation in setting of acute illness
WBC variable
stable hgb
thrombocytopenia also likely d/t cirrhosis and acute illness - stable at 77
no clinical signs of abdominal compartment syndrome - do not have to check bladder pressures, large obese abdomen at baseline
Plan: trickle tube feeds - if/when pressor requirement improves can advance to goal monitoring residuals
EN only has to be compressed/emptied q6hrs to limit loss of ascites fluid
consider standing albumin replacement (d/w dr ortega)
IV ppi for GI ppx
continue meropenem/vanco given ileal perforation with peritonitis
Medical management as per primary team/maori liaison adviser
Subjective Data
-
Date of Service: May 19, 2024
pt seen and examined
remains critically ill; intubated
responds a bit to voice and touch
Objective Data
-
Intake and Output
05/18/24 05/19/24 05/20/24
06:59 06:59 06:59
Intake Total 2708.5 / 2812.2 3499.6 / 3499.6
Output Total 4000 / 4000 2490 / 2490
Balance -1291.5 / -1187.8 1009.6 / 1009.6
Intake:
IV fluids (Total) 2608.5 / 2712.2 2774.6 / 2774.6
Fent 135.5 / 140.5 63.0 / 63.0
Levo 562.3 / 581.1 274.2 / 274.2
Lr 1,000 ml @ 60 mls/hr IV . 1440 / 1500 1440 / 1440
[id number] [facility] Rx#:[id number]
Prop 254.7 / 265.6 51.4 / 51.4
Vaso 216 / 225 216 / 216
heparin 280 / 280
neosynephrine 450 / 450
IV piggybacks 60 / 60 570 / 570
Tube feeding 155 / 155
Amount instilled into GI Tube ( 40 / 40
Total)
[employer] Sump 40 / 40
Output:
Drain Output (Total) 1964 1735 / 1735
Right Abdomen Wing-Morris 1964 1735 / 1735
Gastrointestinal tube output ( 100 / 100
Total)
[employer] Sump 100 / 100
Urine, Padron 1934 / 1934 755 / 755
Vital Signs
Temp Pulse Resp BP Pulse Ox
98.1 F 119 26 121/55 99
05/19/24 03:19 05/19/24 06:00 05/19/24 06:00 05/16/24 09:48 05/19/24 07:11
Lab Results
05/19/24 01:57
05/19/24 01:57
Calcium 7.2 mg/dl (8.4-10.2) L 05/19/24 01:57
Phosphorus 5.5 mg/dl (2.5-4.5) H 05/19/24 01:57
Magnesium 1.5 mg/dl (1.6-2.3) L 05/19/24 01:57
Total Bilirubin 6.8 mg/dl (0.2-1.3) H 05/18/24 03:
Direct Bilirubin 6.0 mg/dl (0.0-0.4) H 05/18/24:
AST 118 U/L (17-59) H 05/18/24:
ALT 45 U/L (0-50) 05/18/24 03:
Alkaline Phosphatase 217 U/L (38-126) H 05/18/24:
Total Protein 5.1 g/dl (6.3-8.2) L 05/18/24:
Albumin 1.6 g/dl (3.5-5.0) L 05/18/24 03:29
Physical Exam
-
intubated, responsive but not following commands
generalized edema
abd: obese, distended
midline incision with dimas - not too much drainage
EN with straw colored ascites - not bilious, not enteric
[2024-05-19 08:42] VITALS: BP 87/47
[2024-05-19] MEDS: PROTONIX IV 40 MG IV (08:44)
[2024-05-19] MEDS: NSS (PRESERVATIVE FREE) 10 ML IV (08:44)
[2024-05-19] MEDS: REFRESH CELLUVISC GEL 1 DROPS BOTH EYES ×2 (08:45→19:37)
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
[2024-05-19] MEDS: ALBUMIN 5% 250 IV ×2 (09:32→16:49)
--- NOTE | 2024-05-19 09:40 | PTCARENOTE ---
Update this am with surgery. Continued follow up plan of cares with cnc field service engineer team. Await am rounds follow up medications, taper, wean titrate for drips as ordered and as per protocol. Continue oral cares, skin cares as per unit based protocols.
Continue to explain all procedures and protocols, supportive cares and emotional support ongoing. Continue with assessment, vital sign trends ongoing and as documented.
--- NOTE | 2024-05-19 11:32 | PTCARENOTE ---
Continue update thru am rounds, hospitalist update with plain goods hemmer. Albumin as ordered. Follow up medications with pharmacy and via emar. Ongoing drip titration as per protocols. Follow up assessment trends and vital signs ongoing.
--- NOTE | 2024-05-19 11:33 | PHA.VAN.FU ---
Vancomycin Assessment / Plan
- Assessment
Renal Function: SCR Increasing
WBC's are: Trending Up
In the past 24 hrs, patient has been: Hypothermic (96.5 TMIN)
Concomitant Antimicrobials: meropenem, micafungin
- Assessment - Therapeutic Drug Monitoring
Random Level: 19.8 - 15 h post 1000mg dose
- Dosing Plan
Continue: dose by level
Dosing by Level: Hold off on dosing today
- Monitoring Plan
Random Level: 12/12 am
- Follow Up
Pharmacy will continue to follow.
Vancomycin Follow UP
- -
Patient Age: 64
Patient Sex: Male
Vancomycin Day #: 7
Indication: Gi / Intra-Abdominal
Requesting Provider: Dr. Miles/Dr. Riggins
Pertinent Antimicrobial Allergies:
ofloxacin - unknown (pt tolerated ciprofloxacin)
Height / Weight:
Height 5 ft 5 in
Actual Weight 114.5 kg
Pertinent Past Medical History: BMI ~44, Paraplegia, CKD III
- Vital Signs / Lab Results
Temp Pulse Resp BP Pulse Ox
97.9 F 111 15 87/47 98
05/19/24 08:42 05/19/24 11:00 05/19/24 11:00 05/19/24 08:42 05/19/24 11:00
Lab Results - Hematology
05/17/24 05/18/24 05/18/24
03:18 03:29 09:01
WBC 34.3 H 18.6 H Cancelled
Band Neutrophils 2 D
05/19/24
01:57
WBC 22.4 H
Band Neutrophils
Lab Results - Chemistry
05/17/24 05/17/24 05/18/24
03:18 15:26 03:29
BUN 22 H 22 H 22 H
Creatinine 1.2 1.1 1.2
Estimated Creat Clear 75 81 75
Albumin 1.7 L 1.6 L
05/19/24
01:57
BUN 25 H
Creatinine 1.4 H
Estimated Creat Clear 63
Albumin
05/17/24 05/17/24
03:18 15:26
Lactic Acid 1.4 1.7
Microbiology Results
05/17/24 15:45 Blood Culture - Preliminary
Blood/Venous No Growth in 24 hours- Final report to follow
05/17/24 15:46 Blood Culture - Preliminary
Blood/Venous No Growth in 24 hours- Final report to follow
Therapeutic Drug Monitoring
Random Vancomycin 19.8 ug/ml 05/19/24 01:57
[2024-05-19] MEDS: SOLU-CORTEF 50 MG IV ×3 (11:45→23:20)
[2024-05-19 11:46] LABS: Glucose - Point of Care 61 mg/dl (70-99)
[2024-05-19] MEDS: DEXTROSE 50% SYRINGE 12.5 GRAMS IV (11:46)
[2024-05-19 12:15] LABS: Glucose - Point of Care 97 mg/dl (70-99)
[2024-05-19 13:09] LABS: Glucose - Point of Care 94 mg/dl (70-99)
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
[2024-05-19 13:51] LABS: APTT 188.2 Sec (23.4-35.0)
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
[2024-05-19 15:13] VITALS: BP 120/57
[2024-05-19] MEDS: MYCAMINE 105 MG IV (16:47)
[2024-05-19 17:46] VITALS: BP 117/54
--- NOTE | 2024-05-19 17:52 | PTCARENOTE ---
Assessments unchanged thru day. Slow progressive wean off levophed. Collaborating with pharmacy thru shift. Patient remains on 200mcg/min neosynephrine, heparin protocol dvt and vasopressin. IVF kvo, trickle feeds and sedation as ordered. Complete
bed bath, wound cares, oral cares all completed. Continue supportive cares, emotional support. Explaining all procedures and protocols prior to implementation to lessen stress. Critical care nursing at bedside.
[2024-05-19 18:00] LABS: Glucose - Point of Care 104 mg/dl (70-99)
--- NOTE | 2024-05-19 20:48 | PTCARENOTE ---
Pt resting comfortably intubated/sedated on Fent/Prop. Heparin and pressors titrated to clinical endpoints. PTT due 2100. Weaning Levo to off as tolerated. Vent settings as ordered. Aggressive pulmonary toileting and suctioning. Trickle feeds. Padron
to gravity. Will monitor.
[2024-05-19 22:14] LABS: APTT 100.9 Sec (23.4-35.0)
[2024-05-19] MEDS: SUBLIMAZE 100 IV (23:21)
[2024-05-19 23:32] LABS: Glucose - Point of Care 122 mg/dl (70-99)
--- NOTE | 2024-05-20 02:00 | PTCARENOTE ---
Pt reassessed, resting comfortably on vent/sedated. No change in previous assessment. Please see flow sheet for more info. Titrating gtts to clinical endpoints. Will monitor.
[2024-05-20 04:27] LABS: Hematocrit 26.9 % (39.0-52.0); Hemoglobin 9.1 g/dL (13.0-18.0); Mean Corp Hgb Conc. 33.8 g/dL (33.0-37.0); Mean Corpuscular Hgb 28.9 pg (27.0-31.0); Mean Corpuscular Volume 85.4 fL (80.0-94.0); Mean Platelet Volume 12.1 fL (7.4-10.4); Platelet Count 98 10^3/uL (130-400); Red Blood Cell Count 3.15 10^6/uL (4.70-6.10); Red Cell Dist. Width 15.9 % (11.5-14.5); White Blood Cell Count 21.1 10^3/uL (4.8-10.8)
[2024-05-20 05:23] LABS: Glucose - Point of Care 104 mg/dl (70-99)
[2024-05-20] MEDS: STERILE WATER FOR INJECTION 10 ML IV ×4 (05:32→23:49)
[2024-05-20] MEDS: DIPRIVAN 100 IV ×2 (05:32→07:53)
[2024-05-20] MEDS: MERREM 500 MG IV ×4 (05:32→23:50)
[2024-05-20] MEDS: SOLU-CORTEF 50 MG IV ×4 (05:32→23:50)
[2024-05-20] MEDS: NOVOLOG FLEXPEN-MODERATE RESISTANCE SC ×2 (05:36→11:54)
[2024-05-20 05:39] VITALS: BMI 42.4
[2024-05-20 06:12] LABS: ALT (SGPT) 43 U/L (0-50); AST (SGOT) 123 U/L (17-59); Alkaline Phosphatase 315 U/L (38-126); Blood Urea Nitrogen 28 mg/dl (9-20); Carbon Dioxide 19 mmol/L (22-30); Chloride 100 mmol/L (98-107); Estimated Creatinine Clearance 52 ml/min; Glucose 115 mg/dl (70-99); Potassium 4.3 mmol/L (3.5-5.1); Sodium 130 mmol/L (135-145); Total Bilirubin 7.9 mg/dl (0.2-1.3); Total Protein 5.7 g/dl (6.3-8.2); eGFR 44.74
[2024-05-20 06:40] LABS: APTT 96.1 Sec (23.4-35.0)
[2024-05-20] MEDS: REFRESH CELLUVISC GEL 1 DROPS BOTH EYES ×2 (07:56→20:51)
[2024-05-20] MEDS: ALBUMIN 5% 250 IV (07:57)
[2024-05-20] MEDS: PROTONIX IV 40 MG IV (07:57)
[2024-05-20] MEDS: NSS (PRESERVATIVE FREE) 10 ML IV (07:57)
--- NOTE | 2024-05-20 07:59 | PN.DE.MGMTRT ---
Insulin Management
- -
05/20/2024: Diabetes Management follow up:
Patient admitted with septic shock perforated ileum. PMH: T7 spinal cord injury with paraplegia, recurrent ureteral stone, CKD stage IIIa, recurrent UTI with ESBL Proteus and E. coli sepsis, essential HTN, recently discharged after complex
hospitalization from 04/17 to 05/12 due to perinephric hematoma, ileus, septic shock UTI, ureteral stone s/p right URS/LL/stone extraction and stent exchange.
Pt remains intubated and sedated on pressors, unable to discuss diabetes mgt, no family at bedside.
Current A1C 5.0%, was 5.6% on 02/20/2024. Cr 1.2 today, eGFR >60
Glucose remains low normal of 59 to 94, fasting 73 this AM has received no corrective insulin in past 3 days. Will make no changes. Trickle feeds continue.
Will follow for further needed adjustments.
Discussed with nurse.
Diabetes History
- -
Pre-Admission Diabetes Regimen
05/20/24 05/20/24
04:13 05:23
Creatinine Cancelled 1.7 H
Lab Results
Hemoglobin A1c 5.0 % (4.0-5.6) 05/14/24 03:34
Insulin Pump Settings
IP Diabetes Regimen
05/19/24 05/19/24 05/19/24
11:35 12:04 12:57
Glucose
POC Glucose 61 L 97 94
05/19/24 05/19/24 05/20/24
17:49 23:21 04:13
Glucose Cancelled
POC Glucose 104 H 122 H
05/20/24 05/20/24
05:12 05:23
Glucose 115 H
POC Glucose 104 H
Meal type: Lunch
Meal type: Breakfast
Patient Education
--- NOTE | 2024-05-20 08:26 | PHA.VAN.FU ---
Vancomycin Assessment / Plan
- Assessment
Renal Function: SCR Increasing
In the past 24 hrs, patient has been: Afebrile
Concomitant Antimicrobials: Meropenem, micafungin
- Assessment - Therapeutic Drug Monitoring
Random Level: 13
Calculated ke: 0.0160
Calculated half life (H): 43.3
PK calculation used levels from 05/19 and 05/20 (post 1000 mg dose 05/18) with no doses in between
- Dosing Plan
Continue: to dose by level
Dosing by Level: Re-dose today (1000 mg)
- Monitoring Plan
Random Level: 05/22 0600
- Follow Up
Pharmacy will continue to follow.
Vancomycin Follow UP
- -
Patient Age: 64
Patient Sex: Male
Vancomycin Day #: 8
Indication: Gi / Intra-Abdominal
Requesting Provider: Dr. Miles/Dr. Riggins
Pertinent Antimicrobial Allergies:
ofloxacin - unknown (pt tolerated ciprofloxacin)
Height / Weight:
Height 5 ft 5 in
Actual Weight 115.5 kg
Pertinent Past Medical History: BMI ~44, Paraplegia, CKD III
- Vital Signs / Lab Results
Temp Pulse Resp BP Pulse Ox
97.4 F 66 14 117/54 96
05/20/24 07:30 05/20/24 07:00 05/20/24 07:00 05/19/24 17:46 05/20/24 07:44
Lab Results - Hematology
05/18/24 05/18/24 05/19/24
03:29 09:01 01:57
WBC 18.6 H Cancelled 22.4 H
Band Neutrophils 2 D
05/20/24
04:13
WBC 21.1 H
Band Neutrophils
Lab Results - Chemistry
05/17/24 05/18/24 05/19/24
15:26 03:29 01:57
BUN 22 H 22 H 25 H
Creatinine 1.1 1.2 1.4 H
Estimated Creat Clear 81 75 63
Albumin 1.6 L
05/20/24 05/20/24
04:13 05:23
BUN Cancelled 28 H
Creatinine Cancelled 1.7 H
Estimated Creat Clear Cancelled 52
Albumin Cancelled 2.0 L
05/17/24
15:26
Lactic Acid 1.7
Microbiology Results
05/17/24 15:45 Blood Culture - Preliminary
Blood/Venous No Growth in 48 hours- Final report to follow
05/17/24 15:46 Blood Culture - Preliminary
Blood/Venous No Growth in 48 hours- Final report to follow
Therapeutic Drug Monitoring
Random Vancomycin 13.0 ug/ml 05/20/24 04:13
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
--- NOTE | 2024-05-20 08:50 | PTCARENOTE ---
Assumed care of pt at 0700. Received pt intubated, #8 ETT 23cm at lip, AC 14/460/40/5, maintaining SpO2 in high 90s. ST 90-120s on monitor. Received pt on theodora, vasopressin, Fentanyl, Propofol, and heparin as ordered. BG Q6 accuchecks with coverage
ordered. EN continues with high output, yellow in color. Surgeon to bedside, requests only emptying EN Q8. See nursing shift assessment flowsheet for full physical assessment details. SAT began at 0850. pt opening eyes, shrugs shoulders.
--- NOTE | 2024-05-20 09:22 | W.PN.GS2 ---
Today's Communication / Plan
-
`
Assessment / Plan
-
Assessment: 64 yo male with pmh of T7 spinal cord injury with paraplegia, recurrent ureteral stone, CKD stage IIIa, recurrent UTI with ESBL Proteus and E. coli sepsis, essential hypertension, recently discharged after complex hospitalization from
04/17 to 05/12 due to perinephric hematoma, ileus, septic shock UTI, ureteral stone s/p right URS/LL/stone extraction and stent exchange presenting back from [facility] with septic shock from perforated ileum.
POD #6 Exploratory laparotomy right hemicolectomy for perforated ileum
remains critically ill but stable on multiple pressors with MSOF -pressor requirement slowly improving (off Levophed, Jimbo-Synephrine slowly improved, still on vasopressin)
---shock liver
---ARF
---intubated
large quantity of EN output expected from cirrhosis and acute decompensation in setting of acute illness
WBC variable
stable hgb
thrombocytopenia also likely d/t cirrhosis and acute illness - improving
Plan: Okay to advance tube feeds to goal
EN only has to be compressed/emptied q8hrs to limit loss of ascites fluid
IV ppi for GI ppx
continue meropenem/vanco given ileal perforation with peritonitis
Medical management as per primary team/personnel research psychologist/nephrology
Subjective Data
-
Date of Service: May 20, 2024
Patient seen and examined
Nursing at bedside
Remains intubated, weaning sedation, movement but not following commands
Pressor requirement stable/slightly improved
Objective Data
-
Intake and Output
05/19/24 05/20/24 05/21/24
06:59 06:59 06:59
Intake Total 3499.6 / 3671.1 2879.4 / 2934.3 54.9 / 54.9
Output Total 2490 / 2515 2990 / 3040 50 / 50
Balance 1009.6 / 1156.1 -110.6 / -105.7 4.9 / 4.9
Intake:
IV fluids (Total) 2774.6 / 2906.1 1884.4 / 1929.3 44.9 / 44.9
Fent 63.0 / 65.5 112.5 / 117.5 5 / 5
Levo 274.2 / 287.3 151.1 / 151.1
Lr 1,000 ml @ 60 mls/hr IV . 1440 / 1500 360 / 360
[id number] RADHA Rx#:[id number]
Prop 51.4 / 58.3 164.8 / 171.7 6.9 / 6.9
Vaso 216 / 225 216 / 216
heparin 280 / 290 166 / 172 6 / 6
neosynephrine 450 / 480 714 / 741
IV piggybacks 570 / 570 555 / 555
Tube feeding 155 / 165 210 / 220
Feeding tube flush amount 30 / 30
Amount instilled into Drain ( 200 / 200
Total)
Right Abdomen Wing-Morris 200 / 200
Output:
Drain Output (Total) 1735 / 1735 2375 / 2375
Right Abdomen Wing-Morris 1735 / 1735 2375 / 2375
Urine, Padron 755 / 780 615 / 665 50 / 50
Vital Signs
Temp Pulse Resp BP Pulse Ox
97.4 F 66 14 117/54 96
05/20/24 07:30 05/20/24 07:00 05/20/24 07:00 05/19/24 17:46 05/20/24 07:44
Lab Results
05/20/24 04:13
05/20/24 05:23
Calcium 7.0 mg/dl (8.4-10.2) L 05/20/24 05:23
Phosphorus 5.5 mg/dl (2.5-4.5) H 05/19/24 01:57
Magnesium 1.5 mg/dl (1.6-2.3) L 05/19/24 01:57
Total Bilirubin 7.9 mg/dl (0.2-1.3) H 05/20/24 05:23
Direct Bilirubin 6.0 mg/dl (0.0-0.4) H 05/18/24 03:29
AST 123 U/L (17-59) H 05/20/24 05:23
ALT 43 U/L (0-50) 05/20/24 05:23
Alkaline Phosphatase 315 U/L (38-126) H 05/20/24 05:23
Total Protein 5.7 g/dl (6.3-8.2) L 05/20/24 05:23
Albumin 2.0 g/dl (3.5-5.0) L 05/20/24 05:23
Physical Exam
-
Intubated, responsive
ABD: Distended, obese, unable to assess tenderness accurately but no involuntary guarding
EN with serous ascites and bulb
NG tube in place with tube feeds/no residuals
--- NOTE | 2024-05-20 09:36 | W.CON.NEPH ---
Consultation
-
Date/Time Consultation Requested: 05/20/2024 8 AM
Date/Time Consultation Performed: 05/20/2024 9:30 AM
Requesting Provider: Dr. Rangel
Performing Provider: Dr. Mauricio
Reason for Consultation: AVTAR
Medical History
-
Chief Complaint: Sepsis
History of Present Illness:
64-year-old male with PMH of UTI ESBL sepsis, quadriplegia, neurogenic bladder with chronic Barcenas, hypertension, history of renal stone, thrombocytopenia, recently discharged from hospital 05/12 and returned 05/13 due to recurrent worsening abdominal
pain. While in the ED he was also found to have SVT on cardiac monitoring. His SVT was resistant to adenosine and amiodarone and cardioversion. Abdominal imaging with CT chest/abdomen/pelvis was positive for intraperitoneal air and patient was
found to have perforated terminal ileum with bilious ascites. Surgery was consulted and patient was urgently taken to the OR s/p ex lap with right hemicolectomy. Patient has remained in the ICU, deeply sedated and mechanically ventilated at this
time. He remains hypotensive on pressor therapy. He has had increased amounts of volume loss through the EN drain. His creatinine has been stable around 1.1 but is now risen up to 1.7 with development of metabolic acidosis and we are asked to
assist with management of his renal issues with multiple electrolyte abnormalities as well. He is critically ill in the ICU. Barcenas catheter is in place with little to no urine output. EN drainage has exceeded 2 L overnight.
Past Medical History
Past Medical History: CVA, GERD, HTN, Renal Failure, Psychiatric (depression ) and Other (T6 paraplegia with chronic barcenas , chronic thrombocytopenia, cirrhosis, obesity , recurrent uretheral stones, UTI ESBL, Ecoli sepsis, perinephric hematoma DVT.)
Past Surgical History: Other (pneumomectomy )
Social History
Tobacco: Former Smoker
Alcohol: None
Family History
Family History: Not Pertinent
Allergies / Home Medications
Allergy/AdvReac Type Severity Reaction Status Date / Time
ofloxacin Allergy Unknown/pt Verified 04/27/24 03:26
tolerated
cipro
pentazocine Allergy Unknown Verified 04/27/24 03:26
�Medication �Instructions �Recorded �Confirmed �Type
acetaminophen 325 mg tablet 325 mg PO Q6HPRN PRN mild 04/25/22 05/13/24 History
(Tylenol) pain/fever
baclofen 10 mg tablet 10 mg PO BID spasms 04/25/22 05/13/24 History
baclofen 20 mg tablet 20 mg PO HS spasm 04/25/22 05/13/24 History
escitalopram oxalate 10 mg tablet 10 mg PO DAILY Mental 04/25/22 05/13/24 History
(Lexapro) Health/Anxiety
famotidine 20 mg tablet (Pepcid) 20 mg PO DAILY Gastrointestinal 04/25/22 05/13/24 History
issue
folic acid 1 mg tablet 1 mg PO DAILY Supplement 04/25/22 05/13/24 History
melatonin 3 mg tablet 3 mg PO HS Sleep 04/25/22 05/13/24 History
sorbitol 70 % solution 30 ml PO [id number] PRN if no bm on 04/25/22 05/13/24 History
3rd day
therapeutic multivitamin 1 tab PO DAILY Supplement 04/25/22 05/13/24 History
thiamine HCl (vitamin B1) 100 mg 100 mg PO DAILY Supplement 04/25/22 05/13/24 History
tablet
sodium phosphates 19 gram-7 118 ml NH DAILYPRN PRN if no bm 06/20/23 05/13/24 History
gram/118 mL enema (Fleet Enema) aftr dulcolax
metoprolol tartrate 25 mg tablet 12.5 mg (1/2 x 25 mg) PO BID Blood 06/24/23 05/13/24 Rx
pressure #0 tabs
albuterol sulfate 90 mcg/actuation 2 puff inhalation R Q4HPRN PRN sob 02/18/24 05/13/24 History
aerosol inhaler
cranberry fruit 450 mg tablet 450 mg PO DAILY Supplement 02/18/24 05/13/24 History
(cranberry)
docusate sodium 100 mg capsule 100 mg PO DAILY Constipation 02/18/24 05/13/24 History
(Colace)
hydroxyzine HCl 25 mg tablet 25 mg PO Q6HPRN PRN itchness 02/18/24 05/13/24 History
pregabalin 100 mg capsule (Lyrica) 100 mg PO HS Pain #14 caps 02/24/24 05/13/24 Rx
furosemide 20 mg tablet (Lasix) 10 mg PO DAILY Fluid 04/27/24 05/13/24 History
Retention/Swelling
albuterol sulfate 2.5 mg/3 mL 2.5 mg (3 mL) inhalation R Q4HPRN 05/12/24 05/13/24 Rx
(0.083 %) solution for nebulization PRN SOB #0 mL
cholecalciferol (vitamin D3) 50 50 mcg PO DAILY Supplement #0 tabs 05/12/24 05/13/24 Rx
mcg (2,000 unit) tablet
doxycycline hyclate 100 mg capsule 100 mg PO Q12 Urinary issue #0 caps 05/12/24 05/13/24 Rx
pantoprazole 40 mg tablet,delayed 40 mg PO DAILY Gastrointestinal 05/12/24 05/13/24 Rx
release issue #0 tabs
polyethylene glycol 3350 17 gram 17 g PO DAILY Constipation #0 ea 05/12/24 05/13/24 Rx
oral powder packet
tramadol 50 mg tablet 25 mg (1/2 x 50 mg) PO Q6HPRN PRN 05/12/24 05/13/24 Rx
pain #10 tabs
bisacodyl 10 mg rectal suppository 10 mg NH DAILYPRN PRN If no BM 05/13/24 05/13/24 History
(Dulcolax (bisacodyl)) after MOM
calcium polycarbophil 625 mg 1,250 mg PO QPM Supplement 05/13/24 05/13/24 History
tablet (FiberCon)
clindamycin phosphate 1 % lotion 1 applic topical DAILY back 05/13/24 05/13/24 History
diphenhydramine HCl 25 mg capsule 50 mg PO Q4HPRN PRN itching 05/13/24 05/13/24 History
(Benadryl)
guaifenesin 400 mg tablet 800 mg PO BID cough/congestion 05/13/24 05/13/24 History
midodrine 5 mg tablet 5 mg PO TID low blood pressure 05/13/24 05/13/24 History
sodium chloride 0.65 % nasal spray 2 spray intranasal TID dry nares 05/13/24 05/13/24 History
aerosol
Review of Systems
-
Unable to obtain full review of systems at this time due to: Patient Intubation
Physical Exam
Vital Signs
Vital Signs
Temp Pulse Resp BP Pulse Ox
97.4 F 66 14 117/54 96
05/20/24 07:30 05/20/24 07:00 05/20/24 07:00 05/19/24 17:46 05/20/24 07:44
Lab Results
WBC 21.1 10^3/uL (4.8-10.8) H 05/20/24 04:13
RBC 3.15 10^6/uL (4.70-6.10) L 05/20/24 04:13
Hgb 9.1 g/dL (13.0-18.0) L 05/20/24 04:13
Hct 26.9 % (39.0-52.0) L 05/20/24 04:13
Plt Count 98 10^3/uL (130-400) L D 05/20/24 04:13
Sodium 130 mmol/L (135-145) L 05/20/24 05:23
Potassium 4.3 mmol/L (3.5-5.1) 05/20/24 05:23
Chloride 100 mmol/L (98-107) 05/20/24 05:23
Carbon Dioxide 19 mmol/L (22-30) L 12/12/24 05:23
BUN 28 mg/dl (9-20) H 05/20/24 05:23
Creatinine 1.7 mg/dL (0.7-1.3) H 05/20/24 05:23
eGFR 44.74 05/20/24 05:23
Glucose 115 mg/dl (70-99) H 05/20/24 05:23
Calcium 7.0 mg/dl (8.4-10.2) L 05/20/24 05:23
Phosphorus 5.5 mg/dl (2.5-4.5) H 05/19/24 01:57
Cmh-I-Hhefdnmfbjo Pept 2020 pg/ml 05/15/24 04:13
Albumin 2.0 g/dl (3.5-5.0) L 05/20/24 05:23
Physical Exam
Patient is sedated and in no distress. Mood and affect and, insight and judgment could not be assessed. Pupils are equal round and reactive to light, extraocular movements could not be assessed, sclera were anicteric. Hearing could not be assessed,
ears and nose are intact. Oropharynx was clear. Neck was supple with trachea midline and no thyromegaly. Heart was regular rate and rhythm without rubs. Tachycardia lower extremities with 3+ edema to the waist. Lungs were clear to auscultation
bilaterally and with normal excursion. Abdomen was soft, nontender, with normal active bowel sounds, and no hepatosplenomegaly. Skin was without rash and with normal turgor.
Data Reviewed
-
Radiology: Image Personally Visualized and interpreted (Chest x-ray on 05/17/2024 by my reading shows low lung volumes bilateral effusion small)
Medical Tests (Nuc Med, Echo etc): Report Reviewed by me (Echocardiogram on 05/14/2024 shows hyperdynamic left ventricle)
Labs: Labs Reviewed by me
Old Records: Reviewed
Assessment/Plan
-
Assessment
Peritonitis
Ileal perforation septic shock, right hemicolectomy, exploratory laparotomy on 05/13/2024
VDRF
Anasarca
AVTAR
Thrombocytopenia
ESLD, hepatitis C, alcohol
ESBL UTI
Hyponatremia
Bilateral upper extremity DVT
Anemia
Metabolic acidosis
Hypocalcemia
Hypotension
Hypomagnesemia
Plan
Will need volume resuscitation
IV albumin plus isotonic saline
Replete potassium
Replete magnesium
Follow BMP
Keep mean arterial pressure greater than 65
Check urine studies
Prognosis poor
Critical care time spent 45 minutes
[2024-05-20] MEDS: VANCOCIN 200 IV (10:21)
[2024-05-20] MEDS: CALCIUM GLUCONATE 100 IV (10:22)
[2024-05-20] MEDS: NSS 1000 IV ×2 (10:24→20:51)
[2024-05-20 10:39] LABS: B.E. -5.3 mmol/L; O2 Saturation % 98.8 % (94-98); PCO2 37 mmHg (35-48); PO2 104 mmHg (83-108); pH 7.34 (7.35-7.45)
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
[2024-05-20] MEDS: MAGNESIUM SULFATE 50 IV (11:14)
[2024-05-20 11:40] LABS: Glucose - Point of Care 129 mg/dl (70-99)
[2024-05-20 12:02] LABS: Glucose - Point of Care 71 mg/dl (70-99)
--- NOTE | 2024-05-20 12:22 | PTCARENOTE ---
SAT ongoing. pt opening eyes to stimulation, shrugs shoulders, turns head but drifts back to sleep without stim. Assessment unchanged.
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
[2024-05-20] MEDS: HEPARIN 25000 UNITS/250 ML IV (12:58)
[2024-05-20] MEDS: NEO-SYNEPHRINE 1% 260 MG IV (14:59)
[2024-05-20] MEDS: FLEXBUMIN 50 IV ×2 (15:20→23:48)
[2024-05-20] MEDS: MYCAMINE 105 MG IV (15:20)
[2024-05-20] MEDS: PITRESSIN 100 IV (15:59)
--- NOTE | 2024-05-20 16:02 | RESPNOTE ---
Respiratory: @ 1145 placed patient on PSV 8/5 cmH2O patient with poor respiratory effort. Ventilator switched back to A/C after multiple attempts, RR 6-8. Returned patient back to previous vent settings.
--- NOTE | 2024-05-20 16:41 | PTCARENOTE ---
Continues to be too drowsy to CPAP. Fent and propofol remains off. Assessment unchanged.
[2024-05-20] MEDS: NOVOLOG FLEXPEN-MODERATE RESISTANCE 1 UNITS SC (18:14)
[2024-05-20 18:24] LABS: Glucose - Point of Care 167 mg/dl (70-99)
--- NOTE | 2024-05-21 00:52 | PTCARENOTE ---
Pt with 10ml thin/james residual via NGT at 20:00, 750ml at 00:00. TF placed on hold, FURNACE CONVERTER notified, abdominal xray ordered.
[2024-05-21 00:59] LABS: Glucose - Point of Care 130 mg/dl (70-99)
[2024-05-21] MEDS: NOVOLOG FLEXPEN-MODERATE RESISTANCE SC ×5 (01:04→23:30)
[2024-05-21] MEDS: PITRESSIN 100 IV ×3 (04:53→19:30)
[2024-05-21] MEDS: SUBLIMAZE 50 MCG IV (05:01)
[2024-05-21 05:13] LABS: Hematocrit 23.2 % (39.0-52.0); Hemoglobin 7.8 g/dL (13.0-18.0); Mean Corp Hgb Conc. 33.6 g/dL (33.0-37.0); Mean Corpuscular Hgb 28.4 pg (27.0-31.0); Mean Corpuscular Volume 84.4 fL (80.0-94.0); Mean Platelet Volume 11.2 fL (7.4-10.4); Platelet Count 43 10^3/uL (130-400); Red Blood Cell Count 2.75 10^6/uL (4.70-6.10); White Blood Cell Count 17.2 10^3/uL (4.8-10.8)
[2024-05-21 05:22] LABS: APTT 68.6 Sec (23.4-35.0)
[2024-05-21 05:35] LABS: ALT (SGPT) 39 U/L (0-50); AST (SGOT) 98 U/L (17-59); Albumin 2.3 g/dl (3.5-5.0); Alkaline Phosphatase 282 U/L (38-126); Blood Urea Nitrogen 34 mg/dl (9-20); Calcium 7.4 mg/dl (8.4-10.2); Carbon Dioxide 20 mmol/L (22-30); Chloride 102 mmol/L (98-107); Direct Bilirubin 6.2 mg/dl (0.0-0.4); Estimated Creatinine Clearance 63 ml/min; Glucose 113 mg/dl (70-99); Magnesium 2.3 mg/dl (1.6-2.3); Phosphorus 5.4 mg/dl (2.5-4.5); Potassium 4.1 mmol/L (3.5-5.1); Sodium 131 mmol/L (135-145); Total Bilirubin 7.3 mg/dl (0.2-1.3); Total Protein 5.6 g/dl (6.3-8.2); eGFR 56.48
[2024-05-21 06:00] VITALS: BMI 42.7
[2024-05-21] MEDS: HEPARIN 4600 UNITS IV (06:03)
[2024-05-21] MEDS: STERILE WATER FOR INJECTION 10 ML IV ×3 (06:05→17:26)
[2024-05-21] MEDS: MERREM 500 MG IV ×3 (06:05→17:27)
[2024-05-21] MEDS: SOLU-CORTEF 50 MG IV ×3 (06:06→17:26)
[2024-05-21] MEDS: NSS 1000 IV ×2 (07:23→17:40)
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
--- NOTE | 2024-05-21 08:00 | PTCARENOTE ---
pt eyes are constantly open , positive corneal , jaundice sclera , moves jillian upper extremities with painful stimuli, does not follow commands , occasionally tracts in room , NST on monitor, BP maintained with 2 vasopressors , keep MAP 65, hemoglobin
down to 7.8 from 9.1 and platelets down 43 from 98 , Dr Nguyen aware plan for 1200 CBC and PTT , no rectal bleeding seen , brown stool in rectum , large amt of serosanguineous drainage from EN drain , Padron draining jalil urine , abdomen is
distended and round , NGT draining bile , generalized anasarca weeping serous fluid from multiple sites
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
[2024-05-21] MEDS: FLEXBUMIN 50 IV (08:34)
[2024-05-21] MEDS: NSS (PRESERVATIVE FREE) 10 ML IV (08:36)
[2024-05-21] MEDS: PROTONIX IV 40 MG IV (08:36)
[2024-05-21] MEDS: REFRESH CELLUVISC GEL 1 DROPS BOTH EYES ×2 (08:37→21:36)
--- NOTE | 2024-05-21 09:07 | PHA.VAN.FU ---
Vancomycin Assessment / Plan
- Assessment
Renal Function: SCR Decreasing (Fluctuating 1.2->1.4->1.7->1.4; BUN increasing)
WBC's are: Trending Down
In the past 24 hrs, patient has been: Afebrile
Concomitant Antimicrobials: micafungin, meropenem
- Dosing Plan
Continue: to dose by level
Dosing by Level: Hold off on dosing today (previous dose vanc 1000mg 05/20 10:21)
Based on clearance during current admission, it is expected patient to remain at therapeutic levels through 05/22 am (05/20 half-life = 43 H)
- Monitoring Plan
Random Level: 14 am
- Follow Up
Pharmacy will continue to follow.
Vancomycin Follow UP
- -
Patient Age: 64
Patient Sex: Male
Vancomycin Day #: 8
Indication: Gi / Intra-Abdominal
Requesting Provider: Dr. Miles/Dr. Riggins
Pertinent Antimicrobial Allergies:
ofloxacin - unknown (pt tolerated ciprofloxacin)
Height / Weight:
Height 5 ft 5 in
Actual Weight 116.5 kg
Pertinent Past Medical History: BMI ~44, Paraplegia, CKD III
- Vital Signs / Lab Results
Temp Pulse Resp BP Pulse Ox
97.9 F 111 14 117/54 97
05/21/24 08:19 05/21/24 04:00 05/21/24 04:00 05/19/24 17:46 05/21/24 07:38
Lab Results - Hematology
05/18/24 05/19/24 05/20/24
09:01 01:57 04:13
WBC Cancelled 22.4 H 21.1 H
05/21/24
04:40
WBC 17.2 H
Lab Results - Chemistry
05/19/24 05/20/24 05/20/24
01:57 04:13 05:23
BUN 25 H Cancelled 28 H
Creatinine 1.4 H Cancelled 1.7 H
Estimated Creat Clear 63 Cancelled 52
Albumin Cancelled 2.0 L
05/21/24
04:40
BUN 34 H
Creatinine 1.4 H
Estimated Creat Clear 63
Albumin 2.3 L
Microbiology Results
05/17/24 15:46 Blood Culture - Preliminary
Blood/Venous No Growth in 72 hours- Final report to follow
05/17/24 15:45 Blood Culture - Preliminary
Blood/Venous No Growth in 72 hours- Final report to follow
Therapeutic Drug Monitoring
Random Vancomycin 13.0 ug/ml 05/20/24 04:13
--- NOTE | 2024-05-21 09:40 | W.PN.NEPH.PH ---
Today's Communication / Plan
-
No acute dialysis required
TPN initiated by surgery
Remains on 2 pressor support
Assessment/Plan
-
Assessment
Peritonitis
Ileal perforation septic shock, right hemicolectomy, exploratory laparotomy on 05/13/2024
VDRF
Anasarca
AVTAR
Thrombocytopenia
ESLD, hepatitis C, alcohol
ESBL UTI
Hyponatremia
Bilateral upper extremity DVT
Anemia
Metabolic acidosis
Hypocalcemia
Hypotension
Hypomagnesemia
Plan
Creatinine stable at 1.4
Hyponatremia stable
Nonoliguric
Thrombocytopenia exacerbated
maintain need volume resuscitation
Surgery to initiate TPN
Replete potassium prn
Replete magnesium prn
Follow BMP
Keep mean arterial pressure greater than 65
Check urine studies: Patient has active urine sediment with associated microhematuria and albuminuria
Prognosis poor
Critical care time spent 45 minutes
-
-
Date of Service: May 21, 2024
CC / HPI / ROS
-
Chief Complaint:
Hyponatremia
Acute kidney injury
History of Present Illness:
Creatinine stable 1.4
Remains on 2 pressor support for hypotension
Platelets continue to drop
Serum sodium stable 130
Review of Systems:
Nonoliguric around 500 cc via Padron
No fevers
Labs
-
Labs:
WBC 17.2 10^3/uL (4.8-10.8) H 05/21/24 04:40
RBC 2.75 10^6/uL (4.70-6.10) L 05/21/24 04:40
Hgb 7.8 g/dL (13.0-18.0) L 05/21/24 04:40
Hct 23.2 % (39.0-52.0) L 05/21/24 04:40
Plt Count 43 10^3/uL (130-400) L D 05/21/24 04:40
Sodium 131 mmol/L (135-145) L 05/21/24 04:40
Potassium 4.1 mmol/L (3.5-5.1) 05/21/24 04:40
Chloride 102 mmol/L (98-107) 05/21/24 04:40
Carbon Dioxide 20 mmol/L (22-30) L 05/21/24 04:40
BUN 34 mg/dl (9-20) H 05/21/24 04:40
Creatinine 1.4 mg/dL (0.7-1.3) H 05/21/24 04:40
eGFR 56.48 05/21/24 04:40
Glucose 113 mg/dl (70-99) H 05/21/24 04:40
Calcium 7.4 mg/dl (8.4-10.2) L 05/21/24 04:40
Phosphorus 5.4 mg/dl (2.5-4.5) H 05/21/24 04:40
Cwo-P-Xipvoixuioh Pept 2020 pg/ml 05/15/24 04:13
Albumin 2.3 g/dl (3.5-5.0) L 05/21/24 04:40
Physical Exam
-
Vital Signs:
Vital Signs
Temp Pulse Resp BP Pulse Ox
97.9 F 111 14 117/54 97
05/21/24 08:19 05/21/24 04:00 05/21/24 04:00 05/19/24 17:46 05/21/24 07:38
Cardiovascular:: Regular rate and rhythm
Respiratory:: Bilateral: Coarse
Lung Excursion:: Normal
Abdomen:: Distended
Bowel Sounds:: None
Extremity Edema:: +3: Bilateral:
Padron Catheter: Yes
Other Findings::
Intubated: Poorly responsive
--- NOTE | 2024-05-21 10:53 | W.PN.GS2 ---
Addendum entered and electronically signed by Raj Miles MD 05/21/24 11:39:
Patient seen and examined with surgical NET C DEVELOPER. Agree with documented progress note.
Nursing at bedside, experimental mechanic electrical at bedside.
Tube feeds stopped overnight due to high residual; NG tube back on lower minute wall suction
Pressor requirement continues to slowly improve otherwise no new events.
Remains intubated, weaning sedation. Responsive but not purposeful.
Generalized anasarca/edema
ABD: Obese and distended. Difficult to assess tenderness but does wince and appear tachypneic on palpation.
Midline incision open between urbano. No significant drainage. No erythema. No purulence
EN with straw-colored ascites
NG tube with bilious output
Leukocytosis slowly improving, hemoglobin down to 7.8 and platelet count dropped today to 43
Some improvement in creatinine, LFTs slightly improved.
A/P: Remains critically ill but stable on current support postop day #8 status post ex lap right hemicolectomy for perforated ileum
Tube feeding intolerance likely medical billing representative of ileus in setting of acute illness and recent surgery
NG tube back to suction
Start TPN
Continue current supportive care per multiple medical services
Original Note:
Today's Communication / Plan
-
Start TPN
NPO with NGT to suction
Assessment / Plan
-
Assessment: 64 yo male with pmh of T7 spinal cord injury with paraplegia, recurrent ureteral stone, CKD stage IIIa, recurrent UTI with ESBL Proteus and E. coli sepsis, essential hypertension, recently discharged after complex hospitalization from
04/17 to 05/12 due to perinephric hematoma, ileus, septic shock UTI, ureteral stone s/p right URS/LL/stone extraction and stent exchange presenting back from SNF with septic shock from perforated ileum.
POD #7 Exploratory laparotomy right hemicolectomy for perforated ileum
remains critically ill but stable on multiple pressors with MSOF -pressor requirement slowly improving (off Levophed, Jimbo-Synephrine slowly improved, still on vasopressin)
---shock liver
---ARF
---intubated
Ascites causing large EN outputs, draining EN q8h only to prevent significant volume loss
WBC variable but trending down
acute on chronic anemia secondary to chronic disease and acute events. Being transfused today
thrombocytopenia also likely d/t cirrhosis and acute illness - improving
Ileus present: NGT returned to suction given high TF residuals, bilious outputs noted. Rectal probe placed earlier today with brown stool in rectal vault: no overt GI bleeding. ABD xr without evidence of obsturction.
Plan: NGT to suction, d/c tube feeding diet
Prolonged NPO with severe protein calorie malnutrition, will initiate TPN at starter dose. Nutrition following.
EN only has to be compressed/emptied q8hrs to limit loss of ascites fluid
IV ppi for GI ppx
ABX as per ID
Medical management as per primary team/magnesium mill operator/nephrology
Subjective Data
-
Date of Service: May 21, 2024
Patient seen and examined at bedside with Dr. Miles. Off sedation, awake. Comfortable appearing.
Objective Data
-
Intake and Output
05/20/24 05/21/24 05/22/24
06:59 06:59 06:59
Intake Total 2879.4 / 2934.3 4022.8 / 4149.8 578 / 578
Output Total 2990 / 3040 2205 / 2205 250 / 250
Balance -110.6 / -105.7 1817.8 / 1944.8 328 / 328
Intake:
IV fluids (Total) 1884.4 / 1929.3 2642.8 / 2769.8 508 / 508
Fent 112.5 / 117.5 / 14
Levo 151.1 / 151.1
Lr 1,000 ml @ 60 mls/hr IV . 360 / 360
[id number] [facility] Rx#:[id number]
Nss 1,000 ml @ 100 mls/hr IV . 1800 / 1900 400 / 400
Q10H [facility] Rx#:[id number]
Prop 164.8 / 171.7 19.8 / 19.8
Vaso 216 / 216 234 / 246 48 / 48
heparin 166 / 172 138 / 144 24 / 24
neosynephrine 714 / 741 437 / 446 36 / 36
IV piggybacks 555 / 555 900 / 900 50 / 50
Tube feeding 210 / 220 360 / 360
Feeding tube flush amount 30 / 30 120 / 120
Amount instilled into Drain ( 200 / 200
Total)
Right Abdomen Wing-Morris 200 / 200
Amount instilled into GI Tube ( 20 / 20
Total)
[place] Sump 20 / 20
Output:
Drain Output (Total) 2375 / 2375 675 / 675 150 / 150
Right Abdomen Wing-Morris 2375 / 2375 675 / 675 150 / 150
Gastrointestinal tube output ( 1000 / 1000
Total)
[place] Sump 1000 / 1000
Urine, Padron 615 / 665 530 / 530 100 / 100
Vital Signs
Temp Pulse Resp BP Pulse Ox
97.9 F 111 14 117/54 96
05/21/24 08:19 05/21/24 04:00 05/21/24 04:00 05/19/24 17:46 05/21/24 10:19
Lab Results
05/21/24 04:40
05/21/24 04:40
Calcium 7.4 mg/dl (8.4-10.2) L 05/21/24 04:40
Phosphorus 5.4 mg/dl (2.5-4.5) H 05/21/24 04:40
Magnesium 2.3 mg/dl (1.6-2.3) 05/21/24 04:40
Total Bilirubin 7.3 mg/dl (0.2-1.3) H 05/21/24 04:40
Direct Bilirubin 6.2 mg/dl (0.0-0.4) H 05/21/24 04:40
AST 98 U/L (17-59) H 05/21/24 04:40
ALT 39 U/L (0-50) 05/21/24 04:40
Alkaline Phosphatase 282 U/L (38-126) H 05/21/24 04:40
Total Protein 5.6 g/dl (6.3-8.2) L 05/21/24 04:40
Albumin 2.3 g/dl (3.5-5.0) L 05/21/24 04:40
Physical Exam
-
Intubated, responsive
ABD: Distended, obese, unable to assess tenderness accurately but no involuntary guarding
EN with serous ascites and bulb
NG tube in place with tube feeds/no residuals
[2024-05-21 11:43] LABS: Triglycerides 153 mg/dl (10-149)
[2024-05-21 12:15] LABS: Glucose - Point of Care 114 mg/dl (70-99)
[2024-05-21] MEDS: NEO-SYNEPHRINE 1% 260 MG IV (12:15)
[2024-05-21 12:24] LABS: B.E. -6.2 mmol/L; HCO3 18.8 mmol/L (21-28); O2 Saturation % 99.7 % (94-98); PCO2 34 mmHg (35-48); PO2 109 mmHg (83-108); pH 7.35 (7.35-7.45)
--- NOTE | 2024-05-21 12:43 | RESPNOTE ---
Respiratory: patient weaned for two hours and twenty minutes on PSV 8/5 cmH2O 40%. RSBI was 30-50 during wean.
[2024-05-21 12:44] LABS: APTT 111.5 Sec (23.4-35.0)
--- NOTE | 2024-05-21 13:19 | PTCARENOTE ---
pt weaned on vent for 2.5 hours tolerated well with 02 sats his SBP down to 70s , he is now up to 80mcg of Phenylephrine , his ABG during wean 7.35/34/109/18.8 , he was placed back on previous vent settings , Dr Nguyen aware of ABG results
--- NOTE | 2024-05-21 13:19 | CM ---
CM following re: discharge planning.
Discussed in Rounds, reviewed pt's chart, met with pt. Per rounds meeting, pt is POD #7 Exploratory laparotomy right hemicolectomy. Remains intubated, unstable and critically ill, on pressors.
Working progress to locate legal guardian. Director of case management and prepared foods production team member data warehouse manager have been informed regarding legal guardian issue. Per director of case management request, pt's clinical faxed to oxygen equipment preparer Mario Cavazos
D/C plan: Return back to [facility] for a supervisor intermediates care.
CM will follow with discharge plan updates as hospitalization progresses
[2024-05-21 13:23] LABS: Hematocrit 23.5 % (39.0-52.0); Hemoglobin 8.1 g/dL (13.0-18.0)
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
[2024-05-21] MEDS: MYCAMINE 105 MG IV (17:27)
[2024-05-21 17:58] LABS: Glucose - Point of Care 93 mg/dl (70-99)
--- NOTE | 2024-05-21 18:00 | PTCARENOTE ---
no change in assessment s
[2024-05-21 19:43] LABS: APTT 58.6 Sec (23.4-35.0)
--- NOTE | 2024-05-21 20:00 | PTCARENOTE ---
rec`d pt at 1900 intubated. pt does not track or follow commands. ST on monitor. HR low 100s. vaso and theodora gtt running to maintain MAP> 65. NS and heparin gtt also running. rt radial a line and rt IJ triple luman in place. afebrile. #8 ETT @23
center. vent settings 14/460/40%/ 5 of peep. thick james/blood tinged secretions through ETT. left nare NGT to LIWS. no bowel sounds. rectal temp probe in place. chronic barcenas from home. draining minimal jalil urine. pt has midline urbano, EN drain.
restraints on pt. safe environment maintained.
--- NOTE | 2024-05-21 20:16 | PTCARENOTE ---
JAIDA gee and brea aware of ptt result. ordered to increase rate by 100u and not rebolus. check ptt in 6 hrs. heparin gtt now at 700u/7cc/hr.
[2024-05-21] MEDS: Parenteral Nutrition, Central 980 IV (21:28)
[2024-05-21 23:21] LABS: Glucose - Point of Care 138 mg/dl (70-99)
[2024-05-22] VITALS (21 sets, daily range): BP systolic 105–132; BP diastolic 60–96; BMI 43.7
[2024-05-22] MEDS: HEPARIN 25000 UNITS/250 ML IV (01:30)
[2024-05-22] MEDS: NEO-SYNEPHRINE 1% 260 MG IV (01:33)
[2024-05-22] MEDS: PITRESSIN 100 IV ×3 (01:33→18:12)
[2024-05-22] MEDS: STERILE WATER FOR INJECTION 10 ML IV ×4 (01:34→18:07)
[2024-05-22] MEDS: SOLU-CORTEF 50 MG IV ×4 (01:34→18:07)
[2024-05-22] MEDS: MERREM 500 MG IV ×4 (01:34→18:07)
[2024-05-22] MEDS: SUBLIMAZE 50 MCG IV ×5 (02:50→19:50)
[2024-05-22 03:34] LABS: Hematocrit 23.6 % (39.0-52.0); Hemoglobin 7.6 g/dL (13.0-18.0); Mean Corp Hgb Conc. 32.2 g/dL (33.0-37.0); Mean Corpuscular Hgb 28.4 pg (27.0-31.0); Mean Corpuscular Volume 88.1 fL (80.0-94.0); Mean Platelet Volume 11.3 fL (7.4-10.4); Platelet Count 53 10^3/uL (130-400); Red Blood Cell Count 2.68 10^6/uL (4.70-6.10); Red Cell Dist. Width 16.5 % (11.5-14.5); White Blood Cell Count 21.5 10^3/uL (4.8-10.8)
[2024-05-22 03:37] LABS: APTT 70.8 Sec (23.4-35.0)
[2024-05-22 04:06] LABS: Blood Urea Nitrogen 40 mg/dl (9-20); Calcium 7.4 mg/dl (8.4-10.2); Carbon Dioxide 18 mmol/L (22-30); Chloride 104 mmol/L (98-107); Estimated Creatinine Clearance 69 ml/min; Glucose 167 mg/dl (70-99); Magnesium 2.4 mg/dl (1.6-2.3); Phosphorus 4.8 mg/dl (2.5-4.5); Potassium 4.2 mmol/L (3.5-5.1); Sodium 132 mmol/L (135-145); Triglycerides 157 mg/dl (10-149); eGFR > 60.00
[2024-05-22] MEDS: NSS 1000 IV ×3 (04:09→22:44)
[2024-05-22 04:10] LABS: Vancomycin Random 12.4 ug/ml
[2024-05-22] MEDS: NOVOLOG FLEXPEN-MODERATE RESISTANCE 1 UNITS SC ×3 (05:23→23:35)
[2024-05-22 05:30] LABS: Glucose - Point of Care 194 mg/dl (70-99)
--- NOTE | 2024-05-22 05:30 | PTCARENOTE ---
pt reassessed, hr maintains to be 110-130. pt bathed and dressings changed.
--- NOTE | 2024-05-22 08:22 | W.PN.NEPH.PH ---
Today's Communication / Plan
-
Sign off
Can DC further IV fluid
Assessment/Plan
-
Assessment
Peritonitis
Ileal perforation septic shock, right hemicolectomy, exploratory laparotomy on 05/13/2024
VDRF
Anasarca
AVTAR
Thrombocytopenia
ESLD, hepatitis C, alcohol
ESBL UTI
Hyponatremia
Bilateral upper extremity DVT
Anemia
Metabolic acidosis
Hypocalcemia
Hypotension
Hypomagnesemia
Plan
Creatinine stable at 1.3
Hyponatremia stable at 132
Nonoliguric
Thrombocytopenia exacerbated
Would hold other fluids now that TPN is on
Replete potassium prn
Replete magnesium prn
Follow BMP
Keep mean arterial pressure greater than 65
Check urine studies: Patient has active urine sediment with associated microhematuria and albuminuria
Prognosis poor
we will sign off
-
-
Date of Service: May 22, 2024
CC / HPI / ROS
-
Chief Complaint:
Hyponatremia
Acute kidney injury
History of Present Illness:
Creatinine stable 1.3
Remains on 2 pressor support for hypotension
Platelets continue to drop
Serum sodium stable 132
Review of Systems:
Nonoliguric around 500 cc via Padron
No fevers
Labs
-
Labs:
WBC 21.5 10^3/uL (4.8-10.8) H 05/22/24 03:12
RBC 2.68 10^6/uL (4.70-6.10) L 05/22/24 03:12
Hgb 7.6 g/dL (13.0-18.0) L 05/22/24 03:12
Hct 23.6 % (39.0-52.0) L 05/22/24 03:12
Plt Count 53 10^3/uL (130-400) L D 05/22/24 03:12
Sodium 132 mmol/L (135-145) L 05/22/24 03:12
Potassium 4.2 mmol/L (3.5-5.1) 05/22/24 03:12
Chloride 104 mmol/L (98-107) 05/22/24 03:12
Carbon Dioxide 18 mmol/L (22-30) L 05/22/24 03:12
BUN 40 mg/dl (9-20) H 05/22/24 03:12
Creatinine 1.3 mg/dL (0.7-1.3) 05/22/24 03:12
eGFR > 60.00 05/22/24 03:12
Glucose 167 mg/dl (70-99) H 05/22/24 03:12
Calcium 7.4 mg/dl (8.4-10.2) L 05/22/24 03:12
Phosphorus 4.8 mg/dl (2.5-4.5) H 05/22/24 03:12
Wof-E-Wesuygezjlb Pept 2020 pg/ml 05/15/24 04:13
Albumin 2.3 g/dl (3.5-5.0) L 05/21/24 04:40
Physical Exam
-
Vital Signs:
Vital Signs
Temp Pulse Resp BP Pulse Ox
97.4 F 114 20 117/54 96
05/22/24 07:54 05/22/24 06:00 05/22/24 06:00 05/19/24 17:46 05/22/24 08:01
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
[2024-05-22] MEDS: NSS (PRESERVATIVE FREE) 10 ML IV (08:43)
[2024-05-22] MEDS: REFRESH CELLUVISC GEL 1 DROPS BOTH EYES ×2 (08:43→19:51)
[2024-05-22] MEDS: PROTONIX IV 40 MG IV (08:43)
--- NOTE | 2024-05-22 09:26 | PHA.VAN.FU ---
Vancomycin Assessment / Plan
- Assessment
Renal Function: SCR Decreasing (1.7,1.4,1.3)
WBC's are: Trending Up (21.5)
Concomitant Antimicrobials: meropenem, micafungin
- Assessment - Therapeutic Drug Monitoring
Random Level: 12.4 - last dose was 05/20 @ 10:21 ( 1000mg)
- Dosing Plan
Continue: dose by random level
Dosing by Level: Re-dose today (1000 mg x 1 dose)
based on clearance during admission, expect pt to remain at therapeutic levels thru 12/16 AM
- Monitoring Plan
Random Level: 12/16 AM
- Follow Up
Pharmacy will continue to follow.
Vancomycin Follow UP
- -
Patient Age: 64
Patient Sex: Male
Vancomycin Day #: 9
Indication: Gi / Intra-Abdominal
Requesting Provider: Dr. Miles/Dr. Riggins
Pertinent Antimicrobial Allergies:
ofloxacin - unknown (pt tolerated ciprofloxacin)
Height / Weight:
Height 5 ft 5 in
Actual Weight 116.5 kg
Pertinent Past Medical History: BMI ~44, Paraplegia, CKD III
- Vital Signs / Lab Results
Temp Pulse Resp BP Pulse Ox
97.4 F 114 20 117/54 96
05/22/24 07:54 05/22/24 06:00 05/22/24 06:00 05/19/24 17:46 05/22/24 08:01
Lab Results - Hematology
05/20/24 05/21/24 05/22/24
04:13 04:40 03:12
WBC 21.1 H 17.2 H 21.5 H
Lab Results - Chemistry
05/20/24 05/20/24 05/21/24
04:13 05:23 04:40
BUN Cancelled 28 H 34 H
Creatinine Cancelled 1.7 H 1.4 H
Estimated Creat Clear Cancelled 52 63
Albumin Cancelled 2.0 L 2.3 L
05/22/24
03:12
BUN 40 H
Creatinine 1.3
Estimated Creat Clear 69
Albumin
Microbiology Results
05/17/24 15:46 Blood Culture - Preliminary
Blood/Venous No Growth in 4 days- Final report to follow
05/17/24 15:45 Blood Culture - Preliminary
Blood/Venous No Growth in 4 days- Final report to follow
Therapeutic Drug Monitoring
Random Vancomycin 12.4 ug/ml 05/22/24 03:12
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
[2024-05-22] MEDS: VANCOCIN 200 IV (09:53)
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
[2024-05-22 12:12] LABS: Glucose - Point of Care 233 mg/dl (70-99)
--- NOTE | 2024-05-22 12:15 | W.PN.GS2 ---
Addendum entered and electronically signed by Mahtew Mccracken MD 05/23/24 01:04:
I saw and examined the patient the morning of 05/22/24.
The CANDY ATTENDANT's note was reviewed and I agree with the note.
Original Note:
Today's Communication / Plan
-
NPO/NGT/TPN
Assessment / Plan
-
Assessment: 64 yo male with pmh of T7 spinal cord injury with paraplegia, recurrent ureteral stone, CKD stage IIIa, recurrent UTI with ESBL Proteus and E. coli sepsis, essential hypertension, recently discharged after complex hospitalization from
04/17 to 05/12 due to perinephric hematoma, ileus, septic shock UTI, ureteral stone s/p right URS/LL/stone extraction and stent exchange presenting back from [facility] with septic shock from perforated ileum.
POD #9 Exploratory laparotomy right hemicolectomy for perforated ileum
remains critically ill but stable on multiple pressors
---shock liver
---ARF
---VDRF
Ascites causing large EN outputs, Drain EN only q8h only to prevent significant volume loss
WBC variable and remains elevated
acute on chronic anemia secondary to chronic disease and acute events. s/p transfusion on 05/21 (3 units total this presentation)
thrombocytopenia also likely d/t cirrhosis and acute illness - improving
Ileus present: Did not tolerate trickle TF. NGT returned to suction on 05/21, bilious outputs noted. ABD xr without evidence of obstruction.
Plan: NGT to suction
Continue TPN, nutrition following
EN only has to be compressed/emptied q8hrs to limit loss of ascites fluid
IV ppi for GI ppx
ABX as per ID
Medical management as per primary team/musical engineer/nephrology
Subjective Data
-
Date of Service: May 22, 2024
Patient seen and examined at bedside with Dr. Mccracken. Remains intubated, off sedation. Responsive but not purposeful.
Objective Data
-
Intake and Output
05/21/24 05/22/24 05/23/24
06:59 06:59 06:59
Intake Total 4022.8 / 4149.8 3587.5 / 3757.5 750 / 750
Output Total 2205 / 2205 2100 / 2100 100 / 100
Balance 1817.8 / 1944.8 1487.5 / 1657.5 650 / 650
Intake:
IV fluids (Total) 2642.8 / 2769.8 3148.5 / 3277.5 586 / 586
Fent
Nss 1,000 ml @ 100 mls/hr IV . 1800 / 1900 2400 / 2500 441 / 441
Q10H RADHA Rx#:[id number]
Prop 19.8 / 19.8
Vaso 234 / 246 288 / 300 60 / 60
heparin 138 / 144 156 / 164 40 / 40
neosynephrine 437 / 446 304.5 / 313.5 45 / 45
IV piggybacks 900 / 900 50 / 50
TPN/PPN 369 / 410 164 / 164
Tube feeding 360 / 360
Feeding tube flush amount 120 / 120
Amount instilled into GI Tube ( 20 / 20
Total)
[place] Sump 20 / 20
Output:
Drain Output (Total) 675 / 675 1000 / 1000 100 / 100
Right Abdomen Wing-[place] 675 / 675 1000 / 1000 100 / 100
Gastrointestinal tube output ( 1000 / 1000 200 / 200
Total)
[place] Sump 1000 / 1000 200 / 200
Urine, Padron 530 / 530 900 / 900
Vital Signs
Temp Pulse Resp BP Pulse Ox
97.6 F 120 14 117/54 97
05/22/24 12:00 05/22/24 11:00 05/22/24 11:00 05/19/24 17:46 05/22/24 11:17
Lab Results
05/22/24 03:12
Calcium 7.4 mg/dl (8.4-10.2) L 05/22/24 03:12
Phosphorus 4.8 mg/dl (2.5-4.5) H 05/22/24 03:12
Magnesium 2.4 mg/dl (1.6-2.3) H 05/22/24 03:12
Total Bilirubin 7.3 mg/dl (0.2-1.3) H 05/21/24 04:40
Direct Bilirubin 6.2 mg/dl (0.0-0.4) H 05/21/24 04:40
AST 98 U/L (17-59) H 05/21/24 04:40
ALT 39 U/L (0-50) 05/21/24 04:40
Alkaline Phosphatase 282 U/L (38-126) H 05/21/24 04:40
Total Protein 5.6 g/dl (6.3-8.2) L 05/21/24 04:40
Albumin 2.3 g/dl (3.5-5.0) L 05/21/24 04:40
Physical Exam
-
Intubated, responsive
ABD: Distended, obese, unable to assess tenderness accurately but no involuntary guarding
EN with serous ascites and bulb
Incision with intact urbano, packing between rubano. No purulence.
NG tube in place with tube feeds/no residuals
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
[2024-05-22 12:30] LABS: % Basophils 0.3 % (0-2); % Eosinophils 0.2 % (0-6); % Immature Granulocytes 2.9 % (0-0.5); % Lymphocytes 3.7 % (20.5-51.1); % Monocytes 3.3 % (1.7-9.3); % Neutrophils 89.6 % (42.2-75.2); Absolute Basophils 0.1 10^3/uL (0-0.2); Absolute Immature Granulocytes 0.5 10^3/uL (0-0.05); Absolute Lymphocytes 0.6 10^3/uL (1.2-3.4); Absolute Monocytes 0.5 10^3/uL (0.1-0.6); Absolute Neutrophils 14.3 10^3/uL (1.4-6.5); Hematocrit 22.8 % (39.0-52.0); Hemoglobin 7.6 g/dL (13.0-18.0); Mean Corp Hgb Conc. 33.3 g/dL (33.0-37.0); Mean Corpuscular Hgb 28.8 pg (27.0-31.0); Mean Corpuscular Volume 86.4 fL (80.0-94.0); Mean Platelet Volume 11.1 fL (7.4-10.4); Nucleated Red Blood Cells % 0.4 % (-); Platelet Count 39 10^3/uL (130-400); Red Blood Cell Count 2.64 10^6/uL (4.70-6.10); Red Cell Dist. Width 16.5 % (11.5-14.5)
[2024-05-22] MEDS: NOVOLOG FLEXPEN-MODERATE RESISTANCE 3 UNITS SC (12:30)
[2024-05-22 12:40] LABS: APTT 63.3 Sec (23.4-35.0)
--- NOTE | 2024-05-22 12:40 | PTCARENOTE ---
Pt assessed.No change in assessment.
[2024-05-22] MEDS: HEPARIN 9200 UNITS IV (13:16)
--- NOTE | 2024-05-22 14:47 | PTCARENOTE ---
Right A Line with dampened wave form.NIBP cuff place on left calf.
--- NOTE | 2024-05-22 15:22 | RESPNOTE ---
Respiratory: patient weaned for two hours and ten minutes on PSV 8/5 cmH2O. RSBI averaged in the 30-40's. Plan was to wean for two hours. HR was in the 130's at end of wean.
[2024-05-22] MEDS: MYCAMINE 105 MG IV (16:18)
--- NOTE | 2024-05-22 16:43 | PTCARENOTE ---
Pt assessed.No change in assessment noted.Phenylephrine titrated down for MAP 79.
[2024-05-22 18:28] LABS: Glucose - Point of Care 185 mg/dl (70-99)
[2024-05-22] MEDS: ATIVAN 1 MG IV (20:45)
[2024-05-22] MEDS: NSS (PRESERVATIVE FREE) 0.5 ML IV (20:45)
[2024-05-22 20:53] LABS: APTT > 200 Sec (23.4-35.0)
--- NOTE | 2024-05-22 20:57 | PTCARENOTE ---
holding heparin gtt per orders for ptt >200.
--- NOTE | 2024-05-22 21:33 | PTCARENOTE ---
d/c right radial a line.
[2024-05-22] MEDS: Parenteral Nutrition, Central 1280 IV (22:34)
[2024-05-22] MEDS: KCL 270 MEQ IV (22:36)
[2024-05-22 23:46] LABS: Glucose - Point of Care 170 mg/dl (70-99)
[2024-05-23] VITALS (40 sets, daily range): BP systolic 84–139; BP diastolic 59–102; BMI 43.9
[2024-05-23] MEDS: PITRESSIN 100 IV (01:26)
[2024-05-23] MEDS: MERREM 500 MG IV ×4 (01:26→17:06)
[2024-05-23] MEDS: SOLU-CORTEF 50 MG IV ×4 (01:26→22:28)
[2024-05-23] MEDS: STERILE WATER FOR INJECTION 10 ML IV ×4 (01:27→17:06)
[2024-05-23] MEDS: ATIVAN 1 MG IV ×4 (01:36→22:21)
[2024-05-23] MEDS: NSS (PRESERVATIVE FREE) 1 ML IV (01:37)
[2024-05-23] MEDS: SUBLIMAZE 50 MCG IV ×3 (04:01→22:47)
[2024-05-23] MEDS: NEO-SYNEPHRINE 1% 260 MG IV (04:05)
--- NOTE | 2024-05-23 04:48 | PTCARENOTE ---
ett salguero changed with RT. vaso gtt off
[2024-05-23 05:21] LABS: APTT 68.5 Sec (23.4-35.0)
[2024-05-23 05:55] LABS: Glucose - Point of Care 216 mg/dl (70-99)
[2024-05-23 06:02] LABS: Blood Urea Nitrogen 46 mg/dl (9-20); Calcium 7.5 mg/dl (8.4-10.2); Carbon Dioxide 18 mmol/L (22-30); Chloride 109 mmol/L (98-107); Estimated Creatinine Clearance 82 ml/min; Glucose 198 mg/dl (70-99); Magnesium 2.6 mg/dl (1.6-2.3); Phosphorus 3.1 mg/dl (2.5-4.5); Potassium 3.9 mmol/L (3.5-5.1); Sodium 135 mmol/L (135-145); eGFR > 60.00
[2024-05-23] MEDS: NOVOLOG FLEXPEN-MODERATE RESISTANCE 3 UNITS SC ×3 (06:15→17:56)
[2024-05-23] MEDS: HEPARIN 25000 UNITS/250 ML IV (07:34)
--- NOTE | 2024-05-23 07:43 | PHA.VAN.FU ---
Vancomycin Assessment / Plan
- Assessment
Renal Function: SCR Decreasing
WBC's are: Trending Down
In the past 24 hrs, patient has been: Afebrile
Concomitant Antimicrobials: meropenem, micafungin
- Dosing Plan
Continue: dose by random level (last dose was 1000 mg on 05/22 )
based on clearance during admission, expect pt to remain at therapeutic levels thru 12 am
- Monitoring Plan
Random Level: ordered for 05/24 am
- Follow Up
Pharmacy will continue to follow.
Vancomycin Follow UP
- -
Patient Age: 64
Patient Sex: Male
Vancomycin Day #: 10
Indication: Gi / Intra-Abdominal
Requesting Provider: Dr. Miles/Dr. Riggins
Pertinent Antimicrobial Allergies:
ofloxacin - unknown (pt tolerated ciprofloxacin)
Height / Weight:
Height 5 ft 5 in
Actual Weight 119.7 kg
Pertinent Past Medical History: BMI ~44, Paraplegia, CKD III
- Vital Signs / Lab Results
Temp Pulse Resp BP Pulse Ox
97.6 F 127 18 102/66 97
05/23/24 03:25 05/23/24 06:00 05/23/24 06:00 05/23/24 06:00 05/23/24 04:23
Lab Results - Hematology
05/21/24 05/22/24 05/22/24
04:40 03:12 11:58
WBC 17.2 H 21.5 H Cancelled
05/22/24
12:07
WBC 16.0 H
Lab Results - Chemistry
05/21/24 05/22/24 05/23/24
04:40 03:12 05:02
BUN 34 H 40 H 46 H
Creatinine 1.4 H 1.3 1.1
Estimated Creat Clear 63 69 82
Albumin 2.3 L
Microbiology Results
05/17/24 15:46 Blood Culture - Final
Blood/Venous No Growth - Final Report
05/17/24 15:45 Blood Culture - Final
Blood/Venous No Growth - Final Report
Therapeutic Drug Monitoring
Random Vancomycin 12.4 ug/ml 05/22/24 03:12
[2024-05-23] MEDS: NSS (PRESERVATIVE FREE) 10 ML IV (08:29)
[2024-05-23] MEDS: PROTONIX IV 40 MG IV (08:29)
[2024-05-23] MEDS: REFRESH CELLUVISC GEL 1 DROPS BOTH EYES ×2 (08:30→22:29)
[2024-05-23 09:04] LABS: Hematocrit 22.4 % (39.0-52.0); Hemoglobin 7.1 g/dL (13.0-18.0); Mean Corp Hgb Conc. 31.7 g/dL (33.0-37.0); Mean Corpuscular Hgb 28.5 pg (27.0-31.0); Mean Platelet Volume 12.4 fL (7.4-10.4); Platelet Count 37 10^3/uL (130-400); Red Blood Cell Count 2.49 10^6/uL (4.70-6.10); White Blood Cell Count 16.2 10^3/uL (4.8-10.8)
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
--- NOTE | 2024-05-23 10:30 | W.PN.UPDATE ---
Update Note
Progress Note Update
As of this morning vasopressors have been discontinued.
Again, discontinue normal saline
Transfused today
Will attempt a spontaneous breathing trial but mental status remain not optimal.
[2024-05-23] MEDS: NSS IV (10:31)
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
[2024-05-23] MEDS: NSS (PRESERVATIVE FREE) 0.5 ML IV ×2 (11:24→22:22)
--- NOTE | 2024-05-23 11:35 | PTCARENOTE ---
Addendum entered by Kervin Beavers RN 05/23/24 14:01:
Pt weaned for 1 hour 20 min, 1 unit PRBCs hung at 13:13, see flowsheet. Pt provided CHG bath, turned and repositioned, abdominal dressing changed, oral and pericare provided. Safe environment maintained.
Original Note:
SBT started at 11:35 -CPAP 10/5 with 40%. New type and screen drawn and sent per protocol.
[2024-05-23 12:11] LABS: Glucose - Point of Care 205 mg/dl (70-99)
[2024-05-23 12:58] LABS: B.E. -6.9 mmol/L; HCO3 19.3 mmol/L (21-28); O2 Saturation % 97.8 % (94-98); PCO2 41 mmHg (35-48); PO2 78 mmHg (83-108); pH 7.28 (7.35-7.45)
[2024-05-23 13:00] LABS: O2 Therapy 40
[2024-05-23] MEDS: VENTOLIN NEBULES 2.5 MG INH ×2 (15:45→19:38)
[2024-05-23] MEDS: MYCAMINE 105 MG IV (15:55)
--- NOTE | 2024-05-23 16:26 | W.PN.UPDATE ---
Update Note
Progress Note Update
Patient chart reviewed:
POD #10 Exploratory laparotomy right hemicolectomy for perforated ileum
remains critically ill but stable on multiple pressors
---shock liver
---ARF
---VDRF
TPN renewed
Continue NPO with NGT to wall suction
--- NOTE | 2024-05-23 17:31 | PTCARENOTE ---
Pt reassessed, remains stable off all pressors and sedation. PRN Ativan given for agitation and vent dysynchrony, see flowsheet. Safe environment maintained.
[2024-05-23 18:06] LABS: Glucose - Point of Care 234 mg/dl (70-99)
--- NOTE | 2024-05-23 20:00 | PTCARENOTE ---
rec`d pt at 1900 intubated. pt does not track or follow commands. ST on monitor. HR low 120s/130s. rt IJ triple luman in place. afebrile. #8 ETT @[address] [place] [address]. vent settings 14/460/40%/ 5 of peep. thick james/blood tinged secretions through ETT. left
nare NGT to LIWS. rectal temp probe in place. chronic barcenas from home. draining minimal jalil urine. pt has midline urbano, EN drain. restraints on pt. safe environment maintained. tpn running.
[2024-05-24] VITALS (24 sets, daily range): BP systolic 86–143; BP diastolic 52–93; BMI 44.0
[2024-05-24] MEDS: Parenteral Nutrition, Central 1280 IV ×2 (00:02→21:04)
[2024-05-24] MEDS: STERILE WATER FOR INJECTION 10 ML IV ×2 (00:59→05:49)
[2024-05-24] MEDS: NOVOLOG FLEXPEN-MODERATE RESISTANCE 3 UNITS SC ×4 (00:59→23:23)
[2024-05-24] MEDS: MERREM 500 MG IV ×2 (00:59→05:48)
[2024-05-24 01:10] LABS: Glucose - Point of Care 207 mg/dl (70-99)
--- NOTE | 2024-05-24 03:25 | PTCARENOTE ---
pt reassessed. no changes in pt assessment.
[2024-05-24] MEDS: NSS (PRESERVATIVE FREE) 0.5 ML IV (04:15)
[2024-05-24] MEDS: ATIVAN 1 MG IV ×2 (04:15→15:56)
[2024-05-24] MEDS: VENTOLIN NEBULES 2.5 MG INH (04:27)
--- NOTE | 2024-05-24 04:33 | PTCARENOTE ---
pt up to 60% on vent. POX on 40% was satting 89%.
[2024-05-24 04:48] LABS: Hematocrit 27.9 % (39.0-52.0); Hemoglobin 9.1 g/dL (13.0-18.0); Mean Corp Hgb Conc. 32.6 g/dL (33.0-37.0); Mean Corpuscular Hgb 28.9 pg (27.0-31.0); Mean Corpuscular Volume 88.6 fL (80.0-94.0); Mean Platelet Volume 12.8 fL (7.4-10.4); Platelet Count 42 10^3/uL (130-400); Red Blood Cell Count 3.15 10^6/uL (4.70-6.10); Red Cell Dist. Width 16.5 % (11.5-14.5); White Blood Cell Count 15.8 10^3/uL (4.8-10.8)
[2024-05-24 04:58] LABS: ALT (SGPT) 49 U/L (0-50); AST (SGOT) 126 U/L (17-59); Albumin 1.9 g/dl (3.5-5.0); Alkaline Phosphatase 203 U/L (38-126); Blood Urea Nitrogen 50 mg/dl (9-20); Calcium 7.8 mg/dl (8.4-10.2); Carbon Dioxide 18 mmol/L (22-30); Chloride 112 mmol/L (98-107); Estimated Creatinine Clearance 101 ml/min; Glucose 208 mg/dl (70-99); Magnesium 2.7 mg/dl (1.6-2.3); Phosphorus 2.4 mg/dl (2.5-4.5); Potassium 4.1 mmol/L (3.5-5.1); Sodium 137 mmol/L (135-145); Total Bilirubin 5.6 mg/dl (0.2-1.3); Total Protein 5.3 g/dl (6.3-8.2); Triglycerides 160 mg/dl (10-149); eGFR > 60.00
[2024-05-24 05:00] LABS: B.E. -6.6 mmol/L; HCO3 18.2 mmol/L (21-28); O2 Saturation % 95.7 % (94-98); PCO2 33 mmHg (35-48); PO2 63 mmHg (83-108); pH 7.35 (7.35-7.45)
[2024-05-24 05:30] LABS: Ammonia 10 umol/L (9-30)
[2024-05-24 05:35] LABS: Vancomycin Random 10.8 ug/ml
[2024-05-24] MEDS: SOLU-CORTEF 50 MG IV ×2 (05:48→19:36)
[2024-05-24] MEDS: LASIX 40 MG IV (05:48)
[2024-05-24] MEDS: REFRESH CELLUVISC GEL 1 DROPS BOTH EYES ×2 (07:44→19:36)
[2024-05-24] MEDS: PROTONIX IV 40 MG IV (07:45)
[2024-05-24] MEDS: NSS (PRESERVATIVE FREE) 10 ML IV (07:45)
--- NOTE | 2024-05-24 08:15 | PTCARENOTE ---
recd 0715, ETT to vent tolerating settings, rate set 14, patients own rate upper twenties. unrestrained, no sedation at this time. with oral care, pt did respond with both hands toward ETT but not strong enough or with enough fine motor to be a
threat to ETT. when undisturbed/unstimulated, pt is resting quietly, arms at sides. eyes open at times but no focus/track. rest of assessment as documented. abd dressing with some saturation, reinforced. oozing from various sites L abd,
dressings occlusive. RIJ TLC site dressing intact, maintained.
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
--- NOTE | 2024-05-24 08:28 | CM ---
CM following re: discharge planning.
Discussed in Rounds, reviewed pt's chart, met with pt. Per rounds meeting, pt is POD #10 Exploratory laparotomy right hemicolectomy. Remains intubated, unstable and critically ill, on pressors.
Working progress to locate legal guardian. Director of case management and seafood service team member water project manager have been informed regarding legal guardian issue. Per director of case management request, pt's clinical faxed to [facility].
D/C plan: Return back to [facility] for a terminal operations supervisor care.
CM will follow with discharge plan updates as hospitalization progresses
--- NOTE | 2024-05-24 09:30 | W.PN.GS2 ---
Addendum entered and electronically signed by JAIDA Ag 05/24/24 13:44:
clarification: anemia of chronic disease present with acute blood loss anemia earlier this admission secondary to recent right subcapsular bleed and expected operative losses, do not suspect active bleeding at this time.
h/h stable after transfusion which was given on 05/23 (4 units this presentation)
Original Note:
Today's Communication / Plan
-
Start trickle feed tube feedings, continue TPN until tolerating
Assessment / Plan
-
Assessment: 64 yo male with pmh of T7 spinal cord injury with paraplegia, recurrent ureteral stone, CKD stage IIIa, recurrent UTI with ESBL Proteus and E. coli sepsis, essential hypertension, recently discharged after complex hospitalization from
04/17 to 05/12 due to perinephric hematoma, ileus, septic shock UTI, ureteral stone s/p right URS/LL/stone extraction and stent exchange presenting back from SNF with septic shock from perforated ileum.
POD #11 Exploratory laparotomy right hemicolectomy for perforated ileum
remains critically ill but stable and now off pressors
---shock liver
---ARF
---VDRF
Ascites causing large EN outputs, Drain EN only q8h only to prevent significant volume loss
WBC variable and remains elevated
acute on chronic anemia secondary to chronic disease and acute events. s/p transfusion on 05/21 (3 units total this presentation)
thrombocytopenia also likely d/t cirrhosis and acute illness
Ileus present but resolving. Did not tolerate trickle TF. NGT returned to suction on 05/21. Now passing some small smears of stool.
Plan: Start trickle tube feedings and follow for tolerance
Continue TPN until tolerating TF, nutrition following
EN only has to be compressed/emptied q8hrs to limit loss of ascites fluid
IV ppi for GI ppx
ABX as per ID
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
Subjective Data
-
Date of Service: May 24, 2024
Patient seen and examined with Dr. Hansen. Comfortable appearing. Opens eyes to stimulation but not alert.
Objective Data
-
Intake and Output
05/23/24 05/24/24 05/25/24
06:59 06:59 06:59
Intake Total 4361.4 / 4538.7 2268.2 / 2321.2 159 / 159
Output Total 1325 / 1425 1800 / 1800 525 / 525
Balance 3036.4 / 3113.7 468.2 / 521.2 -366 / -366
Intake:
IV fluids (Total) 3063.4 / 3187.7 581.2 / 581.2
Nss 1,000 ml @ 100 mls/hr IV . 2341 / 2441 400 / 400
Q10H RADHA Rx#:[id number]
Vaso 264 / 264
heparin 218 / 228 20 / 20
neosynephrine 150 / 153 3 / 3
potassium chlor 90.4 / 101.7 158.2 / 158.2
IV piggybacks 105 / 105
TPN/PPN 998 / 1051 1272 / 1325 159 / 159
Amount instilled into GI Tube ( 300 / 300 60 / 60
Total)
Hestand Sump 300 / 300 60 / 60
Blood Products 0 / 0
Packed red blood cells 0 / 0
Blood Product Amount Infused ( 250 / 250
mL)
Packed Rbc Leukoreduced Unit 250 / 250
[id number]
Output:
Drain Output (Total) 225 / 225 650 / 650 175 / 175
Right Abdomen Wing-Morris 225 / 225 650 / 650 175 / 175
Gastrointestinal tube output ( 250 / 250 125 / 125
Total)
Hestand Sump 250 / 250 125 / 125
Urine, Padron 850 / 950 1025 / 1025 350 / 350
Vital Signs
Temp Pulse Resp BP Pulse Ox
97.6 F 133 32 119/62 95
05/24/24 07:33 05/24/24 08:00 05/24/24 08:00 05/24/24 08:00 05/24/24 08:00
Lab Results
05/24/24 04:29
05/24/24 04:29
Calcium 7.8 mg/dl (8.4-10.2) L 05/24/24 04:29
Phosphorus 2.4 mg/dl (2.5-4.5) L 05/24/24 04:29
Magnesium 2.7 mg/dl (1.6-2.3) H 05/24/24 04:29
Total Bilirubin 5.6 mg/dl (0.2-1.3) H 05/24/24 04:29
Direct Bilirubin 6.2 mg/dl (0.0-0.4) H 05/21/24 04:40
AST 126 U/L (17-59) H 05/24/24 04:29
ALT 49 U/L (0-50) 05/24/24 04:29
Alkaline Phosphatase 203 U/L (38-126) H 05/24/24 04:29
Total Protein 5.3 g/dl (6.3-8.2) L 05/24/24 04:29
Albumin 1.9 g/dl (3.5-5.0) L 05/24/24 04:29
Physical Exam
-
Intubated, minimally responsive
ABD: Distended, obese, unable to assess tenderness accurately but no involuntary guarding
EN with dark serous ascites in bulb
Incision with intact urbano, packing between urbano. No purulence.
NG tube in place with bilious output
[2024-05-24] MEDS: SUBLIMAZE 50 MCG IV ×2 (10:45→17:51)
[2024-05-24 10:53] LABS: Venous Blood Gas B.E. -6.4 mmol/L (-4 to +4); Venous Blood Gas HCO3 19.1 mmol/L (22-27); Venous Blood Gas O2 Sat % 94.5 %; Venous Blood Gas pCO2 37 mmHg (35-48); Venous Blood Gas pH 7.32 (7.32-7.43); Venous Blood Gas pO2 61 mmHg (30-50)
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
--- NOTE | 2024-05-24 11:51 | CM ---
Addendum entered by Cara Diaz RN 05/24/24 17:01:
Received call from Elder Care deputy commonwealth's attorney with landline number for Guardian [phone]. Attempted to call number, it rang and then a recording came on stating that the number was no longer in service. Also was provided an e-mail address for Guardian
[email or web address]. Attempted to send Guardian an e-mail and received response back that the mail box was full. Will discuss further with Administration and Elder Care Director Cardiology in morning possible need for emergency court hearing to identify a new
guardian, as current guardian has not been able to be reached.Court Hearing most likely will need to be held in [facility] system per Elder Care Director Cardiology. Update to CM
Original Note:
Called and spoke to Elder Care Director Cardiology. He stated he had placed multiple calls to Guardian without any return calls. He stated he would reach out to Director Cardiology from [facility] and [facility], as the Director Cardiology from [facility] was going to place
call to deputy commonwealth's attorney who was involved in original guardianship hearing. Update to CM
--- NOTE | 2024-05-24 12:00 | PTCARENOTE ---
ABG results to Dr. Velasco. ETT moved per protocol, bites at tube. no other change.
[2024-05-24 12:22] LABS: Glucose - Point of Care 222 mg/dl (70-99)
[2024-05-24] MEDS: FLEXBUMIN 100 IV (12:50)
--- NOTE | 2024-05-24 13:09 | CON.MD ---
Consultation - Medical
-
Chief complaint: Ventilator dependent respiratory failure
History of present illness: This patient is a 64-year-old gentleman with a history of paraplegia and multiple medical problems who is now on the ventilator with respiratory failure. He had been on pressors but apparently is now off the pressors. I
was asked see the patient with regard to placing a tracheotomy tube. The patient is not responsive. There is a question as to who might consent for him given the fact that it does not appear that somebody has power of litigation attorney.
Past medical history:
Allergies: Ofloxacin/pentazocine
Home medications acetaminophen 325 mg p.o. every 6 hours as needed, albuterol sulfate 2 puffs every 4 hours as needed, baclofen 20 mg p.o. nightly, baclofen 10 mg p.o. twice daily, Dulcolax 10 mg VA daily as needed, FiberCon 1250 mg p.o. every
afternoon, cholecalciferol vitamin D 50 mcg a day, clindamycin phosphate 1 application daily, Cranberry 450 mg p.o. daily, diphenhydramine 50 mg p.o. every 4 hours, Colace 100 mg p.o. daily, doxycycline 100 mg p.o. every 12 hours, escitalopram 10 mg
p.o. daily, famotidine 20 mg p.o. daily, Fleet enema 118 mL VA daily as needed, folic acid 1 mg p.o. daily, Lasix 10 mg p.o. daily, guaifenesin 800 mg p.o. twice daily
Hydroxyzine 25 mg p.o. every 6 hours, melatonin 3 mg p.o. nightly, metoprolol 12.5 mg p.o. twice daily, midodrine 5 mg p.o. 3 times daily, pantoprazole 40 mg p.o. daily, polyethylene glycol 3350 17 g p.o. daily, pregabalin 100 mg p.o. nightly,
saline nasal spray 2 sprays 3 times a day as needed, sorbitol 30 mL p.o. every 72 hours, multivitamin 1 p.o. daily, thiamine 100 mg p.o. daily, tramadol 25 mg p.o. daily,
Chronic illnesses: History of toxic encephalopathy, respiratory alkalosis, chronic kidney disease stage III, generalized peritonitis, BMI 40.0-44.9, morbid obesity with alveolar hypoventilation, coagulopathy, hyponatremia, paraplegia, respiratory
failure, perforation of intestine, sepsis, perinephric hematoma, supraventricular tachycardia, ileus, lactic acidosis, metabolic acidosis, septic shock, neurogenic bladder, chronic indwelling Padron catheter, shock liver, gastroesophageal reflux
disease, depression, paraplegia, anemia, cirrhosis, hypertension, acute kidney injury,
Hospitalizations: The patient has had multiple hospitalizations for his many medical problems
Family history: Asked and is noncontributory
Review of systems: The patient is unresponsive and currently intubated, he cannot answer questions
Physical examination: Head: Atraumatic and normocephalic
Eyes: Pupils are equal and reactive
Ears: Normal to exam
Nose: Normal
Oral cavity: Endotracheal tube in place
Neurologic exam cannot be evaluated
Thyroid gland: Normal
Neck: Very short neck. Thick neck
Impression: 64-year-old gentleman with paraplegia and multiple medical problems is now ventilator dependent
Plan: Will plan on placing tracheotomy probably in 4 days on 05/28/2024. Currently platelets are low. Consent may be an issue.
--- NOTE | 2024-05-24 13:11 | PN.CDI ---
CDI
- -
CDI:
Physician Documentation Request
Admit Date: 05/13/24 11:46
Dear Doctor/HUMAN RESOURCES REPRESENTATIVE,
Please review the following and provide your response in the progress notes.
Clinical Indicators:
Pt admitted with Septic Shock 2/2 perforated ileum s/p Laparotomy/ Hemicolectomy
General surgery progress notes 05/24 &05/24, ' acute on chronic anemia secondary to chronic disease and acute events. s/p transfusion on 05/21 (3 units total this presentation)...'
Documented per H&P ,' Anemia of Chronic Disease....'
05/13/24 05/13/24 05/19/24
07:30 19:20 01:57
Hgb 12.2 L D 9.5 L D 9.7 L
05/21/24 05/21/24 05/22/24
04:40 13:04 03:12
Hgb 7.8 L 8.1 L 7.6 L
05/23/24 05/24/24
08:47 04:29
Hgb 7.1 L 9.1 L D
Based on the above, could you clarify, in your progress note, which of the following is the most likely type of anemia you are evaluating, monitoring and/or treating?
Acute blood loss /Anemia of chronic disease
Anemia of Chronic Disease only
Other ( please specify)
Use of terms such as suspected, likely, concern for, or probable (associated with a specific diagnosis that is being evaluated, monitored, or treated as if it exists) are acceptable and can be coded in the inpatient setting, when documented at the
time of discharge.
Thank you,
Alem Valdovinos RN
CDI Specialist
[place] [facility]
Please use your independent medical judgment in providing your response.
[2024-05-24] MEDS: NOVOLOG FLEXPEN 3 UNITS SC ×3 (13:16→23:23)
--- NOTE | 2024-05-24 14:25 | PN.DE.MGMTRT ---
Insulin Management
- -
05/24/2024: Diabetes Management follow up:
Patient admitted with septic shock perforated ileum. PMH: T7 spinal cord injury with paraplegia, recurrent ureteral stone, CKD stage IIIa, recurrent UTI with ESBL Proteus and E. coli sepsis, essential HTN, recently discharged after complex
hospitalization from 04/17 to 05/12 due to perinephric hematoma, ileus, septic shock UTI, ureteral stone s/p right URS/LL/stone extraction and stent exchange.
Pt remains intubated, unable to discuss diabetes mgt, no family at bedside.
Current A1C 5.0%, was 5.6% on 02/20/2024. Cr 1.4 today, eGFR 56.48.
TPN has been started. Glucose has trended up to > 200 Q 6 hours, 3 units novolog Q6 started over the weekend. Will add Lantus 10 units @ HS
Will follow for further needed adjustments.
Discussed with nurse.
Diabetes History
- -
Type of Diabetes: 2 requiring insulin
Pre-Admission Diabetes Regimen
05/24/24
04:29
Creatinine 0.9
Lab Results
Hemoglobin A1c 5.0 % (4.0-5.6) 05/14/24 03:34
Insulin Pump Settings
IP Diabetes Regimen
05/23/24 05/24/24 05/24/24
17:55 00:58 04:29
Glucose 208 H
POC Glucose 234 H 207 H
05/24/24
12:10
Glucose
POC Glucose 222 H
Patient Education
[2024-05-24] MEDS: BUMEX 1 MG IV (14:55)
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
[2024-05-24] MEDS: MYCAMINE 105 MG IV (15:56)
[2024-05-24] MEDS: LEXAPRO 10 MG TUBE (15:56)
[2024-05-24] MEDS: LOVENOX 40 MG SC (17:39)
[2024-05-24] MEDS: NOVOLOG FLEXPEN-MODERATE RESISTANCE 5 UNITS SC (17:41)
[2024-05-24 17:46] LABS: Glucose - Point of Care 257 mg/dl (70-99)
--- NOTE | 2024-05-24 18:47 | PTCARENOTE ---
CT head abdomen chest pelvis completed, tolerated, back to ICU, turned assist 4 and positioned for comfort.
[2024-05-24] MEDS: LOPRESSOR 12.5 MG TUBE (19:35)
[2024-05-24] MEDS: LIORESAL 10 MG TUBE (19:35)
[2024-05-24] MEDS: LYRICA 100 MG TUBE (19:36)
--- NOTE | 2024-05-24 20:46 | PTCARENOTE ---
Received pt from previous RN. Pt is AAOx0, nonverbal, pupils b/l sluggish 2. Sinus tach on the monitor, b/l doppler pedal pulses, general +4 edema. AC settings 14/460/60%/8, O2 sat 93%. ETT 8 23 cm received on the right side, repositioned to the
left, mouth care provided. Left nare tha sump @ 51 cm. T.F osmolite @ 20ml/hr. TPN @ 53 ml/hr through his RIJ. Padron for urology determination, hygiene provided. NE in place, midline incision dressing. Q2T provided. Safe environment maintained.
[2024-05-24] MEDS: LANTUS 0.1 UNITS SC (23:03)
[2024-05-24 23:16] LABS: Glucose - Point of Care 242 mg/dl (70-99)
--- NOTE | 2024-05-24 23:53 | PTCARENOTE ---
Systems reviewed, no new changes in assessment. EN drain dressing with drainage, wound care provided. CHG bath provided.
[2024-05-25] VITALS (27 sets, daily range): BP systolic 89–141; BP diastolic 57–84; BMI 43.0
[2024-05-25] MEDS: ATIVAN 1 MG IV ×3 (02:13→22:44)
[2024-05-25] MEDS: NSS (PRESERVATIVE FREE) 0.5 ML IV ×2 (02:14→17:02)
--- NOTE | 2024-05-25 04:02 | PTCARENOTE ---
AM labs drawn and sent. Systems reviewed, no new changes in assessment.
[2024-05-25 05:15] LABS: Hematocrit 25.3 % (39.0-52.0); Hemoglobin 8.4 g/dL (13.0-18.0); Mean Corp Hgb Conc. 33.2 g/dL (33.0-37.0); Mean Corpuscular Hgb 29.3 pg (27.0-31.0); Mean Corpuscular Volume 88.2 fL (80.0-94.0); Platelet Count 37 10^3/uL (130-400); Red Blood Cell Count 2.87 10^6/uL (4.70-6.10); Red Cell Dist. Width 16.7 % (11.5-14.5); White Blood Cell Count 11.8 10^3/uL (4.8-10.8)
[2024-05-25 05:31] LABS: ALT (SGPT) 72 U/L (0-50); AST (SGOT) 162 U/L (17-59); Alkaline Phosphatase 197 U/L (38-126); Blood Urea Nitrogen 56 mg/dl (9-20); Calcium 8.3 mg/dl (8.4-10.2); Carbon Dioxide 20 mmol/L (22-30); Chloride 111 mmol/L (98-107); Estimated Creatinine Clearance 100 ml/min; Glucose 247 mg/dl (70-99); Magnesium 2.5 mg/dl (1.6-2.3); Phosphorus 2.2 mg/dl (2.5-4.5); Potassium 3.7 mmol/L (3.5-5.1); Sodium 139 mmol/L (135-145); Total Bilirubin 5.9 mg/dl (0.2-1.3); Total Protein 5.2 g/dl (6.3-8.2); eGFR > 60.00
[2024-05-25] MEDS: NOVOLOG FLEXPEN-MODERATE RESISTANCE 5 UNITS SC ×2 (05:54→11:41)
[2024-05-25] MEDS: NOVOLOG FLEXPEN 3 UNITS SC (05:54)
[2024-05-25 06:05] LABS: Glucose - Point of Care 250 mg/dl (70-99)
[2024-05-25] MEDS: SUBLIMAZE 50 MCG IV ×4 (07:45→20:36)
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
[2024-05-25] MEDS: PROTONIX IV 40 MG IV (08:33)
[2024-05-25] MEDS: LEXAPRO 10 MG TUBE (08:33)
[2024-05-25] MEDS: LOPRESSOR 12.5 MG TUBE (08:33)
[2024-05-25] MEDS: NSS (PRESERVATIVE FREE) 10 ML IV (08:33)
[2024-05-25] MEDS: SOLU-CORTEF 50 MG IV ×2 (08:34→19:40)
[2024-05-25] MEDS: REFRESH CELLUVISC GEL 1 DROPS BOTH EYES ×3 (08:34→19:40)
--- NOTE | 2024-05-25 08:45 | PN.DE.MGMTRT ---
Insulin Management
- -
05/25/2024: Diabetes Management follow up:
Patient admitted with septic shock perforated ileum. PMH: T7 spinal cord injury with paraplegia, recurrent ureteral stone, CKD stage IIIa, recurrent UTI with ESBL Proteus and E. coli sepsis, essential HTN, recently discharged after complex
hospitalization from 04/17 to 05/12 due to perinephric hematoma, ileus, septic shock UTI, ureteral stone s/p right URS/LL/stone extraction and stent exchange.
Pt remains intubated, unable to discuss diabetes mgt, no family at bedside.
Current A1C 5.0%, was 5.6% on 02/20/2024. Cr 1.4 today, eGFR 56.48.
05/24TPN has continued yesterday glucose has trended up to > 200 Q 6 hours, 3 units novolog Q6 started over the weekend. Added Lantus 10 units @ HS
05/25 Fasting glucose 250 this AM, will increase hs lantus to 15 units and Q 6 hour novolog to 5 units. TF to advance today per surgery, TPN to be held when TF advanced. Will follow for further needed adjustments.
Discussed with nurse.
Diabetes History
- -
Type of Diabetes: 2 requiring insulin
Pre-Admission Diabetes Regimen
05/25/24
04:54
Creatinine 0.9
Lab Results
Hemoglobin A1c 5.0 % (4.0-5.6) 05/14/24 03:34
Insulin Pump Settings
IP Diabetes Regimen
05/24/24 05/24/24 05/24/24
12:10 17:34 23:04
Glucose
POC Glucose 222 H 257 H 242 H
05/25/24 05/25/24
04:54 05:53
Glucose 247 H
POC Glucose 250 H
Patient Education
[2024-05-25] MEDS: LIORESAL 10 MG TUBE ×2 (09:28→19:40)
[2024-05-25] MEDS: BUMEX 50 IV ×2 (09:28→16:03)
--- NOTE | 2024-05-25 09:44 | PTCARENOTE ---
bumex gtt initiated as ordered at 1mg/hr
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
[2024-05-25] MEDS: LOPRESSOR 5 MG IV (11:41)
[2024-05-25] MEDS: NEUTRA-PHOS POWDER PACKET 250 MG TUBE (11:41)
[2024-05-25] MEDS: NOVOLOG FLEXPEN 5 UNITS SC ×3 (11:42→23:11)
[2024-05-25 11:48] LABS: Glucose - Point of Care 295 mg/dl (70-99)
--- NOTE | 2024-05-25 13:01 | PTCARENOTE ---
systems reviewed. pt not interactive. agitated with mouth care, not cooperative with repositioning the ett, biting ett and hypoxic requiring prn fentanyl. despite less agitation/repositioning pt remains hypoxic, fio2 increased to 70% with sats
89-91%. pt also given iv dose of metoprolol per Dr Velasco with no improvement in heart rate. Dr Velasco updated to events as charted. Okay with sats above 90. Otherwise no new orders at this time.
--- NOTE | 2024-05-25 13:11 | CON.NEURO ---
Consultation
Order
Date of Consultation: 05/25/24
Requesting Provider: Lizzy Banda MD
Reason for Consult: encephalopathy
Neurology Consultation Note.
HPI: This is a 64-year-old man who presented to [facility] on 05/13/2024 with abdominal pain and emesis. The patient underwent right hemicolectomy for perforated terminal ileum. Hospital course was complicated by respiratory failure
and adrenal insufficiency. Neurological consultation was requested for admission and management of encephalopathy. According to EMR patient has had worsening of mental status over the last several days. No reports of abnormal movements.
Based on EMR Mr. Adame has a history of anoxic brain injury (06/2023). His cognitive baseline is unknown at this time.
EKG: sinus tachy, QTc Int : 425 ms
Labs: Glucose�247, normal ammonia
CT head wo contrast-mild/mod atrophy.
CT chest-extensive bilateral groundglass opacity and patchy as well as confluent airspace opacity
MAR: Fentanyl 50 mcg 05/25/24 07:45, 11:55
PDMP:Tramadol Hcl 50 Mg 9 tabs filled in on 05/12/24.
Meropenem was stopped on 05/23/2024. Last dose of Ativan�05/24/2024.
Review of vital signs was notable for hypotension down to 84/75 on 05/23/2024 and 75/57 on 05/13/2024.
PMH: adrenal insufficiency, Hepatitis C, Hepatic cirrhosis, thrombocytopenia, MDD, h/o ETOH addiction, BMI 43, traumatic thoracic myelopathy from [facility]
PSH: Right hemicolectomy () left pneumonectomy; right URS/LL/stone extraction/stent exchange(05/10/24)
SH: [facility] resident; former smoker
FH: Unknown.
All:ofloxacin, Pentazocine
ROS unable due to encephalopathy
General: Intubated, icteric, obese and edematous
Cardio: Tachycardia.
Neuro:
Mental Status: Comatose, eyes open, does not attempt or follows requests.
Cranial Nerves: Orthophoric primary gaze. Pupils 3 mm, reactive to light. No blink to threat. Limited exam due to facial asymmetry because of ET tube.
Motor: Flaccid quadriplegia.
Reflexes: Limited exam due to edema.
Sensory: Does not grimace to noxious stimuli.
Coordination: No tremors myoclonic movements.
Gait: deferred
Assessment and Plan:
I. Multifactorial encephalopathy (metabolic (hepatic, hyperglycemia), infectious, vascular, toxic, hypoxic)
II. Chronic traumatic thoracic myelopathy from [facility].
III. Septic shock
-Aspiration precautions.
-Avoid cerebral hypoperfusion, TRIMMER [employer]IL[employer] suppressants and anticholinergic medications.
-Please check tsh, ck
-Routine EEG
-Repeat CT head without contrast in 24 hours from the prior. I do not believe patient is able to have MRI due to chest circumference limitations
-Continue thiamine
-DVT prophylaxis.
I personally reviewed all radiology and labs along with past medical records pertinent to current medical problems. Total time spent in patient care is 60 minutes.
Thank you for allowing us to participate in the care of this patient. We will continue to follow. Please do not hesitate to contact us with any questions or concerns.
Subjective/Objective
Subjective Data
Date of Service: May 25, 2024
Objective Data
Vital Signs
Temp Pulse Resp BP Pulse Ox
36.2 C 110 26 122/67 90
05/25/24 12:00 05/25/24 12:12 05/25/24 12:12 05/25/24 12:12 05/25/24 12:12
PT 19.6 Sec (11.4-14.6) H 05/18/24 03:29
INR 1.64 05/18/24 03:29
APTT Cancelled 05/23/24 13:00
Sodium 139 mmol/L (135-145) 05/25/24 04:54
Potassium 3.7 mmol/L (3.5-5.1) 05/25/24 04:54
BUN 56 mg/dl (9-20) H 05/25/24 04:54
Glucose 247 mg/dl (70-99) H 05/25/24 04:54
Calcium 8.3 mg/dl (8.4-10.2) L 05/25/24 04:54
Phosphorus 2.2 mg/dl (2.5-4.5) L 05/25/24 04:54
Csh-K-Cslvharmjkq Pept 2020 pg/ml 05/15/24 04:13
Patient Allergies
ofloxacin Allergy (Verified 04/27/24 03:26)
Unknown/pt tolerated cipro
pentazocine Allergy (Verified 04/27/24 03:26)
Unknown
Medications
-
Active Medications
Generic Name Dose Route Start Last Admin
Trade Name Freq PRN Reason Stop Dose Admin
Albuterol Sulfate 2.5 mg 05/13/24 18:54 05/24/24 04:27
Albuterol Nebs 2.5 Mg/3 Ml Ampul INH 2.5 mg
R Q4HPRN PRN Administration
SOB
Protocol
Baclofen 10 mg 05/13/24 20:00 05/25/24 09:28
Baclofen 10 Mg Tablet TUBE 06/10/24 19:59 10 mg
BID RADHA Administration
Bisacodyl 10 mg 05/13/24 18:54
Bisacodyl 10 Mg Rectal Suppository RECTAL 06/10/24 18:53
[id number] PRN
constipation
Carboxymethylcellulose Sodium 1 drops 05/17/24 16:00 05/25/24 08:34
Carboxymethylcellulose Ophth Gel (Celluvisc) Droperette BOTH EYES 06/14/24 15:59 1 drops
BID RADHA Administration
Carboxymethylcellulose Sodium 1 drops 05/17/24 16:30
Carboxymethylcellulose Ophth Gel (Celluvisc) Droperette BOTH EYES 06/14/24 16:29
QIDPRN PRN
dry eyes
Dextrose 12.5 grams 05/16/24 19:59 05/19/24 11:46
Dextrose 50% (0.5 Grams/Ml) 50 Ml Syringe IV 06/13/24 19:58 12.5 grams
[id number] PRN Administration
hypoglycemia
Protocol
Enoxaparin Sodium 40 mg 05/24/24 18:00 05/24/24 17:39
Enoxaparin Sodium 40 Mg/0.4 Ml Syringe SC 06/21/24 17:59 40 mg
QPM RADHA Administration
Escitalopram Oxalate 10 mg 05/24/24 16:00 05/25/24 08:33
Escitalopram 10 Mg Tablet TUBE 06/21/24 15:59 10 mg
DAILY RADHA Administration
Fentanyl Citrate 50 mcg 05/13/24 19:30 05/25/24 11:55
Fentanyl (50 Mcg/Ml) 100 Mcg/2 Ml Ampul IV 05/27/24 19:29 50 mcg
[id number] PRN Administration
see protocol
Protocol
Glucagon 1 mg 05/16/24 19:59
Glucagon 1 Mg Vial IM 06/13/24 19:58
PRN PRN
hypoglycemia
Protocol
Hydrocortisone Sodium Succinate 50 mg 05/24/24 20:00 05/25/24 08:34
Hydrocortisone Sodium Succinate 100 Mg/2 Ml Vial IV 06/21/24 19:59 50 mg
Q12 RADHA Administration
Micafungin Sodium 100 mg/ 105 mls @ 105 mls/hr 05/17/24 16:00 05/24/24 15:56
Dextrose IV 05/27/24 15:59 105 mls
Q24H RADHA Administration
Nutrition (Parenteral) 1,280 ml in 1,280 mls @ 53 mls/hr 05/24/24 21:00 05/24/24 21:04
Parenteral Nutrition, Central IV 05/25/24 20:59 1,280 mls
ONCE@2100 NR Administration
Protocol
Per Protocol
Insulin Glargine 15 units/ 0.15 mls @ 0 mls/hr 05/25/24 22:00
Device SC 06/22/24 21:59
HS RADHA
As Directed
Bumetanide 12.5 mg in 50 mls @ 4 mls/hr 05/25/24 09:00 05/25/24 09:28
Bumex IV 50 mls
ORDERED RATE RADHA Administration
1 MG/HR
Insulin Aspart 0 units 05/17/24 12:00 05/25/24 11:41
Insulin Aspart Moderate Resistance 300 Units/3 Ml Pen.Injctr SC 06/14/24 11:59 5 units
Q6 RADHA Administration
Protocol
Insulin Aspart 5 units 05/25/24 12:00 05/25/24 11:42
Insulin Aspart (100 Units/Ml) 3 Ml Flexpen SC 06/22/24 11:59 5 units
Q6 RADHA Administration
Lorazepam 1 mg 05/23/24 10:28 05/25/24 02:13
Lorazepam 2 Mg/Ml Vial IV 06/20/24 10:27 1 mg
Q4HPRN PRN Administration
agitation/vent dyssynchrony
Metoprolol Tartrate 12.5 mg 05/24/24 20:00 05/25/24 08:33
Metoprolol 12.5 Mg Regular Release Dose (1/2 Of 25 Mg Tablet) TUBE 06/21/24 19:59 12.5 mg
BID RADHA Administration
Pantoprazole Sodium 40 mg 05/14/24 08:00 05/25/24 08:33
Pantoprazole Sodium 40 Mg/10 Ml Vial IV 06/11/24 07:59 40 mg
DAILY RADHA Administration
Pregabalin 100 mg 05/24/24 20:00 05/24/24 19:36
Pregabalin 100 Mg Capsule TUBE 06/21/24 19:59 100 mg
DAILY@2000 RADHA Administration
Sodium Chloride 2 sprays 05/13/24 22:00
Sodium Chloride 0.65% Nasal Pledger 45 Ml Bottle NASAL 06/10/24 21:59
TIDPRN PRN
dry nares
Sodium Chloride 0 flush 05/13/24 20:00
Sodium Chloride 0.9% (Flush) Syringe IV 06/10/24 19:59
PER PROTOCOL RADHA
Sodium Chloride 10 ml 05/14/24 08:00 05/25/24 08:33
Sodium Chloride 0.9% (Preservative Free) 10 Ml Vial IV 06/11/24 07:59 10 ml
DAILY RADHA Administration
Sodium Chloride 0.5 ml 05/23/24 10:34 05/25/24 02:14
Nss (Pf) 10 Ml Vial For Ativan 1 Mg Dose IV 06/20/24 10:33 0.5 ml
Q4HPRN PRN Administration
IV LORAZEPAM DILUTION
Home Medications
�Medication �Instructions �Recorded
acetaminophen 325 mg tablet 325 mg PO Q6HPRN PRN mild 04/25/22
(Tylenol) pain/fever
baclofen 10 mg tablet 10 mg PO BID spasms 04/25/22
baclofen 20 mg tablet 20 mg PO HS spasm 04/25/22
escitalopram oxalate 10 mg tablet 10 mg PO DAILY Mental 04/25/22
(Lexapro) Health/Anxiety
famotidine 20 mg tablet (Pepcid) 20 mg PO DAILY Gastrointestinal 04/25/22
issue
folic acid 1 mg tablet 1 mg PO DAILY Supplement 04/25/22
melatonin 3 mg tablet 3 mg PO HS Sleep 04/25/22
sorbitol 70 % solution 30 ml PO [id number] PRN if no bm on 04/25/22
3rd day
therapeutic multivitamin 1 tab PO DAILY Supplement 04/25/22
thiamine HCl (vitamin B1) 100 mg 100 mg PO DAILY Supplement 04/25/22
tablet
sodium phosphates 19 gram-7 118 ml [place] DAILYPRN PRN if no bm 06/20/23
gram/118 mL enema (Fleet Enema) aftr dulcolax
metoprolol tartrate 25 mg tablet 12.5 mg (1/2 x 25 mg) PO BID Blood 06/24/23
pressure #0 tabs
albuterol sulfate 90 mcg/actuation 2 puff inhalation R Q4HPRN PRN sob 02/18/24
aerosol inhaler
cranberry fruit 450 mg tablet 450 mg PO DAILY Supplement 02/18/24
(cranberry)
docusate sodium 100 mg capsule 100 mg PO DAILY Constipation 02/18/24
(Colace)
hydroxyzine HCl 25 mg tablet 25 mg PO Q6HPRN PRN itchness 02/18/24
pregabalin 100 mg capsule (Lyrica) 100 mg PO HS Pain #14 caps 02/24/24
furosemide 20 mg tablet (Lasix) 10 mg PO DAILY Fluid 04/27/24
Retention/Swelling
albuterol sulfate 2.5 mg/3 mL 2.5 mg (3 mL) inhalation R Q4HPRN 05/12/24
(0.083 %) solution for nebulization PRN SOB #0 mL
cholecalciferol (vitamin D3) 50 50 mcg PO DAILY Supplement #0 tabs 05/12/24
mcg (2,000 unit) tablet
doxycycline hyclate 100 mg capsule 100 mg PO Q12 Urinary issue #0 caps 05/12/24
pantoprazole 40 mg tablet,delayed 40 mg PO DAILY Gastrointestinal 05/12/24
release issue #0 tabs
polyethylene glycol 3350 17 gram 17 g PO DAILY Constipation #0 ea 05/12/24
oral powder packet
tramadol 50 mg tablet 25 mg (1/2 x 50 mg) PO Q6HPRN PRN 05/12/24
pain #10 tabs
bisacodyl 10 mg rectal suppository 10 mg [place] DAILYPRN PRN If no BM 05/13/24
(Dulcolax (bisacodyl)) after MOM
calcium polycarbophil 625 mg 1,250 mg PO QPM Supplement 05/13/24
tablet (FiberCon)
clindamycin phosphate 1 % lotion 1 applic topical DAILY back 05/13/24
diphenhydramine HCl 25 mg capsule 50 mg PO Q4HPRN PRN itching 05/13/24
(Benadryl)
guaifenesin 400 mg tablet 800 mg PO BID cough/congestion 05/13/24
midodrine 5 mg tablet 5 mg PO TID low blood pressure 05/13/24
sodium chloride 0.65 % nasal spray 2 spray intranasal TID dry nares 05/13/24
aerosol
Vital Signs and Labs
-
Vital Signs and Labs:
Vital Signs
Temp Pulse Resp BP Pulse Ox
36.2 C 110 26 122/67 90
05/25/24 12:00 05/25/24 12:12 05/25/24 12:12 05/25/24 12:12 05/25/24 12:12
PT 19.6 Sec (11.4-14.6) H 05/18/24 03:29
INR 1.64 05/18/24 03:29
APTT Cancelled 05/23/24 13:00
Sodium 139 mmol/L (135-145) 05/25/24 04:54
Potassium 3.7 mmol/L (3.5-5.1) 05/25/24 04:54
BUN 56 mg/dl (9-20) H 05/25/24 04:54
Glucose 247 mg/dl (70-99) H 05/25/24 04:54
Calcium 8.3 mg/dl (8.4-10.2) L 05/25/24 04:54
Phosphorus 2.2 mg/dl (2.5-4.5) L 05/25/24 04:54
Jse-I-Sjnctijjxqk Pept 2020 pg/ml 05/15/24 04:13
Medications
-
Medications:
Generic Name Dose Route Start Last Admin
Trade Name Freq PRN Reason Stop Dose Admin
Albuterol Sulfate 2.5 mg 05/13/24 18:54 05/24/24 04:27
Albuterol Nebs 2.5 Mg/3 Ml Ampul INH 2.5 mg
R Q4HPRN PRN Administration
SOB
Protocol
Baclofen 10 mg 05/13/24 20:00 05/25/24 09:28
Baclofen 10 Mg Tablet TUBE 06/10/24 19:59 10 mg
BID RADHA Administration
Bisacodyl 10 mg 05/13/24 18:54
Bisacodyl 10 Mg Rectal Suppository RECTAL 06/10/24 18:53
[id number] PRN
constipation
Carboxymethylcellulose Sodium 1 drops 05/17/24 16:00 05/25/24 08:34
Carboxymethylcellulose Ophth Gel (Celluvisc) Droperette BOTH EYES 06/14/24 15:59 1 drops
BID RADHA Administration
Carboxymethylcellulose Sodium 1 drops 05/17/24 16:30
Carboxymethylcellulose Ophth Gel (Celluvisc) Droperette BOTH EYES 06/14/24 16:29
QIDPRN PRN
dry eyes
Dextrose 12.5 grams 05/16/24 19:59 05/19/24 11:46
Dextrose 50% (0.5 Grams/Ml) 50 Ml Syringe IV 06/13/24 19:58 12.5 grams
[id number] PRN Administration
hypoglycemia
Protocol
Enoxaparin Sodium 40 mg 05/24/24 18:00 05/24/24 17:39
Enoxaparin Sodium 40 Mg/0.4 Ml Syringe SC 06/21/24 17:59 40 mg
QPM RADHA Administration
Escitalopram Oxalate 10 mg 05/24/24 16:00 05/25/24 08:33
Escitalopram 10 Mg Tablet TUBE 06/21/24 15:59 10 mg
DAILY RADHA Administration
Fentanyl Citrate 50 mcg 05/13/24 19:30 05/25/24 11:55
Fentanyl (50 Mcg/Ml) 100 Mcg/2 Ml Ampul IV 05/27/24 19:29 50 mcg
[id number] PRN Administration
see protocol
Protocol
Glucagon 1 mg 05/16/24 19:59
Glucagon 1 Mg Vial IM 06/13/24 19:58
PRN PRN
hypoglycemia
Protocol
Hydrocortisone Sodium Succinate 50 mg 05/24/24 20:00 05/25/24 08:34
Hydrocortisone Sodium Succinate 100 Mg/2 Ml Vial IV 06/21/24 19:59 50 mg
Q12 RADHA Administration
Micafungin Sodium 100 mg/ 105 mls @ 105 mls/hr 05/17/24 16:00 05/24/24 15:56
Dextrose IV 05/27/24 15:59 105 mls
Q24H RADHA Administration
Nutrition (Parenteral) 1,280 ml in 1,280 mls @ 53 mls/hr 05/24/24 21:00 05/24/24 21:04
Parenteral Nutrition, Central IV 05/25/24 20:59 1,280 mls
ONCE@2100 NR Administration
Protocol
Per Protocol
Insulin Glargine 15 units/ 0.15 mls @ 0 mls/hr 05/25/24 22:00
Device SC 06/22/24 21:59
HS RADHA
As Directed
Bumetanide 12.5 mg in 50 mls @ 4 mls/hr 05/25/24 09:00 05/25/24 09:28
Bumex IV 50 mls
ORDERED RATE RADHA Administration
1 MG/HR
Insulin Aspart 0 units 05/17/24 12:00 05/25/24 11:41
Insulin Aspart Moderate Resistance 300 Units/3 Ml Pen.Injctr SC 06/14/24 11:59 5 units
Q6 RADHA Administration
Protocol
Insulin Aspart 5 units 05/25/24 12:00 05/25/24 11:42
Insulin Aspart (100 Units/Ml) 3 Ml Flexpen SC 06/22/24 11:59 5 units
Q6 RADHA Administration
Lorazepam 1 mg 05/23/24 10:28 05/25/24 02:13
Lorazepam 2 Mg/Ml Vial IV 06/20/24 10:27 1 mg
Q4HPRN PRN Administration
agitation/vent dyssynchrony
Metoprolol Tartrate 12.5 mg 05/24/24 20:00 05/25/24 08:33
Metoprolol 12.5 Mg Regular Release Dose (1/2 Of 25 Mg Tablet) TUBE 06/21/24 19:59 12.5 mg
BID RADHA Administration
Pantoprazole Sodium 40 mg 05/14/24 08:00 05/25/24 08:33
Pantoprazole Sodium 40 Mg/10 Ml Vial IV 06/11/24 07:59 40 mg
DAILY RADHA Administration
Pregabalin 100 mg 05/24/24 20:00 05/24/24 19:36
Pregabalin 100 Mg Capsule TUBE 06/21/24 19:59 100 mg
DAILY@2000 RADHA Administration
Sodium Chloride 2 sprays 05/13/24 22:00
Sodium Chloride 0.65% Nasal Pledger 45 Ml Bottle NASAL 06/10/24 21:59
TIDPRN PRN
dry nares
Sodium Chloride 0 flush 05/13/24 20:00
Sodium Chloride 0.9% (Flush) Syringe IV 06/10/24 19:59
PER PROTOCOL RADHA
Sodium Chloride 10 ml 05/14/24 08:00 05/25/24 08:33
Sodium Chloride 0.9% (Preservative Free) 10 Ml Vial IV 06/11/24 07:59 10 ml
DAILY RADHA Administration
Sodium Chloride 0.5 ml 05/23/24 10:34 05/25/24 02:14
Nss (Pf) 10 Ml Vial For Ativan 1 Mg Dose IV 06/20/24 10:33 0.5 ml
Q4HPRN PRN Administration
IV LORAZEPAM DILUTION
Home Medications
-
Home Medications
acetaminophen 325 mg tablet (Tylenol) 325 mg PO Q6HPRN PRN mild pain/fever 04/25/22
baclofen 10 mg tablet 10 mg PO BID spasms 04/25/22
baclofen 20 mg tablet 20 mg PO HS spasm 04/25/22
escitalopram oxalate 10 mg tablet (Lexapro) 10 mg PO DAILY Mental Health/Anxiety 04/25/22
famotidine 20 mg tablet (Pepcid) 20 mg PO DAILY Gastrointestinal issue 04/25/22
folic acid 1 mg tablet 1 mg PO DAILY Supplement 04/25/22
melatonin 3 mg tablet 3 mg PO HS Sleep 04/25/22
sorbitol 70 % solution 30 ml PO [id number] PRN if no bm on 3rd day 04/25/22
therapeutic multivitamin 1 tab PO DAILY Supplement 04/25/22
thiamine HCl (vitamin B1) 100 mg tablet 100 mg PO DAILY Supplement 04/25/22
sodium phosphates 19 gram-7 gram/118 mL enema (Fleet Enema) 118 ml [place] DAILYPRN PRN if no bm aftr dulcolax 06/20/23
metoprolol tartrate 25 mg tablet 12.5 mg (1/2 x 25 mg) PO BID Blood pressure #0 tabs 06/24/23
albuterol sulfate 90 mcg/actuation aerosol inhaler 2 puff inhalation R Q4HPRN PRN sob 02/18/24
cranberry fruit 450 mg tablet (cranberry) 450 mg PO DAILY Supplement 02/18/24
docusate sodium 100 mg capsule (Colace) 100 mg PO DAILY Constipation 02/18/24
hydroxyzine HCl 25 mg tablet 25 mg PO Q6HPRN PRN itchness 02/18/24
pregabalin 100 mg capsule (Lyrica) 100 mg PO HS Pain #14 caps 02/24/24
furosemide 20 mg tablet (Lasix) 10 mg PO DAILY Fluid Retention/Swelling 04/27/24
albuterol sulfate 2.5 mg/3 mL (0.083 %) solution for nebulization 2.5 mg (3 mL) inhalation R Q4HPRN PRN SOB #0 mL 05/12/24
cholecalciferol (vitamin D3) 50 mcg (2,000 unit) tablet 50 mcg PO DAILY Supplement #0 tabs 05/12/24
doxycycline hyclate 100 mg capsule 100 mg PO Q12 Urinary issue #0 caps 05/12/24
pantoprazole 40 mg tablet,delayed release 40 mg PO DAILY Gastrointestinal issue #0 tabs 05/12/24
polyethylene glycol 3350 17 gram oral powder packet 17 g PO DAILY Constipation #0 ea 05/12/24
tramadol 50 mg tablet 25 mg (1/2 x 50 mg) PO Q6HPRN PRN pain #10 tabs 05/12/24
bisacodyl 10 mg rectal suppository (Dulcolax (bisacodyl)) 10 mg [place] DAILYPRN PRN If no BM after MOM 05/13/24
calcium polycarbophil 625 mg tablet (FiberCon) 1,250 mg PO QPM Supplement 05/13/24
clindamycin phosphate 1 % lotion 1 applic topical DAILY back 05/13/24
diphenhydramine HCl 25 mg capsule (Benadryl) 50 mg PO Q4HPRN PRN itching 05/13/24
guaifenesin 400 mg tablet 800 mg PO BID cough/congestion 05/13/24
midodrine 5 mg tablet 5 mg PO TID low blood pressure 05/13/24
sodium chloride 0.65 % nasal spray aerosol 2 spray intranasal TID dry nares 05/13/24
--- NOTE | 2024-05-25 13:23 | CM ---
CM following re: discharge planning.
Discussed in Rounds, reviewed pt's chart, met with pt. Per rounds meeting, pt is POD #10 Exploratory laparotomy right hemicolectomy. Remains intubated, unstable and critically ill, on pressors.
Working progress to locate legal guardian, coordinating with director of case management. CM called the number [phone] located by [facility] [employer] office and and received no ringing, silent.
CM will follow up with director of case management regarding new guardianship process.
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
CM will follow with discharge plan updates as hospitalization progresses
[2024-05-25 13:52] LABS: Hematocrit 27.6 % (39.0-52.0); Hemoglobin 9.1 g/dL (13.0-18.0); Mean Corpuscular Hgb 29.6 pg (27.0-31.0); Mean Corpuscular Volume 89.9 fL (80.0-94.0); Platelet Count 41 10^3/uL (130-400); Red Blood Cell Count 3.07 10^6/uL (4.70-6.10); Red Cell Dist. Width 17.2 % (11.5-14.5); White Blood Cell Count 13.9 10^3/uL (4.8-10.8)
[2024-05-25 14:16] LABS: Blood Urea Nitrogen 58 mg/dl (9-20); Calcium 8.4 mg/dl (8.4-10.2); Carbon Dioxide 23 mmol/L (22-30); Chloride 110 mmol/L (98-107); Creatine Phosphokinase < 20 U/L (55-170); Estimated Creatinine Clearance 100 ml/min; Glucose 266 mg/dl (70-99); Magnesium 2.3 mg/dl (1.6-2.3); Phosphorus 2.5 mg/dl (2.5-4.5); Potassium 3.6 mmol/L (3.5-5.1); Sodium 139 mmol/L (135-145); eGFR > 60.00
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
[2024-05-25] MEDS: KCL ELIXIR 40 MEQ TUBE (14:53)
[2024-05-25 15:26] LABS: TSH Reflex To Free T4 0.76 uIU/ml (0.47-4.68)
[2024-05-25] MEDS: MYCAMINE 105 MG IV (16:03)
[2024-05-25] MEDS: ProAmatine 5 MG TUBE ×2 (16:03→22:21)
--- NOTE | 2024-05-25 16:27 | PTCARENOTE ---
pt had bedside eeg. will notify ct scan for when abx completed for repeat ct head, resp aware. pt remains tachycardiac, tachpnea. bp unchanged with bumex drip. pt continues to have copious output from yessi drain, stopped after amount as charted.
tf have been switched to nepro, residuals noted , but held given pt will be laying flat for ct scan. will return residuals upon return from ct scan. pt pupils larger then previous, but equal. some mild exp wheezing noted, otherwise assessment
unchanged.
--- NOTE | 2024-05-25 16:29 | EEGC.RPT ---
Addendum entered and electronically signed by Minal Sullivan MD 05/26/24 11:33:
the report is valid.
Addendum entered and electronically signed by Minal Sullivan MD 05/26/24 11:31:
the report was placed to a wrong chart. Please disregard. Thank you
Addendum entered and electronically signed by Minal Sullivan MD 05/26/24 11:23:
correction: recorded in patient
Original Note:
Continuous EEG Report
Recording
Start Date of Data Reviewed: 05/25/24
Done with Video Recording: Yes
Study Sequence: Initiation of Study
Electrocardiogram: Other
Report
TECHNICAL REMARKS:��This is a technically satisfactory eighteen channel record employing 21 disc electrodes applied according to a measured international 10-20 electrode placement system.��There were no significant technical difficulties.��The study
was done on a SEA System.
STUDY DURATION: 28 min, 16 secs
CLINICAL HISTORY: This is a 64-year-old man with encephalopathy. This study was requested to look for epileptiform activity.
REPORT: �At the onset of the EEG, the patient is comatose. There is no anterior-posterior gradient. The entire recording consisted of 1�2.5 Hz 10-40 �V activity. Stepwise intermittent photic stimulation (1-31 Hz) does not induce any additional
abnormalities. No EEG reactivity was done. No epileptiform activity is seen.
�
IMPRESSION: �This is an abnormal EEG recorded within the patient in altered mental status due to severe generalized slowing. This finding indicates diffuse cerebral dysfunction, nonspecific in terms of etiology.
[2024-05-25 18:04] LABS: Glucose - Point of Care 242 mg/dl (70-99)
[2024-05-25] MEDS: LOVENOX 40 MG SC (18:14)
[2024-05-25] MEDS: NOVOLOG FLEXPEN-MODERATE RESISTANCE 3 UNITS SC ×2 (18:15→23:10)
[2024-05-25] MEDS: LYRICA 100 MG TUBE (19:39)
[2024-05-25] MEDS: LOPRESSOR TUBE ×2 (19:40→20:36)
--- NOTE | 2024-05-25 20:40 | PTCARENOTE ---
Received pt from previous RN. Pt is nonverbal, b/l pupils 2 sluggish. Sinus tach on the monitor, held scheduled lopressor for SBP 98, AYAKA Vazquez notified. AC settings 14/460/70%/8, O2 sat 90%, lungs rhonchi/coarse, tachypneic. ETT 8 @ 23 cm
repositioned to the left. L nare [place] sump @ 51 cm. Nepro running @ 45 ml/hr, TF connecter backed up and expelled TF over the bed, aspirated 250 ml, AYAKA Vazquez notified states to re-instilled aspirate and decrease TF to 25 ml/hr then advance to goal.
Padron in place, hygiene provided. EN in place. Wound care provided (see worklist). Bumex gtt infusing (see worklist). PRN Fentanyl given (see MAR). CHG bath provided, linens changed. Safe environment maintained.
[2024-05-25] MEDS: LANTUS 0.15 UNITS SC (22:20)
[2024-05-25 22:33] LABS: Glucose - Point of Care 205 mg/dl (70-99)
[2024-05-26] VITALS (60 sets, daily range): BP systolic 35–136; BP diastolic 18–88; BMI 42.1
--- NOTE | 2024-05-26 00:44 | W.PN.UPDATE ---
Update Note
Progress Note Update
0045- Updated Dr. Velasco, dextrine mixer, patient's SBP 80s, MAP 60s, urinary output on Bumex gtt 25cc/hr. Recommendations continue Bumex gtt (in favor of diuresis) and initiate Levophed gtt, if vasopressor requirements are increasing then will stop
Bumex gtt.
[2024-05-26] MEDS: LEVOPHED 250 IV ×6 (01:00→23:10)
--- NOTE | 2024-05-26 01:06 | PTCARENOTE ---
AYAKA Vazquez notified about BP 83/56 (66). Levo gtt ordered and started @ 4 mcg/min (see protocol and worklist).
[2024-05-26] MEDS: SUBLIMAZE 50 MCG IV ×3 (01:13→11:56)
[2024-05-26] MEDS: BUMEX 50 IV (02:40)
[2024-05-26] MEDS: ATIVAN 1 MG IV (04:39)
[2024-05-26] MEDS: NSS (PRESERVATIVE FREE) 0.5 ML IV (04:39)
--- NOTE | 2024-05-26 04:40 | PTCARENOTE ---
AM labs drawn. Levo gtt titrated per protocol (see worklist). PRN Ativan given (see MAR).
[2024-05-26 04:50] LABS: Hematocrit 30.3 % (39.0-52.0); Hemoglobin 9.9 g/dL (13.0-18.0); Mean Corp Hgb Conc. 32.7 g/dL (33.0-37.0); Mean Corpuscular Hgb 29.6 pg (27.0-31.0); Mean Corpuscular Volume 90.4 fL (80.0-94.0); Platelet Count 63 10^3/uL (130-400); Red Blood Cell Count 3.35 10^6/uL (4.70-6.10); Red Cell Dist. Width 19.3 % (11.5-14.5); White Blood Cell Count 27.2 10^3/uL (4.8-10.8)
[2024-05-26 05:06] LABS: ALT (SGPT) 112 U/L (0-50); AST (SGOT) 234 U/L (17-59); Albumin 2.2 g/dl (3.5-5.0); Alkaline Phosphatase 324 U/L (38-126); Blood Urea Nitrogen 66 mg/dl (9-20); Calcium 8.8 mg/dl (8.4-10.2); Carbon Dioxide 20 mmol/L (22-30); Chloride 108 mmol/L (98-107); Estimated Creatinine Clearance 89 ml/min; Glucose 148 mg/dl (70-99); Magnesium 2.3 mg/dl (1.6-2.3); Potassium 4.3 mmol/L (3.5-5.1); Sodium 139 mmol/L (135-145); Total Bilirubin 7.8 mg/dl (0.2-1.3); Total Protein 5.8 g/dl (6.3-8.2); eGFR > 60.00
[2024-05-26] MEDS: NOVOLOG FLEXPEN 5 UNITS SC (05:17)
[2024-05-26] MEDS: NOVOLOG FLEXPEN-MODERATE RESISTANCE 1 UNITS SC ×2 (05:17→23:32)
[2024-05-26 05:29] LABS: Glucose - Point of Care 183 mg/dl (70-99)
--- NOTE | 2024-05-26 07:53 | PN.DE.MGMTRT ---
Insulin Management
- -
05/26/2024: Diabetes Management follow up:
Patient admitted with septic shock perforated ileum. PMH: T7 spinal cord injury with paraplegia, recurrent ureteral stone, CKD stage IIIa, recurrent UTI with ESBL Proteus and E. coli sepsis, essential HTN, recently discharged after complex
hospitalization from 04/17 to 05/12 due to perinephric hematoma, ileus, septic shock UTI, ureteral stone s/p right URS/LL/stone extraction and stent exchange.
Pt remains intubated, unable to discuss diabetes mgt, no family at bedside.
Current A1C 5.0%, was 5.6% on 02/20/2024. Cr 1 today, eGFR > 60.
05/26 TPN stopped ~ 2200, tube feeds at goal overnight. This AM copious residual, foul smelling, blood streaked per nurse. Tube feeds now on hold. Fasting glucose this AM 148 venous and 183 POC. Received 15 units lantus @ hs last evening and 6
units novolog this AM. Will further hs lantus to 10 units and STOP AC novolog continue corrective insulin Q 6 hours only. Will follow.
Discussed with nurse.
Diabetes History
- -
Pre-Admission Diabetes Regimen
05/25/24 05/26/24
13:42 04:17
Creatinine 0.9 1.0
Lab Results
Hemoglobin A1c 5.0 % (4.0-5.6) 05/14/24 03:34
Insulin Pump Settings
IP Diabetes Regimen
05/25/24 05/25/24 05/25/24
11:36 13:42 17:51
Glucose 266 H
POC Glucose 295 H 242 H
05/25/24 05/26/24 05/26/24
22:19 04:17 05:16
Glucose 148 H
POC Glucose 205 H 183 H
Patient Education
[2024-05-26] MEDS: LOPRESSOR TUBE ×2 (07:55→19:07)
[2024-05-26] MEDS: LEXAPRO TUBE (07:55)
[2024-05-26] MEDS: LIORESAL TUBE (07:55)
[2024-05-26] MEDS: REFRESH CELLUVISC GEL 1 DROPS BOTH EYES ×3 (07:56→19:16)
[2024-05-26] MEDS: PROTONIX IV 40 MG IV (07:56)
[2024-05-26] MEDS: ProAmatine TUBE (07:56)
[2024-05-26] MEDS: NSS (PRESERVATIVE FREE) 10 ML IV (07:56)
[2024-05-26] MEDS: SOLU-CORTEF 50 MG IV (07:56)
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
[2024-05-26] MEDS: VANCOCIN 540 MG IV (08:43)
[2024-05-26] MEDS: MERREM 500 MG IV ×3 (08:51→19:17)
[2024-05-26] MEDS: STERILE WATER FOR INJECTION 10 ML IV ×3 (08:52→19:17)
--- NOTE | 2024-05-26 09:03 | PTCARENOTE ---
Received pt this am on vent, unsedated and only response is to grimace with oral care. Does not make eye contact, Does not track. Pt tachycardiac and tachypneic. Maintained on levo and bumex drips as charted. When emptying yessi drain, foul
smelling brown liquid drained and continues to poor in to yessi drain. Also, ngt noted to be streaked with blood in tubing. When assessing for residual, initially noted tube feeding color that progressed to orange/red then brown then stopped at about
200ml. Dr Miles in to see pt and made aware. Informed that he probably has an anastomatic leak and to hold tf and return ngt to suction. He reached out to construction consultant and attending to discuss comfort care. Otherwise please refer to assessment
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
[2024-05-26 11:11] LABS: Glucose - Point of Care 117 mg/dl (70-99)
--- NOTE | 2024-05-26 11:13 | PTCARENOTE ---
increasing pressor requirements, checked blood sugar 117. remains tachycardiac with increasing tachypnea. medicated with fentanyl as charted.
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
[2024-05-26] MEDS: PITRESSIN 100 IV ×2 (11:39→19:57)
[2024-05-26] MEDS: SUBLIMAZE 100 IV (11:51)
[2024-05-26] MEDS: NOVOLOG FLEXPEN-MODERATE RESISTANCE SC ×2 (12:06→19:14)
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
--- NOTE | 2024-05-26 12:34 | CHAP ---
Addendum entered by Sona Cohen 05/26/24 12:36:
Also Dr. Miles
Original Note:
Ethics consult received. Conference Call with involved parties initiated. Arie Josue, Dr. Ludwig, Marialuisa Baltazar RN, Cara Diaz, Case Management, Dr. Rodriguez and myself.
--- NOTE | 2024-05-26 12:53 | W.PN.SURGUPD ---
Surgical Update
Surgical Update
multidisciplinary ethics meeting as patient has had further acute decline while in process of trying to obtain legal guardian for patient and he is unstable and critically ill with immediately life threatening illness.
from a surgical perspective have advised/recommend DNR and no further escalation of medical care as unfortunately Mr. Adame has had significant clinical decline with progressive multi-system organ failure not responding to aggressive medical care
and now an anastomotic leak is strongly suspected based on further clinical decline overnight. due to his advanced acute and chronic illness as documented this AM, surgical management is of prohibitive risk and anticipated to not improve/impact
patients overall prognosis. would be unlikely to survive induction of anesthesia or any surgical intervention if attempted. anticipating worsening end stage multisystem organ failure even with current aggressive medical care.
agree with and have recommended DNR with no further escalation of current level of care
--- NOTE | 2024-05-26 13:05 | PHA.VAN.IN ---
Assessment
- Assessment
Renal Function: Appears similar to baseline
Concomitant Antimicrobials: meropenem, micafungin
Plan
- Plan
Initial / Loading Dose: 2000mg - 05/26 08:43
Maintenance Regimen: dosing by level
Monitorin/19 0600
patient's estimated CrCl does not appear predictive of vancomycin clearance
Previously receiving vancomycin about every 48H this admission with half-life calculated of 43.3 on 05/20
Pharmacokinetics Vancomycin I
- -
Patient Age: 64
Patient Sex: Male
Vancomycin Day #: 1 (vancomycin discontinued 05/24 and resumed 05/26)
Indication: Gi / Intra-Abdominal
Requesting Provider: Dr. Rodriguez
Pertinent Antimicrobial Allergies:
ofloxacin - unknown (pt tolerated ciprofloxacin)
Height / Weight:
Height 5 ft 5 in
Actual Weight 114.8 kg
Pertinent Past Medical History: BMI ~42, Paraplegia, CKD III
- Vital Signs / Lab Results
Temp Pulse Resp BP Pulse Ox
97.1 F 117 33 114/61 92
05/26/24 11:23 05/26/24 11:45 05/26/24 11:45 05/26/24 11:45 05/26/24 12:00
Lab Results - Hematology
05/24/24 05/25/24 05/25/24
04:29 04:54 13:42
WBC 15.8 H 11.8 H 13.9 H
05/26/24
04:17
WBC 27.2 H
Lab Results - Chemistry
05/24/24 05/25/24 05/25/24
04:29 04:54 13:42
BUN 50 H 56 H 58 H
Creatinine 0.9 0.9 0.9
Estimated Creat Clear 101 100 100
Albumin 1.9 L 2.0 L
05/26/24
04:17
BUN 66 H
Creatinine 1.0
Estimated Creat Clear 89
Albumin 2.2 L
Microbiology Results
05/24/24 12:30 Respiratory Culture - Final
Endotracheal Usual Respiratory Julieta
Gram Stain - Final
--- NOTE | 2024-05-26 14:08 | W.PN.UPDATE ---
Update Note
Progress Note Update
Reviewed at ethics meeting today. Multiple members including hospital audio video technician.
We are not able to reach patient's guardian therefore currently it is assumed that he has no guardian.
Spoke to neurology today EEG does not look good at all
Given his poor prognosis, putting him through CPR would be traumatizing, as agreed upon by myself, parcel post delivery and the surgeon. Agree with DNR
Continue to explore options for guardianship
--- NOTE | 2024-05-26 14:31 | CM ---
CM following re: discharge planning.
Discussed in Rounds, reviewed pt's chart, met with pt.
Ethics committee meeting held today regarding inability to reach legal guardian and a plan of care discussion.
CM called [facility], spoke to medical record nutrition representative and she provided following information: Pt's legal guardian is Gita Navarro [phone], Guardianship support agency in [place] [phone]. CM called Gita
Ramon to confirm, she was not available, mail box is full and does not accept new messages. CM called Guardianship support agency and left a message.
D/C plan: uncertain at this time. Continue efforts to find/locate pt's legal guardian.
--- NOTE | 2024-05-26 14:41 | PTCARENOTE ---
pt having bedside ultrasound.
[2024-05-26] MEDS: MYCAMINE 105 MG IV (15:35)
[2024-05-26 17:23] LABS: Glucose - Point of Care 152 mg/dl (70-99)
[2024-05-26] MEDS: LOVENOX SC (19:08)
--- NOTE | 2024-05-26 20:00 | PTCARENOTE ---
received pt. assessment as documented. per photographer finish, do not escalate care, including titrating up pressors. pt unresponsive, weak gag. +[address] on monitor. #8 ETT, 23 at lip. AC /%. NGT to LIS. barcenas care provided. CHG wipes, pt
repositioned with new linens. levo/vaso/fent gtts infusing. abdominal dressings C/D/I. EN with brown drainage. care ongoing.
[2024-05-26] MEDS: LANTUS 0.1 UNITS SC (23:32)
[2024-05-26 23:44] LABS: Glucose - Point of Care 171 mg/dl (70-99)
[2024-05-27] VITALS (31 sets, daily range): BP systolic 37–125; BP diastolic 15–78; BMI 42.2
--- NOTE | 2024-05-27 | PTCARENOTE ---
no changes in assessment noted. continue with supportive care, levo/vaso/fent gtts infusing.
[2024-05-27] MEDS: MERREM 500 MG IV ×2 (01:58→08:30)
[2024-05-27] MEDS: STERILE WATER FOR INJECTION 10 ML IV ×2 (01:58→08:30)
[2024-05-27] MEDS: LEVOPHED 250 IV ×4 (02:00→11:56)
[2024-05-27] MEDS: PITRESSIN 100 IV (04:59)
[2024-05-27] MEDS: NOVOLOG FLEXPEN-MODERATE RESISTANCE 1 UNITS SC (05:00)
--- NOTE | 2024-05-27 05:00 | PTCARENOTE ---
no AM labs ordered. pt remains on levo/vaso/fent. assessment unchanged.
[2024-05-27 05:09] LABS: Glucose - Point of Care 167 mg/dl (70-99)
--- NOTE | 2024-05-27 07:32 | PN.DE.MGMTRT ---
Insulin Management
- -
05/27/2024: Diabetes Management follow up:
Patient admitted with septic shock perforated ileum. PMH: T7 spinal cord injury with paraplegia, recurrent ureteral stone, CKD stage IIIa, recurrent UTI with ESBL Proteus and E. coli sepsis, essential HTN, recently discharged after complex
hospitalization from 04/17 to 05/12 due to perinephric hematoma, ileus, septic shock UTI, ureteral stone s/p right URS/LL/stone extraction and stent exchange.
Pt remains intubated, unable to discuss diabetes mgt, no family at bedside.
Current A1C 5.0%, was 5.6% on 02/20/2024. Cr 1 today, eGFR > 60.
05/26 TPN stopped ~ 2200, tube feeds at goal overnight. This AM copious residual, foul smelling, blood streaked per nurse. Tube feeds now on hold. Fasting glucose this AM 148 venous and 183 POC. Received 15 units lantus @ hs last evening and 6
units novolog this AM. Will further hs lantus to 10 units and STOP AC novolog continue corrective insulin Q 6 hours only.
05/27 Glucose stable 117 to 171, fasting glucose 167 this AM on current regimen lantus 10 units and corrective insulin Q 6 hours. No changes to regimen.
Will follow.
Discussed with nurse.
Diabetes History
- -
Pre-Admission Diabetes Regimen
05/27/24
06:00
Creatinine Cancelled
Lab Results
Hemoglobin A1c 5.0 % (4.0-5.6) 05/14/24 03:34
Insulin Pump Settings
IP Diabetes Regimen
05/26/24 05/26/24 05/26/24
10:54 17:11 23:32
Glucose
POC Glucose 117 H 152 H 171 H
05/27/24 05/27/24
04:59 06:00
Glucose Cancelled
POC Glucose 167 H
Patient Education
[2024-05-27] MEDS: PROTONIX IV 40 MG IV (08:29)
[2024-05-27] MEDS: SOLU-CORTEF 50 MG IV (08:30)
[2024-05-27] MEDS: LOPRESSOR TUBE (08:31)
[2024-05-27] MEDS: NSS (PRESERVATIVE FREE) 10 ML IV (08:31)
[2024-05-27] MEDS: REFRESH CELLUVISC GEL 1 DROPS BOTH EYES ×2 (08:31→21:06)
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
--- NOTE | 2024-05-27 10:42 | CM ---
CM following re: discharge planning.
Discussed in Rounds, reviewed pt's chart, met with pt. Per Rounds meeting, pt remains critically ill, prognosis grim, continue supportive care.
Ethics committee meeting held yesterday regarding inability to reach legal guardian and a plan of care has been discussed.
CM received a phone call from Guardianship support agency sales training representative Eliana and she stated that pt is not their client, his legal guardian is Yaritza Sun. Guardianship support agency sales training representative stated she will not provide any other
information.
D/C plan: uncertain at this time. Continue efforts to find/locate or to appoint a new legal guardian.
CM will follow with discharge plan updates as hospitalization progresses
--- NOTE | 2024-05-27 11:22 | PTCARENOTE ---
pt unresponsive, opens eyes to tactile stimuli , does not tract , vent dependant , ST on monitor , on Levophed and vasopressin for blood pressure control , his blood pressure this am at change of shift 44/30 on L calf , now using R forearm for
blood pressures he was 104/55 on R forearm starting at 0900 , pt has a history of blood clot in R arm in R axillary and basilic vein this was first found on a ultrasound on 06/23/23 blood clot is chronic. obtaining more accurate results with using
this site and now able to wean down vasopressors as able , pt is now a DNR and will not add any further treatment as per care team , pt EN site draining fecal material , he is full of edema and weeping serous fluid throughout all extremities ,
discussed goals of care with Dr Velasco and Dr Miles .
--- NOTE | 2024-05-27 11:59 | W.PN.SURGUPD ---
Surgical Update
Surgical Update
Patient seen in follow-up. Discussed with hospitalist and nursing staff.
Stable on current pressor requirements
Remains intubated and essentially nonresponsive.
EN drain now placed to gravity drainage bag -feculent ascites
NG tube feculent and bloody
A/P continue with current level of care, de-escalating as able with DNR and additional comfort measures due to terminal illness
[2024-05-27] MEDS: NOVOLOG FLEXPEN-MODERATE RESISTANCE SC ×2 (12:39→17:52)
[2024-05-27 12:46] LABS: Glucose - Point of Care 136 mg/dl (70-99)
--- NOTE | 2024-05-27 13:09 | PTCARENOTE ---
no change in assessments weaning down Levophed now at 10mcg with BP 119/56
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
--- NOTE | 2024-05-27 15:48 | PTCARENOTE ---
Levophed weaned off at 1430 and now vasopressin off with map of 75 at 15:[address] Coyle notified , pt to have no further intervention and no further vasopressors to be restarted
--- NOTE | 2024-05-27 16:40 | PN.CDI ---
CDI
- -
CDI:
Physician Documentation Request
Admit Date: 05/13/24 11:46
Dear Doctor Rod/Resident ,
Please review the following and provide your response in the progress notes.
Clinical Indicators:
Pt admitted with Septic Shock 2/2 perforated ileum s/p Laparotomy/ Hemicolectomy/Now with Vent Dependent respiratory failure /Anasarca
Engineering Mgr progress notes 05/25 &05/27, ' #Acute alveolar/interstitial edema with severe anasarca...'/- Continue with Bumex drip with goal net -1-1.5 L per 24 hours
CXR 05/26, ' INDICATION: Hypoxia. Volume overload...may be pulmonary edema, however, diffuse interstitial pneumonia is included in the differential diagnosis as is ARDS....'
Please further specify the above CXR findings/Treatment :
Acute pulmonary edema due to fluid overload
Acute Interstitial Edema only
Other ( please specify )
Use of terms such as suspected, likely, concern for, or probable (associated with a specific diagnosis that is being evaluated, monitored, or treated as if it exists) are acceptable and can be coded in the inpatient setting, when documented at the
time of discharge.
Thank you,
Alem Valdovinos RN
CDI Specialist
[employer]
Please use your independent medical judgment in providing your response.
[2024-05-27] MEDS: LOVENOX 40 MG SC (17:52)
--- NOTE | 2024-05-27 17:58 | PTCARENOTE ---
pt SBP down to 65 , no vasopressors to be restarted
[2024-05-27 18:01] LABS: Glucose - Point of Care 96 mg/dl (70-99)
[2024-05-27] MEDS: LANTUS 0.1 UNITS SC (21:06)
[2024-05-27] MEDS: SUBLIMAZE 100 IV (21:56)
[2024-05-28] VITALS (10 sets, daily range): BP systolic 34–60; BP diastolic 17–39; BMI 42.6
[2024-05-28] MEDS: DEXTROSE 50% SYRINGE IV (00:02)
--- NOTE | 2024-05-28 00:05 | PTCARENOTE ---
Addendum entered by Margarita Payne RN 05/28/24 00:24:
repeat sugar 202. q1h accuchecks ordered per ICU CAMP PROGRAM DIRECTOR
Original Note:
midnight glucose 21 off central line draw, ICU CAMP PROGRAM DIRECTOR made aware, PRN dextrose given, will cont. to follow hypoglycemia protocol and recheck in 15 minutes. no other changes in assessment at this time
[2024-05-28] MEDS: NOVOLOG FLEXPEN-MODERATE RESISTANCE SC ×2 (00:07→05:09)
[2024-05-28 00:09] LABS: Glucose - Point of Care 21 mg/dl (70-99)
[2024-05-28] MEDS: DEXTROSE 50% SYRINGE 25 GRAMS IV (00:21)
[2024-05-28 00:30] LABS: Glucose - Point of Care 202 mg/dl (70-99)
[2024-05-28 01:10] LABS: Glucose - Point of Care 69 mg/dl (70-99)
--- NOTE | 2024-05-28 01:15 | PTCARENOTE ---
glucose 69, PRN dextrose given, ICU LEAD SOFTWARE DEVELOPER placing order for D5W IVF. continue q1h accuchecks at this time
[2024-05-28] MEDS: D5W 1000 IV (01:23)
[2024-05-28 01:34] LABS: Glucose - Point of Care 101 mg/dl (70-99)
[2024-05-28 02:20] LABS: Glucose - Point of Care 71 mg/dl (70-99)
[2024-05-28] MEDS: DEXTROSE 50% SYRINGE 12.5 GRAMS IV ×3 (03:06→09:31)
[2024-05-28 03:15] LABS: Glucose - Point of Care 58 mg/dl (70-99)
[2024-05-28 04:13] LABS: Glucose - Point of Care 153 mg/dl (70-99)
--- NOTE | 2024-05-28 05:07 | PTCARENOTE ---
pt with large amount of liquid diarrhea overnight, FMS inserted and irrigated. cont. with q1h accuchecks, d5w continues. otherwise assessment unchanged.
[2024-05-28 05:12] LABS: Glucose - Point of Care 87 mg/dl (70-99)
--- NOTE | 2024-05-28 06:07 | PTCARENOTE ---
0600 bgm 60, ICU COSMETIC SALES ASSISTANT made aware, d5w rate increased to 75ml/hr, PRN dextrose given, change accuchecks to q2h. next check due at 0800
[2024-05-28 06:12] LABS: Glucose - Point of Care 60 mg/dl (70-99)
--- NOTE | 2024-05-28 07:35 | PN.DE.MGMTRT ---
Insulin Management
- -
05/28/2024: Diabetes Management follow up:
Patient admitted with septic shock perforated ileum. PMH: T7 spinal cord injury with paraplegia, recurrent ureteral stone, CKD stage IIIa, recurrent UTI with ESBL Proteus and E. coli sepsis, essential HTN, recently discharged after complex
hospitalization from 04/17 to 05/12 due to perinephric hematoma, ileus, septic shock UTI, ureteral stone s/p right URS/LL/stone extraction and stent exchange.
Pt remains intubated, unable to discuss diabetes mgt, no family at bedside.
Current A1C 5.0%, was 5.6% on 02/20/2024. Cr 1 today, eGFR > 60.
05/28 Glucose trended down to 21 @ ~ 12am, up to 202 and at 6am 60. Patient treated appropriately. Will stop lantus and reduce Q 6 hour corrective insulin from moderate to low.
Will follow.
Discussed with nurse.
Diabetes History
- -
Pre-Admission Diabetes Regimen
Lab Results
Hemoglobin A1c 5.0 % (4.0-5.6) 05/14/24 03:34
Insulin Pump Settings
IP Diabetes Regimen
05/27/24 05/27/24 05/27/24
12:34 17:49 23:57
POC Glucose 136 H 96 21 L*
05/28/24 05/28/24 05/28/24
00:18 00:58 01:22
POC Glucose 202 H 69 L 101 H
05/28/24 05/28/24 05/28/24
02:09 03:03 04:01
POC Glucose 71 58 L 153 H
05/28/24 05/28/24
05:00 06:00
POC Glucose 87 60 L
Patient Education
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
[2024-05-28] MEDS: REFRESH CELLUVISC GEL 1 DROPS BOTH EYES (09:22)
[2024-05-28] MEDS: SOLU-CORTEF 50 MG IV (09:22)
[2024-05-28] MEDS: PROTONIX IV 40 MG IV (09:22)
[2024-05-28] MEDS: NSS (PRESERVATIVE FREE) 10 ML IV (09:22)
[2024-05-28 09:37] LABS: Glucose - Point of Care 54 mg/dl (70-99)
[2024-05-28] MEDS: ATIVAN 1 MG IV ×2 (09:43→12:43)
[2024-05-28] MEDS: SUBLIMAZE 50 MCG IV ×2 (09:47→12:38)
--- NOTE | 2024-05-28 10:00 | PTCARENOTE ---
pt on vent , non responsive, NSR on monitor , 60s , BP at 0800 44/23 , unable to get temperature , now unable to get blood pressure readings on monitor, at 0945 pt asynchronous on vent rate up to 40s , high peak pressures 30s , he was given
lorazepam and then a fentanyl bolus for comfort and effective for resp distress
[2024-05-28 10:13] LABS: Glucose - Point of Care 97 mg/dl (70-99)
[2024-05-28] MEDS: DILAUDID 1 MG IV (13:25)
--- NOTE | 2024-05-28 13:58 | W.PN.DEATH ---
Pronouncement of
-
Called to see patient to pronounce.
No spontaneous heart tones noted.
Mechanically ventilated respirations initially- then no spontaneous respirations with ventilator off.
Patient not responsive to verbal stimuli.
Patient is pronounced .
Time of : 13:55
Date of : 05/28/24
Cause of : Acute hypoxemic respiratory failure
Family Notified: No (No family or legal guardian)
--- NOTE | 2024-05-28 14:16 | PTCARENOTE ---
pt again asynchronous on vent at 1245 , medicated with lorazepam and fentanyl for Resp distress and comfort , at 13:07 pt started with a idioventricular rhythm he rate 20-40s , he became asystolic at 1355, pt was pronounced by Dr Banda and
Fang
--- NOTE | 2024-05-28 15:02 | W.DCSUMMARY ---
Discharge Summary
Discharge Data
Date of Admission: 05/13/24
Date of Discharge: 05/28/24
-
Pending Results: No
Hospital Course
Patient is 64 years old male with multiple comorbidities who initially was admitted to the hospital back at the end of April and was discharged and readmitted the following bed with abdominal pain and found to have bowel perforation. He
underwent multiorgan sepsis and acute hypoxic respiratory failure. He underwent operation. He also received antibiotics, fluids, pressors, and all sorts of aggressive medical treatment. Despite best treatment, patient continued to deteriorate.
Ethics committee consulted and after deliberation given his poor prognosis and no chances of survival patient CODE STATUS was changed to DNR and patient diet today at 1355. Let his soul rest in peace.
Discharge duration: 35 minutes
Discharge Plan
-
Patient Disposition:
Date/Time
Date/Time: 05/28/24 13:55
Discharge Date and Time
Discharge Date/Time: 05/28/24 13:55
Print Language: SAUDI ARABIAN
--- NOTE | 2024-05-28 15:17 | RESPNOTE ---
1355-- order given to remove ventilator
--- NOTE | 2024-05-28 15:32 | CM ---
Pt .
CM spoke to [facility] director nursing service and she confirmed she will call their home [facility].
--- NOTE | 2024-05-31 13:27 | CM ---
CM spoke to director of corporate strategy from [facility] and she stated they will not call to home.
CM discussed it with director of case management.
ALIS called [employer] [phone], spoke to union representative Merle, pt's clinical provided and she confirmed they will not claim the body she will send a letter to [facility] Coronary office.
ALIS spoke to [facility] Coron[facility] office union representative Krunal [phone], provided pt's clinical and per Krunal they will investigate on their part and they will notify us. per Krunal, body will remain in the morgue till further notice from Coronary
officer.
== END 2024-05-28 13:55 | disposition expired | DRG 853 ==
LOC: ICU 11:46
PROVIDERS: Internal Medicine; Internal Medicine Critical Care Medicine; Internal Medicine Infectious Disease; Nurse Practitioner Adult Health; Nurse Practitioner Primary Care; Radiology Vascular & Interventional Radiology; Registered Nurse; Student in an Organized Health Care Education/Training Program; ADMITTING PHYSICIAN Hospitalist; ATTENDING PHYSICIAN Hospitalist; CONSULT PHYSICIAN Internal Medicine; CONSULT PHYSICIAN Internal Medicine Critical Care Medicine; CONSULT PHYSICIAN Internal Medicine Gastroenterology; CONSULT PHYSICIAN Psychiatry & Neurology Neurology; CONSULT PHYSICIAN Specialist; CONSULT PHYSICIAN Surgery; EMERGENCY PHYSICIAN Emergency Medicine; FAMILY PHYSICIAN Internal Medicine; OTHER PHYSICIAN Internal Medicine Infectious Disease; OTHER PHYSICIAN Otolaryngology Facial Plastic Surgery
PROC: 5A1955Z Respiratory Ventilation, Greater than 96 Consecutive Hours (ICD-10-PCS; 2024-05-13)
PROC: 5A2204Z Restoration of Cardiac Rhythm, Single (ICD-10-PCS; 2024-05-13)
PROC: 0DTF0ZZ Resection of Right Large Intestine, Open Approach (ICD-10-PCS; 2024-05-13)
PROC: 02HV33Z Insertion of Infusion Device into Superior Vena Cava, Percutaneous Approach (ICD-10-PCS; 2024-05-13)
PROC: 30233N1 Transfusion of Nonautologous Red Blood Cells into Peripheral Vein, Percutaneous Approach (ICD-10-PCS; 2024-05-13)
PROC: 3E0436Z Introduction of Nutritional Substance into Central Vein, Percutaneous Approach (ICD-10-PCS; 2024-05-21)
DX: A41.9 Sepsis, unspecified organism (principal); K63.1 Perforation of intestine (nontraumatic); E43 Unspecified severe protein-calorie malnutrition; G82.50 Quadriplegia, unspecified; R65.21 Severe sepsis with septic shock; K72.00 Acute and subacute hepatic failure without coma; K65.0 Generalized (acute) peritonitis; J95.821 Acute postprocedural respiratory failure; G92.8 Other toxic encephalopathy; R40.20 Unspecified coma; J81.0 Acute pulmonary edema; T83.511A Infection and inflammatory reaction due to indwelling urethral catheter, initial encounter; I47.10 Supraventricular tachycardia, unspecified; I82.623 Acute embolism and thrombosis of deep veins of upper extremity, bilateral; T83.83XA Hemorrhage due to genitourinary prosthetic devices, implants and grafts, initial encounter; K76.6 Portal hypertension; N17.9 Acute kidney failure, unspecified; Z16.24 Resistance to multiple antibiotics; E87.1 Hypo-osmolality and hyponatremia; D68.4 Acquired coagulation factor deficiency; E87.20 Acidosis, unspecified; Z99.11 Dependence on respirator [ventilator] status; E27.40 Unspecified adrenocortical insufficiency; K91.89 Other postprocedural complications and disorders of digestive system; D62 Acute posthemorrhagic anemia; Z68.41 Body mass index [BMI] 40.0-44.9, adult; Z66 Do not resuscitate; Z51.5 Encounter for palliative care; N28.89 Other specified disorders of kidney and ureter; N18.31 Chronic kidney disease, stage 3a; I12.9 Hypertensive chronic kidney disease with stage 1 through stage 4 chronic kidney disease, or unspecified chronic kidney disease; B19.20 Unspecified viral hepatitis C without hepatic coma; K70.31 Alcoholic cirrhosis of liver with ascites; D63.8 Anemia in other chronic diseases classified elsewhere; N31.9 Neuromuscular dysfunction of bladder, unspecified; Y73.2 Prosthetic and other implants, materials and accessory gastroenterology and urology devices associated with adverse incidents; E83.51 Hypocalcemia; E83.42 Hypomagnesemia; Y83.2 Surgical operation with anastomosis, bypass or graft as the cause of abnormal reaction of the patient, or of later complication, without mention of misadventure at the time of the procedure; E88.09 Other disorders of plasma-protein metabolism, not elsewhere classified; S24.103S Unspecified injury at T7-T10 level of thoracic spinal cord, sequela; W34.00XS Accidental discharge from unspecified firearms or gun, sequela; D69.59 Other secondary thrombocytopenia; E87.70 Fluid overload, unspecified; Y84.6 Urinary catheterization as the cause of abnormal reaction of the patient, or of later complication, without mention of misadventure at the time of the procedure; R73.9 Hyperglycemia, unspecified; K21.9 Gastro-esophageal reflux disease without esophagitis; K80.20 Calculus of gallbladder without cholecystitis without obstruction; Z68.39 Body mass index [BMI] 39.0-39.9, adult; E66.813 Obesity, class 3; N13.9 Obstructive and reflux uropathy, unspecified; Z11.52 Encounter for screening for COVID-19; F32.9 Major depressive disorder, single episode, unspecified; Z87.891 Personal history of nicotine dependence; Z87.442 Personal history of urinary calculi; Z86.718 Personal history of other venous thrombosis and embolism; Z87.440 Personal history of urinary (tract) infections
CPT/HCPCS: 88307; 36556; 36600; 70450; 71045; 71250; 71260; 74018; 74176; 74177; 76700; 76937; 80048; 80053; 80202; 81003; 81015; 82140; 82248; 82533; 82550; 82570; 82805; 82962; 83036; 83605; 83690; 83735; 83880; 84100; 84145; 84439; 84443; 84478; 84484; 85014; 85018; 85025; 85027; 85610; 85730; 86022; 86850; 86900; 86901; 86920; 87040; 87070; 87086; 87147; 87205; 87502; 87811; 92960; 93005; 93306; 93970; 94002; 94003; 94640; 95816; 96361; 96374; 96375; 96376; 99291; C1776; J0153; J2185; P9016; P9045; P9047; P9058; Q9967